=== PATIENT | female | born 1935 | race Two or more races ===

== ENCOUNTER 2019-01-11 17:52 | Inpatient (IN) | payer OTHER, MEDICAID ==
[~2019-01-11] VITALS: Ht 144.8 cm; Wt 56.3 kg
[2019-01-11 18:00] VITALS: BP 93/54
--- NOTE | 2019-01-11 18:00 | NUR ---
ED Nurse Note: PT FROM HOME BROUGHT IN BY AMBULANCE DUE TO GENERALIZED WEAKNESS X 2 WEEKS AND BLACK TARRY STOOLS X 5 DAYS. PER DAUGHTER, PT WAS ADMITTED AT [facility] WEEK OF December AND DC ON JANUARY 04. PT IS AWAKE BUT NON VERBAL, FOLLOWS COMMANDS WITH NO RESPIRATORY DISTRESS, NOTED A BIG BRUISE ON HER RIGHT FOREARM, PER DAUGHTER THE THE PT GOT IT FROM [facility] AT [facility]. VSS.
--- NOTE | 2019-01-11 18:30 | NUR ---
ED Nurse Note: RN UNABLE TO DRAW BLOOD FROM IV SITE. CALLED LAB FOR BLOOD DRAW.
--- NOTE | 2019-01-11 18:53 | NUR ---
ED Nurse Note: DAUGHTER MADE AWARE OF ADMISSION OR POSSIBLE TRANSFER.
--- NOTE | 2019-01-11 19:11 | Emergency Room Report ---
History of Present Illness General Chief Complaint: Gastrointestinal Bleed Source: Family Member Present Illness HPI 83-year-old female presents ED for evaluation. Brought in by EMS. Family at bedside states that patient has been feeling short of breath today. Also noted to be having blood in stool with diarrhea. States that patient was admitted last week to [facility] for the same problem and discharged. Was seen by PMD yesterday but family states full evaluation was not performed. Family states they're not sure of diagnosis on admission but states that they had to take fluid from patient's lung and they were putting her on antibiotics for an infection. Patient denies fevers or chills. Denies chest pain. Denies nausea or vomiting. No other aggravating relieving factors. Denies any other associated symptoms Allergies: Coded Allergies: No Known Allergies (Unverified , 01/11/19) Patient History Past Medical History: none, DM, HTN, CHF, other - throat cancer Past Surgical History: none Pertinent Family History: none Social History: Denies: smoking, alcohol use, drug use Last Menstrual Period: na Now: No Immunizations: UTD Reviewed Nursing Documentation: PMH: Agreed; PSxH: Agreed Nursing Documentation-PMH Hx Cardiac Problems: Yes - chf, anemia Hx Hypertension: Yes Hx Diabetes: Yes Hx Cancer: Yes - throat Hx Dialysis: No - renal failure Review of Systems All Other Systems: negative except mentioned in HPI Physical Exam Vital Signs Date Time Temp Pulse Resp B/P (MAP) Pulse Ox O2 Delivery O2 Flow Rate FiO2 01/11/19 17:45 97.5 64 18 104/52 (69) 100 Room Air Sp02 EP Interpretation: reviewed, normal General Appearance: no apparent distress, alert, GCS 15, non-toxic Head: normocephalic, atraumatic Eyes: bilateral eye normal inspection, bilateral eye PERRL ENT: hearing grossly normal, normal pharynx, no angioedema, normal voice Neck: full range of motion, supple/symm/no masses Respiratory: chest non-tender, lungs clear, crackles, speaking full sentences Cardiovascular #1: regular rate, rhythm, no edema Cardiovascular #2: 2+ carotid (R), 2+ carotid (L), 2+ radial (R), 2+ radial (L) , 2+ dorsalis pedis (R), 2+ dorsalis pedis (L) Gastrointestinal: normal bowel sounds, non tender, soft, non-distended, no guarding, no rebound Rectal: deferred Genitourinary: normal inspection, no CVA tenderness Musculoskeletal: back normal, gait/station normal, normal range of motion, non- tender Neurologic: alert, oriented x3, responsive, motor strength/tone normal, sensory intact, speech normal Psychiatric: judgement/insight normal, memory normal, mood/affect normal, no suicidal/homicidal ideation Reflexes: 3+ bicep (R), 3+ bicep (L), 3+ tricep (R), 3+ tricep (L), 3+ knee (R) , 3+ knee (L) Skin: normal color, no rash, warm/dry, well hydrated Lymphatic: no adenopathy Procedures Critical Care Time Critical Care Time i. I feel this is a highly complex case requiring extensive working including EKG/Rhythm strip, Xray/CT/US, Blood/urine lab work, repeat exams while in ED, and administration of strong opiates/narcotics for pain control, admission to hospital or close patient follow up. Total time: 50 min bedside evaluation and treatment excludes procedures (EKG). Reason for critical care: hypotension, CHF, sepsis, renal failure, severe anemia Possible complications: hypotension, hypertension, GA, shock, arrhythmias, metabolic acidosis, end organ damage, respiratory failure. Interventions: labs, IVFS, EKG, CXR. central line. blood transfusion. antibiotics Course: Patient brought in by EMS for weakness, blood in stool. Hypotensive. Recently discharged from [facility] last week. Chest x-ray shows CHF with effusion. Hemoglobin 3.9. Lactic elevated. BUN/creatinine elevated. BP improved with small IV fluid bolus. Right IJ central line placed with ultrasound. Chest x-ray confirms placement. Broad-spectrum antibiotics given. Blood transfusion started. Consultations: nursing staff, EMS, family Performed by: Dr Marcial Tolerated well condition = critical j. because of unstable vital signs this patient had a condition that could potentially threaten life or limb. I feel this is a critical patient who required my full attention while patient was considered critical. Total Critical Care Time excluding procedures was greater than 50 minutes Central Line Central Line : Consent: Written Central Line Lumen: triple Maximal Sterile Barrier Tech: yes cap, yes mask, yes sterile gown, yes sterile gloves, yes large sterile sheet, yes hand hygiene, yes chlorhexidine prep Central Line Postion: internal jugular (R) Anesthesia: Lidocaine Complications: none Central Line Post Position: sutured, good blood return, position confirmed w / CXR Attempts: One Patient Tolerated: Well Complications: None Medical Decision Making Diagnostic Impression: Primary Impression: LGI bleed Additional Impressions: Anemia Qualified Codes: D64.9 - Anemia, unspecified Sepsis Qualified Codes: A41.9 - Sepsis, unspecified organism CHF (congestive heart failure) Qualified Codes: I50.9 - Heart failure, unspecified Renal failure Qualified Codes: N19 - Unspecified kidney failure ER Course Hospital Course 83 yo F presents to ED with blood in stool, weakness. recent hospitalization Differential diagnoses include: Pneumonia, UTI, sepsis, dehydration, GA/ unstable angina Clinical course Patient placed on stretcher. 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 After initial history and physical, I ordered labs, IV fluids, EKG, chest x-ray, blood cultures, UA. Labs - BUN/Cr elevated, no leukocytosis, hb 3.9, BNP elevated, Lactic > 3 EKG - NSR, no acute ischemic changes interpreted by me CXR - cardiomegaly, L sided effusion Right IJ central line placed with ultrasound. Chest x-ray confirms placement. Also possible infiltrate on the right. BP improved with small fluid bolus. Broad-spectrum antibiotics given. 2 units of blood ordered. Because of profound CHF patient not given 30 mL per KG fluid bolus. Discussed case with family Case discussed with Dr Mixon and they agreed to admit patient to their service for further care and support I feel this is a highly complex case requiring extensive working including EKG/ Rhythm strip, Xray/CT/US, Blood/urine lab work, repeat exams while in ED, and administration of strong opiates/narcotics for pain control, admission to hospital or close patient follow up. Diagnosis - LGIB, anemia, sepsis, CHF, renal failure Patient admitted to SDU in critical condition Labs Test 01/11/19 18:55 01/11/19 20:40 White Blood Count 7.2 K/UL (4.8-10.8) Red Blood Count 1.47 M/UL (4.20-5.40) Hemoglobin 3.9 G/DL (12.0-16.0) Hematocrit 13.1 % (37.0-47.0) Mean Corpuscular Volume 89 FL (80-99) Mean Corpuscular Hemoglobin 26.1 PG (27.0-31.0) Mean Corpuscular Hemoglobin Concent 29.3 G/DL (32.0-36.0) Red Cell Distribution Width 17.4 % (11.6-14.8) Platelet Count 118 K/UL (150-450) Mean Platelet Volume 7.7 FL (6.5-10.1) Neutrophils (%) (Auto) % (45.0-75.0) Lymphocytes (%) (Auto) % (20.0-45.0) Monocytes (%) (Auto) % (1.0-10.0) Eosinophils (%) (Auto) % (0.0-3.0) Basophils (%) (Auto) % (0.0-2.0) Differential Total Cells Counted 100 Neutrophils % (Manual) 87 % (45-75) Lymphocytes % (Manual) 10 % (20-45) Monocytes % (Manual) 3 % (1-10) Eosinophils % (Manual) 0 % (0-3) Basophils % (Manual) 0 % (0-2) Band Neutrophils 0 % (0-8) Platelet Estimate Decreased Platelet Morphology Normal Hypochromasia 3+ Anisocytosis 1+ Prothrombin Time 12.7 SEC (9.30-11.50) Prothromb Time International Ratio 1.2 (0.9-1.1) Activated Partial Thromboplast Time 24 SEC (23-33) Sodium Level 144 MMOL/L (136-145) Potassium Level 5.0 MMOL/L (3.5-5.1) Chloride Level 114 MMOL/L (98-107) Carbon Dioxide Level 14 MMOL/L (21-32) Anion Gap 16 mmol/L (5-15) Blood Urea Nitrogen 166 mg/dL (7-18) Creatinine 4.5 MG/DL (0.55-1.30) Estimat Glomerular Filtration Rate mL/min (>60) Glucose Level 253 MG/DL (74-106) Lactic Acid Level 3.20 mmol/L (0.4-2.0) Calcium Level 7.5 MG/DL (8.5-10.1) Total Bilirubin 0.2 MG/DL (0.2-1.0) Aspartate Amino Transf (AST/SGOT) 16 U/L (15-37) Alanine Aminotransferase (ALT/SGPT) 22 U/L (12-78) Alkaline Phosphatase 31 U/L (46-116) Total Creatine Kinase 93 U/L (26-308) Creatine Kinase MB 6.4 NG/ML (0.0-3.6) Creatine Kinase MB Relative Index 6.8 Troponin I 0.020 ng/mL (0.000-0.056) Pro-B-Type Natriuretic Peptide 37769 pg/mL (0-125) Total Protein 4.1 G/DL (6.4-8.2) Albumin 1.7 G/DL (3.4-5.0) Globulin 2.4 g/dL Albumin/Globulin Ratio 0.7 (1.0-2.7) EKG Diagnostic Results Rate: normal Rhythm: NSR ST Segments: no acute changes ASA given to the pt in ED: No Rhythm Strip Diag. Results EP Interpretation: yes Rhythm: NSR, no PVC's, no ectopy Chest X-Ray Diagnostic Results Chest X-Ray Diagnostic Results : Chest X-Ray Ordered: Yes # of Views/Limited/Complete: 1 View Indication: Shortness of Breath EP Interpretation: Yes Interpretation: no pneumothorax, other - L sided effusion Impression: Other - effusion/CHF Electronically Signed by: Electronically signed by Robbin Marcial MD Last Vital Signs Date Time Temp Pulse Resp B/P (MAP) Pulse Ox O2 Delivery O2 Flow Rate FiO2 01/11/19 18:00 97.5 62 15 93/54 98 Room Air Status: improved Disposition: ADMITTED INPATIENT Condition: Critical Referrals: [facility] (PCP) Robbin Marcial MD January 11, 2019 19:11
--- NOTE | 2019-01-11 19:11 | NUR ---
HAND-OFF: Report given to HORACIO PRUITT.
[2019-01-11 19:32] LABS: HEMATOCRIT 13.1 % (37.0-47.0); MEAN CORPUSCULAR VOLUME 89 FL (80-99); PLATELET COUNT 118 K/UL (150-450); RED BLOOD COUNT 1.47 M/UL (4.20-5.40); RED CELL DISTRIBUTION WIDTH 17.4 % (11.6-14.8); WHITE BLOOD COUNT 7.2 K/UL (4.8-10.8)
[2019-01-11 19:41] LABS: HEMOGLOBIN 3.9 G/DL (12.0-16.0)
[2019-01-11 19:42] LABS: ANION GAP 16 mmol/L (5-15); BLOOD UREA NITROGEN 166 mg/dL (7-18); CALCIUM 7.5 MG/DL (8.5-10.1); CARBON DIOXIDE 14 MMOL/L (21-32); CHLORIDE 114 MMOL/L (98-107); CREATININE 4.5 MG/DL (0.55-1.30); SODIUM 144 MMOL/L (136-145)
[2019-01-11 19:43] LABS: INR 1.2 (0.9-1.1)
--- NOTE | 2019-01-11 19:45 | NUR ---
ED Nurse Note: IN and out cath done, pt tolerated well. urine sent to lab, daughter at bedside
[2019-01-11 19:52] LABS: ALANINE AMINOTRANSFERASE 22 U/L (12-78); ALBUMIN 1.7 G/DL (3.4-5.0); ALBUMIN/GLOBULIN RATIO 0.7 (1.0-2.7); ALKALINE PHOSPHATASE 31 U/L (46-116); ASPARTATE AMINO TRANSFERASE 16 U/L (15-37); BILIRUBIN,TOTAL 0.2 MG/DL (0.2-1.0); CKMB 6.4 NG/ML (0.0-3.6); CREATINE KINASE 93 U/L (26-308)
[2019-01-11 20:02] VITALS: BP 99/69
[2019-01-11] MEDS ORDERED: Piperacillin/Tazobactam 3.375 GM in NS 110 ML IVPB ONE (20:45)
--- NOTE | 2019-01-11 20:45 | NUR ---
ED Nurse Note: Assissted Dr Lo with inserting R IJ central line, pt tolerated well, placement confirmed with xray. confirmed. Line cleansed and dressed.
[2019-01-11] MEDS ORDERED: Azithromycin 500 MG in D5W 275 ML IVPB ONE (21:00)
--- NOTE | 2019-01-11 21:25 | NUR ---
ED Nurse Note: PRBC's started at 50ml/hr per protocol, VSS temp 97.0, Hr 72, BP 100/70. NO signs of distress.
--- NOTE | 2019-01-11 21:40 | NUR ---
ED Nurse Note: PRBC's running for 15 mins, no adverse reaction noted. Pt is calm and showing no signs of distress, VSS temp 96.6, HR 72, BP 91/38. Increased rate to 120mls/hr. Will continue to monitor.
[2019-01-11 22:00] VITALS: BP 92/43
[2019-01-11] MEDS ORDERED: Azithromycin 500mg Inj IV ONE (22:56)
[2019-01-12] VITALS: BP 92/52
--- NOTE | 2019-01-12 00:10 | NUR ---
TRANSFER TO FLOOR: Patient transferred to as ordered, per Dr Mixon. Report given to EDMOND Tapia .1st bag of PRBCs still infusing, pt tolerating well. VSS. Pt cleaned. Family and or S/O informed of transfer.
[2019-01-12] MEDS ORDERED: JANUMET XR 1001 EACH ORAL (01:21)
[2019-01-12] MEDS ORDERED: CARVEDILOL12.5 MG ORAL (01:28)
[2019-01-12] MEDS ORDERED: LIPITOR80 MG ORAL (01:28)
[2019-01-12] MEDS ORDERED: VITAMIN D250000 UNI1 ORAL (01:28)
[2019-01-12] MEDS ORDERED: ISOSORBIDE MONO60 M1 PO (01:59)
[2019-01-12] MEDS ORDERED: ZITHROMAX250 MG ORAL (01:59)
[2019-01-12] MEDS ORDERED: ASPIRIN81 MG ORAL (01:59)
[2019-01-12] MEDS ORDERED: NORVASC10 MG ORAL (01:59)
[2019-01-12] MEDS ORDERED: FUROSEMIDE40 MG ORAL (01:59)
[2019-01-12 04:00] VITALS: BP 121/53
--- NOTE | 2019-01-12 07:30 | NUR ---
HAND-OFF: Report given to Lulu PRUITT.
--- NOTE | 2019-01-12 07:30 | NUR ---
HAND-OFF: Report given to Candida. Addendum: 01/12/19 at 0746 by Willie Vick RN entered in error
--- NOTE | 2019-01-12 07:31 | NUR ---
NURSE NOTES: Received report from Willie Simmons RN. Observed patient in bed awake, alert, and able to make needs known. Patient on room air, no acute respiratory distress noted. Left hand IV 22g intact and patent. Right triple lumen IJ intact and patent, blood tranfusion ongoing. No c/o pain/discomfort at this time. Received orders from Dr Mixon, noted and carried out. Bed locked, alarmed, and in lowest position, side rails up x3, and call light left within reach. Will continue to monitor.
[2019-01-12] MEDS: NovoLOG Insulin Flexpen SUBQ SCH ×4 (07:57→21:04)
[2019-01-12 08:00] VITALS: BP 131/59
--- NOTE | 2019-01-12 10:24 | NUR ---
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 LOWER GI BLEED VS: BP 91/38, P 64, T 97.6, RR 26, SpO2 100 RBC 1.47, H&H 3.9/13.1, Plt. Count 118, BUN 166, CR 4.5 IS:NS x1L IV ZOSYN 110ml IVPB AZITHROMYCIN 500mg IV TRANSFUSED 1 UNIT OF PRBC ADMITTED TO SDU DCP: RETURN HOME
--- NOTE | 2019-01-12 10:36 | NUR ---
NURSE NOTES: Patient is positive for soleal vein thrombus on left leg shown on venous duplex. Dr Mixon notified, received order to d/c SCDs; noted and carried out.
--- NOTE | 2019-01-12 11:12 | Diagnostic Imaging Report ---
Indication: Chest pain Technique: One view of the chest Comparison: none Findings: Patient is rotated to the right. There is a moderate size left pleural effusion. The heart size is borderline enlarged. Lungs and right pleural space are clear. Impression: Left pleural effusion Borderline cardiomegaly
--- NOTE | 2019-01-12 11:17 | Diagnostic Imaging Report ---
Indication: Status post line placement Technique: One view of the chest Comparison: 2 hours earlier Findings: Interim placement a right jugular central venous catheter, tip of which projects at the level of the mid superior vena cava. There is increasing opacity of the right mid and lower lung. However, previously demonstrated left-sided pleural effusion is less evident on this exam, possibly reflecting differences in degree of rotation. There is no pneumothorax. The heart remains borderline enlarged. Impression: Satisfactory central line placement; no radiographic evident complication Questionable new or increased right lung parenchymal opacity. Persistent left pleural effusion or atelectasis This agrees with the preliminary interpretation provided overnight by [facility] teleradiology service.
[2019-01-12 12:00] VITALS: BP_SYST 100; BP_SYST 137; BP_DIAS 59; BP_DIAS 67
--- NOTE | 2019-01-12 12:11 | Cardiology Report ---
APPROVED REPORT EKG Measurement Heart [id number] Normal sinus rhythm Normal ECG
[2019-01-12] MEDS: cefTRIAXone 1 GM in D5W 55 ML IVPB SCH (14:00)
--- NOTE | 2019-01-12 15:17 | NUR ---
*-* INSURANCE *-* ALL CLINICALS AND REVIEW HAVE BEEN FAXED TO: [facility]. P: [phone] F: [phone] ( FAX CLINICALS)
[2019-01-12 16:00] VITALS: BP 136/69
[2019-01-12 16:12] LABS: HEMATOCRIT 30.8 % (37.0-47.0); HEMOGLOBIN 10.7 G/DL (12.0-16.0); MEAN CORPUSCULAR VOLUME 83 FL (80-99); PLATELET COUNT 94 K/UL (150-450); RED BLOOD COUNT 3.71 M/UL (4.20-5.40); RED CELL DISTRIBUTION WIDTH 15.4 % (11.6-14.8); WHITE BLOOD COUNT 15.7 K/UL (4.8-10.8)
[2019-01-12 16:14] LABS: EOSINOPHILS % (AUTO) 0.2 % (0.0-3.0); LYMPHOCYTES % (AUTO) 4.4 % (20.0-45.0); MONOCYTES % (AUTO) 5.8 % (1.0-10.0); NEUTROPHILS % (AUTO) 88.7 % (45.0-75.0)
[2019-01-12 16:25] LABS: INR 1.1 (0.9-1.1)
[2019-01-12 16:32] LABS: ALANINE AMINOTRANSFERASE 27 U/L (12-78); ALBUMIN 2.3 G/DL (3.4-5.0); ALBUMIN/GLOBULIN RATIO 0.8 (1.0-2.7); ALKALINE PHOSPHATASE 43 U/L (46-116); ANION GAP 17 mmol/L (5-15); ASPARTATE AMINO TRANSFERASE 23 U/L (15-37); BILIRUBIN,TOTAL 0.3 MG/DL (0.2-1.0); BLOOD UREA NITROGEN 146 mg/dL (7-18); CALCIUM 7.8 MG/DL (8.5-10.1); CARBON DIOXIDE 15 MMOL/L (21-32); CHLORIDE 112 MMOL/L (98-107); CREATININE 4.1 MG/DL (0.55-1.30); PHOSPHORUS 7.4 MG/DL (2.5-4.9); POTASSIUM 4.1 MMOL/L (3.5-5.1); SODIUM 144 MMOL/L (136-145)
[2019-01-12] MEDS ORDERED: ATORVASTATIN CA20 MG ORAL (17:52)
--- NOTE | 2019-01-12 19:25 | NUR ---
HAND-OFF: Report given to Edgar MELTON RN.
--- NOTE | 2019-01-12 19:30 | NUR ---
NURSE NOTES:received pt awake and alert, speaks Syrian most of the time, Family at bedside. NSR on the monitor, Bp stable, afebrile. RT IJ central line with drsg dry and intact. Pt with perianal moisture dermatitis covered with optifoam drsg dry and intact, RT FA skin tear, and bilateral redness. No active bleeding seen at this time.Will continue to monitor.
--- NOTE | 2019-01-12 19:40 | Diagnostic Imaging Report ---
APPROVED REPORT CPT Code: 14802 Present Symptoms Comments: Left leg pain RIGHT LEG: Venous imaging reveals a patent deep venous system. There is no evidence of thrombus within the femoral, popliteal or tibial segments. The greater saphenous vein is also within normal limits. Doppler indicates normal spontaneous flow within these segments. LEFT LEG: Venous imaging reveals acute thrombus in the isolated soleal vein. Remainder of the deep venous system within normal limits. No evidence of thrombus within the femoral, popliteal or tibial segments. Greater saphenous vein also within normal limits. Doppler indicates normal spontaneous flow within these segments. EDMOND Lawson was notified of abnormal results at 1030 hours.
[2019-01-12 20:00] VITALS: BP 138/54
--- NOTE | 2019-01-12 20:22 | General Progress Note ---
Assessment/Plan Assessment/Plan: GI CONSULT Dictated Assessment - Melena, UGIB - Anemia, s/p transfusion - Renal failure Recommendations - NPO - IVF - PPI - EGD in am Thank you Porsha Garcia MD Subjective Allergies: Coded Allergies: No Known Allergies (Unverified , 01/11/19) Objective Last 24 Hour Vital Signs Date Time Temp Pulse Resp B/P (MAP) Pulse Ox O2 Delivery O2 Flow Rate FiO2 01/12/19 16:00 97.5 77 20 136/69 (91) 96 01/12/19 16:00 Room Air 01/12/19 16:00 78 01/12/19 12:00 76 01/12/19 12:00 Room Air 01/12/19 12:00 97.6 79 20 137/67 (90) 96 01/12/19 08:00 97.8 77 23 131/59 (83) 96 01/12/19 08:00 Room Air 01/12/19 07:30 78 01/12/19 04:00 97.9 70 24 121/53 (75) 95 01/12/19 04:00 Room Air 01/12/19 04:00 75 01/12/19 00:30 Room Air 01/12/19 00:21 98.6 72 25 98/45 100 Room Air 01/12/19 00:14 72 01/12/19 00:00 98.8 78 18 92/52 98 Room Air 01/11/19 22:00 98.2 75 26 92/43 100 Room Air 01/11/19 21:40 96.6 72 24 01/11/19 21:25 97.0 72 20 Intake and Output 01/11/19 01/12/19 19:00 07:00 Intake Total 500 ml Output Total 250 ml Balance 250 ml Blood Product 500 ml Output Urine Total 250 ml # Bowel Movements 2 Laboratory Tests 01/11/19 20:40: Lactic Acid Level 3.20H 01/12/19 15:45: Lactic Acid Level 1.70, White Blood Count 15.7#H, Red Blood Count 3.71L, Hemoglobin 10.7#L, Hematocrit 30.8#L, Mean Corpuscular Volume 83, Mean Corpuscular Hemoglobin 28.7, Mean Corpuscular Hemoglobin Concent 34.6, Red Cell Distribution Width 15.4H, Platelet Count 94L, Mean Platelet Volume 7.8, Neutrophils (%) (Auto) 88.7H, Lymphocytes (%) (Auto) 4.4L, Monocytes (%) (Auto) 5.8, Eosinophils (%) (Auto) 0.2, Basophils (%) (Auto) 1.0, Prothrombin Time 11.4 , Prothromb Time International Ratio 1.1, Sodium Level 144, Potassium Level 4.1 , Chloride Level 112H, Carbon Dioxide Level 15L, Anion Gap 17H, Blood Urea Nitrogen 146H, Creatinine 4.1H, Estimat Glomerular Filtration Rate , Glucose Level 276H, Calcium Level 7.8L, Phosphorus Level 7.4H, Magnesium Level 2.7H, Total Bilirubin 0.3, Aspartate Amino Transf (AST/SGOT) 23, Alanine Aminotransferase (ALT/SGPT) 27, Alkaline Phosphatase 43L, Total Protein 5.1L, Albumin 2.3L, Globulin 2.8, Albumin/Globulin Ratio 0.8L Height (Feet): 4 Height (Inches): 9.00 Weight (Pounds): 130 Porsha Garcia MD January 12, 2019 20:22
--- NOTE | 2019-01-12 20:45 | NUR ---
NURSE NOTES:Dr Garcia called with order for endoscopy in am. Consent was signed by daughter( Nuha).
--- NOTE | 2019-01-12 21:00 | NUR ---
NURSE NOTES:Accucheck 183mg/dl covered with 3 u Nov, Flexpen. HS snack provided per pt request.
--- NOTE | 2019-01-12 21:01 | History and Physical Report ---
DATE OF ADMISSION: 01/11/2019 REASON FOR ADMISSION: GI bleed. HISTORY OF PRESENT ILLNESS: This is an 83-year-old female who was brought in due to significant shortness of breath. The patient is apparently having bloody stool and diarrhea. The patient was admitted to last week at [facility] with discharge unclear as to the findings. The patient apparently had a pleural effusion at that time, placed on antibiotics and was discharged to home. The patient noted to be significantly anemic and has been admitted to the [facility], ongoing transfusion at present time. PAST MEDICAL HISTORY: Diabetes, hypertension, CHF, throat cancer. MEDICATIONS: Reviewed. ALLERGIES: Reviewed. SOCIAL HISTORY: The patient lives with family. Nonsmoker and nondrinker. REVIEW OF SYSTEMS: Notable for the above. PHYSICAL EXAMINATION: GENERAL: A well-developed female appears to be overall comfortable. VITAL SIGNS: Blood pressure 121/53, pulse 75, respiratory rate 24, temperature 97.9, off oxygen at present. HEENT: Negative. NECK: Supple. LUNGS: Reduced breath sounds. CARDIAC: S1 and S2. Regular rate and rhythm. ABDOMEN: Soft, nontender, and nondistended. EXTREMITIES: No edema. LABORATORY DATA: Reviewed. Hemoglobin 8.9, platelets of 118. Chemistries noted, bicarbonate 14, BUN 166, creatinine 4.5. Lactic acid 2.2. BNP reviewed. Albumin is 1.7. IMPRESSION: 1. Severe protein-calorie malnutrition. 2. End-stage renal disease. 3. Anemia profound, possible gastrointestinal bleed. 4. acute on chronic encephalopathy 5. History of congestive heart failure. RECOMMENDATION: 1. Supportive care. 2. Renal evaluation. 3. GI evaluation. 4. Cardiology evaluation. 5. Transfuse and monitor hemoglobin and hematocrit. 6. No anticoagulation for now. 7. We will follow clinically. 8. The patient is guarded at present. 9. We will discuss with family. Joss Mixon M.D. DR: Bhanu JOB#: [id number] CC: AZEEM
--- NOTE | 2019-01-12 21:01 | Consultation ---
DATE OF CONSULTATION: 01/12/2019 INFECTIOUS DISEASE CONSULT This consult is for coverage of Dr. Gamble. CONSULTING PHYSICIAN: Sahil Flores M.D. PRIMARY ATTENDING PHYSICIAN: Joss Mixon M.D. REASON FOR CONSULTATION: Pneumonia. HISTORY OF PRESENT ILLNESS: This is an 83-year-old female admitted last night, complaining of shortness of breath. Also, had bloody diarrhea. The patient was found to have profound anemia with hemoglobin of 3,5, received 4 units of blood and also received antibiotic in the ER. PAST MEDICAL HISTORY: Significant for diabetes mellitus, hypertension, chronic kidney disease, diastolic CHF, neck cancer likely from origin, anemia. The patient has history of recent admission in December of 2018 at [facility]. She stayed there for two weeks. She was found to have pleural effusion and had thoracentesis. Echocardiogram showed normal ejection fraction. She has anemia there and received 1 unit of blood. ALLERGIES: No known drug allergies. MEDICATIONS: Getting insulin, Tylenol, Mylanta, get a dose of Zithromax and Zosyn. SOCIAL HISTORY: . Denies alcohol, drug abuse, or smoking. She has 8 children. REVIEW OF SYSTEMS: According to daughter, has decreased appetite recently and reflux. No difficulty of swallowing before, but does have some difficulty recently. She has bloody diarrhea. No pain. No significant coughing. PHYSICAL EXAMINATION: VITAL SIGNS: Temperature 97.6, pulse 79, blood pressure 137/67. HEAD AND NECK: Pale conjunctiva. No oral lesion. Uses dentures. Mucous membranes are moist. HEART: Normal rate. LUNGS: Clear. ABDOMEN: Soft and nontender. EXTREMITIES: Generalized edema. NEUROLOGIC: She is awake, responsive. LABORATORY AND DIAGNOSTIC DATA: WBC 7.0, hemoglobin 3.9, hematocrit 13.1, and platelets is 118,000. Sodium 144, potassium 5, chloride 114, carbon dioxide 14, BUN 166, creatinine 4.5, lactic acid 3.2, albumin is 1.7. Chest x-ray showed left pleural effusion, borderline cardiomegaly. The second chest x-ray was obtained after putting right jugular line, shows increased right lung parenchymal opacity. IMPRESSION: 1. Early pneumonia. 2. lower GI bleeding. 3. History of CHF. 4. Chronic kidney disease. 5. Severe anemia, status post blood transfusion. 6. History of throat cancer. According to family, the patient was supposed to have more evaluation. 7. Diabetes mellitus. 8. Hypertension. RECOMMENDATION: Start on ceftriaxone. We will follow up the cultures. We will follow up the GI evaluation. At the end of my exam, I thank Dr. Mixon for involving me in the care of this patient. Sahil Flores M.D. DR: JENELLE JOB#: [id number] CC: AZEEM
--- NOTE | 2019-01-12 22:22 | NUR ---
NURSE NOTES: Pt report received from Patricia PRUITT [facility]. Pt appears to be in stable condition as she is resting comfortably in bed. Pt is alert and oriented times 4, able to follow simple commands and pupiles are rounds and reactive to light bilaterally. Pt is saturating at 99% room are, no signs or symptoms of acute respiratory distress noted. Pt has a ekg monitor in place, active and displaying sinus rhythm, pt has no signs or symptoms of acute cardiac distress noted. Pt has a R IJ 3 lumen line and a R hand 22 G both able to flush with no abnormalities noted to site. all safety precautions are in place, bed is in lowest position, call light is within easy reach, bed rails are up times 3, bed alarm is active. will continue plan of care.
--- NOTE | 2019-01-12 22:30 | NUR ---
HAND-OFF:Full report given to Marin PRUITT.
[2019-01-13] VITALS (12 sets, daily range): BP systolic 140–155; BP diastolic 64–77
--- NOTE | 2019-01-13 02:49 | NUR ---
NURSE NOTES: Fran from [employer] called, pt is positive VRE REC.
--- NOTE | 2019-01-13 03:30 | Consultation ---
DATE OF CONSULTATION: 01/12/2019 GASTROENTEROLOGY CONSULTATION CONSULTING PHYSICIAN: Porsha Garcia M.D. CHIEF COMPLAINT: I was asked to see this patient by Dr. Joss Mixon for evaluation of gastrointestinal bleeding. HISTORY OF PRESENT ILLNESS: The patient is an 83-year-old woman who was recently admitted and discharged from the outside hospital. She came from home because of black bowel movements and also feeling short of breath. The patient was apparently in an outside hospital and had no bowel movement for the last 15 days. Apparently multiple laxatives were given to her and she started having bowel movement after discharge. However, subsequently, the patient noted that her stools were black and loose and yesterday she became short of breath. It was felt that she was apparently having gastrointestinal bleeding. She came to the emergency room where she was noted to be severely anemic. She received four blood transfusions in the night and she feels better now. She denies any nausea or vomiting and no abdominal pain. The patient had no history of peptic ulcer disease and no prior endoscopy or colonoscopy. She does take aspirin on a daily basis. PAST MEDICAL HISTORY: History of diabetes, hypertension, congestive heart failure, history of throat cancer. FAMILY HISTORY: Noncontributory. SOCIAL HISTORY: The patient is descent and lives in [place]. ALLERGIES: None. MEDICATIONS: See the chart list for details. REVIEW OF SYSTEMS: Otherwise negative. PHYSICAL EXAMINATION: GENERAL: Pleasant elderly woman, who is hard of hearing during interview, in no distress. HEENT: Normocephalic and atraumatic. Sclerae anicteric. Oropharynx clear. NECK: Supple. CHEST: Clear to auscultation. CARDIOVASCULAR: Revealed a regular rate. ABDOMEN: Soft. Good bowel sounds. There is no organomegaly or tenderness. EXTREMITIES: Revealed no edema. LABORATORY DATA: Noted. ASSESSMENT: This patient presents with gastrointestinal bleeding and black stools. This is likely upper GI bleeding, therefore the patient will need an endoscopy tomorrow to evaluate the upper GI tract. The indications, risks, alternatives, and possible complications were explained to the patient's family and informed consent was obtained. In the meantime, we will treat the patient with patient proton pump inhibitors and should be made NPO after midnight for endoscopy tomorrow. The patient also has a depressed labs should be watched with serum laboratory tests. RECOMMENDATIONS: Per above discussion and per orders written in the chart. Thank you for asking me to participate in the care of this patient. Porsha Garcia M.D. DR: HEBERT JOB#: [id number] CC: [email or web address]
[2019-01-13 05:49] LABS: HEMATOCRIT 32.3 % (37.0-47.0); HEMOGLOBIN 10.7 G/DL (12.0-16.0); MEAN CORPUSCULAR VOLUME 86 FL (80-99); PLATELET COUNT 99 K/UL (150-450); RED BLOOD COUNT 3.77 M/UL (4.20-5.40); RED CELL DISTRIBUTION WIDTH 16.2 % (11.6-14.8); WHITE BLOOD COUNT 13.9 K/UL (4.8-10.8)
[2019-01-13] MEDS: NovoLOG Insulin Flexpen SUBQ SCH ×4 (06:07→20:56)
[2019-01-13 06:20] LABS: ALANINE AMINOTRANSFERASE 29 U/L (12-78); ALBUMIN 2.3 G/DL (3.4-5.0); ALBUMIN/GLOBULIN RATIO 0.9 (1.0-2.7); ALKALINE PHOSPHATASE 43 U/L (46-116); ANION GAP 17 mmol/L (5-15); ASPARTATE AMINO TRANSFERASE 22 U/L (15-37); BILIRUBIN,TOTAL 0.3 MG/DL (0.2-1.0); BLOOD UREA NITROGEN 134 mg/dL (7-18); CALCIUM 7.8 MG/DL (8.5-10.1); CARBON DIOXIDE 16 MMOL/L (21-32); CHLORIDE 116 MMOL/L (98-107); CREATININE 3.9 MG/DL (0.55-1.30); POTASSIUM 3.7 MMOL/L (3.5-5.1); SODIUM 149 MMOL/L (136-145)
--- NOTE | 2019-01-13 06:43 | Anethesia Preoperative Eval ---
Anesthesia Pre-op PMH/ROS General Date of Evaluation: January 13, 2019 Time of Evaluation: 06:41 Anesthesiologist: dwayne ASA Score: ASA 4 Mallampati Score Class I : Soft palate, uvula, fauces, pillars visible Class II: Soft palate, uvula, fauces visible Class III: Soft palate, base of uvula visible Class IV: Only hard plate visible Mallampati Classification: Class II Surgeon: hima Diagnosis: gi bleed, anemia Surgical Procedure: egd w/ bx Anesthesia History: none Social History: smoking - nonsmoker Family History: no anesthesia problems Allergies: Coded Allergies: No Known Allergies (Unverified , 01/11/19) Medications: see eMAR Patient NPO?: Yes Past Medical History Cardiovascular: Reports: HTN, other - chf Gastrointestinal/Genitourinary: Reports: ESRD - on hd, other - gi bleed Endocrine: Reports: DM HEENT: Reports: other - throat cancer Hematology/Immune: Reports: anemia Anesthesia Pre-op Phys. Exam Physician Exam Last Vital Signs Date Time Temp Pulse Resp B/P (MAP) Pulse Ox O2 Delivery O2 Flow Rate FiO2 01/13/19 04:00 Room Air 01/13/19 04:00 74 01/13/19 04:00 98.1 20 144/64 (90) 99 Constitutional: NAD Neurologic: CN 2-12 intact Cardiovascular: RRR Respiratory: CTA Gastrointestinal: S/NT/ND Airway Exam Mallampati Score: Class II MO: limited Neck: short TMD: 2fb ROM: limited Teeth: missing Anesthesia Pre-op A/P Labs Hematology Test 01/12/19 15:45 01/13/19 04:05 White Blood Count 15.7 K/UL (4.8-10.8) #H 13.9 K/UL (4.8-10.8) H Red Blood Count 3.71 M/UL (4.20-5.40) L 3.77 M/UL (4.20-5.40) L Hemoglobin 10.7 G/DL (12.0-16.0) #L 10.7 G/DL (12.0-16.0) L Hematocrit 30.8 % (37.0-47.0) #L 32.3 % (37.0-47.0) L Mean Corpuscular Volume 83 FL (80-99) 86 FL (80-99) Mean Corpuscular Hemoglobin 28.7 PG (27.0-31.0) 28.4 PG (27.0-31.0) Mean Corpuscular Hemoglobin Concent 34.6 G/DL (32.0-36.0) 33.1 G/DL (32.0-36.0) Red Cell Distribution Width 15.4 % (11.6-14.8) H 16.2 % (11.6-14.8) H Platelet Count 94 K/UL (150-450) L 99 K/UL (150-450) L Mean Platelet Volume 7.8 FL (6.5-10.1) 8.0 FL (6.5-10.1) Neutrophils (%) (Auto) 88.7 % (45.0-75.0) H % (45.0-75.0) Lymphocytes (%) (Auto) 4.4 % (20.0-45.0) L % (20.0-45.0) Monocytes (%) (Auto) 5.8 % (1.0-10.0) % (1.0-10.0) Eosinophils (%) (Auto) 0.2 % (0.0-3.0) % (0.0-3.0) Basophils (%) (Auto) 1.0 % (0.0-2.0) % (0.0-2.0) Neutrophils % (Manual) Pending Lymphocytes % (Manual) Pending Platelet Estimate Pending Platelet Morphology Pending Coagulation Test 01/12/19 15:45 Prothrombin Time 11.4 SEC (9.30-11.50) Prothromb Time International Ratio 1.1 (0.9-1.1) Chemistry Test 01/12/19 15:45 01/13/19 04:05 Sodium Level 144 MMOL/L (136-145) 149 MMOL/L (136-145) H Potassium Level 4.1 MMOL/L (3.5-5.1) 3.7 MMOL/L (3.5-5.1) Chloride Level 112 MMOL/L (98-107) H 116 MMOL/L (98-107) H Carbon Dioxide Level 15 MMOL/L (21-32) L 16 MMOL/L (21-32) L Anion Gap 17 mmol/L (5-15) H 17 mmol/L (5-15) H Blood Urea Nitrogen 146 mg/dL (7-18) H 134 mg/dL (7-18) H Creatinine 4.1 MG/DL (0.55-1.30) H 3.9 MG/DL (0.55-1.30) H Estimat Glomerular Filtration Rate mL/min (>60) mL/min (>60) Glucose Level 276 MG/DL (74-106) H 161 MG/DL (74-106) #H Lactic Acid Level 1.70 mmol/L (0.4-2.0) Calcium Level 7.8 MG/DL (8.5-10.1) L 7.8 MG/DL (8.5-10.1) L Phosphorus Level 7.4 MG/DL (2.5-4.9) H Magnesium Level 2.7 MG/DL (1.8-2.4) H Total Bilirubin 0.3 MG/DL (0.2-1.0) 0.3 MG/DL (0.2-1.0) Aspartate Amino Transf (AST/SGOT) 23 U/L (15-37) 22 U/L (15-37) Alanine Aminotransferase (ALT/SGPT) 27 U/L (12-78) 29 U/L (12-78) Alkaline Phosphatase 43 U/L (46-116) L 43 U/L (46-116) L Total Protein 5.1 G/DL (6.4-8.2) L 4.9 G/DL (6.4-8.2) L Albumin 2.3 G/DL (3.4-5.0) L 2.3 G/DL (3.4-5.0) L Globulin 2.8 g/dL 2.6 g/dL Albumin/Globulin Ratio 0.8 (1.0-2.7) L 0.9 (1.0-2.7) L Risk Assessment & Plan Assessment: [email or web address] Plan: mac Status Change Before Surgery: No Pre-Antibiotics Drug: Andie Garcia MD January 13, 2019 06:43
[2019-01-13] MEDS ORDERED: Propofol 200mg/20ml IV ONE (07:00)
[2019-01-13] MEDS ORDERED: Lidocaine 1% MPF 10mg/ml 5ml ONE (07:00)
--- NOTE | 2019-01-13 07:14 | General Progress Note ---
Assessment/Plan Assessment/Plan: POST PROCEDURE ADDENDUM: EGD: SIX duodenal ulcers, one large (1.5 cm) and remaining five about 5 mm each , all white based No active bleeding, biopsied antrum for HP evaluation valecular ulceration seen, possibly related to given history of "throat cancer" Recommendations: Clear liquids, advance PPI Check path and Rx HP if (+) consider ENT eval for throat abnormalities Subjective Allergies: Coded Allergies: No Known Allergies (Unverified , 01/11/19) Objective Last 24 Hour Vital Signs Date Time Temp Pulse Resp B/P (MAP) Pulse Ox O2 Delivery O2 Flow Rate FiO2 01/13/19 04:00 Room Air 01/13/19 04:00 74 01/13/19 04:00 98.1 76 20 144/64 (90) 99 01/13/19 00:00 97.9 74 20 141/71 (94) 98 01/13/19 00:00 Room Air 01/12/19 22:37 20 01/12/19 20:00 78 01/12/19 20:00 97.7 77 20 138/54 (82) 97 01/12/19 20:00 Room Air 01/12/19 16:00 97.5 77 20 136/69 (91) 96 01/12/19 16:00 Room Air 01/12/19 16:00 78 01/12/19 12:00 76 01/12/19 12:00 Room Air 01/12/19 12:00 97.6 79 20 137/67 (90) 96 01/12/19 08:00 97.8 77 23 131/59 (83) 96 01/12/19 08:00 Room Air 01/12/19 07:30 78 Intake and Output 01/12/19 01/13/19 19:00 07:00 Intake Total 970 ml Output Total 50 ml Balance 970 ml -50 ml Intake Oral 360 ml IV Total 110 ml Blood Product 500 ml Output Urine Total 50 ml # Voids 3 1 Laboratory Tests 01/12/19 15:45: White Blood Count 15.7#H, Red Blood Count 3.71L, Hemoglobin 10.7#L, Hematocrit 30.8#L, Mean Corpuscular Volume 83, Mean Corpuscular Hemoglobin 28.7, Mean Corpuscular Hemoglobin Concent 34.6, Red Cell Distribution Width 15.4H, Platelet Count 94L, Mean Platelet Volume 7.8, Neutrophils (%) (Auto) 88.7H, Lymphocytes (%) (Auto) 4.4L, Monocytes (%) (Auto) 5.8, Eosinophils (%) (Auto) 0.2, Basophils (%) (Auto) 1.0, Prothrombin Time 11.4, Prothromb Time International Ratio 1.1, Sodium Level 144, Potassium Level 4.1, Chloride Level 112H, Carbon Dioxide Level 15L, Anion Gap 17H, Blood Urea Nitrogen 146H, Creatinine 4.1H, Estimat Glomerular Filtration Rate , Glucose Level 276H, Lactic Acid Level 1.70, Calcium Level 7.8L, Phosphorus Level 7.4H, Magnesium Level 2.7H, Total Bilirubin 0.3, Aspartate Amino Transf (AST/SGOT) 23, Alanine Aminotransferase (ALT/SGPT) 27, Alkaline Phosphatase 43L, Total Protein 5.1L, Albumin 2.3L, Globulin 2.8, Albumin/Globulin Ratio 0.8L 01/13/19 04:05: White Blood Count 13.9H, Red Blood Count 3.77L, Hemoglobin 10.7L, Hematocrit 32.3L, Mean Corpuscular Volume 86, Mean Corpuscular Hemoglobin 28.4, Mean Corpuscular Hemoglobin Concent 33.1, Red Cell Distribution Width 16.2H, Platelet Count 99L, Mean Platelet Volume 8.0, Neutrophils (%) (Auto) , Lymphocytes (%) (Auto) , Monocytes (%) (Auto) , Eosinophils (%) (Auto) , Basophils (%) (Auto) , Sodium Level 149H, Potassium Level 3.7, Chloride Level 116H, Carbon Dioxide Level 16L, Anion Gap 17H, Blood Urea Nitrogen 134H, Creatinine 3.9H, Estimat Glomerular Filtration Rate , Glucose Level 161#H, Calcium Level 7.8L, Total Bilirubin 0.3, Aspartate Amino Transf (AST/SGOT) 22, Alanine Aminotransferase (ALT/SGPT) 29, Alkaline Phosphatase 43L, Total Protein 4.9L, Albumin 2.3L, Globulin 2.6, Albumin/Globulin Ratio 0.9L, Neutrophils % ( Manual) [Pending], Lymphocytes % (Manual) [Pending], Platelet Estimate [Pending] , Platelet Morphology [Pending] Height (Feet): 4 Height (Inches): 9.00 Weight (Pounds): 134 Objective WDWN NCAT supple CTA RR abd soft ND NT no edema Porsha Garcia MD January 13, 2019 07:14
--- NOTE | 2019-01-13 07:14 | Pre-Procedure Note/Attestation ---
Pre-Procedure Note/Attestation Complete Prior to Procedure Planned Procedure: not applicable Procedure Narrative: egd Indications for Procedure Pre-Operative Diagnosis: gib Attestation I attest that I discussed the nature of the procedure; its benefits; risks and complications; and alternatives (and the risks and benefits of such alternatives ), prior to the procedure, with the patient (or the patient's legal door to door sales representative). I attest that, if there was a reasonable possibility of needing a blood transfusion, the patient (or the patient's legal door to door sales representative) was given the [facility] standardized written summary, pursuant to the Trey Ward Blood Safety Act ([place] Health and Safety Code # 1645, as amended). I attest that I re-evaluated the patient just prior to the surgery and that there has been no change in the patient's H&P, except as documented below: Porsha Garcia MD January 13, 2019 07:14
--- NOTE | 2019-01-13 07:24 | NUR ---
NURSE NOTES: Received report from EDMOND Funes. Patient is currently in GI lab.
--- NOTE | 2019-01-13 07:30 | NUR ---
HAND-OFF: Report given to Hattie PRUITT and Zayda PRUITT.
--- NOTE | 2019-01-13 08:00 | General Progress Note ---
Assessment/Plan Assessment/Plan: Assessment - Melena, UGIB - Anemia, s/p transfusion - Renal failure - h/o throat cancer - mild hypernatremia Recommendations - NPO - IVF - PPI - EGD today - Free water po after EGD POST PROCEDURE ADDENDUM: EGD: SIX duodenal ulcers, one large (1.5 cm) and remaining five about 5 mm each , all white based No active bleeding, biopsied antrum for HP evaluation valecular ulceration seen, possibly related to given history of "throat cancer" Recommendations: Clear liquids, advance PPI Check path and Rx HP if (+) consider ENT eval for throat abnormalities Subjective Allergies: Coded Allergies: No Known Allergies (Unverified , 01/11/19) Subjective No events overnight NPO for EGD H&H improved and stable Objective Last 24 Hour Vital Signs Date Time Temp Pulse Resp B/P (MAP) Pulse Ox O2 Delivery O2 Flow Rate FiO2 01/13/19 07:52 71 18 150/70 100 Nasal Cannula 2.0 01/13/19 07:47 70 17 152/70 99 Nasal Cannula 2.0 01/13/19 07:42 97.4 67 18 144/65 99 Nasal Cannula 2.0 01/13/19 04:00 Room Air 01/13/19 04:00 74 01/13/19 04:00 98.1 76 20 144/64 (90) 99 01/13/19 00:00 97.9 74 20 141/71 (94) 98 01/13/19 00:00 Room Air 01/12/19 22:37 20 01/12/19 20:00 78 01/12/19 20:00 97.7 77 20 138/54 (82) 97 01/12/19 20:00 Room Air 01/12/19 16:00 97.5 77 20 136/69 (91) 96 01/12/19 16:00 Room Air 01/12/19 16:00 78 01/12/19 12:00 76 01/12/19 12:00 Room Air 01/12/19 12:00 97.6 79 20 137/67 (90) 96 01/12/19 08:00 97.8 77 23 131/59 (83) 96 01/12/19 08:00 Room Air Intake and Output 01/12/19 01/13/19 19:00 07:00 Intake Total 970 ml Output Total 50 ml Balance 970 ml -50 ml Intake Oral 360 ml IV Total 110 ml Blood Product 500 ml Output Urine Total 50 ml # Voids 3 1 Laboratory Tests 01/12/19 15:45: White Blood Count 15.7#H, Red Blood Count 3.71L, Hemoglobin 10.7#L, Hematocrit 30.8#L, Mean Corpuscular Volume 83, Mean Corpuscular Hemoglobin 28.7, Mean Corpuscular Hemoglobin Concent 34.6, Red Cell Distribution Width 15.4H, Platelet Count 94L, Mean Platelet Volume 7.8, Neutrophils (%) (Auto) 88.7H, Lymphocytes (%) (Auto) 4.4L, Monocytes (%) (Auto) 5.8, Eosinophils (%) (Auto) 0.2, Basophils (%) (Auto) 1.0, Prothrombin Time 11.4, Prothromb Time International Ratio 1.1, Sodium Level 144, Potassium Level 4.1, Chloride Level 112H, Carbon Dioxide Level 15L, Anion Gap 17H, Blood Urea Nitrogen 146H, Creatinine 4.1H, Estimat Glomerular Filtration Rate , Glucose Level 276H, Lactic Acid Level 1.70, Calcium Level 7.8L, Phosphorus Level 7.4H, Magnesium Level 2.7H, Total Bilirubin 0.3, Aspartate Amino Transf (AST/SGOT) 23, Alanine Aminotransferase (ALT/SGPT) 27, Alkaline Phosphatase 43L, Total Protein 5.1L, Albumin 2.3L, Globulin 2.8, Albumin/Globulin Ratio 0.8L 01/13/19 04:05: White Blood Count 13.9H, Red Blood Count 3.77L, Hemoglobin 10.7L, Hematocrit 32.3L, Mean Corpuscular Volume 86, Mean Corpuscular Hemoglobin 28.4, Mean Corpuscular Hemoglobin Concent 33.1, Red Cell Distribution Width 16.2H, Platelet Count 99L, Mean Platelet Volume 8.0, Neutrophils (%) (Auto) , Lymphocytes (%) (Auto) , Monocytes (%) (Auto) , Eosinophils (%) (Auto) , Basophils (%) (Auto) , Sodium Level 149H, Potassium Level 3.7, Chloride Level 116H, Carbon Dioxide Level 16L, Anion Gap 17H, Blood Urea Nitrogen 134H, Creatinine 3.9H, Estimat Glomerular Filtration Rate , Glucose Level 161#H, Calcium Level 7.8L, Total Bilirubin 0.3, Aspartate Amino Transf (AST/SGOT) 22, Alanine Aminotransferase (ALT/SGPT) 29, Alkaline Phosphatase 43L, Total Protein 4.9L, Albumin 2.3L, Globulin 2.6, Albumin/Globulin Ratio 0.9L, Neutrophils % ( Manual) [Pending], Lymphocytes % (Manual) [Pending], Platelet Estimate [Pending] , Platelet Morphology [Pending] Height (Feet): 4 Height (Inches): 9.00 Weight (Pounds): 134 Objective WDWN NCAT supple CTA RR abd soft ND NT no edema Porsha Garcia MD January 13, 2019 08:00
--- NOTE | 2019-01-13 08:24 | Immediate Post-Op Evaluation ---
Immediate Post-Op Evalulation Immediate Post-Op Evalulation Procedure: egd w/bx Date of Evaluation: January 13, 2019 Time of Evaluation: 07:54 IV Fluids: 150ml 0.9ns Blood Products: none Estimated Blood Loss: negligible Blood Pressure Systolic: 144 Blood Pressure Diastolic: 65 Pulse Rate: 67 Respiratory Rate: 18 O2 Sat by Pulse Oximetry: 99 Temperature (Fahrenheit): 97.4 Pain Score (1-10): 0 Nausea: No Vomiting: No Complications none Patient Status: awake, reacts, patent Hydration Status: adequate Drug: Andie Garcia MD January 13, 2019 08:24
--- NOTE | 2019-01-13 08:35 | 48 Hour Post Anesthesia Eval ---
Post Anesthesia Evaluation Procedure: egd w/bx Date of Evaluation: January 13, 2019 Time of Evaluation: 07:56 Blood Pressure Systolic: 150 0: 70 Pulse Rate: 71 Respiratory Rate: 18 Temperature (Fahrenheit): 97.4 O2 Sat by Pulse Oximetry: 99 Airway: patent Nausea: No Vomiting: No Pain Intensity: 0 Hydration Status: adequate Cardiopulmonary Status: stable Mental Status/LOC: patient returned to baseline Post-Anesthesia Complications: none Follow-up care needed: N/A Andie Taylor MD January 13, 2019 08:35
--- NOTE | 2019-01-13 10:26 | NUR ---
*-* INSURANCE *-* UPDATED CLINICALS HAVE BEEN FAXED TO: [employer]. P: [phone] F: [phone] ( FAX CLINICALS)
--- NOTE | 2019-01-13 10:45 | NUR ---
NURSE NOTES: Patient was encouraged to void freely and placed on bedpan; unable to void. Bladder noted to be distended, bladder scan showed 911 mL. Bilateral upper extremities edematous; right arm with pitting edema +2. Dr Mixon notified and made aware; new orders noted and carried out.
--- NOTE | 2019-01-13 11:12 | Infectious Diseases Prog Note ---
Assessment/Plan Assessment/Plan antibiotics : ceftriaxone A 1. pneumonia 2. renal failure improving 3. severe anemia resolving 4. GI bleeding 5. throat cancer 6. diabetes mellitus 7. hypertension P 1. continue ceftriaxone 2. will follow up cultures Subjective Constitutional: Denies: fever, chills Respiratory: Denies: shortness of breath, dry cough Gastrointestinal/Abdominal: Denies: nausea, vomiting, diarrhea Musculoskeletal: Denies: pain Allergies: Coded Allergies: No Known Allergies (Unverified , 01/11/19) Objective Vital Signs Last 24 Hour Vital Signs Date Time Temp Pulse Resp B/P (MAP) Pulse Ox O2 Delivery O2 Flow Rate FiO2 01/13/19 08:35 71 18 99 01/13/19 08:34 67 18 99 01/13/19 08:32 72 01/13/19 08:29 96.6 72 20 140/77 (98) 96 01/13/19 08:20 97.4 71 18 144/72 100 Nasal Cannula 2.0 01/13/19 08:20 Room Air 01/13/19 08:12 72 18 150/71 100 Nasal Cannula 2.0 01/13/19 08:02 70 17 147/71 100 Nasal Cannula 2.0 01/13/19 07:52 71 18 150/70 100 Nasal Cannula 2.0 01/13/19 07:47 70 17 152/70 99 Nasal Cannula 2.0 01/13/19 07:42 97.4 67 18 144/65 99 Nasal Cannula 2.0 01/13/19 04:00 Room Air 01/13/19 04:00 74 01/13/19 04:00 98.1 76 20 144/64 (90) 99 01/13/19 00:00 97.9 74 20 141/71 (94) 98 01/13/19 00:00 Room Air 01/12/19 22:37 20 01/12/19 20:00 78 01/12/19 20:00 97.7 77 20 138/54 (82) 97 01/12/19 20:00 Room Air 01/12/19 16:00 97.5 77 20 136/69 (91) 96 01/12/19 16:00 Room Air 01/12/19 16:00 78 01/12/19 12:00 76 01/12/19 12:00 Room Air 01/12/19 12:00 97.6 79 20 137/67 (90) 96 Height (Feet): 4 Height (Inches): 9.00 Weight (Pounds): 134 Respiratory/Chest: lungs clear Cardiovascular: normal rate, regular rhythm, no gallop/murmur Abdomen: soft, non tender Extremities: other - + edema, right IJ catheter Microbiology Date/Time Source Procedure Growth Status 01/11/19 18:55 Blood Blood Culture - Preliminary NO GROWTH AFTER 24 HOURS Resulted 01/11/19 18:40 Blood Blood Culture - Preliminary NO GROWTH AFTER 24 HOURS Resulted 01/11/19 19:45 Rectum VRE Culture - Final Enterococcus Faecium - Vre Complete Laboratory Tests Test 01/12/19 15:45 01/13/19 04:05 White Blood Count 15.7 K/UL (4.8-10.8) #H 13.9 K/UL (4.8-10.8) H Red Blood Count 3.71 M/UL (4.20-5.40) L 3.77 M/UL (4.20-5.40) L Hemoglobin 10.7 G/DL (12.0-16.0) #L 10.7 G/DL (12.0-16.0) L Hematocrit 30.8 % (37.0-47.0) #L 32.3 % (37.0-47.0) L Mean Corpuscular Volume 83 FL (80-99) 86 FL (80-99) Mean Corpuscular Hemoglobin 28.7 PG (27.0-31.0) 28.4 PG (27.0-31.0) Mean Corpuscular Hemoglobin Concent 34.6 G/DL (32.0-36.0) 33.1 G/DL (32.0-36.0) Red Cell Distribution Width 15.4 % (11.6-14.8) H 16.2 % (11.6-14.8) H Platelet Count 94 K/UL (150-450) L 99 K/UL (150-450) L Mean Platelet Volume 7.8 FL (6.5-10.1) 8.0 FL (6.5-10.1) Neutrophils (%) (Auto) 88.7 % (45.0-75.0) H % (45.0-75.0) Lymphocytes (%) (Auto) 4.4 % (20.0-45.0) L % (20.0-45.0) Monocytes (%) (Auto) 5.8 % (1.0-10.0) % (1.0-10.0) Eosinophils (%) (Auto) 0.2 % (0.0-3.0) % (0.0-3.0) Basophils (%) (Auto) 1.0 % (0.0-2.0) % (0.0-2.0) Prothrombin Time 11.4 SEC (9.30-11.50) Prothromb Time International Ratio 1.1 (0.9-1.1) Sodium Level 144 MMOL/L (136-145) 149 MMOL/L (136-145) H Potassium Level 4.1 MMOL/L (3.5-5.1) 3.7 MMOL/L (3.5-5.1) Chloride Level 112 MMOL/L (98-107) H 116 MMOL/L (98-107) H Carbon Dioxide Level 15 MMOL/L (21-32) L 16 MMOL/L (21-32) L Anion Gap 17 mmol/L (5-15) H 17 mmol/L (5-15) H Blood Urea Nitrogen 146 mg/dL (7-18) H 134 mg/dL (7-18) H Creatinine 4.1 MG/DL (0.55-1.30) H 3.9 MG/DL (0.55-1.30) H Estimat Glomerular Filtration Rate mL/min (>60) mL/min (>60) Glucose Level 276 MG/DL (74-106) H 161 MG/DL (74-106) #H Lactic Acid Level 1.70 mmol/L (0.4-2.0) Calcium Level 7.8 MG/DL (8.5-10.1) L 7.8 MG/DL (8.5-10.1) L Phosphorus Level 7.4 MG/DL (2.5-4.9) H Magnesium Level 2.7 MG/DL (1.8-2.4) H Total Bilirubin 0.3 MG/DL (0.2-1.0) 0.3 MG/DL (0.2-1.0) Aspartate Amino Transf (AST/SGOT) 23 U/L (15-37) 22 U/L (15-37) Alanine Aminotransferase (ALT/SGPT) 27 U/L (12-78) 29 U/L (12-78) Alkaline Phosphatase 43 U/L (46-116) L 43 U/L (46-116) L Total Protein 5.1 G/DL (6.4-8.2) L 4.9 G/DL (6.4-8.2) L Albumin 2.3 G/DL (3.4-5.0) L 2.3 G/DL (3.4-5.0) L Globulin 2.8 g/dL 2.6 g/dL Albumin/Globulin Ratio 0.8 (1.0-2.7) L 0.9 (1.0-2.7) L Differential Total Cells Counted 100 Neutrophils % (Manual) 88 % (45-75) H Lymphocytes % (Manual) 8 % (20-45) L Monocytes % (Manual) 2 % (1-10) Eosinophils % (Manual) 2 % (0-3) Basophils % (Manual) 0 % (0-2) Band Neutrophils 0 % (0-8) Platelet Estimate Decreased L Platelet Morphology Normal Hypochromasia 1+ Anisocytosis 1+ Current Medications Medications (Trade) Dose Ordered Sig/Eleanor Route PRN Reason Start Time Stop Time Status Last Admin Dose Admin Acetaminophen (Tylenol) 650 mg Q4H PRN ORAL Mild Pain/Temp > 100.5 01/12/19 04:45 02/11/19 04:44 Al Hydroxide/Mg Hydroxide (Mylanta) 15 ml Q1H PRN ORAL gi upset 01/13/19 15:00 Al Hydroxide/Mg Hydroxide (Mylanta) 30 ml FOUR TIMES A DAY PRN ORAL heartburn 01/12/19 04:45 02/11/19 04:44 Atropine Sulfate (Atropine) 0.5 mg Q5M PRN IV bpm less than 45 01/13/19 15:00 Ceftriaxone Sodium 1 gm/ Dextrose 55 ml @ 110 mls/hr Q24H IVPB 01/12/19 14:00 01/19/19 13:59 01/12/19 14:00 Dextrose (Dextrose 50%) 25 ml Q30M PRN IV Hypoglycemia 01/12/19 05:00 02/11/19 04:59 Dextrose (Dextrose 50%) 50 ml Q30M PRN IV Hypoglycemia 01/12/19 05:00 02/11/19 04:59 Diphenhydramine HCl (Benadryl) 25 mg Q15M PRN IVP Itching 01/13/19 15:00 Fentanyl Citrate (Sublimaze 100 mcg/2 mL) 25 mcg Q10M PRN IV Moderate Pain (Pain Scale 4-6) 01/13/19 15:00 Hydralazine HCl (Apresoline) 5 mg Q30M PRN IV SBP>160 OR___/DBP>90 OR___ 01/13/19 15:00 Insulin Aspart (NovoLOG) BEFORE MEALS AND HS SUBQ 01/12/19 06:30 02/11/19 06:29 01/13/19 06:07 Midazolam HCl (Versed 2mg/2ml vial) 1 mg Q15M PRN IVP For Anxiety 01/13/19 15:00 Ondansetron HCl (Zofran) 4 mg Q1H PRN IVP Nausea & Vomiting 01/13/19 15:00 Pantoprazole (Protonix) 40 mg DAILY ORAL 01/12/19 09:00 02/11/19 08:59 01/13/19 08:59 Sodium Chloride 1,000 ml @ 10 mls/hr Q24H IVLG 01/13/19 15:00 01/13/19 15:01 Sabina Gamble MD January 13, 2019 11:11
--- NOTE | 2019-01-13 11:20 | NUR ---
NURSE NOTES: Carney catheter inserted using aseptic technique, as ordered. Noted 1000ml urine output, with clear appearance and straw color. Patient tolerated procedure well. Will continue to monitor.
--- NOTE | 2019-01-13 11:50 | NUR ---
[employer] SI:PNA . RENAL FAILURE . UGI BLEEDING VS: BP 150/71, P 67, T 97.4, RR 20, SpO2 100 WBC 13.9, RBC 3.77, H&H 10.7/32.3, Plt. Count 99 IS:NOVOLOG SUBQ PROTONIX 40mg CEFTRIAXONE 55ml IVPB S/P EGD w/BX SDU STATUS
[2019-01-13] MEDS: cefTRIAXone 1 GM in D5W 55 ML IVPB SCH (14:16)
[2019-01-13] MEDS ORDERED: Atropine Inj 1mg/10ml Syr IV PRN (15:00)
[2019-01-13] MEDS ORDERED: DiphenhydrAMINE 50mg/ml Inj IVP PRN (15:00)
[2019-01-13] MEDS ORDERED: fentaNYL 100 mcg/2 mL IV PRN (15:00)
[2019-01-13] MEDS ORDERED: Midazolam 2mg/2ml Inj IVP PRN (15:00)
--- NOTE | 2019-01-13 15:50 | NUR ---
NURSE NOTES: Patient c/o nausea and abdominal pain; no vomiting. Dr. Garcia notified, new orders noted and carried out.
--- NOTE | 2019-01-13 17:15 | Operative Note - Dictated ---
DATE OF OPERATION: 01/13/2019 GASTROENTEROLOGY PROCEDURE REPORT PROCEDURE: Upper gastrointestinal endoscopy with biopsy. SURGEON: Porsha Garcia M.D. ANESTHESIA: Please see the separate anesthesiologist notes for details. PRE-ENDOSCOPIC DIAGNOSIS: Upper gastrointestinal bleeding. POST-ENDOSCOPIC DIAGNOSES: 1. Six duodenal ulcers, the largest one measuring approximately 1.5 cm and the remaining five measuring approximately 5 mm. All ulcers were with white base and with no active bleeding. 2. 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 3. Status post random biopsy of the antrum for Helicobacter pylori. DESCRIPTION OF PROCEDURE: The procedure, its risks, indications, alternatives, and possible complications were explained and informed consent was obtained. The patient was then sedated. A diagnostic upper endoscope was introduced into the oropharynx and advanced to the duodenum. Findings are as described above. The patient was sent to Recovery in good condition. COMPLICATIONS: None. RECOMMENDATIONS: 1. Follow up biopsy results. 2. Check and treat Helicobacter pylori if positive. 3. Continue proton pump inhibitor therapy. 4. Follow CBC. 5. Ear, Nose and Throat services and/or oncology evaluation regarding throat findings. Porsha Garcia M.D. DR: BUD JOB#: [id number] CC:
--- NOTE | 2019-01-13 18:10 | NUR ---
NURSE NOTES: Patient no longer complains of nausea, but c/o severe, sharp abdominal pain. Mylanta PRN given, no relief. Dr. Garcia notified and made aware, ordered STAT CT scan of the abdomen pelvis with contrast and off tele order noted and carried out. Oral contrast taken by patient. Patient is scheduled to go for CT scan at 1930, today. Will continue to monitor. Addendum: 01/13/19 at 1824 by Zayda Man RN Dinner held at this time, until after CT scan. Patient and family verbalized understanding.
--- NOTE | 2019-01-13 19:05 | NUR ---
NURSE NOTES: Received report from Kirill Bills RN and Naty Carranza RN. Patient is awake in bed, A/O x4. Sinus rhythm on athletic monitor. No s/s of acute distress noted. Saturating well on room air. Carney catheter noted, intact and draining well to gravity. Right IJ-TLC noted, intact and patent, TKO. Bed locked in lowest position with side rails up x2. Call light left within reach, family remains at bedside. Will continue to monitor.
--- NOTE | 2019-01-13 19:07 | NUR ---
HAND-OFF: Report given to EDMOND Jason. Patient in stable condition.
--- NOTE | 2019-01-13 21:24 | Diagnostic Imaging Report ---
EXAM: CT Abdomen and Pelvis Without Intravenous Contrast CLINICAL HISTORY: ABD PAIN TECHNIQUE: Axial computed tomography images of the abdomen and pelvis without intravenous contrast. CTDI is 15.23 mGy and DLP is 720 mGy-cm. One or more of the following dose reduction techniques were used: automated exposure control, adjustment of the mA and/or kV according to patient size, use of iterative reconstruction technique. COMPARISON: No relevant prior studies available. FINDINGS: Lung bases: Few small nodules in the lung bases measuring approximately 3-5 mm. Pleural space: Moderate bilateral pleural effusions. Adjacent atelectasis/consolidation. Heart: Cardiomegaly. ABDOMEN: Liver: Peripheral calcified lesion in the dome of the liver measuring 2.6 cm. Too small to characterize low attenuation foci in the liver. Gallbladder and bile ducts: Gallbladder distention and cholelithiasis. Pancreas: Unremarkable. Spleen: Unremarkable. Adrenals: Unremarkable. Kidneys and ureters: Left renal cyst measuring 2.6 cm. Stomach and bowel: Thickening in the duodenum and associated stranding. Thickening in the rectum. Small bowel diverticulum. PELVIS: Appendix: Appendix not identified. Bladder: Carney catheter. Reproductive: Unremarkable. Subperitoneal space: Presacral edema. ABDOMEN and PELVIS: Intraperitoneal space: Unremarkable. Bones/joints: degenerative changes of the spine with spinal stenosis. Soft tissues: Anasarca. Vasculature: Unremarkable. No abdominal aortic aneurysm. Lymph nodes: Prominent retroperitoneal node IMPRESSION: 1. Gallbladder distention and cholelithiasis. 2. Thickening in the duodenum and associated stranding. Could be duodenitis or peptic ulcer disease. There is a broad differential. 3. Appendix not identified. 4. Thickening in the rectum.
--- NOTE | 2019-01-13 22:50 | NUR ---
NURSE NOTES: New orders received from Dr. Jose MD. Noted and carried out.
--- NOTE | 2019-01-13 23:00 | Progress Note ---
DATE: 01/13/2019 CARDIOLOGY PROGRESS NOTE SUBJECTIVE: The patient is status post endoscopy today. Results were notable for six duodenal ulcers and laryngeal ulcer. The patient has a prior history of throat cancer. No active bleeding was noted. OBJECTIVE: VITAL SIGNS: Blood pressure 145/72, pulse 77, respiratory rate 18, afebrile, room air oxygen saturations are 97%. LUNGS: Clear. CARDIAC: Regular. Normal S1 and S2 with a 1/6 systolic murmur at the base. ABDOMEN: Soft and nontender. EXTREMITIES: No edema. LABORATORY AND DIAGNOSTIC DATA: Venous duplex is notable for acute thrombus in the vein of the left leg. Abdominal CAT scan revealed gallbladder distention, cholelithiasis, and thickening of the duodenum and rectum. IMPRESSION: 1. Anemia status post transfusion. 2. GI bleeding likely from ulcers. 3. Acute on chronic diastolic congestive heart failure. 4. Acute on chronic renal failure. 5. Severe protein-calorie malnutrition. 6. Lactic acidosis, resolved. 7. Metabolic acidosis persisting. 8. Dehydration. 9. Hypernatremia. PLAN: 1. Hypotonic IV fluids. 2. Monitor hemoglobin. 3. Continue hydration. 4. Follow up x-rays regarding pleural effusion. 5. Renal ultrasound. 6. Serial venous duplex scan. 7. Cannot anticoagulate at this time. 8. May need to consider IVC filter. 9. Continue cardiac monitoring. Kevyn Aguilar M.D. DR: Chris JOB#: [id number] CC:
[2019-01-13] MEDS: Metoprolol Succinate XL 50mg tab ORAL SCH (23:12)
--- NOTE | 2019-01-13 23:15 | Consultation ---
DATE OF CONSULTATION: 01/11/2019 CARDIOLOGY CONSULTATION CONSULTING PHYSICIAN: Kevyn Aguilar M.D. REFERRING PHYSICIAN: Joss Mixon M.D. REASON FOR CONSULTATION: Myocardial ischemia in the setting of severe anemia. HISTORY OF PRESENT ILLNESS: This 83-year-old female presented to the emergency room with shortness of breath. She was noted to have bloody stools. She was hospitalized about a week ago at another hospital with similar presentation, but discharged. She apparently had a pleural effusion at that time and was treated with antimicrobials. She has not complained of chest pain, but has been increasingly short of breath. In the emergency room, she was noted to have a hemoglobin level that was severely decreased at 3.9 and a platelet count of 118,000. PAST MEDICAL HISTORY: 1. Hypertension. 2. History of congestive heart failure. 3. History of throat cancer. 4. Type 2 diabetes mellitus. SOCIAL HISTORY: Negative for smoking, alcohol, or substance abuse. ALLERGIES: None known. MEDICATIONS: Prior to admission, reviewed and reconciled and listed in medical record. REVIEW OF SYSTEMS: No history of asthma. No history of abnormal blood clotting. No history of seizure or stroke. No history of thyroid disorder. She does have type 2 diabetes mellitus. She is not on anti-lipid drugs. She denies any prior history of a heart attack. She does have hypertension. She has had "leg swelling and and fluid retention." There is no history of prior colonoscopy or endoscopy. She denies frequency or dysuria, or history of kidney disease. There is no known history of retinopathy. PHYSICAL EXAMINATION: VITAL SIGNS: Blood pressure 104/52, pulse 64, and respirations 18. Afebrile. HEENT: Normocephalic and atraumatic. Conjunctivae are pink. Sclerae are anicteric. Oropharynx clear. NECK: Supple. Jugular venous pressure normal. LUNGS: Clear. CARDIAC: Regular rhythm and rate. Normal S1, S2 with a fourth heart sound. There is a 1/6 systolic murmur at the base. ABDOMEN: Soft and nontender. EXTREMITIES: Good pulses. No edema. BACK: There is no CVA tenderness. NEUROLOGIC: Nonfocal. LABORATORY AND DIAGNOSTIC DATA: EKG, sinus rhythm with no acute abnormalities. Chest x-ray reveals left pleural effusion and cardiomegaly. Labs - white count 7.3, hemoglobin 3.9, and platelets 118,000. INR is 1.2. Lactic acid 3.2. Pro-natriuretic peptide 27,000. BUN 166, creatinine 4.5, bicarb 14, sodium 144, and potassium 5. Albumin 1.7. Troponin 0.02. IMPRESSION: 1. Severe anemia. 2. Acute myocardial ischemia. 3. Acute on chronic diastolic congestive heart failure. 4. Left pleural effusion. 5. Severe protein-calorie malnutrition. 6. Gastrointestinal bleeding. 7. Acute renal failure. 8. Lactic acidosis. 9. Condition critical. Prognosis is guarded. PLAN: 1. Volume support by IV fluids. 2. Packed red blood cell transfusion to hemoglobin above 8 g. 3. Nasal oxygen. 4. Hold beta-blockers in view of low baseline heart rate. 5. Echocardiogram. 6. Monitor volume status and cardiorenal function. 7. Renal ultrasound. 8. Cardiac monitoring. 9. Further recommendations to follow. Kevyn Aguilar M.D. DR: WINSTON JOB#: [id number] CC:
[2019-01-13] MEDS: Morphine Sulfate 2mg/ml Inj(IV/IM USE ONLY) IVP PRN (23:19)
--- NOTE | 2019-01-13 23:25 | Pulmonology Progress Note ---
Assessment/Plan Assessment/Plan Pulmonary Progress Note HISTORY OF PRESENT ILLNESS: This is an 83-year-old female who was brought in due to significant shortness of breath. The patient was having bloody stool and diarrhea. The patient recently admitted with pleural effusion, placed on antibiotics and was discharged to home. The patient received transfusion on [facility] admission, noted to have elevated Creatinine, Left Soleal DVT. PAST MEDICAL HISTORY: Diabetes, hypertension, CHF, throat cancer. MEDICATIONS: Reviewed. ALLERGIES: Reviewed. SOCIAL HISTORY: The patient lives with family. Nonsmoker and nondrinker. REVIEW OF SYSTEMS: Notable for the above. PHYSICAL EXAMINATION: GENERAL: A well-developed female appears to be overall comfortable. VITAL SIGNS NOTED: HEENT: Negative. NECK: Supple. LUNGS: Reduced breath sounds. CARDIAC: S1 and S2. Regular rate and rhythm. ABDOMEN: Soft, nontender, and nondistended. EXTREMITIES: No edema. LABORATORY DATA NOTED: Reviewed. Hemoglobin stable post TFN, platelets of 118. Chemistries noted, bicarbonate 14, BUN 166, creatinine 4.5. Lactic acid 2.2. Albumin is 1.7. IMPRESSION: 1. Severe protein-calorie malnutrition. 2. End-stage renal disease. 3. Anemia profound, possible gastrointestinal bleed. 4. Left Soleal DVT 5. History of congestive heart failure. 6. Left pleural effusion. RECOMMENDATION: 1. Supportive care. 2. Renal evaluation. 3. GI evaluation. 4. Cardiology evaluation. 5. Transfuse and monitor hemoglobin and hematocrit. 6. No anticoagulation for now given GI bleed. 7. We will follow clinically. 8. The patient is guarded at present. 9. Discuss with Cardiology Subjective ROS Limited/Unobtainable: No Allergies: Coded Allergies: No Known Allergies (Unverified , 01/11/19) Objective Last 24 Hour Vital Signs Date Time Temp Pulse Resp B/P (MAP) Pulse Ox O2 Delivery O2 Flow Rate FiO2 01/13/19 23:12 79 133/97 01/13/19 20:00 97.3 81 20 148/70 (96) 95 01/13/19 16:00 81 01/13/19 16:00 97.9 77 18 145/72 (96) 97 01/13/19 16:00 Room Air 01/13/19 12:00 96.6 78 20 155/73 (100) 97 01/13/19 12:00 Room Air 01/13/19 11:46 79 01/13/19 08:35 71 18 99 01/13/19 08:34 67 18 99 01/13/19 08:32 72 01/13/19 08:29 96.6 72 20 140/77 (98) 96 01/13/19 08:20 97.4 71 18 144/72 100 Nasal Cannula 2.0 01/13/19 08:20 Room Air 01/13/19 08:12 72 18 150/71 100 Nasal Cannula 2.0 01/13/19 08:02 70 17 147/71 100 Nasal Cannula 2.0 01/13/19 07:52 71 18 150/70 100 Nasal Cannula 2.0 01/13/19 07:47 70 17 152/70 99 Nasal Cannula 2.0 01/13/19 07:42 97.4 67 18 144/65 99 Nasal Cannula 2.0 01/13/19 04:00 Room Air 01/13/19 04:00 74 01/13/19 04:00 98.1 76 20 144/64 (90) 99 01/13/19 00:00 97.9 74 20 141/71 (94) 98 01/13/19 00:00 Room Air Intake and Output 01/12/19 01/13/19 19:00 07:00 Intake Total 970 ml Output Total 50 ml Balance 970 ml -50 ml Intake Oral 360 ml IV Total 110 ml Blood Product 500 ml Output Urine Total 50 ml # Voids 3 1 Microbiology Date/Time Source Procedure Growth Status 01/11/19 18:55 Blood Blood Culture - Preliminary NO GROWTH AFTER 24 HOURS Resulted 01/11/19 18:40 Blood Blood Culture - Preliminary NO GROWTH AFTER 24 HOURS Resulted 01/11/19 19:45 Rectum VRE Culture - Final Enterococcus Faecium - Vre Complete Laboratory Tests 01/13/19 04:05: White Blood Count 13.9H, Red Blood Count 3.77L, Hemoglobin 10.7L, Hematocrit 32.3L, Mean Corpuscular Volume 86, Mean Corpuscular Hemoglobin 28.4, Mean Corpuscular Hemoglobin Concent 33.1, Red Cell Distribution Width 16.2H, Platelet Count 99L, Mean Platelet Volume 8.0, Neutrophils (%) (Auto) , Lymphocytes (%) (Auto) , Monocytes (%) (Auto) , Eosinophils (%) (Auto) , Basophils (%) (Auto) , Differential Total Cells Counted 100, Neutrophils % ( Manual) 88H, Lymphocytes % (Manual) 8L, Monocytes % (Manual) 2, Eosinophils % ( Manual) 2, Basophils % (Manual) 0, Band Neutrophils 0, Platelet Estimate DecreasedL, Platelet Morphology Normal, Hypochromasia 1+, Anisocytosis 1+, Sodium Level 149H, Potassium Level 3.7, Chloride Level 116H, Carbon Dioxide Level 16L, Anion Gap 17H, Blood Urea Nitrogen 134H, Creatinine 3.9H, Estimat Glomerular Filtration Rate , Glucose Level 161#H, Calcium Level 7.8L, Total Bilirubin 0.3, Aspartate Amino Transf (AST/SGOT) 22, Alanine Aminotransferase ( ALT/SGPT) 29, Alkaline Phosphatase 43L, Total Protein 4.9L, Albumin 2.3L, Globulin 2.6, Albumin/Globulin Ratio 0.9L Current Medications Medications (Trade) Dose Ordered Sig/Eleanor Route PRN Reason Start Time Stop Time Status Last Admin Dose Admin Acetaminophen (Tylenol) 650 mg Q4H PRN ORAL Mild Pain/Temp > 100.5 01/12/19 04:45 02/11/19 04:44 Al Hydroxide/Mg Hydroxide (Mylanta) 30 ml FOUR TIMES A DAY PRN ORAL heartburn 01/12/19 04:45 02/11/19 04:44 01/13/19 17:06 Barium Sulfate (Readi-Cat 2) 450 ml NOW PRN ORAL Radiology Procedure 01/13/19 17:45 01/15/19 17:38 Ceftriaxone Sodium 1 gm/ Dextrose 55 ml @ 110 mls/hr Q24H IVPB 01/12/19 14:00 01/19/19 13:59 01/13/19 14:16 Dextrose 1,000 ml @ 75 mls/hr [id number] IV 01/13/19 22:30 02/12/19 22:29 01/13/19 23:13 Dextrose (Dextrose 50%) 25 ml Q30M PRN IV Hypoglycemia 01/12/19 05:00 02/11/19 04:59 Dextrose (Dextrose 50%) 50 ml Q30M PRN IV Hypoglycemia 01/12/19 05:00 02/11/19 04:59 Insulin Aspart (NovoLOG) BEFORE MEALS AND HS SUBQ 5/30/19 06:30 02/11/19 06:29 01/13/19 20:56 Metoprolol Succinate (Toprol XL) 25 mg DAILY ORAL 01/13/19 22:30 02/12/19 22:29 01/13/19 23:12 Morphine Sulfate (Morphine Sulfate) 2 mg Q4H PRN IVP For Pain 01/13/19 23:00 01/20/19 22:59 01/13/19 23:19 Ondansetron HCl (Zofran) 4 mg Q6H PRN IVP Nausea & Vomiting 01/13/19 15:45 02/12/19 15:44 01/13/19 15:50 Pantoprazole (Protonix) 40 mg BID ORAL 01/14/19 09:00 02/11/19 08:59 Pantoprazole (Protonix) 40 mg NOW ORAL 01/13/19 23:00 01/13/19 23:59 01/13/19 23:11 Kevyn Zamora MD January 13, 2019 23:25
[2019-01-14] VITALS: BP 140/62
--- NOTE | 2019-01-14 00:31 | Progress Note ---
DATE: 01/12/2019 CARDIOLOGY PROGRESS NOTE Late entry for 01/12/2019. SUBJECTIVE: The patient has no chest pain. She has less shortness of breath. She has been transfused with packed red blood cells. OBJECTIVE: VITAL SIGNS: Blood pressure 138/54, pulse 77, respiratory rate 20, afebrile, and oxygen saturation 97% on room air. LUNGS: Slightly diminished breath sounds. CARDIAC: Regular rhythm and rate. Normal S1 and S2 with a 1/6 systolic murmur at base. ABDOMEN: Soft. EXTREMITIES: No edema. LABORATORY DATA: Potassium 4.1, bicarbonate 16, BUN 146, and creatinine 4.1. Albumin 2.3. White count 15.7 and hemoglobin 10.7. Venous duplex negative for DVT. IMPRESSION: 1. Severe anemia. 2. Lactic acidosis. 3. Acute on chronic renal failure. 4. Acute on chronic diastolic congestive heart failure. 5. Hypertensive heart disease. 6. Type 2 diabetes mellitus. PLAN: 1. Diagnostic gastrointestinal workup. The patient is stable from cardiovascular standpoint to proceed at this time. 2. Continued maintenance hydration. 3. Monitor hemoglobin. 4. Monitor cardiorenal parameters. 5. Await echocardiogram and renal ultrasound. 6. No anti-platelet therapy at this time. Kevyn Aguilar M.D. DR: GELACIO JOB#: [id number] CC:
[2019-01-14] MEDS ORDERED: Dyna-Hex 2% Top Sol 2oz TOPIC SCH ×2 (01:00→20:00)
[2019-01-14] MEDS: Morphine Sulfate 2mg/ml Inj(IV/IM USE ONLY) IVP PRN ×2 (03:37→20:05)
[2019-01-14 04:00] VITALS: BP 146/67
[2019-01-14 05:42] LABS: HEMATOCRIT 32.5 % (37.0-47.0); HEMOGLOBIN 10.8 G/DL (12.0-16.0); MEAN CORPUSCULAR VOLUME 86 FL (80-99); PLATELET COUNT 86 K/UL (150-450); RED BLOOD COUNT 3.77 M/UL (4.20-5.40); RED CELL DISTRIBUTION WIDTH 16.5 % (11.6-14.8)
[2019-01-14 05:52] LABS: ANION GAP 14 mmol/L (5-15); BLOOD UREA NITROGEN 109 mg/dL (7-18); CALCIUM 7.9 MG/DL (8.5-10.1); CARBON DIOXIDE 18 MMOL/L (21-32); CHLORIDE 117 MMOL/L (98-107); CREATININE 3.6 MG/DL (0.55-1.30); POTASSIUM 3.3 MMOL/L (3.5-5.1); SODIUM 149 MMOL/L (136-145)
[2019-01-14] MEDS: NovoLOG Insulin Flexpen SUBQ SCH ×4 (06:26→20:05)
--- NOTE | 2019-01-14 07:02 | NUR ---
NURSE NOTES: New orders received from Dr. Oral MD. Noted and carried out.
--- NOTE | 2019-01-14 07:57 | General Progress Note ---
Assessment/Plan Problem List: (1) Anemia ICD Codes: D64.9 - Anemia, unspecified SNOMED: 245966616 Qualifiers: Qualified Codes: D64.9 - Anemia, unspecified (2) LGI bleed ICD Codes: K92.2 - Gastrointestinal hemorrhage, unspecified SNOMED: 21996040 Assessment/Plan: 1. Six duodenal ulcers, the largest one measuring approximately 1.5 cm and the remaining five measuring approximately 5 mm. All ulcers were with white base and with no active bleeding. 2. 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 3. Status post random biopsy of the antrum for Helicobacter pylori. RECOMMENDATIONS: 1. Follow up biopsy results. 2. Check and treat Helicobacter pylori if positive. 3. Continue proton pump inhibitor therapy. 4. Follow CBC. 5. Ear, Nose and Throat services and/or oncology evaluation regarding throat findings. Subjective ROS Limited/Unobtainable: No Allergies: Coded Allergies: No Known Allergies (Unverified , 01/11/19) Objective Last 24 Hour Vital Signs Date Time Temp Pulse Resp B/P (MAP) Pulse Ox O2 Delivery O2 Flow Rate FiO2 01/14/19 04:00 66 01/14/19 04:00 96.8 67 18 146/67 (93) 99 01/14/19 04:00 Nasal Cannula 2.0 01/14/19 00:00 Nasal Cannula 2.0 01/14/19 00:00 97.2 75 20 140/62 (88) 96 01/13/19 23:36 78 01/13/19 23:12 79 133/97 01/13/19 20:00 Room Air 01/13/19 20:00 97.3 81 20 148/70 (96) 95 01/13/19 19:57 82 01/13/19 16:00 81 01/13/19 16:00 97.9 77 18 145/72 (96) 97 01/13/19 16:00 Room Air 01/13/19 12:00 96.6 78 20 155/73 (100) 97 01/13/19 12:00 Room Air 01/13/19 11:46 79 01/13/19 08:35 71 18 99 01/13/19 08:34 67 18 99 01/13/19 08:32 72 01/13/19 08:29 96.6 72 20 140/77 (98) 96 01/13/19 08:20 97.4 71 18 144/72 100 Nasal Cannula 2.0 01/13/19 08:20 Room Air 01/13/19 08:12 72 18 150/71 100 Nasal Cannula 2.0 01/13/19 08:02 70 17 147/71 100 Nasal Cannula 2.0 Intake and Output 01/13/19 01/14/19 18:59 06:59 Intake Total 510 ml 608.75 ml Output Total 1600 ml 750 ml Balance -1090 ml -141.25 ml Intake Oral 400 ml 100 ml IV Total 110 ml 508.75 ml Output Urine Total 1600 ml 750 ml # Bowel Movements 2 4 Laboratory Tests 01/14/19 04:45: White Blood Count 14.0H, Red Blood Count 3.77L, Hemoglobin 10.8L, Hematocrit 32.5L, Mean Corpuscular Volume 86, Mean Corpuscular Hemoglobin 28.6, Mean Corpuscular Hemoglobin Concent 33.1, Red Cell Distribution Width 16.5H, Platelet Count 86L, Mean Platelet Volume 8.4, Neutrophils (%) (Auto) , Lymphocytes (%) (Auto) , Monocytes (%) (Auto) , Eosinophils (%) (Auto) , Basophils (%) (Auto) , Neutrophils % (Manual) [Pending], Lymphocytes % (Manual) [Pending], Platelet Estimate [Pending], Platelet Morphology [Pending], Sodium Level 149H, Potassium Level 3.3L, Chloride Level 117H, Carbon Dioxide Level 18L , Anion Gap 14, Blood Urea Nitrogen 109H, Creatinine 3.6H, Estimat Glomerular Filtration Rate , Glucose Level 182H, Calcium Level 7.9L, Pro-B-Type Natriuretic Peptide > 86947S Height (Feet): 4 Height (Inches): 9.00 Weight (Pounds): 134 General Appearance: no apparent distress EENT: normal ENT inspection Neck: supple Cardiovascular: normal rate Respiratory/Chest: decreased breath sounds Abdomen: normal bowel sounds, non tender, soft Extremities: non-tender Miguel Cat MD Jan 14, 2019 07:57
--- NOTE | 2019-01-14 07:59 | NUR ---
HAND-OFF: Report given to Aleksandr Medeiros RN.
[2019-01-14 08:00] VITALS: BP 137/62
--- NOTE | 2019-01-14 08:00 | NUR ---
NURSE NOTES: Report received from Celine Gaitan RN.Pt resting in bed asleep but awakens easily with verbal command,noted no resp distress,no signs of pain or discomfort,SR on the monitor,NPO at this time, denies any c/o abd pain ,Carney cath draining yellow urine,IV site to RIJ TLC intact,with IVF D5W at 75 ml/hr,skin warm and dry,SR up x2 ,HOB elevated,bed lock in lowest position,son at bedside will continue with plans of care.
[2019-01-14] MEDS: Metoprolol Succinate XL 50mg tab ORAL SCH (08:34)
--- NOTE | 2019-01-14 08:52 | Diagnostic Imaging Report ---
PORTABLE AP UPRIGHT views are: HISTORY: 83-year-old female with pleural effusion. COMPARISON: Abdomen and pelvis CT with oral contrast 01/13/2019; portable CXR 01/11/2019. FINDINGS: Image is limited by portable technique and patient body habitus, as before. Allowing for this, there is blunting of bilateral lateral costophrenic sulci, and ill-defined low-grade opacity in the lung bases bilaterally, with partial obscuration of hemidiaphragms, consistent with at least small bilateral pleural effusions and probable associated bibasilar atelectasis, as identified and better defined on the recent CT. No definite septal thickening to suggest acute edema. There appears to be mild cardiomegaly, likely accentuated by technique and mildly low lung volumes. No significant mediastinal widening. Right internal jugular central venous catheter terminates in the region of the mid SVC. No obvious pneumothorax. IMPRESSION: At least small bilateral pleural effusions and probable associated bibasilar lung atelectasis, as identified and better defined on the recent abdominal CT; no definite evidence of acute pulmonary edema.
--- NOTE | 2019-01-14 10:33 | General Progress Note ---
Assessment/Plan Assessment/Plan: IMPRESSION: 1. Severe protein-calorie malnutrition. 2. End-stage renal disease. 3. Anemia profound, 4. GIB with DU 5. History of congestive heart failure. 6. History of throat cancer 7. hyperglycemia 8. hypernatremia PLAN follow up biopsy results free water sliding scale outpatient ENT discussed monitor for change dc planning pending final results renal follow up impression, plan, and exam edited and reviewed in detail care discussed with RN Subjective Allergies: Coded Allergies: No Known Allergies (Unverified , 01/11/19) Subjective gi noted labs reviewed Objective Last 24 Hour Vital Signs Date Time Temp Pulse Resp B/P (MAP) Pulse Ox O2 Delivery O2 Flow Rate FiO2 01/14/19 08:34 65 137/62 01/14/19 08:00 67 01/14/19 08:00 Nasal Cannula 2.0 01/14/19 08:00 97.0 65 18 137/62 (87) 97 01/14/19 04:00 66 01/14/19 04:00 96.8 67 18 146/67 (93) 99 01/14/19 04:00 Nasal Cannula 2.0 01/14/19 00:00 Nasal Cannula 2.0 01/14/19 00:00 97.2 75 20 140/62 (88) 96 01/13/19 23:36 78 01/13/19 23:12 79 133/97 01/13/19 20:00 Room Air 01/13/19 20:00 97.3 81 20 148/70 (96) 95 01/13/19 19:57 82 01/13/19 16:00 81 01/13/19 16:00 97.9 77 18 145/72 (96) 97 01/13/19 16:00 Room Air 01/13/19 12:00 96.6 78 20 155/73 (100) 97 01/13/19 12:00 Room Air 01/13/19 11:46 79 Intake and Output 01/13/19 01/14/19 19:00 07:00 Intake Total 510 ml 608.75 ml Output Total 1600 ml 750 ml Balance -1090 ml -141.25 ml Intake Oral 400 ml 100 ml IV Total 110 ml 508.75 ml Output Urine Total 1600 ml 750 ml # Bowel Movements 2 4 Laboratory Tests 01/14/19 04:45: White Blood Count 14.0H, Red Blood Count 3.77L, Hemoglobin 10.8L, Hematocrit 32.5L, Mean Corpuscular Volume 86, Mean Corpuscular Hemoglobin 28.6, Mean Corpuscular Hemoglobin Concent 33.1, Red Cell Distribution Width 16.5H, Platelet Count 86L, Mean Platelet Volume 8.4, Neutrophils (%) (Auto) , Lymphocytes (%) (Auto) , Monocytes (%) (Auto) , Eosinophils (%) (Auto) , Basophils (%) (Auto) , Differential Total Cells Counted 100, Neutrophils % ( Manual) 86H, Lymphocytes % (Manual) 6L, Monocytes % (Manual) 6, Eosinophils % ( Manual) 2, Basophils % (Manual) 0, Band Neutrophils 0, Platelet Estimate DecreasedL, Platelet Morphology Normal, Polychromasia 1+, Anisocytosis 1+, Sodium Level 149H, Potassium Level 3.3L, Chloride Level 117H, Carbon Dioxide Level 18L, Anion Gap 14, Blood Urea Nitrogen 109H, Creatinine 3.6H, Estimat Glomerular Filtration Rate , Glucose Level 182H, Calcium Level 7.9L, Pro-B-Type Natriuretic Peptide > 22048S Height (Feet): 4 Height (Inches): 9.00 Weight (Pounds): 134 Objective WDWN NAD clear breath sounds bilaterally without rhonchi or wheeze [id number] without MRG NABS nontender no HSM no CCE nonfocal Joss Mixon MD Jan 14, 2019 10:33
--- NOTE | 2019-01-14 11:45 | NUR ---
NURSE NOTES: Seen by Dr Mixon,ordered to call Dr Ruffin re NPO or diet orders.
[2019-01-14 12:00] VITALS: BP 136/67
[2019-01-14] MEDS: cefTRIAXone 1 GM in D5W 55 ML IVPB SCH (13:57)
--- NOTE | 2019-01-14 14:00 | NUR ---
NURSE NOTES: clear liquid diet served.ate with good appetite,100%,pt feed by daughter.No aspiration presented,no c/o abd pain noted.
--- NOTE | 2019-01-14 14:30 | Consultation ---
DATE OF CONSULTATION: 01/14/2019 NEPHROLOGY CONSULTATION CONSULTING PHYSICIAN: Donis Escobar M.D. ATTENDING PHYSICIAN: Joss Mixon M.D. REASON FOR CONSULTATION: Elevated BUN and creatinine. HISTORY OF PRESENT ILLNESS: This is an 83-year-old female, who is well known from previous admissions to this hospital. The patient was brought in to the hospital due to GI bleed. The patient had similar episode at [facility]. I am asked to see the patient for elevation of BUN and creatinine. PAST MEDICAL HISTORY: 1. Type 2 diabetes mellitus. 2. Hypertensive cardiovascular disease. 3. CHF. 4. Throat cancer. MEDICATIONS: 1. IV ceftriaxone. 2. IV fluids normal saline. 3. Tylenol p.r.n. 4. Benadryl p.r.n. 5. Insulin sliding scale. 6. Toprol-XL. 7. Morphine p.r.n. 8. Mylanta p.r.n. 9. Zofran p.r.n. 10. Protonix. ALLERGIES: No known drug allergies. FAMILY HISTORY: Unremarkable. REVIEW OF SYSTEMS: HEENT: Hearing and eyesight are normal. ENDOCRINE: Significant for type 2 diabetes mellitus. RESPIRATORY: She denies shortness of breath, cough, or hemoptysis. CARDIOVASCULAR: She denies chest pain or palpitations. GASTROINTESTINAL: Significant for the recent GI bleed. GENITOURINARY: The patient admits to history of chronic kidney disease, which she acknowledge. NEUROLOGIC: No history of stroke, syncope, or Parkinson disease. PHYSICAL EXAMINATION: GENERAL: This is an elderly, obese female, who is in no acute distress. VITAL SIGNS: Blood pressure 137/62, pulse 65 and regular, respirations 18, and temperature is 97 axillary. HEENT: Head is normocephalic and atraumatic. Pupils are equal, round, and reactive to light and accommodation consensually. NECK: Supple. Trachea midline. There were no lymphadenopathy or thyromegaly. LUNGS: Clear to auscultation and percussion. HEART: Regular rate and rhythm without rubs, murmurs, or gallops. ABDOMEN: Soft and nontender. Bowel sounds were active. EXTREMITIES: No clubbing, cyanosis, or edema. NEUROLOGICAL: She is alert and oriented x4. Cranial nerves II through XII intact. LABORATORY AND ANCILLARY DATA: CBC shows white count 14,000, hematocrit initially pre-current transfusion was 13, after transfusion went up to 33. Serum chemistry, sodium 149, potassium 3.3, BUN 109, creatinine 3.6. CT scan of the abdomen and pelvis without contrast, a few lung nodules, gallbladder distention with cholelithiasis, and the kidneys left renal cyst measuring 2.6 cm. No mention of kidney size or parenchyma. ASSESSMENT: 1. Chronic kidney disease, unclear what stage. 2. Status post EGD demonstrating duodenal ulcer with GI bleed. Most likely, the patient's BUN is high due to recent GI bleed, BUN out of proportion elevation of the BUN. 3. Type 2 diabetes mellitus. 4. Hypertensive cardiovascular disease. 5. CHF. 6. Throat cancer PLAN: 1. Letting the BUN settle and remeasure the patient's creatinine clearance. 2. Avoid nephrotoxic medications. Thank you, Dr. Mixon, for letting me to participate in the care of this patient. Donis Escobar M.D. DR: CIRO JOB#: [id number] CC: AZEEM
[2019-01-14] MEDS ORDERED: Tubing IV Blood Pump IV ONE (14:57)
[2019-01-14] MEDS ORDERED: NS 275ml ONE (14:57)
[2019-01-14] MEDS ORDERED: Tubing IV Secondary IV ONE (14:57)
[2019-01-14 16:00] VITALS: BP 141/73
--- NOTE | 2019-01-14 16:29 | NUR ---
NURSE NOTES: Called Dr Ruffin,call returned and said he is not working today, to call Dr Dupont,called Dr Dupont and ordered to start on clear liquid diet,advance as tolerated.
--- NOTE | 2019-01-14 16:31 | NUR ---
CASE MANAGEMENT: REVIEW 01/14/2019 SI:SEPSIS. T 97.2 HR 75 RR 20 B/P 140/62 SATS 96% ON 2L/NC WBC 14 NA 149 K 3.3 CL 117 BUN 109 CR 3.6 GLU 182 IS: VENOFER IV QHS PROTONIX PO BID TOPROL PO QD INSULIN ASPART SUBQ AC/HS CEFTRIAXONE IV Q24H SDU
--- NOTE | 2019-01-14 17:00 | NUR ---
NURSE NOTES: Pt resting quietly in bed no resp distress presented,family members at bedside.
--- NOTE | 2019-01-14 19:00 | NUR ---
NURSE NOTES: Report received from Waldemar RN.Pt resting in bed asleep but awakens easily with verbal command,noted no resp distress,no signs of pain or discomfort,SR on the monitor,NPO at this time, denies any c/o abd pain ,Carney cath draining yellow urine,IV site to RIJ TLC intact,SL.,skin warm and dry,SR up x2 ,HOB elevated,bed lock in lowest position,son at bedside will continue with plans of care.
--- NOTE | 2019-01-14 19:35 | NUR ---
HAND-OFF: Report given to Mahesh Gonsalez RN.
[2019-01-14 20:00] VITALS: BP 140/62
--- NOTE | 2019-01-14 20:00 | NUR ---
NURSE NOTES: 24 hr urine clearance collection started. To be sent to lab 01/15 at 1999
[2019-01-14] MEDS ORDERED: Iron Sucrose 100 MG in NS 55 ML IV SCH (21:00)
--- NOTE | 2019-01-14 22:00 | NUR ---
NURSE NOTES: Patient repositioned, NAD at this time. Will continue to monitor. Patient able to drink water.
--- NOTE | 2019-01-14 22:30 | Progress Note ---
DATE: 01/14/2019 CARDIOLOGY PROGRESS NOTE SUBJECTIVE: The patient is status post packed red blood cell transfusions. Hemoglobin has remained stable. No chest pain. No shortness of breath. Monitored rhythm, sinus. OBJECTIVE: VITAL SIGNS: Blood pressure 137/62, pulse 65, and respiratory rate 18. LUNGS: Clear. CARDIAC: Regular. Normal S1 and S2 with a fourth heart sound. ABDOMEN: Soft. No focal tenderness, guarding, rebound, or CVA tenderness. EXTREMITIES: No edema. LABORATORY DATA: White count 14 and hemoglobin 10.8. Sodium 149, potassium 3.3, bicarbonate 18, BUN 109, and creatinine 3.6. Pro-natriuretic is over 35,000. IMPRESSION: 1. Acute on chronic renal failure. 2. Dehydration. 3. Hypernatremia. 4. Anemia, iron deficiency. 5. Hypertensive heart disease. PLAN: 1. Free water replacement. 2. Iron replacement. 3. Monitor hemoglobin. 4. No diuretics at this time. 5. Check echocardiogram. Kevyn Aguilar M.D. DR: DORIAN JOB#: [id number] CC:
[2019-01-15] VITALS (7 sets, daily range): BP systolic 118–154; BP diastolic 62–75
--- NOTE | 2019-01-15 | NUR ---
NURSE NOTES: Patient repositioned and given oral care. NAD at this time. Vitals remains stable.
[2019-01-15] MEDS ORDERED: Morphine Sulfate 2mg/ml Inj(IV/IM USE ONLY) IVP PRN (03:00)
[2019-01-15] MEDS: NovoLOG Insulin Flexpen SUBQ SCH ×4 (06:30→21:25)
--- NOTE | 2019-01-15 07:05 | General Progress Note ---
Assessment/Plan Problem List: (1) Anemia ICD Codes: D64.9 - Anemia, unspecified SNOMED: 582553507 Qualifiers: Qualified Codes: D64.9 - Anemia, unspecified (2) LGI bleed ICD Codes: K92.2 - Gastrointestinal hemorrhage, unspecified SNOMED: 61131681 Assessment/Plan: 1. Six duodenal ulcers, the largest one measuring approximately 1.5 cm and the remaining five measuring approximately 5 mm. All ulcers were with white base and with no active bleeding. 2. 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 3. Status post random biopsy of the antrum for Helicobacter pylori. RECOMMENDATIONS: 1. Follow up biopsy results. 2. Check and treat Helicobacter pylori if positive. 3. Continue proton pump inhibitor therapy. 4. Follow CBC. 5. Ear, Nose and Throat services and/or oncology evaluation regarding throat findings. Subjective ROS Limited/Unobtainable: Yes Allergies: Coded Allergies: No Known Allergies (Unverified , 01/11/19) Objective Last 24 Hour Vital Signs Date Time Temp Pulse Resp B/P (MAP) Pulse Ox O2 Delivery O2 Flow Rate FiO2 01/15/19 04:00 97.0 63 18 129/63 (85) 97 01/15/19 04:00 Nasal Cannula 2.0 01/15/19 02:00 97.0 63 20 129/62 (84) 97 01/15/19 00:00 98.4 63 20 135/72 (93) 100 01/15/19 00:00 Nasal Cannula 2.0 01/15/19 00:00 63 01/14/19 20:00 Nasal Cannula 2.0 01/14/19 20:00 67 01/14/19 20:00 97.0 66 20 140/62 (88) 100 01/14/19 16:00 64 01/14/19 16:00 Nasal Cannula 2.0 01/14/19 16:00 97.0 63 20 141/73 (95) 100 01/14/19 12:00 64 01/14/19 12:00 Nasal Cannula 2.0 01/14/19 12:00 98.1 116 18 136/67 (90) 99 01/14/19 08:34 65 137/62 01/14/19 08:00 67 01/14/19 08:00 Nasal Cannula 2.0 01/14/19 08:00 97.0 65 18 137/62 (87) 97 Intake and Output 01/14/19 01/15/19 18:59 06:59 Intake Total 655 ml 60 ml Output Total 1500 ml Balance -845 ml 60 ml Intake Oral 600 ml IV Total 55 ml 60 ml Output Urine Total 1500 ml # Bowel Movements 2 Height (Feet): 4 Height (Inches): 9.00 Weight (Pounds): 134 General Appearance: alert EENT: normal ENT inspection Neck: supple Cardiovascular: normal rate Respiratory/Chest: decreased breath sounds Abdomen: normal bowel sounds, non tender, soft Extremities: non-tender Miguel Cat MD Jan 15, 2019 07:05
--- NOTE | 2019-01-15 07:50 | NUR ---
HAND-OFF: Report given to EDMOND Garcia.
--- NOTE | 2019-01-15 08:28 | NUR ---
NURSE NOTES: Received report from EDMOND Berger. Patient in bed resting, no active s/s cardiac, respiratory distress noticed at this time. Patient on 2L oxygen via NC, AOx4, IV on right IJ triple lumen, 24h urine collection began 199901/14/19. Endorsed MD aware of BUN level, no order given at this time. Bed in lowest position, side rails upx3, call light within reach. Will continue to monitor.
--- NOTE | 2019-01-15 09:08 | Infectious Diseases Prog Note ---
Assessment/Plan Assessment/Plan A 1. pneumonia 2. renal failure improving 3. severe anemia resolving 4. GI bleeding 5. throat cancer 6. diabetes mellitus 7. 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 Multiple duodenal ulcers P 1. continue ceftriaxone 2. will follow up cultures Subjective ROS Limited/Unobtainable: Yes Respiratory: Reports: dry cough Musculoskeletal: Reports: no symptoms Allergies: Coded Allergies: No Known Allergies (Unverified , 01/11/19) Objective Vital Signs Last 24 Hour Vital Signs Date Time Temp Pulse Resp B/P (MAP) Pulse Ox O2 Delivery O2 Flow Rate FiO2 01/15/19 04:00 97.0 63 18 129/63 (85) 97 01/15/19 04:00 Nasal Cannula 2.0 01/15/19 03:56 62 01/15/19 02:00 97.0 63 20 129/62 (84) 97 01/15/19 00:00 98.4 63 20 135/72 (93) 100 01/15/19 00:00 Nasal Cannula 2.0 01/15/19 00:00 63 01/14/19 20:00 Nasal Cannula 2.0 01/14/19 20:00 67 01/14/19 20:00 97.0 66 20 140/62 (88) 100 01/14/19 16:00 64 01/14/19 16:00 Nasal Cannula 2.0 01/14/19 16:00 97.0 63 20 141/73 (95) 100 01/14/19 12:00 64 01/14/19 12:00 Nasal Cannula 2.0 01/14/19 12:00 98.1 116 18 136/67 (90) 99 Height (Feet): 4 Height (Inches): 9.00 Weight (Pounds): 134 General Appearance: no acute distress HEENT: mucous membranes moist, other - muffled voice Respiratory/Chest: lungs clear Cardiovascular: normal rate, other - RIJ central line Abdomen: soft, non tender Extremities: no edema Neurologic/Psychiatric: alert, oriented x 3, responsive Current Medications Medications (Trade) Dose Ordered Sig/Eleanor Route PRN Reason Start Time Stop Time Status Last Admin Dose Admin Acetaminophen (Tylenol) 650 mg Q4H PRN ORAL Mild Pain/Temp > 100.5 01/15/19 02:24 02/11/19 02:23 Al Hydroxide/Mg Hydroxide (Mylanta) 30 ml FOUR TIMES A DAY PRN ORAL heartburn 01/15/19 02:29 02/11/19 02:28 Barium Sulfate (Readi-Cat 2) 450 ml NEEDED PRN ORAL Radiology Procedure 01/15/19 02:15 01/15/19 17:38 Ceftriaxone Sodium 1 gm/ Dextrose 55 ml @ 110 mls/hr Q24H IVPB 01/15/19 14:00 01/19/19 13:59 Chlorhexidine Gluconate (Jessica-Hex 2%) 1 applic DAILY@2000 TOPIC 01/15/19 20:00 02/13/19 19:59 Dextrose (Dextrose 50%) 25 ml Q30M PRN IV Hypoglycemia 01/15/19 02:30 02/11/19 04:59 Dextrose (Dextrose 50%) 50 ml Q30M PRN IV Hypoglycemia 01/15/19 02:30 02/11/19 04:59 Insulin Aspart (NovoLOG) BEFORE MEALS AND HS SUBQ 01/15/19 06:30 02/11/19 06:29 Iron Sucrose 100 mg/Sodium Chloride 60 ml @ 240 mls/hr BEDTIME IV 01/15/19 21:00 01/18/19 21:14 Metoprolol Succinate (Toprol XL) 25 mg DAILY ORAL 01/15/19 09:00 02/12/19 22:29 Morphine Sulfate (Morphine Sulfate) 2 mg Q4H PRN IVP For Pain 01/15/19 03:00 01/20/19 22:59 Ondansetron HCl (Zofran) 4 mg Q6H PRN IVP Nausea & Vomiting 01/15/19 02:24 02/12/19 02:23 Pantoprazole (Protonix) 40 mg BID ORAL 01/15/19 09:00 02/11/19 08:59 Sahil Flores MD Jan 15, 2019 09:08
--- NOTE | 2019-01-15 09:09 | General Progress Note ---
Assessment/Plan Assessment/Plan: IMPRESSION: 1. Severe protein-calorie malnutrition. 2. End-stage renal disease. 3. Anemia profound, 4. GIB with DU 5. History of congestive heart failure. 6. History of throat cancer 7. hyperglycemia 8. hypernatremia PLAN follow up biopsy results free water sliding scale outpatient ENT discussed monitor for change dc planning pending final results renal follow up advance diet impression, plan, and exam edited and reviewed in detail care discussed with RN Subjective Allergies: Coded Allergies: No Known Allergies (Unverified , 01/11/19) Subjective gi noted labs reviewed started on clears Objective Last 24 Hour Vital Signs Date Time Temp Pulse Resp B/P (MAP) Pulse Ox O2 Delivery O2 Flow Rate FiO2 01/15/19 04:00 97.0 63 18 129/63 (85) 97 01/15/19 04:00 Nasal Cannula 2.0 01/15/19 03:56 62 01/15/19 02:00 97.0 63 20 129/62 (84) 97 01/15/19 00:00 98.4 63 20 135/72 (93) 100 01/15/19 00:00 Nasal Cannula 2.0 01/15/19 00:00 63 01/14/19 20:00 Nasal Cannula 2.0 01/14/19 20:00 67 01/14/19 20:00 97.0 66 20 140/62 (88) 100 01/14/19 16:00 64 01/14/19 16:00 Nasal Cannula 2.0 01/14/19 16:00 97.0 63 20 141/73 (95) 100 01/14/19 12:00 64 01/14/19 12:00 Nasal Cannula 2.0 01/14/19 12:00 98.1 116 18 136/67 (90) 99 Intake and Output 01/14/19 01/15/19 18:59 06:59 Intake Total 655 ml 60 ml Output Total 1500 ml 1000 ml Balance -845 ml -940 ml Intake Oral 600 ml IV Total 55 ml 60 ml Output Urine Total 1500 ml 1000 ml # Bowel Movements 2 Height (Feet): 4 Height (Inches): 9.00 Weight (Pounds): 134 Objective WDWN NAD clear breath sounds bilaterally without rhonchi or wheeze [id number] without MRG NABS nontender no HSM no CCE nonfocal Joss Mixon MD Jan 15, 2019 09:09
[2019-01-15] MEDS: Metoprolol Succinate XL 25mg tab ORAL SCH (09:10)
[2019-01-15 09:33] LABS: HEMATOCRIT 32.9 % (37.0-47.0); HEMOGLOBIN 10.8 G/DL (12.0-16.0); MEAN CORPUSCULAR VOLUME 86 FL (80-99); PLATELET COUNT 76 K/UL (150-450); RED BLOOD COUNT 3.81 M/UL (4.20-5.40); RED CELL DISTRIBUTION WIDTH 16.5 % (11.6-14.8)
[2019-01-15 09:43] LABS: ANION GAP 13 mmol/L (5-15); BLOOD UREA NITROGEN 99 mg/dL (7-18); CALCIUM 7.9 MG/DL (8.5-10.1); CARBON DIOXIDE 20 MMOL/L (21-32); CHLORIDE 118 MMOL/L (98-107); CREATININE 3.4 MG/DL (0.55-1.30); PHOSPHORUS 5.3 MG/DL (2.5-4.9); POTASSIUM 3.8 MMOL/L (3.5-5.1); SODIUM 151 MMOL/L (136-145)
[2019-01-15] MEDS ORDERED: NS 275ml ONE (10:02)
--- NOTE | 2019-01-15 10:59 | NUR ---
NURSE NOTES: Dr. Mixon made aware patient spit out scant amount of blood sputum. Per Dr. Mixon order chest x-ray, RN made Dr. Mixon aware chest x ray taken yesterday 01/14/19. Per Dr. Mixon, no need of repeat chest x-ray. Order noted, entered, carried out. Will continue to monitor.
--- NOTE | 2019-01-15 11:30 | NUR ---
NURSE NOTES: BS checked, BS 69, patient able to tolerated PO, one cup of apple juice given, will recheck BS in 30 minute.
--- NOTE | 2019-01-15 12:00 | NUR ---
NURSE NOTES: BS rechecked, BS 157. Will continue to monitor.
--- NOTE | 2019-01-15 12:47 | Cardiology Report ---
APPROVED REPORT EXAM: Two-dimensional and M-mode echocardiogram with Doppler and color Doppler. INDICATION Arrhythmia M-Mode DIMENSIONS IVSd1.1 (0.7-1.1cm)Left Atrium (MM)4.8 (1.6-4.0cm) LVDd5.6 (3.5-5.6cm)Aortic Root2.6 (2.0-3.7cm) PWd0.9 (0.7-1.1cm)Aortic Cusp Exc.1.6 (1.5-2.0cm) IVSs1.3 cm LVDs3.6 (2.5-4.0cm) PWs1.2 cm Normal left ventricular chamber size, systolic function and wall motion. Left ventricular ejection fraction estimated to be 55-60%. Mild left ventricular hypertrophy by 2-D. Trivial pericardial fat or effusion. Large pleural effusion present . Mild left atrial enlargement . Right cardiac chamber sizes are within normal limits. Aortic valve calcification with normal cusp excursion . Moderately thickened mitral valve leaflets with normal excursion. Mild mitral annulus and aortic root calcification. Pulmonic valve not well visualized. IVC at size 2.0 cm with physiologic collapse. A color flow and spectral Doppler study was performed and revealed: Trace aortic insufficiency . Mitral inflow velocities indicates possible pseudo normalization pattern implying moderately elevated left atrial pressure (Grade II ) Mild to moderate mitral regurgitation. Moderate tricuspid regurgitation. Tricuspid systolic velocities suggests peak right ventricular systolic pressure of 60mmHg,consistent with borderline severe pulmonary HTN . Pulmonic regurgitation present .
[2019-01-15] MEDS: cefTRIAXone 1 GM in D5W 55 ML IVPB SCH (13:11)
--- NOTE | 2019-01-15 13:42 | Nephrology Progress Note ---
Assessment/Plan Plan GIB - per GI CKD 5 - 24 h urine collection Subjective Subjective No new c/o Objective Objective Last 24 Hour Vital Signs Date Time Temp Pulse Resp B/P (MAP) Pulse Ox O2 Delivery O2 Flow Rate FiO2 01/15/19 12:00 Nasal Cannula 2.0 01/15/19 12:00 98.0 66 20 118/66 (83) 98 01/15/19 09:10 69 147/64 01/15/19 08:00 97.5 69 18 147/64 (91) 98 01/15/19 08:00 68 01/15/19 08:00 Nasal Cannula 2.0 01/15/19 04:00 97.0 63 18 129/63 (85) 97 01/15/19 04:00 Nasal Cannula 2.0 01/15/19 03:56 62 01/15/19 02:00 97.0 63 20 129/62 (84) 97 01/15/19 00:00 98.4 63 20 135/72 (93) 100 01/15/19 00:00 Nasal Cannula 2.0 01/15/19 00:00 63 01/14/19 20:00 Nasal Cannula 2.0 01/14/19 20:00 67 01/14/19 20:00 97.0 66 20 140/62 (88) 100 01/14/19 16:00 64 01/14/19 16:00 Nasal Cannula 2.0 01/14/19 16:00 97.0 63 20 141/73 (95) 100 Intake and Output 01/14/19 01/15/19 19:00 07:00 Intake Total 655 ml 60 ml Output Total 1500 ml 1000 ml Balance -845 ml -940 ml Intake Oral 600 ml IV Total 55 ml 60 ml Output Urine Total 1500 ml 1000 ml # Bowel Movements 2 Laboratory Tests 01/15/19 08:30: White Blood Count 13.0H, Red Blood Count 3.81L, Hemoglobin 10.8L, Hematocrit 32.9L, Mean Corpuscular Volume 86, Mean Corpuscular Hemoglobin 28.3, Mean Corpuscular Hemoglobin Concent 32.8, Red Cell Distribution Width 16.5H, Platelet Count 76L, Mean Platelet Volume 8.2, Neutrophils (%) (Auto) , Lymphocytes (%) (Auto) , Monocytes (%) (Auto) , Eosinophils (%) (Auto) , Basophils (%) (Auto) , Differential Total Cells Counted 100, Neutrophils % ( Manual) 81H, Lymphocytes % (Manual) 6L, Monocytes % (Manual) 9, Eosinophils % ( Manual) 4H, Basophils % (Manual) 0, Band Neutrophils 0, Platelet Estimate DecreasedL, Platelet Morphology Normal, Anisocytosis 1+, Sodium Level 151H, Potassium Level 3.8, Chloride Level 118H, Carbon Dioxide Level 20L, Anion Gap 13 , Blood Urea Nitrogen 99H, Creatinine 3.4H, Estimat Glomerular Filtration Rate , Glucose Level 68#L, Calcium Level 7.9L, Phosphorus Level 5.3H Height (Feet): 4 Height (Inches): 9.00 Weight (Pounds): 134 Objective CV RR Lungs CTA Abd SNT BS + E No CCE Donis Escobar MD Jan 15, 2019 13:42
--- NOTE | 2019-01-15 16:30 | Progress Note ---
DATE: 01/15/2019 CARDIOLOGY PROGRESS NOTE SUBJECTIVE: No cough or congestion. No shortness of breath. Monitored rhythm sinus. Status post EGD with multiple ulcers noted and biopsied. Outpatient ENT plan with regard to history of throat cancer. OBJECTIVE: VITAL SIGNS: Blood pressure 129/63, pulse 63, and respirations 18. LUNGS: With few rhonchi. CARDIAC: Regular rhythm and rate. Normal S1 and S2. ABDOMEN: Soft, slightly distended, and nontender. EXTREMITIES: No edema. LABORATORY AND DIAGNOSTIC DATA: Chest x-ray yesterday revealed resolving infiltrates and no signs of edema. Labs, sodium 151, potassium 3.8, chloride 118, bicarb 20, BUN 99, creatinine 3.4. White count 13 and hemoglobin 10.8. IMPRESSION: 1. Dehydration. 2. Hyponatremia. 3. Hyperchloremia. 4. Metabolic acidosis. 5. Acute on chronic renal failure, slightly improved. 6. Acute on chronic diastolic congestive heart failure. 7. Severe anemia due to gastrointestinal bleeding. 8. Multiple duodenal ulcers. 9. History of throat cancer. 10. Pneumonia due to aspiration recovered. PLAN: 1. Off antibiotics per Infectious Disease. 2. Hypotonic IV fluids added now. 3. No diuretics at this time. 4. Monitor hemoglobin. 5. Continue iron replacement. 6. Continue beta-farrukh, remains high risk. Kevyn Aguilar M.D. DR: Tu JOB#: [id number] CC:
--- NOTE | 2019-01-15 16:47 | NUR ---
FOREIGN LANGUAGE INTERPRETERMOBILE APPLICATION ARCHITECT SI:SEPSIS VS: BP 117/55, P 59, T 97.4, RR 62,SpO2 95 on 2.0L NC WBC 13.0, H&h 10.8/32.9, Plt COUNT 76, Na 151, BUN 99, CR 3.4 IS:D5W x1L IV ZYPREXA 2.5mg METOPROLOL 25mg CEFEPIME 55ml IVPB TELE STATUS
--- NOTE | 2019-01-15 19:38 | NUR ---
NURSE NOTES: RECEIVED PATIENT RESTING IN BED, NO COMPLAINTS OF PAIN AT THIS TIME. FALL PRECAUTIONS IN PLACE: CALL LIGHT AND BEDSIDE TABLE WITHIN REACH, BED IN LOW POSITION AND BED ALARM ON. PER OUTGOING RN 24 HR URINE COLLECTION TO BE COMPLETED TONIGHT AT 2000. FAMILY AT BEDSIDE. PLAN OF CARE REVIEWED.
--- NOTE | 2019-01-15 19:55 | NUR ---
HAND-OFF: Report given to EDMOND Worthy.
[2019-01-15 20:34] LABS: CREATININE 3.4 MG/DL (0.55-1.30)
[2019-01-15] MEDS: Dyna-Hex 2% Top Sol 2oz TOPIC SCH (21:23)
[2019-01-15] MEDS: Iron Sucrose 100 MG in NS 55 ML IV SCH (21:24)
[2019-01-16] VITALS: BP 163/71
[2019-01-16] MEDS: NovoLOG Insulin Flexpen SUBQ SCH ×4 (06:03→21:00)
[2019-01-16 06:12] LABS: HEMATOCRIT 30.3 % (37.0-47.0); MEAN CORPUSCULAR VOLUME 87 FL (80-99); PLATELET COUNT 79 K/UL (150-450); RED BLOOD COUNT 3.49 M/UL (4.20-5.40); RED CELL DISTRIBUTION WIDTH 16.3 % (11.6-14.8); WHITE BLOOD COUNT 12.3 K/UL (4.8-10.8)
[2019-01-16 06:21] LABS: ANION GAP 11 mmol/L (5-15); BLOOD UREA NITROGEN 80 mg/dL (7-18); CALCIUM 7.4 MG/DL (8.5-10.1); CARBON DIOXIDE 20 MMOL/L (21-32); CHLORIDE 113 MMOL/L (98-107); CREATININE 3.1 MG/DL (0.55-1.30); POTASSIUM 3.5 MMOL/L (3.5-5.1); SODIUM 144 MMOL/L (136-145)
--- NOTE | 2019-01-16 07:33 | NUR ---
NURSE NOTES: NOTED PATIENT CONFUSED AND AGITATED AT TIMES CALLED AND LEFT MESSAGE FOR DR. ROCA.
--- NOTE | 2019-01-16 07:34 | NUR ---
HAND-OFF: Report given to EDMOND MAGAÑA.PATIENT RESTING IN BED, NO SIGNS OF DISTRESS NOTED. ENDORSED TO FOLLOW UP WITH DR. ROCA ON PATINT'S CHANGE IN MENTAL STATUS.
--- NOTE | 2019-01-16 07:41 | NUR ---
NURSE NOTES: Received report from EDMOND Worthy. Patient in bed resting, no active s/s cardiac, respiratory distress noticed at this time. Patient confuse, endorsed MD made aware of confusion. Endorsed 24h urine collection done. Patient on 2L oxygen via NC. PICC line on right IJ, asymptomatic, patent, intact. Bed in lowest position, side rails upx2, call light within reach, bed alarm on. Will continue to monitor.
[2019-01-16 08:00] VITALS: BP 117/55
--- NOTE | 2019-01-16 08:02 | General Progress Note ---
Assessment/Plan Assessment/Plan: IMPRESSION: 1. Severe protein-calorie malnutrition. 2. End-stage renal disease. 3. Anemia profound, 4. GIB with DU 5. History of congestive heart failure. 6. History of throat cancer 7. hyperglycemia 8. hypernatremia PLAN follow up biopsy results free water head CT sliding scale outpatient ENT discussed monitor for change dc planning pending final results renal follow up and recs advance diet impression, plan, and exam edited and reviewed in detail care discussed with RN Subjective Allergies: Coded Allergies: No Known Allergies (Unverified , 01/11/19) Subjective gi noted labs reviewed diet tolerated some night time confusion Objective Last 24 Hour Vital Signs Date Time Temp Pulse Resp B/P (MAP) Pulse Ox O2 Delivery O2 Flow Rate FiO2 01/16/19 04:00 74 01/16/19 00:00 73 01/16/19 00:00 96.7 77 19 163/71 (101) 98 01/15/19 21:00 Nasal Cannula 2.0 01/15/19 20:00 67 01/15/19 20:00 98.7 67 18 154/69 (97) 97 01/15/19 16:00 98.1 69 18 154/75 (101) 97 01/15/19 16:00 68 01/15/19 16:00 Nasal Cannula 2.0 01/15/19 12:00 Nasal Cannula 2.0 01/15/19 12:00 71 01/15/19 12:00 98.0 66 20 118/66 (83) 98 01/15/19 09:10 69 147/64 Intake and Output 01/15/19 01/16/19 19:00 07:00 Intake Total 360 ml 1230 ml Output Total 400 ml 600 ml Balance -40 ml 630 ml Intake Oral 360 ml IV Total 1230 ml Output Urine Total 400 ml 600 ml Laboratory Tests 01/15/19 08:30: White Blood Count 13.0H, Red Blood Count 3.81L, Hemoglobin 10.8L, Hematocrit 32.9L, Mean Corpuscular Volume 86, Mean Corpuscular Hemoglobin 28.3, Mean Corpuscular Hemoglobin Concent 32.8, Red Cell Distribution Width 16.5H, Platelet Count 76L, Mean Platelet Volume 8.2, Neutrophils (%) (Auto) , Lymphocytes (%) (Auto) , Monocytes (%) (Auto) , Eosinophils (%) (Auto) , Basophils (%) (Auto) , Differential Total Cells Counted 100, Neutrophils % ( Manual) 81H, Lymphocytes % (Manual) 6L, Monocytes % (Manual) 9, Eosinophils % ( Manual) 4H, Basophils % (Manual) 0, Band Neutrophils 0, Platelet Estimate DecreasedL, Platelet Morphology Normal, Anisocytosis 1+, Sodium Level 151H, Potassium Level 3.8, Chloride Level 118H, Carbon Dioxide Level 20L, Anion Gap 13 , Blood Urea Nitrogen 99H, Creatinine 3.4H, Estimat Glomerular Filtration Rate , Glucose Level 68#L, Calcium Level 7.9L, Phosphorus Level 5.3H 01/16/19 05:00: White Blood Count 12.3H, Red Blood Count 3.49L, Hemoglobin 10.0L, Hematocrit 30.3L, Mean Corpuscular Volume 87, Mean Corpuscular Hemoglobin 28.7, Mean Corpuscular Hemoglobin Concent 33.0, Red Cell Distribution Width 16.3H, Platelet Count 79L, Mean Platelet Volume 7.8, Neutrophils (%) (Auto) , Lymphocytes (%) (Auto) , Monocytes (%) (Auto) , Eosinophils (%) (Auto) , Basophils (%) (Auto) , Differential Total Cells Counted 100, Neutrophils % ( Manual) 91H, Lymphocytes % (Manual) 3L, Monocytes % (Manual) 4, Eosinophils % ( Manual) 1, Basophils % (Manual) 1, Band Neutrophils 0, Platelet Estimate DecreasedL, Platelet Morphology Normal, Anisocytosis 1+, Sodium Level 144, Potassium Level 3.5, Chloride Level 113H, Carbon Dioxide Level 20L, Anion Gap 11 , Blood Urea Nitrogen 80H, Creatinine 3.1H, Estimat Glomerular Filtration Rate , Glucose Level 235#H, Calcium Level 7.4L, Hypochromasia 1+, Hepatitis A IgM Antibody [Pending], Hepatitis B Surface Antigen [Pending], Hepatitis B Core IgM Antibody [Pending], Hepatitis C Antibody [Pending] Height (Feet): 4 Height (Inches): 9.00 Weight (Pounds): 134 Objective WDWN NAD clear breath sounds bilaterally without rhonchi or wheeze [id number] without MRG NABS nontender no HSM no CCE nonfocal Joss Mixon MD Jan 16, 2019 08:02
--- NOTE | 2019-01-16 08:47 | General Progress Note ---
Assessment/Plan Assessment/Plan: Assessment - Melena, UGIB - multiple duodenal ulcers - Anemia, s/p transfusion - Renal failure - h/o throat cancer - mild hypernatremia Recommendations - po as tolerated - IVF - PPI - OOB - check path - Rx HP if (+) Subjective Allergies: Coded Allergies: No Known Allergies (Unverified , 01/11/19) Subjective Feels OK abd pain resolved tolerating PO Objective Last 24 Hour Vital Signs Date Time Temp Pulse Resp B/P (MAP) Pulse Ox O2 Delivery O2 Flow Rate FiO2 01/16/19 04:00 74 01/16/19 00:00 73 01/16/19 00:00 96.7 77 19 163/71 (101) 98 01/15/19 21:00 Nasal Cannula 2.0 01/15/19 20:00 67 01/15/19 20:00 98.7 67 18 154/69 (97) 97 01/15/19 16:00 98.1 69 18 154/75 (101) 97 01/15/19 16:00 68 01/15/19 16:00 Nasal Cannula 2.0 01/15/19 12:00 Nasal Cannula 2.0 01/15/19 12:00 71 01/15/19 12:00 98.0 66 20 118/66 (83) 98 01/15/19 09:10 69 147/64 Intake and Output 01/15/19 01/16/19 19:00 07:00 Intake Total 360 ml 1230 ml Output Total 400 ml 600 ml Balance -40 ml 630 ml Intake Oral 360 ml IV Total 1230 ml Output Urine Total 400 ml 600 ml Laboratory Tests 01/16/19 05:00: White Blood Count 12.3H, Red Blood Count 3.49L, Hemoglobin 10.0L, Hematocrit 30.3L, Mean Corpuscular Volume 87, Mean Corpuscular Hemoglobin 28.7, Mean Corpuscular Hemoglobin Concent 33.0, Red Cell Distribution Width 16.3H, Platelet Count 79L, Mean Platelet Volume 7.8, Neutrophils (%) (Auto) , Lymphocytes (%) (Auto) , Monocytes (%) (Auto) , Eosinophils (%) (Auto) , Basophils (%) (Auto) , Differential Total Cells Counted 100, Neutrophils % ( Manual) 91H, Lymphocytes % (Manual) 3L, Monocytes % (Manual) 4, Eosinophils % ( Manual) 1, Basophils % (Manual) 1, Band Neutrophils 0, Platelet Estimate DecreasedL, Platelet Morphology Normal, Hypochromasia 1+, Anisocytosis 1+, Sodium Level 144, Potassium Level 3.5, Chloride Level 113H, Carbon Dioxide Level 20L, Anion Gap 11, Blood Urea Nitrogen 80H, Creatinine 3.1H, Estimat Glomerular Filtration Rate , Glucose Level 235#H, Calcium Level 7.4L, Hepatitis A IgM Antibody [Pending], Hepatitis B Surface Antigen [Pending], Hepatitis B Core IgM Antibody [Pending], Hepatitis C Antibody [Pending] Height (Feet): 4 Height (Inches): 9.00 Weight (Pounds): 134 Objective WDWN NCAT supple CTA RR abd soft ND NT no edema Porsha Garcia MD Jan 16, 2019 08:47
[2019-01-16] MEDS ORDERED: OLANZapine 2.5mg tab ORAL SCH (09:00)
--- NOTE | 2019-01-16 09:00 | NUR ---
NURSE NOTES: Dr. Mixon made aware increase in confusion. Per Dr. Mixon, will order CT head and zyprexa 2.5mg PO once. Order noted, entered, carried out.
[2019-01-16] MEDS: Metoprolol Succinate XL 25mg tab ORAL SCH (09:02)
--- NOTE | 2019-01-16 10:31 | Nephrology Progress Note ---
Assessment/Plan Plan GIB - per GI ESRD. Ccr 11 GFR probably lower 9diabetic) GIB due to uremia.. Needs to start HD. Subjective Subjective No new c/o. Agitated. Objective Objective Last 24 Hour Vital Signs Date Time Temp Pulse Resp B/P (MAP) Pulse Ox O2 Delivery O2 Flow Rate FiO2 01/16/19 09:02 83 117/55 01/16/19 08:00 97.6 59 18 117/55 (75) 92 01/16/19 04:00 74 01/16/19 00:00 73 01/16/19 00:00 96.7 77 19 163/71 (101) 98 01/15/19 21:00 Nasal Cannula 2.0 01/15/19 20:00 67 01/15/19 20:00 98.7 67 18 154/69 (97) 97 01/15/19 16:00 98.1 69 18 154/75 (101) 97 01/15/19 16:00 68 01/15/19 16:00 Nasal Cannula 2.0 01/15/19 12:00 Nasal Cannula 2.0 01/15/19 12:00 71 01/15/19 12:00 98.0 66 20 118/66 (83) 98 Intake and Output 01/15/19 01/16/19 18:59 06:59 Intake Total 360 ml 1130 ml Output Total 400 ml 600 ml Balance -40 ml 530 ml Intake Oral 360 ml IV Total 1130 ml Output Urine Total 400 ml 600 ml Laboratory Tests 01/16/19 05:00: White Blood Count 12.3H, Red Blood Count 3.49L, Hemoglobin 10.0L, Hematocrit 30.3L, Mean Corpuscular Volume 87, Mean Corpuscular Hemoglobin 28.7, Mean Corpuscular Hemoglobin Concent 33.0, Red Cell Distribution Width 16.3H, Platelet Count 79L, Mean Platelet Volume 7.8, Neutrophils (%) (Auto) , Lymphocytes (%) (Auto) , Monocytes (%) (Auto) , Eosinophils (%) (Auto) , Basophils (%) (Auto) , Differential Total Cells Counted 100, Neutrophils % ( Manual) 91H, Lymphocytes % (Manual) 3L, Monocytes % (Manual) 4, Eosinophils % ( Manual) 1, Basophils % (Manual) 1, Band Neutrophils 0, Platelet Estimate DecreasedL, Platelet Morphology Normal, Hypochromasia 1+, Anisocytosis 1+, Sodium Level 144, Potassium Level 3.5, Chloride Level 113H, Carbon Dioxide Level 20L, Anion Gap 11, Blood Urea Nitrogen 80H, Creatinine 3.1H, Estimat Glomerular Filtration Rate , Glucose Level 235#H, Calcium Level 7.4L, Hepatitis A IgM Antibody [Pending], Hepatitis B Surface Antigen [Pending], Hepatitis B Core IgM Antibody [Pending], Hepatitis C Antibody [Pending] Height (Feet): 4 Height (Inches): 9.00 Weight (Pounds): 134 Objective CV RR Lungs CTA Abd SNT BS + E No CCE Donis Escobar MD Jan 16, 2019 10:31
--- NOTE | 2019-01-16 10:48 | NUR ---
NURSE NOTES: Dr. Rosenbaum made aware patient trying to pull out PICC line, per Dr. Rosenbaum okay to order bilateral soft wrist restraint. Order noted, entered, carried out.
[2019-01-16 12:00] VITALS: BP 113/64
--- NOTE | 2019-01-16 12:18 | Diagnostic Imaging Report ---
Indication: Altered level of consciousness Technique: Contiguous 5 mm thick transaxial imaging of the head obtained in a Siemens Sensation [address] scanner. Soft tissue and bone windows generated. Automatic Exposure Control was utilized. Total Dose length Product (DLP): 1390.[address] Dose Index Volume (CTDIvol): 70.38 mGy Comparison: none Findings: There is moderate prominence of the ventricles, basal cisterns, and cerebral sulci consistent with atrophy. Moderate, nonspecific, white matter hypoattenuation is noted throughout the brain consistent with chronic small vessel disease. There is no midline shift, edema, acute hemorrhage, mass effect, or abnormal extra-axial fluid collections. Bones are unremarkable. Impression: No acute intracranial bleed, mass effect or edema. Moderate atrophy of the brain. Evidence of chronic small vessel disease involving white matter tracts. The CT scanner at [facility] is accredited by the [employer] [place] [employer] and the scans are performed using dose optimization techniques as appropriate to a performed exam including Automatic Exposure control.
--- NOTE | 2019-01-16 12:40 | Infectious Diseases Prog Note ---
Assessment/Plan Assessment/Plan A 1. pneumonia 2. renal failure, ESRD 3. severe anemia resolving 4. GI bleeding 5. throat cancer 6. diabetes mellitus 7. 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 Multiple duodenal ulcers 10. AMS, Atrophy in CT scan of head P 1. continue ceftriaxone 2. will follow up cultures Subjective ROS Limited/Unobtainable: Yes Constitutional: Reports: anorexia Neurologic: Reports: confusion, other - on restraint Allergies: Coded Allergies: No Known Allergies (Unverified , 01/11/19) Objective Vital Signs Last 24 Hour Vital Signs Date Time Temp Pulse Resp B/P (MAP) Pulse Ox O2 Delivery O2 Flow Rate FiO2 01/16/19 09:02 83 117/55 01/16/19 08:00 97.6 59 18 117/55 (75) 92 01/16/19 04:00 74 01/16/19 00:00 73 01/16/19 00:00 96.7 77 19 163/71 (101) 98 01/15/19 21:00 Nasal Cannula 2.0 01/15/19 20:00 67 01/15/19 20:00 98.7 67 18 154/69 (97) 97 01/15/19 16:00 98.1 69 18 154/75 (101) 97 01/15/19 16:00 68 01/15/19 16:00 Nasal Cannula 2.0 Height (Feet): 4 Height (Inches): 9.00 Weight (Pounds): 134 General Appearance: no acute distress HEENT: mucous membranes moist Respiratory/Chest: lungs clear Cardiovascular: normal rate Abdomen: soft, non tender Extremities: no edema Neurologic/Psychiatric: disoriented Laboratory Tests Test 01/16/19 05:00 White Blood Count 12.3 K/UL (4.8-10.8) H Red Blood Count 3.49 M/UL (4.20-5.40) L Hemoglobin 10.0 G/DL (12.0-16.0) L Hematocrit 30.3 % (37.0-47.0) L Mean Corpuscular Volume 87 FL (80-99) Mean Corpuscular Hemoglobin 28.7 PG (27.0-31.0) Mean Corpuscular Hemoglobin Concent 33.0 G/DL (32.0-36.0) Red Cell Distribution Width 16.3 % (11.6-14.8) H Platelet Count 79 K/UL (150-450) L Mean Platelet Volume 7.8 FL (6.5-10.1) Neutrophils (%) (Auto) % (45.0-75.0) Lymphocytes (%) (Auto) % (20.0-45.0) Monocytes (%) (Auto) % (1.0-10.0) Eosinophils (%) (Auto) % (0.0-3.0) Basophils (%) (Auto) % (0.0-2.0) Differential Total Cells Counted 100 Neutrophils % (Manual) 91 % (45-75) H Lymphocytes % (Manual) 3 % (20-45) L Monocytes % (Manual) 4 % (1-10) Eosinophils % (Manual) 1 % (0-3) Basophils % (Manual) 1 % (0-2) Band Neutrophils 0 % (0-8) Platelet Estimate Decreased L Platelet Morphology Normal Hypochromasia 1+ Anisocytosis 1+ Sodium Level 144 MMOL/L (136-145) Potassium Level 3.5 MMOL/L (3.5-5.1) Chloride Level 113 MMOL/L (98-107) H Carbon Dioxide Level 20 MMOL/L (21-32) L Anion Gap 11 mmol/L (5-15) Blood Urea Nitrogen 80 mg/dL (7-18) H Creatinine 3.1 MG/DL (0.55-1.30) H Estimat Glomerular Filtration Rate mL/min (>60) Glucose Level 235 MG/DL (74-106) #H Calcium Level 7.4 MG/DL (8.5-10.1) L Hepatitis A IgM Antibody Pending Hepatitis B Surface Antigen Pending Hepatitis B Core IgM Antibody Pending Hepatitis C Antibody Pending Current Medications Medications (Trade) Dose Ordered Sig/Eleanor Route PRN Reason Start Time Stop Time Status Last Admin Dose Admin Acetaminophen (Tylenol) 650 mg Q4H PRN ORAL Mild Pain/Temp > 100.5 01/15/19 02:24 02/11/19 02:23 Al Hydroxide/Mg Hydroxide (Mylanta) 30 ml FOUR TIMES A DAY PRN ORAL heartburn 01/15/19 02:29 02/11/19 02:28 Ceftriaxone Sodium 1 gm/ Dextrose 55 ml @ 110 mls/hr Q24H IVPB 01/15/19 14:00 01/19/19 13:59 01/15/19 13:11 Chlorhexidine Gluconate (Jessica-Hex 2%) 1 applic DAILY@2000 TOPIC 01/15/19 20:00 02/13/19 19:59 01/15/19 21:23 Dextrose 1,000 ml @ 100 mls/hr Q10H IV 01/15/19 12:18 02/14/19 12:17 01/16/19 09:02 Dextrose (Dextrose 50%) 25 ml Q30M PRN IV Hypoglycemia 01/15/19 02:30 02/11/19 04:59 Dextrose (Dextrose 50%) 50 ml Q30M PRN IV Hypoglycemia 01/15/19 02:30 02/11/19 04:59 Insulin Aspart (NovoLOG) BEFORE MEALS AND HS SUBQ 01/15/19 06:30 02/11/19 06:29 01/16/19 06:03 Iron Sucrose 100 mg/Sodium Chloride 60 ml @ 240 mls/hr BEDTIME IV 01/15/19 21:00 01/18/19 21:14 01/15/19 21:24 Metoprolol Succinate (Toprol XL) 25 mg DAILY ORAL 01/15/19 09:00 02/12/19 22:29 01/16/19 09:02 Morphine Sulfate (Morphine Sulfate) 2 mg Q4H PRN IVP For Pain 01/15/19 03:00 01/20/19 22:59 Ondansetron HCl (Zofran) 4 mg Q6H PRN IVP Nausea & Vomiting 01/15/19 02:24 02/12/19 02:23 Pantoprazole (Protonix) 40 mg BID ORAL 01/15/19 09:00 02/11/19 08:59 01/16/19 09:02 Sahil Flores MD Jan 16, 2019 12:40
--- NOTE | 2019-01-16 13:36 | NUR ---
*-* INSURANCE *-* UPDATED CLINICALS HAVE BEEN FAXED TO: [employer]. P: [phone] F: [phone] ( FAX CLINICALS)
[2019-01-16] MEDS: cefTRIAXone 1 GM in D5W 55 ML IVPB SCH (14:10)
--- NOTE | 2019-01-16 14:25 | NUR ---
RD ASSESSMENT & RECOMMENDATIONS SEE CARE ACTIVITY FOR COMPLETE ASSESSMENT DAILY ESTIMATED NEEDS: Needs based on DM, CKD 5 47kg adj 25-35 kcals/kg 4938-2347 total kcals .6-.8 g protein/kg 28-38 g total protein 25-30 mL/kg 4968-2482 total fluid mLs NUTRITION DIAGNOSIS: Decreased sodium and pro needs r/t renal dysfunction, CKD 5 per MD as evidenced by elev BUN (80), elev Creat (3.1), low creat cl and low 24 hr Ucreat, elev Phos (5.3). (CURRENT DIET: CLD) PO DIET RECOMMENDATIONS-->> As able-> SOFT/ CCHO LOW/ LOW NA w/ Protein restriction (40g pro) ADDITIONAL RECOMMENDATIONS: 1) Monitor ability to advance diet, diet tolerance 2) A1C for eval 3) Long acting insulin for improved BG 4) Monitor for HD initiation 5) Obtain a standing weight OR calibrated bed scale 6) F/up w/ WC eval
[2019-01-16 16:00] VITALS: BP 140/80
--- NOTE | 2019-01-16 16:59 | NUR ---
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 IS: ZYPREXA 2.5mg IRON SUCROSE 60ml IV D5W x1L IV METOPROLOL 25mg CEFTRIAXONE 55ml IVPB TELE STATUS
--- NOTE | 2019-01-16 19:01 | NUR ---
NURSE NOTES: Dr. Mixon made aware patient on 2L oxygen via NC, O2 sat 97%, RR 28, labored breathing, and on IV fluid at 100ml/h. No order given at this time. Will continue to monitor.
--- NOTE | 2019-01-16 19:50 | NUR ---
NURSE NOTES: Received pt. and report from EDMOND Garcia. Observe pt resting in bed with both eyes closed and family members at bedside. 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 Bed is in the lowest position and locked. Call light within reach. No signs and symptoms of acute distress noted at this time. Will continue plan of care.
--- NOTE | 2019-01-16 19:53 | NUR ---
NURSE NOTES: Per Dr. Mixon, LETTY IV fluid, order ABG, lasix 40mg IVP x1, Order noted, entered, carried out. Will continue to monitor.
[2019-01-16 20:00] VITALS: BP 172/92
--- NOTE | 2019-01-16 20:10 | NUR ---
HAND-OFF: Report given to EDMOND Bedolla.
[2019-01-16] MEDS: Dyna-Hex 2% Top Sol 2oz TOPIC SCH (20:57)
[2019-01-16] MEDS: Iron Sucrose 100 MG in NS 55 ML IV SCH (20:58)
--- NOTE | 2019-01-16 21:30 | NUR ---
NURSE NOTES: Contacted Dr. Mixon regarding pt's ABG results. Received orders from Dr. Mixon. Will note and carry out.
[2019-01-16] MEDS ORDERED: Sodium Bicarbonate 50ml Carp IV ONE (23:00)
[2019-01-16] MEDS ORDERED: Sodium Bicarbonate 50ml Carp IV SCH (23:00)
[2019-01-17] VITALS: BP 104/67
[2019-01-17 04:00] VITALS: BP 131/69
[2019-01-17] MEDS: NovoLOG Insulin Flexpen SUBQ SCH ×4 (06:30→20:50)
[2019-01-17 07:06] LABS: ANION GAP 12 mmol/L (5-15); BLOOD UREA NITROGEN 69 mg/dL (7-18); CALCIUM 7.7 MG/DL (8.5-10.1); CARBON DIOXIDE 22 MMOL/L (21-32); CHLORIDE 113 MMOL/L (98-107); POTASSIUM 3.1 MMOL/L (3.5-5.1); SODIUM 147 MMOL/L (136-145)
--- NOTE | 2019-01-17 07:40 | NUR ---
NURSE NOTES: Patient is awake and alert. No s/s of distress. Patient is on 2liters oxygen via nasal cannula. Family is at bedside. Side rails are upx2, bed is locked, and in lowest position. Will continue to monitor.
[2019-01-17 08:00] VITALS: BP 143/95
--- NOTE | 2019-01-17 08:06 | NUR ---
HAND-OFF: Report given to EDMOND Mitchell.
--- NOTE | 2019-01-17 08:28 | NUR ---
NURSE NOTES: Dr. Garcia rounded on patient. New diet order received.
[2019-01-17] MEDS: Metoprolol Succinate XL 25mg tab ORAL SCH (08:37)
--- NOTE | 2019-01-17 09:25 | Nephrology Progress Note ---
Assessment/Plan Plan GIB - per GI ESRD. Ccr 11 GFR probably lower 9diabetic) GIB due to uremia.. Needs to start HD. Subjective Subjective No new c/o. Agitated. Objective Objective Last 24 Hour Vital Signs Date Time Temp Pulse Resp B/P (MAP) Pulse Ox O2 Delivery O2 Flow Rate FiO2 01/17/19 08:37 89 143/95 01/17/19 08:00 99.2 89 23 143/95 (111) 99 01/17/19 07:00 98 Nasal Cannula 3.0 32 01/17/19 04:00 97.0 73 20 131/69 (89) 97 01/17/19 04:00 63 01/17/19 00:00 97.6 85 20 104/67 (79) 95 01/17/19 00:00 83 01/16/19 21:00 Nasal Cannula 2.0 01/16/19 20:15 99 Nasal Cannula 3.0 32 01/16/19 20:00 98.4 78 20 172/92 (118) 97 01/16/19 20:00 76 01/16/19 16:00 97.8 75 16 140/80 (100) 95 01/16/19 16:00 82 01/16/19 12:00 97.4 62 18 113/64 (80) 97 01/16/19 12:00 74 Intake and Output 01/16/19 01/17/19 19:00 07:00 Intake Total 120 ml Output Total 600 ml 550 ml Balance -480 ml -550 ml Intake Oral 120 ml Output Urine Total 600 ml 550 ml Laboratory Tests 01/16/19 20:17: Arterial Blood pH 7.399, Arterial Blood Partial Pressure CO2 26.4L, Arterial Blood Partial Pressure O2 82.8, Arterial Blood HCO3 15.9*L, Arterial Blood Oxygen Saturation 95.9, Arterial Blood Base Excess -7.5L, Sonny Test Positive 01/17/19 05:30: Sodium Level 147H, Potassium Level 3.1L, Chloride Level 113H, Carbon Dioxide Level 22, Anion Gap 12, Blood Urea Nitrogen 69H, Creatinine 3.0H, Estimat Glomerular Filtration Rate , Glucose Level 152H, Calcium Level 7.7L Height (Feet): 4 Height (Inches): 9.00 Weight (Pounds): 134 Objective CV RR Lungs CTA Abd SNT BS + E No CCE Donis Escobar MD Jan 17, 2019 09:25
--- NOTE | 2019-01-17 11:26 | NUR ---
*-* INSURANCE *-* UPDATED CLINICALS HAVE BEEN FAXED TO: [facility] P: [phone] F: [phone] ( FAX CLINICALS)
[2019-01-17 12:00] VITALS: BP 154/77
--- NOTE | 2019-01-17 12:52 | Infectious Diseases Prog Note ---
Assessment/Plan Assessment/Plan A 1. pneumonia 2. renal failure, ESRD 3. severe anemia resolving 4. GI bleeding 5. throat cancer 6. diabetes mellitus 7. 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 Multiple duodenal ulcers 10. AMS, Atrophy in CT scan of head P 1. continue ceftriaxone X 1 day 2. will follow up cultures Subjective ROS Limited/Unobtainable: Yes Constitutional: Reports: no symptoms Neurologic: Reports: confusion, other - on restraient Allergies: Coded Allergies: No Known Allergies (Unverified , 01/11/19) Objective Vital Signs Last 24 Hour Vital Signs Date Time Temp Pulse Resp B/P (MAP) Pulse Ox O2 Delivery O2 Flow Rate FiO2 01/17/19 08:37 89 143/95 01/17/19 08:15 Nasal Cannula 2.0 01/17/19 08:00 99.2 89 23 143/95 (111) 99 01/17/19 08:00 85 01/17/19 07:00 98 Nasal Cannula 3.0 32 01/17/19 04:00 97.0 73 20 131/69 (89) 97 01/17/19 04:00 63 01/17/19 00:00 97.6 85 20 104/67 (79) 95 01/17/19 00:00 83 01/16/19 21:00 Nasal Cannula 2.0 01/16/19 20:15 99 Nasal Cannula 3.0 32 01/16/19 20:00 98.4 78 20 172/92 (118) 97 01/16/19 20:00 76 01/16/19 16:00 97.8 75 16 140/80 (100) 95 01/16/19 16:00 82 Height (Feet): 4 Height (Inches): 9.00 Weight (Pounds): 134 General Appearance: no acute distress HEENT: mucous membranes moist Respiratory/Chest: normal breath sounds Cardiovascular: normal rate, other - RIj line Abdomen: soft, non tender Extremities: no edema Neurologic/Psychiatric: disoriented Laboratory Tests Test 01/16/19 20:17 01/17/19 05:30 Arterial Blood pH 7.399 (7.350-7.450) Arterial Blood Partial Pressure CO2 26.4 mmHg (35.0-45.0) L Arterial Blood Partial Pressure O2 82.8 mmHg (75.0-100.0) Arterial Blood HCO3 15.9 mmol/L (22.0-26.0) *L Arterial Blood Oxygen Saturation 95.9 % (95-100) Arterial Blood Base Excess -7.5 (-2-2) L Sonny Test Positive Sodium Level 147 MMOL/L (136-145) H Potassium Level 3.1 MMOL/L (3.5-5.1) L Chloride Level 113 MMOL/L (98-107) H Carbon Dioxide Level 22 MMOL/L (21-32) Anion Gap 12 mmol/L (5-15) Blood Urea Nitrogen 69 mg/dL (7-18) H Creatinine 3.0 MG/DL (0.55-1.30) H Estimat Glomerular Filtration Rate mL/min (>60) Glucose Level 152 MG/DL (74-106) H Calcium Level 7.7 MG/DL (8.5-10.1) L Current Medications Medications (Trade) Dose Ordered Sig/Eleanor Route PRN Reason Start Time Stop Time Status Last Admin Dose Admin Acetaminophen (Tylenol) 650 mg Q4H PRN ORAL Mild Pain/Temp > 100.5 01/15/19 02:24 02/11/19 02:23 Al Hydroxide/Mg Hydroxide (Mylanta) 30 ml FOUR TIMES A DAY PRN ORAL heartburn 01/15/19 02:29 02/11/19 02:28 Ceftriaxone Sodium 1 gm/ Dextrose 55 ml @ 110 mls/hr Q24H IVPB 01/15/19 14:00 01/19/19 13:59 01/16/19 14:10 Chlorhexidine Gluconate (Jessica-Hex 2%) 1 applic DAILY@2000 TOPIC 01/15/19 20:00 02/13/19 19:59 01/16/19 20:57 Dextrose (Dextrose 50%) 25 ml Q30M PRN IV Hypoglycemia 01/15/19 02:30 02/11/19 04:59 Dextrose (Dextrose 50%) 50 ml Q30M PRN IV Hypoglycemia 01/15/19 02:30 02/11/19 04:59 Insulin Aspart (NovoLOG) BEFORE MEALS AND HS SUBQ 01/15/19 06:30 02/11/19 06:29 01/17/19 12:48 Iron Sucrose 100 mg/Sodium Chloride 60 ml @ 240 mls/hr BEDTIME IV 01/15/19 21:00 01/18/19 21:14 01/16/19 20:58 Metoprolol Succinate (Toprol XL) 25 mg DAILY ORAL 01/15/19 09:00 02/12/19 22:29 01/17/19 08:37 Morphine Sulfate (Morphine Sulfate) 2 mg Q4H PRN IVP For Pain 01/15/19 03:00 01/20/19 22:59 Ondansetron HCl (Zofran) 4 mg Q6H PRN IVP Nausea & Vomiting 01/15/19 02:24 02/12/19 02:23 Pantoprazole (Protonix) 40 mg BID ORAL 01/15/19 09:00 02/11/19 08:59 01/17/19 08:37 Sahil Flores MD Jan 17, 2019 12:52
--- NOTE | 2019-01-17 12:59 | General Progress Note ---
Assessment/Plan Assessment/Plan: IMPRESSION: 1. Severe protein-calorie malnutrition. 2. End-stage renal disease. 3. Anemia profound, 4. GIB with DU 5. History of congestive heart failure. 6. History of throat cancer 7. hyperglycemia 8. hypernatremia PLAN follow up biopsy results noted free water head CT reviewed sliding scale outpatient ENT discussed monitor for change dc planning to home if able renal follow up and recs advance diet impression, plan, and exam edited and reviewed in detail care discussed with RN Subjective Allergies: Coded Allergies: No Known Allergies (Unverified , 01/11/19) Subjective gi noted work up negative Objective Last 24 Hour Vital Signs Date Time Temp Pulse Resp B/P (MAP) Pulse Ox O2 Delivery O2 Flow Rate FiO2 01/17/19 12:00 98.1 81 21 154/77 (102) 97 01/17/19 08:37 89 143/95 01/17/19 08:15 Nasal Cannula 2.0 01/17/19 08:00 99.2 89 23 143/95 (111) 99 01/17/19 08:00 85 01/17/19 07:00 98 Nasal Cannula 3.0 32 01/17/19 04:00 97.0 73 20 131/69 (89) 97 01/17/19 04:00 63 01/17/19 00:00 97.6 85 20 104/67 (79) 95 01/17/19 00:00 83 01/16/19 21:00 Nasal Cannula 2.0 01/16/19 20:15 99 Nasal Cannula 3.0 32 01/16/19 20:00 98.4 78 20 172/92 (118) 97 01/16/19 20:00 76 01/16/19 16:00 97.8 75 16 140/80 (100) 95 01/16/19 16:00 82 Intake and Output 01/16/19 01/17/19 18:59 06:59 Intake Total 220 ml Output Total 600 ml 550 ml Balance -380 ml -550 ml Intake Oral 120 ml IV Total 100 ml Output Urine Total 600 ml 550 ml Laboratory Tests 01/16/19 20:17: Arterial Blood pH 7.399, Arterial Blood Partial Pressure CO2 26.4L, Arterial Blood Partial Pressure O2 82.8, Arterial Blood HCO3 15.9*L, Arterial Blood Oxygen Saturation 95.9, Arterial Blood Base Excess -7.5L, Sonny Test Positive 6/4/19 05:30: Sodium Level 147H, Potassium Level 3.1L, Chloride Level 113H, Carbon Dioxide Level 22, Anion Gap 12, Blood Urea Nitrogen 69H, Creatinine 3.0H, Estimat Glomerular Filtration Rate , Glucose Level 152H, Calcium Level 7.7L Height (Feet): 4 Height (Inches): 9.00 Weight (Pounds): 134 Objective WDWN NAD clear breath sounds bilaterally without rhonchi or wheeze [id number] without MRG NABS nontender no HSM no CCE nonfocal Joss Mixon MD Jan 17, 2019 12:59
[2019-01-17] MEDS: cefTRIAXone 1 GM in D5W 55 ML IVPB SCH (14:16)
--- NOTE | 2019-01-17 15:43 | NUR ---
NURSE NOTES:WOUND CARE NOTES:Pt presented on admission with non-blanchable erythema with two partial thickness wounds and additional shearing sacrum,R and L buttocks. Base of sacral wound moist -viable. Edges flat and adherent to base of wound with surrounding non-blanchable erythema with shearing periwound(L)3cm x (W)4cm. Partial thickness wound L buttocks (L)5cm x (W)2cm .Base of wound moist-viable.Edges flat and adherent to base of wound .Additional shearing with non-blanchable erythema periwound. R and L heels are soft but blanchable. Recommendations: Apply Moisture Barrier paste to Sacrum, R and L Buttocks with each perineal care. Cover sacral area with Optifoam drsg. Change every 3 days and prn. Apply Cavilon Skin Barrier to both heels. Cover each heel with Optifoam drsg. Change every 7 days and prn. Reposition at least every 2hours or as tolerated. Off-load heels with pillow.
[2019-01-17 16:00] VITALS: BP 158/76
--- NOTE | 2019-01-17 19:11 | NUR ---
CASE MANAGEMENT: REVIEW 01/17/2019 SI: Severe protein-calorie malnutrition. ASPIRATION PNA. T 99.5 HR 90 RR 23 B/P 158/76 SATS 95% ON RA NA 147 K 3.1 CL 113 BUN 69 CR 3 GLU 152 CA 7.7 IS: VENOFER IV QHS TOPROL PO QD NOVOLOG SUB AC/HS CEFTRIAXONE IV Q24H TELE STATUS
--- NOTE | 2019-01-17 19:30 | NUR ---
NURSE NOTES: Received pt. and report from EDMOND Mitchell. Observe pt resting in bed with both eyes closed and family members at bedside. quality assurance monitor body is in placed, IV site intact, asymptomatic and patent. Bed is in the lowest position and locked. Call light within reach. No signs and symptoms of acute distress noted at this time. Will continue plan of care.
--- NOTE | 2019-01-17 19:38 | NUR ---
HAND-OFF: Report given to EDMOND Bedolla.
[2019-01-17 20:00] VITALS: BP 157/80
[2019-01-17] MEDS: Iron Sucrose 100 MG in NS 55 ML IV SCH (20:48)
[2019-01-17] MEDS: Dyna-Hex 2% Top Sol 2oz TOPIC SCH (20:48)
--- NOTE | 2019-01-17 22:09 | General Progress Note ---
Assessment/Plan Assessment/Plan: Assessment - Melena, UGIB - multiple duodenal ulcers (H pylori negative per path) - Anemia, s/p transfusion - Renal failure - h/o throat cancer - mild hypernatremia Recommendations - po as tolerated - IVF - PPI x 8 weeks - OOB - d/c planning per PMD Subjective Allergies: Coded Allergies: No Known Allergies (Unverified , 01/11/19) Subjective Feels OK abd pain resolved tolerating PO advanced to solids today Objective Last 24 Hour Vital Signs Date Time Temp Pulse Resp B/P (MAP) Pulse Ox O2 Delivery O2 Flow Rate FiO2 01/17/19 16:00 90 01/17/19 16:00 99.5 90 23 158/76 (103) 95 01/17/19 12:00 98.1 81 21 154/77 (102) 97 01/17/19 12:00 81 01/17/19 08:37 89 143/95 01/17/19 08:15 Nasal Cannula 2.0 01/17/19 08:00 99.2 89 23 143/95 (111) 99 01/17/19 08:00 85 01/17/19 07:00 98 Nasal Cannula 3.0 32 01/17/19 04:00 97.0 73 20 131/69 (89) 97 01/17/19 04:00 63 01/17/19 00:00 97.6 85 20 104/67 (79) 95 01/17/19 00:00 83 Intake and Output 01/16/19 01/17/19 19:00 07:00 Intake Total 120 ml Output Total 600 ml 550 ml Balance -480 ml -550 ml Intake Oral 120 ml Output Urine Total 600 ml 550 ml Laboratory Tests 01/17/19 05:30: Sodium Level 147H, Potassium Level 3.1L, Chloride Level 113H, Carbon Dioxide Level 22, Anion Gap 12, Blood Urea Nitrogen 69H, Creatinine 3.0H, Estimat Glomerular Filtration Rate , Glucose Level 152H, Calcium Level 7.7L Height (Feet): 4 Height (Inches): 9.00 Weight (Pounds): 134 Objective WDWN NCAT supple CTA RR abd soft ND NT no edema Porsha Garcia MD Jan 17, 2019 22:09
--- NOTE | 2019-01-17 22:58 | NUR ---
NURSE NOTES: Pt had a fever of 101.2 F. Cooling measures and Tylenol 650mg PO was given. Pt's temp decreased to 99.4F. Will continue to monitor pt.
--- NOTE | 2019-01-17 23:15 | NUR ---
NURSE NOTES: Pt has a history of CHF. Confirmed with Dr. Aguilar that it is okay to administer 1/2 NS w/KCL 20 mEq @ 100cc/hr.
--- NOTE | 2019-01-17 23:30 | Progress Note ---
DATE: 01/16/2019 CARDIOLOGY PROGRESS NOTE SUBJECTIVE: The patient was seen and evaluated and case discussed with Dr. Santos and Dr. Escobar. The patient had some confusion at night. OBJECTIVE: VITAL SIGNS: Blood pressure 163/71, pulse 77, respiratory rate 19. LUNGS: Clear. CARDIAC: Regular. Normal S1, S2 with a fourth heart sound. ABDOMEN: Soft. No focal tenderness. No guarding or rebound. EXTREMITIES: No edema. LABORATORY DATA: White count 12 and hemoglobin 10. Potassium 3.1, sodium 147, bicarbonate 22, BUN 69, creatinine 3. IMPRESSION: 1. Dehydration. 2. Hypernatremia. 3. Hypokalemia. 4. Acute on chronic renal failure. 5. Hypertensive heart disease with labile blood pressure. 6. Metabolic acidosis. 7. Acute on chronic diastolic congestive heart failure. 8. Multiple duodenal ulcers and GI bleeding. 9. History of throat cancer. PLAN: 1. Free water replacement. 2. Potassium replacement. 3. Titration of antihypertensives and anti-failure drugs. 4. Respiratory hygiene. 5. A 24-hour urine for creatinine clearance. June Brown JOB#: [id number] CC:
[2019-01-18] VITALS: BP 130/56
--- NOTE | 2019-01-18 00:01 | Progress Note ---
DATE: 01/17/2019 CARDIOLOGY PROGRESS NOTE: SUBJECTIVE: Diet is being tolerated with solids now. No nausea or vomiting. OBJECTIVE: VITAL SIGNS: Blood pressure 143/95, pulse 89, respirations 18. LUNGS: Clear. CARDIAC: Regular. Normal S1, S2 with a fourth heart sound. ABDOMEN: Slightly distended, but soft. EXTREMITIES: Trace edema. LABORATORY DATA: Reviewed. IMPRESSION: 1. Anemia. 2. Hypertensive heart disease. 3. Dehydration. 4. Hypernatremia. 5. Hypokalemia. 6. Iron deficiency anemia. 7. Multiple duodenal ulcers, status post GI bleed. 8. Acute on chronic diastolic congestive heart failure. PLAN: 1. Free water replacement. 2. Iron replacement. 3. Monitor renal function and cardiovascular parameters. 4. Titrate antihypertensives. 5. Reassess for diuresis. Kevyn Aguilar M.D. DR: ANA JOB#: [id number] CC:
[2019-01-18] MEDS: 1/2NS w/KCl 20mEq 1000ml 1,000 ML IV SCH ×3 (00:24→20:49)
[2019-01-18 04:00] VITALS: BP 148/65
[2019-01-18] MEDS: NovoLOG Insulin Flexpen SUBQ SCH ×4 (06:30→20:52)
[2019-01-18 07:27] LABS: HEMATOCRIT 29.5 % (37.0-47.0); HEMOGLOBIN 9.6 G/DL (12.0-16.0); MEAN CORPUSCULAR VOLUME 87 FL (80-99); PLATELET COUNT 65 K/UL (150-450); RED BLOOD COUNT 3.41 M/UL (4.20-5.40); RED CELL DISTRIBUTION WIDTH 16.9 % (11.6-14.8); WHITE BLOOD COUNT 9.6 K/UL (4.8-10.8)
[2019-01-18 07:48] LABS: ANION GAP 10 mmol/L (5-15); BLOOD UREA NITROGEN 64 mg/dL (7-18); CALCIUM 7.4 MG/DL (8.5-10.1); CARBON DIOXIDE 24 MMOL/L (21-32); CHLORIDE 114 MMOL/L (98-107); POTASSIUM 3.2 MMOL/L (3.5-5.1); SODIUM 148 MMOL/L (136-145)
[2019-01-18 08:00] VITALS: BP 128/63
--- NOTE | 2019-01-18 08:25 | NUR ---
HAND-OFF: Report given to EDMOND Nunez.
--- NOTE | 2019-01-18 08:25 | NUR ---
NURSE NOTES: Received patient from Chioma RN in bed resting, denies any pain. IV is intact. Patient is agiitated, confused, pulling eguipments, patient is on bilateral soft restraint. Bed is in lowest position. brakes engaged for safety. Call light is within easy reach. Will continue with the plan of care.
[2019-01-18] MEDS: Metoprolol Succinate XL 25mg tab ORAL SCH (08:37)
--- NOTE | 2019-01-18 09:21 | NUR ---
RADIOLOGY DEPT., CHEST X-RAY DONE.-P.DYE
--- NOTE | 2019-01-18 09:24 | NUR ---
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 COUNT 65, Na 148, K 3.2, BUN 64, CR 3.0 IS:SODIUM x1L IV METOPROLOL 25mg IRON SUCROSE 60ml IV TELE STATUS
--- NOTE | 2019-01-18 10:33 | NUR ---
*-* INSURANCE *-* UPDATED CLINICALS HAVE BEEN FAXED TO: [facility]. P: [phone] F: [phone] ( FAX CLINICALS)
--- NOTE | 2019-01-18 10:38 | Nephrology Progress Note ---
Assessment/Plan Plan ESRD. Ccr 11 GFR probably lower 9diabetic) GIB due to uremia.. Needs to start HD. Creatinine down to 3 and stable GFR not significantly improved. Urine output 1 L/d. pt's insurance Scan. Pt's daughter to change to traditional Medicare now! Needs PermCath YELENA. Subjective Subjective No new c/o. Agitated. Objective Objective Last 24 Hour Vital Signs Date Time Temp Pulse Resp B/P (MAP) Pulse Ox O2 Delivery O2 Flow Rate FiO2 01/18/19 08:37 75 128/63 01/18/19 08:00 82 01/18/19 08:00 97.2 82 20 128/63 (84) 96 01/18/19 04:00 68 01/18/19 04:00 97.7 68 20 148/65 (92) 97 01/18/19 00:00 69 01/18/19 00:00 98.4 73 20 130/56 (80) 100 01/17/19 23:21 97 Nasal Cannula 3.0 32 01/17/19 22:19 99.4 01/17/19 21:00 Nasal Cannula 2.0 01/17/19 20:00 100.6 87 20 157/80 (105) 96 01/17/19 20:00 87 01/17/19 16:00 90 01/17/19 16:00 99.5 90 23 158/76 (103) 95 01/17/19 12:00 98.1 81 21 154/77 (102) 97 01/17/19 12:00 81 Intake and Output 01/17/19 01/18/19 19:00 07:00 Output Total 600 ml 400 ml Balance -600 ml -400 ml Output Urine Total 600 ml 400 ml Laboratory Tests 01/18/19 06:40: White Blood Count 9.6, Red Blood Count 3.41L, Hemoglobin 9.6L, Hematocrit 29.5L , Mean Corpuscular Volume 87, Mean Corpuscular Hemoglobin 28.2, Mean Corpuscular Hemoglobin Concent 32.6, Red Cell Distribution Width 16.9H, Platelet Count 65L, Mean Platelet Volume 9.6, Neutrophils (%) (Auto) , Lymphocytes (%) (Auto) , Monocytes (%) (Auto) , Eosinophils (%) (Auto) , Basophils (%) (Auto) , Differential Total Cells Counted 100, Neutrophils % ( Manual) 81H, Lymphocytes % (Manual) 9L, Monocytes % (Manual) 5, Eosinophils % ( Manual) 4H, Basophils % (Manual) 1, Band Neutrophils 0, Platelet Estimate DecreasedL, Platelet Morphology Normal, Anisocytosis 1+, Sodium Level 148H, Potassium Level 3.2L, Chloride Level 114H, Carbon Dioxide Level 24, Anion Gap 10 , Blood Urea Nitrogen 64H, Creatinine 3.0H, Estimat Glomerular Filtration Rate , Glucose Level 92, Calcium Level 7.4L, Magnesium Level 1.8, Pro-B-Type Natriuretic Peptide > 30639K Height (Feet): 4 Height (Inches): 9.00 Weight (Pounds): 135 Objective CV RR Lungs CTA Abd SNT BS + E No CCE Donis Escobar MD Jan 18, 2019 10:38
--- NOTE | 2019-01-18 11:53 | Infectious Diseases Prog Note ---
Assessment/Plan Assessment/Plan A 1. pneumonia 2. renal failure, ESRD 3. severe anemia resolving 4. GI bleeding 5. throat cancer 6. diabetes mellitus 7. 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 Multiple duodenal ulcers 10. AMS, Atrophy in CT scan of head P 1. Discontinue ceftriaxone 2. Observe off of antibiotic Subjective ROS Limited/Unobtainable: Yes Constitutional: Reports: anorexia Neurologic: Reports: confusion, other - on restraint Allergies: Coded Allergies: No Known Allergies (Unverified , 01/11/19) Objective Vital Signs Last 24 Hour Vital Signs Date Time Temp Pulse Resp B/P (MAP) Pulse Ox O2 Delivery O2 Flow Rate FiO2 01/18/19 09:00 Nasal Cannula 2.0 01/18/19 08:37 75 128/63 01/18/19 08:00 82 01/18/19 08:00 97.2 82 20 128/63 (84) 96 01/18/19 04:00 68 01/18/19 04:00 97.7 68 20 148/65 (92) 97 01/18/19 00:00 69 01/18/19 00:00 98.4 73 20 130/56 (80) 100 01/17/19 23:21 97 Nasal Cannula 3.0 32 01/17/19 22:19 99.4 01/17/19 21:00 Nasal Cannula 2.0 01/17/19 20:00 100.6 87 20 157/80 (105) 96 01/17/19 20:00 87 01/17/19 16:00 90 01/17/19 16:00 99.5 90 23 158/76 (103) 95 01/17/19 12:00 98.1 81 21 154/77 (102) 97 01/17/19 12:00 81 Height (Feet): 4 Height (Inches): 9.00 Weight (Pounds): 135 General Appearance: no acute distress HEENT: mucous membranes moist Respiratory/Chest: lungs clear Cardiovascular: normal rate Abdomen: soft, non tender Extremities: other - nonpitting edema of arms Neurologic/Psychiatric: alert, disoriented Laboratory Tests Test 01/18/19 06:40 White Blood Count 9.6 K/UL (4.8-10.8) Red Blood Count 3.41 M/UL (4.20-5.40) L Hemoglobin 9.6 G/DL (12.0-16.0) L Hematocrit 29.5 % (37.0-47.0) L Mean Corpuscular Volume 87 FL (80-99) Mean Corpuscular Hemoglobin 28.2 PG (27.0-31.0) Mean Corpuscular Hemoglobin Concent 32.6 G/DL (32.0-36.0) Red Cell Distribution Width 16.9 % (11.6-14.8) H Platelet Count 65 K/UL (150-450) L Mean Platelet Volume 9.6 FL (6.5-10.1) Neutrophils (%) (Auto) % (45.0-75.0) Lymphocytes (%) (Auto) % (20.0-45.0) Monocytes (%) (Auto) % (1.0-10.0) Eosinophils (%) (Auto) % (0.0-3.0) Basophils (%) (Auto) % (0.0-2.0) Differential Total Cells Counted 100 Neutrophils % (Manual) 81 % (45-75) H Lymphocytes % (Manual) 9 % (20-45) L Monocytes % (Manual) 5 % (1-10) Eosinophils % (Manual) 4 % (0-3) H Basophils % (Manual) 1 % (0-2) Band Neutrophils 0 % (0-8) Platelet Estimate Decreased L Platelet Morphology Normal Anisocytosis 1+ Sodium Level 148 MMOL/L (136-145) H Potassium Level 3.2 MMOL/L (3.5-5.1) L Chloride Level 114 MMOL/L (98-107) H Carbon Dioxide Level 24 MMOL/L (21-32) Anion Gap 10 mmol/L (5-15) Blood Urea Nitrogen 64 mg/dL (7-18) H Creatinine 3.0 MG/DL (0.55-1.30) H Estimat Glomerular Filtration Rate mL/min (>60) Glucose Level 92 MG/DL (74-106) Calcium Level 7.4 MG/DL (8.5-10.1) L Magnesium Level 1.8 MG/DL (1.8-2.4) Pro-B-Type Natriuretic Peptide > 39828 pg/mL (0-125) H Current Medications Medications (Trade) Dose Ordered Sig/Eleanor Route PRN Reason Start Time Stop Time Status Last Admin Dose Admin Acetaminophen (Tylenol) 650 mg Q4H PRN ORAL Mild Pain/Temp > 100.5 01/15/19 02:24 02/11/19 02:23 01/17/19 21:49 Al Hydroxide/Mg Hydroxide (Mylanta) 30 ml FOUR TIMES A DAY PRN ORAL heartburn 01/15/19 02:29 02/11/19 02:28 Ceftriaxone Sodium 1 gm/ Dextrose 55 ml @ 110 mls/hr Q24H IVPB 01/15/19 14:00 01/19/19 13:59 01/17/19 14:16 Chlorhexidine Gluconate (Jessica-Hex 2%) 1 applic DAILY@2000 TOPIC 01/15/19 20:00 02/13/19 19:59 01/17/19 20:48 Dextrose (Dextrose 50%) 25 ml Q30M PRN IV Hypoglycemia 01/15/19 02:30 02/11/19 04:59 Dextrose (Dextrose 50%) 50 ml Q30M PRN IV Hypoglycemia 01/15/19 02:30 02/11/19 04:59 Insulin Aspart (NovoLOG) BEFORE MEALS AND HS SUBQ 01/15/19 06:30 02/11/19 06:29 01/17/19 20:50 Iron Sucrose 100 mg/Sodium Chloride 60 ml @ 240 mls/hr BEDTIME IV 01/15/19 21:00 01/18/19 21:14 01/17/19 20:48 Metoprolol Succinate (Toprol XL) 25 mg DAILY ORAL 01/15/19 09:00 02/12/19 22:29 01/18/19 08:37 Morphine Sulfate (Morphine Sulfate) 2 mg Q4H PRN IVP For Pain 01/15/19 03:00 01/20/19 22:59 Ondansetron HCl (Zofran) 4 mg Q6H PRN IVP Nausea & Vomiting 01/15/19 02:24 02/12/19 02:23 Pantoprazole (Protonix) 40 mg BID ORAL 01/15/19 09:00 02/11/19 08:59 01/18/19 08:37 Sodium 1,000 ml @ 100 mls/hr Q10H IV 01/17/19 23:00 02/16/19 22:59 01/18/19 09:19 Sahil Flores MD Jan 18, 2019 11:53
[2019-01-18 12:00] VITALS: BP 139/66
--- NOTE | 2019-01-18 12:09 | NUR ---
RD ASSESSMENT & RECOMMENDATIONS SEE CARE ACTIVITY FOR COMPLETE ASSESSMENT DAILY ESTIMATED NEEDS: Needs based on DM, CKD 5 47kg adj 25-35 kcals/kg 1622-3642 total kcals .6-.8 (WITH HD increase to 1.2-1.8) g protein/kg 28-38 (WITH HD 56-85) g total protein Fluid per MD mL/kg 0829-2678 total fluid mLs NUTRITION DIAGNOSIS: Decreased sodium and pro needs r/t renal dysfunction, CKD 5 per MD as evidenced by elev BUN (80-> 64), ekev Creat (3.0), low creat cl and low 24 hr Ucreat, elev Phos (5.3),per MD requires HD. PO DIET RECOMMENDATIONS: RENAL DIET (texture as tolerated) w/ Protein restriction (40g pro) without HD --- ADDITIONAL RECOMMENDATIONS: 1) Monitor ability to advance diet, diet tolerance 2) Add NEPRO x1 daily w/ current variable po intake 3) Long acting insulin for improved BG 4) Monitor for HD initiation 5) Obtain a standing weight OR calibrated bed scale 6) F/up w/ WC eval
--- NOTE | 2019-01-18 12:42 | Diagnostic Imaging Report ---
Indication: Dyspnea Comparison: 01/14/2019 A single view chest radiograph was obtained. Findings: There is interval worsening pulmonary vascular congestion and interstitial edema. Bilateral pleural effusions are also noted. Cardiomegaly is present. Right jugular line is unchanged. IMPRESSION: Moderate CHF
--- NOTE | 2019-01-18 14:53 | Pulmonology Progress Note ---
Assessment/Plan Assessment/Plan Pulmonary Progress Note HISTORY OF PRESENT ILLNESS: This is an 83-year-old female who was brought in due to significant shortness of breath. The patient was having bloody stool and diarrhea. The patient recently admitted with pleural effusion, placed on antibiotics and was discharged to home. The patient received transfusion on this admission, noted to have elevated Creatinine, Left Soleal DVT. No new complaints PAST MEDICAL HISTORY: Diabetes, hypertension, CHF, throat cancer. MEDICATIONS: Reviewed. ALLERGIES: Reviewed. SOCIAL HISTORY: The patient lives with family. Nonsmoker and nondrinker. REVIEW OF SYSTEMS: Notable for the above. PHYSICAL EXAMINATION: GENERAL: A well-developed female appears to be overall comfortable. VITAL SIGNS NOTED: HEENT: Negative. NECK: Supple. LUNGS: Reduced breath sounds. CARDIAC: S1 and S2. Regular rate and rhythm. ABDOMEN: Soft, nontender, and nondistended. EXTREMITIES: No edema. LABORATORY DATA NOTED: Reviewed. Hemoglobin stable post TFN, platelets of 118. Chemistries noted, bicarbonate 14, BUN 166, creatinine 4.5. Lactic acid 2.2. Albumin is 1.7. IMPRESSION: 1. Severe protein-calorie malnutrition. 2. End-stage renal disease. 3. Anemia profound, possible gastrointestinal bleed. 4. Left Soleal DVT 5. History of congestive heart failure. 6. Left pleural effusion. RECOMMENDATION: 1. Supportive care. 2. Renal evaluation. 3. GI evaluation. 4. Cardiology evaluation. 5. Transfuse and monitor hemoglobin and hematocrit. 6. No anticoagulation for now given GI bleed. 7. We will follow clinically. Subjective ROS Limited/Unobtainable: No Allergies: Coded Allergies: No Known Allergies (Unverified , 01/11/19) Objective Last 24 Hour Vital Signs Date Time Temp Pulse Resp B/P (MAP) Pulse Ox O2 Delivery O2 Flow Rate FiO2 01/18/19 12:00 80 01/18/19 12:00 97.3 80 20 139/66 (90) 98 01/18/19 09:00 Nasal Cannula 2.0 01/18/19 08:37 75 128/63 01/18/19 08:00 82 01/18/19 08:00 97.2 82 20 128/63 (84) 96 01/18/19 04:00 68 01/18/19 04:00 97.7 68 20 148/65 (92) 97 01/18/19 00:00 69 01/18/19 00:00 98.4 73 20 130/56 (80) 100 01/17/19 23:21 97 Nasal Cannula 3.0 32 01/17/19 22:19 99.4 01/17/19 21:00 Nasal Cannula 2.0 01/17/19 20:00 100.6 87 20 157/80 (105) 96 01/17/19 20:00 87 01/17/19 16:00 90 01/17/19 16:00 99.5 90 23 158/76 (103) 95 Intake and Output 01/17/19 01/18/19 19:00 07:00 Output Total 600 ml 400 ml Balance -600 ml -400 ml Output Urine Total 600 ml 400 ml Laboratory Tests 01/18/19 06:40: White Blood Count 9.6, Red Blood Count 3.41L, Hemoglobin 9.6L, Hematocrit 29.5L , Mean Corpuscular Volume 87, Mean Corpuscular Hemoglobin 28.2, Mean Corpuscular Hemoglobin Concent 32.6, Red Cell Distribution Width 16.9H, Platelet Count 65L, Mean Platelet Volume 9.6, Neutrophils (%) (Auto) , Lymphocytes (%) (Auto) , Monocytes (%) (Auto) , Eosinophils (%) (Auto) , Basophils (%) (Auto) , Differential Total Cells Counted 100, Neutrophils % ( Manual) 81H, Lymphocytes % (Manual) 9L, Monocytes % (Manual) 5, Eosinophils % ( Manual) 4H, Basophils % (Manual) 1, Band Neutrophils 0, Platelet Estimate DecreasedL, Platelet Morphology Normal, Anisocytosis 1+, Sodium Level 148H, Potassium Level 3.2L, Chloride Level 114H, Carbon Dioxide Level 24, Anion Gap 10 , Blood Urea Nitrogen 64H, Creatinine 3.0H, Estimat Glomerular Filtration Rate , Glucose Level 92, Calcium Level 7.4L, Magnesium Level 1.8, Pro-B-Type Natriuretic Peptide > [id number] Current Medications Medications (Trade) Dose Ordered Sig/Eleanor Route PRN Reason Start Time Stop Time Status Last Admin Dose Admin Acetaminophen (Tylenol) 650 mg Q4H PRN ORAL Mild Pain/Temp > 100.5 01/15/19 02:24 02/11/19 02:23 01/17/19 21:49 Al Hydroxide/Mg Hydroxide (Mylanta) 30 ml FOUR TIMES A DAY PRN ORAL heartburn 01/15/19 02:29 02/11/19 02:28 Chlorhexidine Gluconate (Jessica-Hex 2%) 1 applic DAILY@2000 TOPIC 01/15/19 20:00 02/13/19 19:59 01/17/19 20:48 Dextrose (Dextrose 50%) 25 ml Q30M PRN IV Hypoglycemia 01/15/19 02:30 02/11/19 04:59 Dextrose (Dextrose 50%) 50 ml Q30M PRN IV Hypoglycemia 01/15/19 02:30 02/11/19 04:59 Insulin Aspart (NovoLOG) BEFORE MEALS AND HS SUBQ 01/15/19 06:30 02/11/19 06:29 01/17/19 20:50 Iron Sucrose 100 mg/Sodium Chloride 60 ml @ 240 mls/hr BEDTIME IV 01/15/19 21:00 01/18/19 21:14 01/17/19 20:48 Metoprolol Succinate (Toprol XL) 25 mg DAILY ORAL 01/15/19 09:00 02/12/19 22:29 01/18/19 08:37 Morphine Sulfate (Morphine Sulfate) 2 mg Q4H PRN IVP For Pain 01/15/19 03:00 01/20/19 22:59 Ondansetron HCl (Zofran) 4 mg Q6H PRN IVP Nausea & Vomiting 01/15/19 02:24 02/12/19 02:23 Pantoprazole (Protonix) 40 mg BID ORAL 01/15/19 09:00 02/11/19 08:59 01/18/19 08:37 Sodium 1,000 ml @ 100 mls/hr Q10H IV 01/17/19 23:00 02/16/19 22:59 01/18/19 09:19 Kevyn Zamora MD Jan 18, 2019 14:53
[2019-01-18] MEDS ORDERED: Tubing IV Secondary IV ONE (15:18)
[2019-01-18 16:00] VITALS: BP 145/64
--- NOTE | 2019-01-18 19:50 | NUR ---
HAND-OFF: Report given to Kisha PRUITT.Endorsed plan of care.
[2019-01-18 20:00] VITALS: BP 151/80
--- NOTE | 2019-01-18 20:02 | NUR ---
NURSE NOTES: Received report from EDMOND Nunez. Patient is asleep lying semi-lopez's; resting comfortably. Arousable to shaking. No signs of acute distress or pain noted at this time. Family members at bedside. On 2L nasal cannula. AOx1; unable to make needs known. Checked right IJ triple lumen catheter, lines, and IV rate; patent and running. No erythema, bleeding, or infiltration noted. Carney catheter draining well to gravity. Bed at lowest position, brakes on, siderails up x3. Call light within reach. Will continue to monitor.
[2019-01-18] MEDS: Iron Sucrose 100 MG in NS 55 ML IV SCH (20:49)
[2019-01-18] MEDS: Dyna-Hex 2% Top Sol 2oz TOPIC SCH (20:49)
--- NOTE | 2019-01-18 21:40 | General Progress Note ---
Assessment/Plan Assessment/Plan: Assessment - Melena, UGIB - multiple duodenal ulcers (H pylori negative per path) - Anemia, s/p transfusion - Renal failure - h/o throat cancer - mild hypernatremia Recommendations - po as tolerated - IVF - PPI x 8 weeks - OOB - d/c planning per PMD Subjective Allergies: Coded Allergies: No Known Allergies (Unverified , 01/11/19) Subjective Feels OK abd pain resolved poor appetite Objective Last 24 Hour Vital Signs Date Time Temp Pulse Resp B/P (MAP) Pulse Ox O2 Delivery O2 Flow Rate FiO2 01/18/19 16:00 97.3 86 20 145/64 (91) 98 01/18/19 16:00 86 01/18/19 12:00 80 01/18/19 12:00 97.3 80 20 139/66 (90) 98 01/18/19 09:00 Nasal Cannula 2.0 01/18/19 08:37 75 128/63 01/18/19 08:00 82 01/18/19 08:00 97.2 82 20 128/63 (84) 96 01/18/19 04:00 68 01/18/19 04:00 97.7 68 20 148/65 (92) 97 01/18/19 00:00 69 01/18/19 00:00 98.4 73 20 130/56 (80) 100 01/17/19 23:21 97 Nasal Cannula 3.0 32 01/17/19 22:19 99.4 Intake and Output 01/17/19 01/18/19 18:59 06:59 Output Total 600 ml 400 ml Balance -600 ml -400 ml Output Urine Total 600 ml 400 ml Laboratory Tests 01/18/19 06:40: White Blood Count 9.6, Red Blood Count 3.41L, Hemoglobin 9.6L, Hematocrit 29.5L , Mean Corpuscular Volume 87, Mean Corpuscular Hemoglobin 28.2, Mean Corpuscular Hemoglobin Concent 32.6, Red Cell Distribution Width 16.9H, Platelet Count 65L, Mean Platelet Volume 9.6, Neutrophils (%) (Auto) , Lymphocytes (%) (Auto) , Monocytes (%) (Auto) , Eosinophils (%) (Auto) , Basophils (%) (Auto) , Differential Total Cells Counted 100, Neutrophils % ( Manual) 81H, Lymphocytes % (Manual) 9L, Monocytes % (Manual) 5, Eosinophils % ( Manual) 4H, Basophils % (Manual) 1, Band Neutrophils 0, Platelet Estimate DecreasedL, Platelet Morphology Normal, Anisocytosis 1+, Sodium Level 148H, Potassium Level 3.2L, Chloride Level 114H, Carbon Dioxide Level 24, Anion Gap 10 , Blood Urea Nitrogen 64H, Creatinine 3.0H, Estimat Glomerular Filtration Rate , Glucose Level 92, Calcium Level 7.4L, Magnesium Level 1.8, Pro-B-Type Natriuretic Peptide > 51132S Height (Feet): 4 Height (Inches): 9.00 Weight (Pounds): 135 Objective WDWN NCAT supple CTA RR abd soft ND NT no edema Porsha Garcia MD Jan 18, 2019 21:40
[2019-01-19] VITALS: BP 161/77
[2019-01-19 04:00] VITALS: BP 147/74
[2019-01-19] MEDS: 1/2NS w/KCl 20mEq 1000ml 1,000 ML IV SCH ×2 (05:40→18:01)
[2019-01-19] MEDS: NovoLOG Insulin Flexpen SUBQ SCH ×4 (05:40→21:00)
--- NOTE | 2019-01-19 06:03 | NUR ---
NURSE NOTES: Right IJ triple lumen catheter dressing changed. Patient tolerated well.
--- NOTE | 2019-01-19 07:08 | NUR ---
HAND-OFF: Report given to EDMOND Nunez. Patient is awake lying semi-lopez's; resting comfortably. Family member at bedside. Carney catheter draining to gravity. In stable condition.
--- NOTE | 2019-01-19 07:10 | NUR ---
NURSE NOTES: Received patient from Kisha PRUITT in bed resting, denies any pain. IV is intact. Patient is agitated, and confused. Patient is on bilateral soft restraint. Family at bedside. Bed is in lowest position. brakes engaged for safety. Call light is within easy reach. Will continue with the plan of care.
[2019-01-19 08:00] VITALS: BP 134/86
[2019-01-19] MEDS: Metoprolol Succinate XL 25mg tab ORAL SCH (09:52)
--- NOTE | 2019-01-19 11:37 | NUR ---
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 97.3 HR 73 RR 20 B/P 161/77 3L NC O2 SAT @ 98% IS: IVF NS @ 100ML/HR METOPROLOL PO PROTONIX PO BEKAH CATH TELE STATUS
--- NOTE | 2019-01-19 11:47 | General Progress Note ---
Assessment/Plan Assessment/Plan: Assessment - Melena, UGIB - multiple duodenal ulcers (H pylori negative per path) - Anemia, s/p transfusion - Renal failure - h/o throat cancer - mild hypernatremia Recommendations - po as tolerated - IVF - PPI x 8 weeks - OOB - d/c planning per PMD Subjective Allergies: Coded Allergies: No Known Allergies (Unverified , 01/11/19) Subjective Feels OK abd pain resolved poor appetite d/w family at bedside Objective Last 24 Hour Vital Signs Date Time Temp Pulse Resp B/P (MAP) Pulse Ox O2 Delivery O2 Flow Rate FiO2 01/19/19 09:52 89 134/86 01/19/19 09:00 Nasal Cannula 2.0 01/19/19 08:00 98.2 67 20 134/86 (102) 96 01/19/19 08:00 67 01/19/19 04:00 76 01/19/19 04:00 97.8 76 20 147/74 (98) 99 01/19/19 00:00 97.3 73 20 161/77 (105) 98 01/19/19 00:00 70 01/18/19 23:36 98 Nasal Cannula 3.0 32 01/18/19 21:00 Nasal Cannula 2.0 01/18/19 20:00 98.5 80 20 151/80 (103) 01/18/19 20:00 74 01/18/19 16:00 97.3 86 20 145/64 (91) 98 01/18/19 16:00 86 01/18/19 12:00 80 01/18/19 12:00 97.3 80 20 139/66 (90) 98 Intake and Output 01/18/19 01/19/19 19:00 07:00 Intake Total 100 ml 1111 ml Output Total 200 ml 150 ml Balance -100 ml 961 ml IV Total 100 ml 1111 ml Output Urine Total 200 ml 150 ml Height (Feet): 4 Height (Inches): 9.00 Weight (Pounds): 135 Objective WDWN NCAT supple CTA RR abd soft ND NT no edema Porsha Garcia MD Jan 19, 2019 11:47
[2019-01-19 12:00] VITALS: BP 146/76
--- NOTE | 2019-01-19 12:07 | Nephrology Progress Note ---
Assessment/Plan Plan ESRD. Ccr 11 GFR probably lower (diabetic) Needs to start HD. Creatinine down to 3 and stable GFR not significantly improved. Urine output 1 L/d. pt's insurance Scan. Pt's daughter to change to traditional Medicare now! Needs PermCath YELENA. referred to [facility] [phone] Subjective Subjective No new c/o. NPO. Objective Objective Last 24 Hour Vital Signs Date Time Temp Pulse Resp B/P (MAP) Pulse Ox O2 Delivery O2 Flow Rate FiO2 01/19/19 09:52 89 134/86 01/19/19 09:00 Nasal Cannula 2.0 01/19/19 08:00 98.2 67 20 134/86 (102) 96 01/19/19 08:00 67 01/19/19 04:00 76 01/19/19 04:00 97.8 76 20 147/74 (98) 99 01/19/19 00:00 97.3 73 20 161/77 (105) 98 01/19/19 00:00 70 01/18/19 23:36 98 Nasal Cannula 3.0 32 01/18/19 21:00 Nasal Cannula 2.0 01/18/19 20:00 98.5 80 20 151/80 (103) 01/18/19 20:00 74 01/18/19 16:00 97.3 86 20 145/64 (91) 98 01/18/19 16:00 86 Intake and Output 01/18/19 01/19/19 19:00 07:00 Intake Total 100 ml 1111 ml Output Total 200 ml 150 ml Balance -100 ml 961 ml IV Total 100 ml 1111 ml Output Urine Total 200 ml 150 ml Height (Feet): 4 Height (Inches): 9.00 Weight (Pounds): 135 Objective CV RR Lungs CTA Abd SNT BS + E No CCE Donis Escobar MD Jan 19, 2019 12:07
[2019-01-19 14:43] LABS: INR 1.1 (0.9-1.1)
--- NOTE | 2019-01-19 15:06 | Infectious Diseases Prog Note ---
Assessment/Plan Assessment/Plan A 1. pneumonia 2. renal failure, ESRD 3. severe anemia resolving 4. GI bleeding 5. throat cancer 6. diabetes mellitus 7. 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 Multiple duodenal ulcers 10. AMS, Atrophy in CT scan of head 11.Thrombocytopenia & anemia P 1. Observe off of antibiotic Subjective ROS Limited/Unobtainable: Yes Neurologic: Reports: confusion, other - on restraint Allergies: Coded Allergies: No Known Allergies (Unverified , 01/11/19) Objective Vital Signs Last 24 Hour Vital Signs Date Time Temp Pulse Resp B/P (MAP) Pulse Ox O2 Delivery O2 Flow Rate FiO2 01/19/19 12:00 86 01/19/19 09:52 89 134/86 01/19/19 09:00 Nasal Cannula 2.0 01/19/19 08:00 98.2 67 20 134/86 (102) 96 01/19/19 08:00 67 01/19/19 04:00 76 01/19/19 04:00 97.8 76 20 147/74 (98) 99 01/19/19 00:00 97.3 73 20 161/77 (105) 98 01/19/19 00:00 70 01/18/19 23:36 98 Nasal Cannula 3.0 32 01/18/19 21:00 Nasal Cannula 2.0 01/18/19 20:00 98.5 80 20 151/80 (103) 01/18/19 20:00 74 01/18/19 16:00 97.3 86 20 145/64 (91) 98 01/18/19 16:00 86 Height (Feet): 4 Height (Inches): 9.00 Weight (Pounds): 135 General Appearance: no acute distress HEENT: mucous membranes moist Respiratory/Chest: lungs clear Cardiovascular: normal rate, other - RIJ central line Abdomen: soft, non tender Extremities: other - edema of arms Neurologic/Psychiatric: alert, responsive, disoriented Laboratory Tests Test 01/19/19 14:30 Prothrombin Time 11.6 SEC (9.30-11.50) H Prothromb Time International Ratio 1.1 (0.9-1.1) Activated Partial Thromboplast Time 34 SEC (23-33) H Current Medications Medications (Trade) Dose Ordered Sig/Eleanor Route PRN Reason Start Time Stop Time Status Last Admin Dose Admin Acetaminophen (Tylenol) 650 mg Q4H PRN ORAL Mild Pain/Temp > 100.5 01/15/19 02:24 02/11/19 02:23 01/17/19 21:49 Al Hydroxide/Mg Hydroxide (Mylanta) 30 ml FOUR TIMES A DAY PRN ORAL heartburn 01/15/19 02:29 02/11/19 02:28 Chlorhexidine Gluconate (Jessica-Hex 2%) 1 applic DAILY@2000 TOPIC 01/15/19 20:00 02/13/19 19:59 01/18/19 20:49 Dextrose (Dextrose 50%) 25 ml Q30M PRN IV Hypoglycemia 01/15/19 02:30 02/11/19 04:59 Dextrose (Dextrose 50%) 50 ml Q30M PRN IV Hypoglycemia 01/15/19 02:30 02/11/19 04:59 Insulin Aspart (NovoLOG) BEFORE MEALS AND HS SUBQ 01/15/19 06:30 02/11/19 06:29 01/17/19 20:50 Metoprolol Succinate (Toprol XL) 25 mg DAILY ORAL 01/15/19 09:00 02/12/19 22:29 01/19/19 09:52 Morphine Sulfate (Morphine Sulfate) 2 mg Q4H PRN IVP For Pain 01/15/19 03:00 01/20/19 22:59 Ondansetron HCl (Zofran) 4 mg Q6H PRN IVP Nausea & Vomiting 01/15/19 02:24 02/12/19 02:23 Pantoprazole (Protonix) 40 mg BID ORAL 01/15/19 09:00 02/11/19 08:59 01/19/19 09:51 Sodium 1,000 ml @ 100 mls/hr Q10H IV 01/17/19 23:00 02/16/19 22:59 01/19/19 05:40 Sahil Flores MD Jan 19, 2019 15:06
[2019-01-19 16:00] VITALS: BP 140/96
--- NOTE | 2019-01-19 19:35 | NUR ---
HAND-OFF: Report given to EDMOND Kingston.Endorsed plan of care.
--- NOTE | 2019-01-19 19:40 | NUR ---
NURSE NOTES: Received report from Jordan Bautista Patient in bed AAO X2-3 Urdu speaking with no complaints of acute pain or distress noted at this time, family at bedside. Kept clean, dry, and comfortable in bed at all times. Right IJ noted, intact and patent with prescribed fluids running as ordered. Placed on continuous cardiac monitoring per protocol. Safety precaution in place; siderails X3 up, call light within reach, bed in lowest position, brakes and alarm on at all times. Needs and wants anticipated and attended, will continue plan of care and monitor for any changes noted. Scheduled Tunnel catheter placement for tomorrow 01/20/19. Will continue to monitor
[2019-01-19 20:00] VITALS: BP 156/95
[2019-01-19] MEDS: Dyna-Hex 2% Top Sol 2oz TOPIC SCH (22:00)
--- NOTE | 2019-01-19 22:00 | NUR ---
NURSE NOTES: Spoke with Maria Elena from Lab regarding Plateletpheresis order to be given STAT per radiology before Tunnel cath insertion tomorrow, needs to confirm this order with Pathology MD. Per Sumanth. (Radilology) wasnt comfortable doing procedure with current plt lvl, and ordered current Plt transfusion to be done prior to procedure. However, according to Too Trujillo MD (Pathology) and Too Vidal MD (Vasc SX), Platelet transfusion is not necessary for plt lvl at 65. Will confirm tomorrow 01/20/19 regarding status of scheduled procedure with Radiology dept and Young. Will continue to monitor Will hold Plasmapharesis order for now. aware
[2019-01-20] VITALS (12 sets, daily range): BP systolic 150–182; BP diastolic 52–101
[2019-01-20] MEDS: 1/2NS w/KCl 20mEq 1000ml 1,000 ML IV SCH (01:12)
--- NOTE | 2019-01-20 01:45 | Progress Note ---
DATE: 01/18/2019 CARDIOLOGY PROGRESS NOTE Late entry for 01/18/2019. SUBJECTIVE: The patient is being considered for hemodialysis and ultrafiltration. OBJECTIVE: VITAL SIGNS: Blood pressure 134/86, pulse 67, and respirations 20. LUNGS: Clear. CARDIAC: Regular. Normal S1, S2 with a fourth heart sound. ABDOMEN: Soft. EXTREMITIES: No edema. LABORATORY DATA: White count 9.6 and hemoglobin also 9.6. Sodium 148, potassium 3.2, chloride 114, bicarb 24, BUN 64, creatinine 3, magnesium 1.8, and pro-natriuretic peptide is 35,000. IMPRESSION: 1. CKD 5. 2. Anemia. 3. Gastrointestinal bleeding. 4. Acute myocardial ischemia. 5. Acute on chronic diastolic congestive heart failure. 6. Pleural effusion. PLAN: 1. Monitor blood counts and transfuse if further drop in hemoglobin. 2. Hemodialysis with ultrafiltration being considered. 3. Titrate antihypertensive regimen. 4. We will follow. Kevyn Aguliar M.D. DR: MERLIN JOB#: [id number] CC:
--- NOTE | 2019-01-20 01:45 | Progress Note ---
DATE: 01/19/2019 CARDIOLOGY PROGRESS NOTE SUBJECTIVE: The patient has not had any further drop in hemoglobin levels. She denies shortness of breath. There is no chest pain. The blood pressure is somewhat labile. OBJECTIVE: VITAL SIGNS: Blood pressure 134/86 to 161/77, heart rate 67 to 76, respiratory rate 20, and afebrile. LUNGS: Diminished breath sounds. No wheezing or rales. HEART: Regular rhythm and rate. Normal S1, S2. ABDOMEN: Soft. EXTREMITIES: No edema. LABORATORY DATA: INR is 1.1. IMPRESSION: 1. PermCath placement. 2. Titrate antihypertensives, dosing for blood pressure spikes. 3. Monitor hemoglobin. 4. Continue proton pump inhibitor. 5. Avoid anti-platelet and anticoagulant at this time. Kevyn Aguilar M.D. DR: MERLIN JOB#: [id number] CC:
--- NOTE | 2019-01-20 04:35 | NUR ---
NURSE NOTES: Patient in bed asleep with no S/S of acute pain or distress noted at this time. Will continue to monitor.
[2019-01-20] MEDS: NovoLOG Insulin Flexpen SUBQ SCH ×4 (06:30→21:15)
[2019-01-20 06:44] LABS: HEMATOCRIT 30.2 % (37.0-47.0); HEMOGLOBIN 9.7 G/DL (12.0-16.0); MEAN CORPUSCULAR VOLUME 89 FL (80-99); PLATELET COUNT 79 K/UL (150-450); RED CELL DISTRIBUTION WIDTH 17.3 % (11.6-14.8); WHITE BLOOD COUNT 7.6 K/UL (4.8-10.8)
[2019-01-20 06:59] LABS: INR 1.1 (0.9-1.1)
[2019-01-20 07:03] LABS: ANION GAP 11 mmol/L (5-15); BLOOD UREA NITROGEN 55 mg/dL (7-18); CALCIUM 7.5 MG/DL (8.5-10.1); CARBON DIOXIDE 19 MMOL/L (21-32); CHLORIDE 111 MMOL/L (98-107); CREATININE 2.6 MG/DL (0.55-1.30); POTASSIUM 4.5 MMOL/L (3.5-5.1); SODIUM 141 MMOL/L (136-145)
[2019-01-20] MEDS ORDERED: Heparin1,000 units/500ml Premix(Conc:2 units/ml) INJ SCH (07:36)
[2019-01-20] MEDS ORDERED: Heparin Sod 1000 units/ml 10ml INJ SCH (07:45)
[2019-01-20] MEDS ORDERED: Lidocaine 2% 20mg/ml/Epi 0.005mg/ml 20ml vial INJ PRN (07:45)
[2019-01-20] MEDS ORDERED: Heparin1,000 units/500ml Premix(Conc:2 units/ml) INJ PRN (07:45)
[2019-01-20] MEDS ORDERED: Lidocaine 2% 20mg/ml/Epi 0.005mg/ml 20ml vial INJ SCH (07:45)
[2019-01-20] MEDS ORDERED: Heparin Sod 1000 units/ml 10ml INJ PRN (07:45)
--- NOTE | 2019-01-20 07:55 | NUR ---
HAND-OFF: Report given to Naty Del Castillo RN. patient in bed with no S/S of distress noted at this time. Endorsed plan of care.
--- NOTE | 2019-01-20 08:26 | Pre-Procedure Note/Attestation ---
Pre-Procedure Note/Attestation Complete Prior to Procedure Planned Procedure: not applicable Procedure Narrative: Permacath Indications for Procedure Pre-Operative Diagnosis: renal failure Attestation I attest that I discussed the nature of the procedure; its benefits; risks and complications; and alternatives (and the risks and benefits of such alternatives ), prior to the procedure, with the patient (or the patient's legal door to door sales representative). I attest that, if there was a reasonable possibility of needing a blood transfusion, the patient (or the patient's legal door to door sales representative) was given the [facility] standardized written summary, pursuant to the Trey Ward Blood Safety Act ([place] Health and Safety Code # 1645, as amended). I attest that I re-evaluated the patient just prior to the surgery and that there has been no change in the patient's H&P, except as documented below: Discussed by phone with pt's. daughter Nuha at 0820 on 01/20/2019 Guevara Ardon MD Jan 20, 2019 08:26
--- NOTE | 2019-01-20 08:29 | NUR ---
NURSE NOTES: Pt in bed in low position, bed alarm on, HOB in fowlers position, restraints on soft bilateral wrist, pt slight light confusion, arms bilateral edema +4 pitting, IJ IV intact and running fluids, labs WNL, Ox2 welsh speaker, at 0800 pt went down for permacath placement and consent signed, daughter at bedside, denies pain, pt NPO from midnight, no meds given at this time. no s/s of distress or sob noted. NC 2L on unit and during transfer, ED nurse will be with patient in OR
--- NOTE | 2019-01-20 09:22 | Brief Operative Note ---
Immediate Post Operative Note Operative Note Pre-op Diagnosis: renal failure Procedure: R IJV permacath Post-op Diagnosis: same as pre-op Findings: consistent w/pre-op dx studies Surgeon: Shahnaz ARDON Anesthesia: local Specimen: none Complications: none Condition: stable Fluids: none Implant(s) used?: Yes - 13.5 F BioFlo dialysis catheter Guevara Ardon MD Jan 20, 2019 09:22
--- NOTE | 2019-01-20 09:40 | NUR ---
Nurse Notes: Dr. Guevara Hatfield performed Tunneled Dialysis Catheter Placement to the right chest (time 2692-0169). Patient tolerated the procedure with minimal discomfort. Patient remained awake during the procedure. Regular, unlabored breathing noted. Patient remained on oxygen 2L via N/C and maintaining pulse oximetry reading > 94% throughout the procedure. Patient transferred to telemetry unit accompanied by [facility] and EDMOND Nicholas @ [phone]. Report given to EDMOND Lopez.
[2019-01-20] MEDS: Metoprolol Succinate XL 25mg tab ORAL SCH (09:48)
--- NOTE | 2019-01-20 10:43 | Infectious Diseases Prog Note ---
Assessment/Plan Assessment/Plan antibiotics : none A 1. pneumonia s/p rx 2. renal failure 3. severe anemia resolving 4. GI bleeding 5. throat cancer 6. diabetes mellitus 7. hypertension P 1. continue off antibiotics Subjective ROS Limited/Unobtainable: Yes Allergies: Coded Allergies: No Known Allergies (Unverified , 01/11/19) Objective Vital Signs Last 24 Hour Vital Signs Date Time Temp Pulse Resp B/P (MAP) Pulse Ox O2 Delivery O2 Flow Rate FiO2 01/20/19 09:48 90 174/72 01/20/19 09:29 89 20 165/63 (97) 98 01/20/19 09:16 83 22 2.0 01/20/19 09:14 97.5 91 20 161/52 (88) 99 01/20/19 09:09 97.3 89 20 169/58 (95) 97 01/20/19 09:04 97.2 86 20 181/63 (102) 97 01/20/19 08:58 87 01/20/19 08:45 Nasal Cannula 2.0 01/20/19 08:00 97.3 90 20 179/101 (127) 96 01/20/19 06:35 95 Nasal Cannula 2.0 28 01/20/19 04:05 86 01/20/19 04:00 86 01/20/19 04:00 98.4 92 20 150/73 (98) 96 01/20/19 00:00 97.9 96 20 182/95 (124) 97 01/20/19 00:00 96 01/19/19 21:00 Nasal Cannula 2.0 01/19/19 20:00 98.3 104 20 156/95 (115) 95 01/19/19 20:00 91 01/19/19 16:00 97.6 76 20 140/96 (111) 97 01/19/19 16:00 76 01/19/19 12:00 98.1 86 20 146/76 (99) 98 01/19/19 12:00 86 Height (Feet): 4 Height (Inches): 9.00 Weight (Pounds): 135 Respiratory/Chest: lungs clear Cardiovascular: normal rate, regular rhythm, no gallop/murmur Abdomen: soft, non tender Extremities: no edema Laboratory Tests Test 01/19/19 14:30 01/20/19 06:30 Prothrombin Time 11.6 SEC (9.30-11.50) H 11.4 SEC (9.30-11.50) Prothromb Time International Ratio 1.1 (0.9-1.1) 1.1 (0.9-1.1) Activated Partial Thromboplast Time 34 SEC (23-33) H 32 SEC (23-33) White Blood Count 7.6 K/UL (4.8-10.8) Red Blood Count 3.40 M/UL (4.20-5.40) L Hemoglobin 9.7 G/DL (12.0-16.0) L Hematocrit 30.2 % (37.0-47.0) L Mean Corpuscular Volume 89 FL (80-99) Mean Corpuscular Hemoglobin 28.5 PG (27.0-31.0) Mean Corpuscular Hemoglobin Concent 32.1 G/DL (32.0-36.0) Red Cell Distribution Width 17.3 % (11.6-14.8) H Platelet Count 79 K/UL (150-450) L Mean Platelet Volume 8.1 FL (6.5-10.1) Neutrophils (%) (Auto) % (45.0-75.0) Lymphocytes (%) (Auto) % (20.0-45.0) Monocytes (%) (Auto) % (1.0-10.0) Eosinophils (%) (Auto) % (0.0-3.0) Basophils (%) (Auto) % (0.0-2.0) Differential Total Cells Counted 100 Neutrophils % (Manual) 88 % (45-75) H Lymphocytes % (Manual) 5 % (20-45) L Monocytes % (Manual) 3 % (1-10) Eosinophils % (Manual) 0 % (0-3) Basophils % (Manual) 0 % (0-2) Band Neutrophils 4 % (0-8) Platelet Estimate Decreased L Platelet Morphology Normal Hypochromasia 2+ Anisocytosis 1+ Sodium Level 141 MMOL/L (136-145) Potassium Level 4.5 MMOL/L (3.5-5.1) Chloride Level 111 MMOL/L (98-107) H Carbon Dioxide Level 19 MMOL/L (21-32) L Anion Gap 11 mmol/L (5-15) Blood Urea Nitrogen 55 mg/dL (7-18) H Creatinine 2.6 MG/DL (0.55-1.30) H Estimat Glomerular Filtration Rate mL/min (>60) Glucose Level 218 MG/DL (74-106) H Calcium Level 7.5 MG/DL (8.5-10.1) L Current Medications Medications (Trade) Dose Ordered Sig/Eleanor Route PRN Reason Start Time Stop Time Status Last Admin Dose Admin Acetaminophen (Tylenol) 650 mg Q4H PRN ORAL Mild Pain/Temp > 100.5 01/15/19 02:24 02/11/19 02:23 01/17/19 21:49 Al Hydroxide/Mg Hydroxide (Mylanta) 30 ml FOUR TIMES A DAY PRN ORAL heartburn 01/15/19 02:29 02/11/19 02:28 Chlorhexidine Gluconate (Jessica-Hex 2%) 1 applic DAILY@1999 TOPIC 01/15/19 20:00 02/13/19 19:59 01/19/19 22:00 Dextrose (Dextrose 50%) 25 ml Q30M PRN IV Hypoglycemia 01/15/19 02:30 02/11/19 04:59 Dextrose (Dextrose 50%) 50 ml Q30M PRN IV Hypoglycemia 01/15/19 02:30 02/11/19 04:59 Heparin Sodium (Porcine) (Heparin Sod 1000 units/ml 10ml) 2,000 unit ONCE PRN INJ SURGERY 01/20/19 07:45 01/20/19 18:00 Heparin Sodium/ Sodium Chloride (Heparin 1000 units/500ml Premix) 1,000 unit ONCE PRN INJ SURGERY 01/20/19 07:45 01/20/19 18:00 Insulin Aspart (NovoLOG) BEFORE MEALS AND HS SUBQ 01/15/19 06:30 02/11/19 06:29 01/17/19 20:50 Lidocaine/ Epinephrine (Xylocaine 2% 20mg/ml/Epi 0.005mg/ml 20ml vial) 40 ml ONCE PRN INJ SURGERY 01/20/19 07:45 01/20/19 18:00 Metoprolol Succinate (Toprol XL) 25 mg DAILY ORAL 01/15/19 09:00 02/12/19 22:29 01/20/19 09:48 Morphine Sulfate (Morphine Sulfate) 2 mg Q4H PRN IVP For Pain 01/15/19 03:00 01/20/19 22:59 Ondansetron HCl (Zofran) 4 mg Q6H PRN IVP Nausea & Vomiting 01/15/19 02:24 02/12/19 02:23 Pantoprazole (Protonix) 40 mg BID ORAL 01/15/19 09:00 02/11/19 08:59 01/20/19 09:48 Sodium 1,000 ml @ 100 mls/hr Q10H IV 01/17/19 23:00 02/16/19 22:59 01/20/19 01:12 Sabina Gamble MD Jan 20, 2019 10:43
[2019-01-20] MEDS ORDERED: ceFAZolin sod 1 GM in D5W 55 ML IVPB ONE (13:45)
--- NOTE | 2019-01-20 14:15 | Nephrology Progress Note ---
Assessment/Plan Plan ESRD. pt's insurance Scan. Pt's daughter to change to traditional Medicare now! HD today pending. Subjective Subjective Note # 2 Very SOB! Objective Objective Last 24 Hour Vital Signs Date Time Temp Pulse Resp B/P (MAP) Pulse Ox O2 Delivery O2 Flow Rate FiO2 01/20/19 12:00 97.5 71 20 155/94 (114) 97 01/20/19 09:48 90 174/72 01/20/19 09:29 89 20 165/63 (97) 98 01/20/19 09:16 83 22 2.0 01/20/19 09:14 97.5 91 20 161/52 (88) 99 01/20/19 09:09 97.3 89 20 169/58 (95) 97 01/20/19 09:04 97.2 86 20 181/63 (102) 97 01/20/19 08:58 87 01/20/19 08:45 Nasal Cannula 2.0 01/20/19 08:00 97.3 90 20 179/101 (127) 96 01/20/19 06:35 95 Nasal Cannula 2.0 28 01/20/19 04:05 86 01/20/19 04:00 86 01/20/19 04:00 98.4 92 20 150/73 (98) 96 01/20/19 00:00 97.9 96 20 182/95 (124) 97 01/20/19 00:00 96 01/19/19 21:00 Nasal Cannula 2.0 01/19/19 20:00 98.3 104 20 156/95 (115) 95 01/19/19 20:00 91 01/19/19 16:00 97.6 76 20 140/96 (111) 97 01/19/19 16:00 76 Intake and Output 01/19/19 01/20/19 19:00 07:00 Intake Total 250 ml Output Total 302 ml Balance -52 ml Intake Oral 250 ml Output Urine Total 300 ml Stool Total 2 ml # Voids 2 Laboratory Tests 01/19/19 14:30: Prothrombin Time 11.6H, Prothromb Time International Ratio 1.1, Activated Partial Thromboplast Time 34H 01/20/19 06:30: Prothrombin Time 11.4, Prothromb Time International Ratio 1.1, Activated Partial Thromboplast Time 32, White Blood Count 7.6, Red Blood Count 3.40L, Hemoglobin 9.7L, Hematocrit 30.2L, Mean Corpuscular Volume 89, Mean Corpuscular Hemoglobin 28.5, Mean Corpuscular Hemoglobin Concent 32.1, Red Cell Distribution Width 17.3H, Platelet Count 79L, Mean Platelet Volume 8.1, Neutrophils (%) (Auto) , Lymphocytes (%) (Auto) , Monocytes (%) (Auto) , Eosinophils (%) (Auto) , Basophils (%) (Auto) , Differential Total Cells Counted 100, Neutrophils % (Manual) 88H, Lymphocytes % (Manual) 5L, Monocytes % (Manual) 3, Eosinophils % (Manual) 0, Basophils % (Manual) 0, Band Neutrophils 4 , Platelet Estimate DecreasedL, Platelet Morphology Normal, Hypochromasia 2+, Anisocytosis 1+, Sodium Level 141, Potassium Level 4.5, Chloride Level 111H, Carbon Dioxide Level 19L, Anion Gap 11, Blood Urea Nitrogen 55H, Creatinine 2.6H , Estimat Glomerular Filtration Rate , Glucose Level 218H, Calcium Level 7.5L Height (Feet): 4 Height (Inches): 9.00 Weight (Pounds): 135 Objective CV RR Has a new PermCath Lungs CTA Abd SNT BS + E No CCE Donis Escobar MD Jan 20, 2019 14:15
--- NOTE | 2019-01-20 14:27 | NUR ---
Social Work Chart reviewed; this Sw spoke with daughter, Nuha ([phone]), using staff (EDMOND Mitchell) [place] interpretation who explains she has changed her insurance from Scan to [employer]. Patient will be receiving dialysis (new onset). Daughter explains she plans to take patient and will provide 24 hour care. Daughter is requesting a wheelchair for discharge, along with ambulance to transport to home. Home Care to follow, as needed (patient is bedbound overall). Nuha is staying with patient at bedside (at all times here) to assist as well.
--- NOTE | 2019-01-20 14:34 | NUR ---
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 SOB VS: BP 169/58, P 91, T 97.3, RR 22, SpO2 97 RBC 3.40, H&H 9.7/30.2, Plt.COUNT 79, BUN 55, CR 2.6, Ca 7.5 IS:NS x1L IV NOVOLOG SUBQ METOPROLOL 25mg SODIUM x1L IV TELE STATUS
--- NOTE | 2019-01-20 15:58 | NUR ---
*-* INSURANCE *-* UPDATED CLINICALS HAVE BEEN FAXED TO: [employer]. P: [phone] F: [phone] ( FAX CLINICALS)
--- NOTE | 2019-01-20 17:47 | Diagnostic Imaging Report ---
Indications: Needs long-term dialysis access Technique: Total sterile technique, including sterile probe cover and sterile gel, sterile gloves, hand hygiene, hat, mask,, sterile gown, large sterile drape, and preparation with 2% chlorhexidine utilized. Local anesthesia with 1% lidocaine. Under real-time ultrasound guidance, puncture right internal jugular vein using 21-gauge micropuncture needle, passage 0.018 guidewire, exchange for 4 Portuguese micropuncture introducer. The guidewire was used to measure the appropriate catheter length, and was removed. The sheath was left in place. The subcutaneous tract was then anesthetized with 1% lidocaine. A chest dermatotomy was made . The tunneling device was used to pull a 14.5 Portuguese 23 cm BioFlo catheter through the subcutaneous tunnel to the neck dermatotomy. A guidewire was passed through the neck introducer into the inferior vena cava, and serial dilators were passed over it, followed by the introduction of a 14.5 Portuguese AirGuard peel-away sheath. The catheter was then introduced into the sheath, the peel-away sheath was removed. Digital radiograph documents satisfactory catheter tip position in the high right atrium, no kinking at the insertion site. Both catheter ports aspirated and flushed. Catheter was fixed to the skin. Patient tolerated procedure well without immediate complication. Total fluoroscopy time 51.4 seconds. Total dose area product [id number] [id number] Total number of images-one COMPARISON: . FINDINGS: Completion radiograph documents satisfactory position and course of the catheter, catheter tip at the cavoatrial junction. IMPRESSION: Successful placement of right transjugular tunneled dialysis catheter, as described above
--- NOTE | 2019-01-20 19:18 | Pulmonology Progress Note ---
Assessment/Plan Assessment/Plan Pulmonary Progress Note HISTORY OF PRESENT ILLNESS: This is an 83-year-old female who was brought in due to significant shortness of breath. The patient was having bloody stool and diarrhea. The patient recently admitted with pleural effusion, placed on antibiotics and was discharged to home. The patient received transfusion on this admission, noted to have elevated Creatinine, Left Soleal DVT On HD. No new complaints PAST MEDICAL HISTORY: Diabetes, hypertension, CHF, throat cancer. MEDICATIONS: Reviewed. ALLERGIES: Reviewed. SOCIAL HISTORY: The patient lives with family. Nonsmoker and nondrinker. REVIEW OF SYSTEMS: Notable for the above. PHYSICAL EXAMINATION: GENERAL: A well-developed female appears to be overall comfortable. VITAL SIGNS NOTED: HEENT: Negative. NECK: Supple. LUNGS: Reduced breath sounds. CARDIAC: S1 and S2. Regular rate and rhythm. ABDOMEN: Soft, nontender, and nondistended. EXTREMITIES: No edema. LABORATORY DATA NOTED: Reviewed. Hemoglobin stable post TFN, platelets of 118. Chemistries noted, bicarbonate 14, BUN 166, creatinine 4.5. Lactic acid 2.2. Albumin is 1.7. IMPRESSION: 1. Severe protein-calorie malnutrition. 2. End-stage renal disease. 3. Anemia profound, possible gastrointestinal bleed. 4. Left Soleal DVT 5. History of congestive heart failure. 6. Left pleural effusion. RECOMMENDATION: 1. Supportive care. 2. Renal evaluation. 3. GI evaluation. 4. Cardiology evaluation. 5. Transfuse and monitor hemoglobin and hematocrit. 6. No anticoagulation for now given GI bleed. 7. We will follow clinically. Seen on 01/19/2019 Subjective ROS Limited/Unobtainable: No Allergies: Coded Allergies: No Known Allergies (Unverified , 01/11/19) Objective Last 24 Hour Vital Signs Date Time Temp Pulse Resp B/P (MAP) Pulse Ox O2 Delivery O2 Flow Rate FiO2 01/20/19 16:00 97.2 70 18 164/86 (112) 99 70 01/20/19 15:10 72 01/20/19 12:00 97.5 71 20 155/94 (114) 97 01/20/19 09:48 90 174/72 01/20/19 09:29 89 20 165/63 (97) 98 01/20/19 09:16 83 22 2.0 01/20/19 09:14 97.5 91 20 161/52 (88) 99 01/20/19 09:09 97.3 89 20 169/58 (95) 97 01/20/19 09:04 97.2 86 20 181/63 (102) 97 01/20/19 08:58 87 01/20/19 08:45 Nasal Cannula 2.0 01/20/19 08:00 97.3 90 20 179/101 (127) 96 01/20/19 07:28 84 01/20/19 06:35 95 Nasal Cannula 2.0 28 01/20/19 04:00 86 01/20/19 04:00 98.4 92 20 150/73 (98) 96 01/20/19 00:00 97.9 96 20 182/95 (124) 97 01/20/19 00:00 96 01/19/19 21:00 Nasal Cannula 2.0 01/19/19 20:00 98.3 104 20 156/95 (115) 95 01/19/19 20:00 91 Intake and Output 01/19/19 01/20/19 19:00 07:00 Intake Total 250 ml Output Total 302 ml Balance -52 ml Intake Oral 250 ml Output Urine Total 300 ml Stool Total 2 ml # Voids 2 Laboratory Tests 01/20/19 06:30: White Blood Count 7.6, Red Blood Count 3.40L, Hemoglobin 9.7L, Hematocrit 30.2L , Mean Corpuscular Volume 89, Mean Corpuscular Hemoglobin 28.5, Mean Corpuscular Hemoglobin Concent 32.1, Red Cell Distribution Width 17.3H, Platelet Count 79L, Mean Platelet Volume 8.1, Neutrophils (%) (Auto) , Lymphocytes (%) (Auto) , Monocytes (%) (Auto) , Eosinophils (%) (Auto) , Basophils (%) (Auto) , Differential Total Cells Counted 100, Neutrophils % ( Manual) 88H, Lymphocytes % (Manual) 5L, Monocytes % (Manual) 3, Eosinophils % ( Manual) 0, Basophils % (Manual) 0, Band Neutrophils 4, Platelet Estimate DecreasedL, Platelet Morphology Normal, Hypochromasia 2+, Anisocytosis 1+, Prothrombin Time 11.4, Prothromb Time International Ratio 1.1, Activated Partial Thromboplast Time 32, Sodium Level 141, Potassium Level 4.5, Chloride Level 111H, Carbon Dioxide Level 19L, Anion Gap 11, Blood Urea Nitrogen 55H, Creatinine 2.6H, Estimat Glomerular Filtration Rate , Glucose Level 218H, Calcium Level 7.5L Current Medications Medications (Trade) Dose Ordered Sig/Eleanor Route PRN Reason Start Time Stop Time Status Last Admin Dose Admin Acetaminophen (Tylenol) 650 mg Q4H PRN ORAL Mild Pain/Temp > 100.5 01/15/19 02:24 02/11/19 02:23 01/17/19 21:49 Al Hydroxide/Mg Hydroxide (Mylanta) 30 ml FOUR TIMES A DAY PRN ORAL heartburn 01/15/19 02:29 02/11/19 02:28 Chlorhexidine Gluconate (Jessica-Hex 2%) 1 applic DAILY@2000 TOPIC 01/15/19 20:00 02/13/19 19:59 01/19/19 22:00 Dextrose (Dextrose 50%) 25 ml Q30M PRN IV Hypoglycemia 01/15/19 02:30 02/11/19 04:59 Dextrose (Dextrose 50%) 50 ml Q30M PRN IV Hypoglycemia 01/15/19 02:30 02/11/19 04:59 Insulin Aspart (NovoLOG) BEFORE MEALS AND HS SUBQ 01/15/19 06:30 02/11/19 06:29 01/20/19 12:28 Metoprolol Succinate (Toprol XL) 25 mg DAILY ORAL 01/15/19 09:00 02/12/19 22:29 01/20/19 09:48 Morphine Sulfate (Morphine Sulfate) 2 mg Q4H PRN IVP For Pain 01/15/19 03:00 01/20/19 22:59 Ondansetron HCl (Zofran) 4 mg Q6H PRN IVP Nausea & Vomiting 01/15/19 02:24 02/12/19 02:23 Pantoprazole (Protonix) 40 mg BID ORAL 01/15/19 09:00 02/11/19 08:59 01/20/19 17:33 Sodium Chloride 1,000 ml @ 100 mls/hr Q10H IV 01/20/19 11:44 02/19/19 11:43 01/20/19 12:30 Kevyn Zamora MD Jan 20, 2019 19:18
--- NOTE | 2019-01-20 19:20 | NUR ---
NURSE NOTES: Received patient from Oren PRUITT. Patient is awake and oriented x2, family is at bedside. Receiving oxygen via nasal cannula at 2L/min tolerating well. Patient has a dumont catheter that is leaking that will be changed during shift. Patient has a right side permacath, IV site is right upper arm 20g running 1/2NS @100cc/hr. Bed is locked, placed in lowest position, side rails up x2, call light within reach, bed alarm on. Will continue to monitor.
--- NOTE | 2019-01-20 19:20 | General Progress Note ---
Assessment/Plan Assessment/Plan: Assessment - Melena, UGIB - multiple duodenal ulcers (H pylori negative per path) - Anemia, s/p transfusion - Renal failure - h/o throat cancer - mild hypernatremia Recommendations - po as tolerated - IVF - PPI x 8 weeks - OOB - d/c planning per PMD Subjective Allergies: Coded Allergies: No Known Allergies (Unverified , 01/11/19) Subjective Feels OK poor appetite d/w family at bedside Objective Last 24 Hour Vital Signs Date Time Temp Pulse Resp B/P (MAP) Pulse Ox O2 Delivery O2 Flow Rate FiO2 01/20/19 16:00 97.2 70 18 164/86 (112) 99 70 01/20/19 15:10 72 01/20/19 12:00 97.5 71 20 155/94 (114) 97 01/20/19 09:48 90 174/72 01/20/19 09:29 89 20 165/63 (97) 98 01/20/19 09:16 83 22 2.0 01/20/19 09:14 97.5 91 20 161/52 (88) 99 01/20/19 09:09 97.3 89 20 169/58 (95) 97 01/20/19 09:04 97.2 86 20 181/63 (102) 97 01/20/19 08:58 87 01/20/19 08:45 Nasal Cannula 2.0 01/20/19 08:00 97.3 90 20 179/101 (127) 96 01/20/19 07:28 84 01/20/19 06:35 95 Nasal Cannula 2.0 28 01/20/19 04:00 86 01/20/19 04:00 98.4 92 20 150/73 (98) 96 01/20/19 00:00 97.9 96 20 182/95 (124) 97 01/20/19 00:00 96 01/19/19 21:00 Nasal Cannula 2.0 01/19/19 20:00 98.3 104 20 156/95 (115) 95 01/19/19 20:00 91 Intake and Output 01/19/19 01/20/19 19:00 07:00 Intake Total 250 ml Output Total 302 ml Balance -52 ml Intake Oral 250 ml Output Urine Total 300 ml Stool Total 2 ml # Voids 2 Laboratory Tests 6/7/19 06:30: White Blood Count 7.6, Red Blood Count 3.40L, Hemoglobin 9.7L, Hematocrit 30.2L , Mean Corpuscular Volume 89, Mean Corpuscular Hemoglobin 28.5, Mean Corpuscular Hemoglobin Concent 32.1, Red Cell Distribution Width 17.3H, Platelet Count 79L, Mean Platelet Volume 8.1, Neutrophils (%) (Auto) , Lymphocytes (%) (Auto) , Monocytes (%) (Auto) , Eosinophils (%) (Auto) , Basophils (%) (Auto) , Differential Total Cells Counted 100, Neutrophils % ( Manual) 88H, Lymphocytes % (Manual) 5L, Monocytes % (Manual) 3, Eosinophils % ( Manual) 0, Basophils % (Manual) 0, Band Neutrophils 4, Platelet Estimate DecreasedL, Platelet Morphology Normal, Hypochromasia 2+, Anisocytosis 1+, Prothrombin Time 11.4, Prothromb Time International Ratio 1.1, Activated Partial Thromboplast Time 32, Sodium Level 141, Potassium Level 4.5, Chloride Level 111H, Carbon Dioxide Level 19L, Anion Gap 11, Blood Urea Nitrogen 55H, Creatinine 2.6H, Estimat Glomerular Filtration Rate , Glucose Level 218H, Calcium Level 7.5L Height (Feet): 4 Height (Inches): 9.00 Weight (Pounds): 135 Objective WDWN NCAT supple CTA RR abd soft ND NT no edema Porsha Garcia MD Jan 20, 2019 19:20
[2019-01-20] MEDS: Dyna-Hex 2% Top Sol 2oz TOPIC SCH (20:00)
[2019-01-21] VITALS: BP 166/76
[2019-01-21 04:00] VITALS: BP 149/87
--- NOTE | 2019-01-21 04:30 | Progress Note ---
DATE: 01/20/2019 CARDIOLOGY PROGRESS NOTE SUBJECTIVE: The patient remains short of breath. PermCath was placed. Hemodialysis with ultrafiltration planned. OBJECTIVE: VITAL SIGNS: Blood pressure 165/63, pulse 89, and respirations 20. NECK: Jugular venous pressure elevated. LUNGS: Few rales. CARDIAC: Regular rhythm rate. Normal S1, S2 with a fourth heart sound and a 1/6 systolic apical murmur. EXTREMITIES: Trace edema. PermCath site clean and dry. IMPRESSION: 1. End-stage renal disease. 2. Acute on chronic diastolic congestive heart failure. 3. Hypertensive heart disease. 4. Status post upper gastrointestinal bleed with anemia. 5. Status post transfusions. 6. Dehydration and hypernatremia, resolved. PLAN: 1. Discontinue intravenous fluids. 2. Advance antihypertensives. 3. Hemodialysis with ultrafiltration. Kevyn Aguilar M.D. DR: MERLIN JOB#: [id number] CC:
[2019-01-21] MEDS: NovoLOG Insulin Flexpen SUBQ SCH ×4 (06:30→21:44)
--- NOTE | 2019-01-21 07:05 | NUR ---
HAND-OFF: Report given to Oren PRUITT. Patient in stable condition.
--- NOTE | 2019-01-21 08:00 | NUR ---
NURSE NOTES: Patient was awake when I came in. Patient's daughter sleeping next to her on the other bed. HOB was at 30 degree, low to the ground. Carney catheter is draining well, with some cloudy sediments in it. IV site is patent, no redness, no tenderness. Patient is comfortable. AOx3. Denies pain, no s/s of SOB or distress, bed alarm is on.
[2019-01-21 08:36] VITALS: BP 167/81
[2019-01-21] MEDS: Metoprolol Succinate XL 25mg tab ORAL SCH (09:22)
--- NOTE | 2019-01-21 09:57 | Nephrology Progress Note ---
Assessment/Plan Plan ESRD. HD MWF Subjective Subjective Less SOB. Had 1st HD yesterday Objective Objective Last 24 Hour Vital Signs Date Time Temp Pulse Resp B/P (MAP) Pulse Ox O2 Delivery O2 Flow Rate FiO2 01/21/19 09:22 85 167/81 01/21/19 09:22 85 167/81 01/21/19 08:41 Nasal Cannula 2.0 01/21/19 08:36 97.8 85 20 167/81 (109) 98 01/21/19 04:00 98.4 76 16 149/87 (107) 97 01/21/19 03:55 73 01/21/19 00:00 98.1 72 20 166/76 (106) 100 01/20/19 23:52 69 01/20/19 21:00 Nasal Cannula 2.0 01/20/19 20:18 99 Nasal Cannula 2.0 28 01/20/19 20:00 97.9 79 18 167/84 (111) 97 01/20/19 19:37 77 01/20/19 16:00 97.2 70 18 164/86 (112) 99 70 01/20/19 15:10 72 01/20/19 12:00 97.5 71 20 155/94 (114) 97 Intake and Output 01/20/19 01/21/19 19:00 07:00 Intake Total 240 ml 240 ml Balance 240 ml 240 ml Intake Oral 240 ml 240 ml # Voids 2 1 # Bowel Movements 1 Height (Feet): 4 Height (Inches): 9.00 Weight (Pounds): 135 Objective CV RR Has a new PermCath Lungs CTA Abd SNT BS + E No CCE Donis Escobar MD Jan 21, 2019 09:57
[2019-01-21] MEDS: Tetrahydrozoline 0.05% Opth 15ml BOTH EYES PRN ×2 (10:19→17:22)
--- NOTE | 2019-01-21 11:24 | NUR ---
[employer] OFFICERSY[employer]S ANALYST SI:PNA . RENAL FAILURE VS: BP 153/68, P 80, T 98.2, RR 22, SpO2 100 NO LABS TODAY IS:NOVOLOG SUBQ PROTONIX 40mg CIPROFLOXACIN 1 DROP LEFT EYE HD STARTED 01/20 TELE STATUS
--- NOTE | 2019-01-21 11:36 | Pulmonology Progress Note ---
Assessment/Plan Assessment/Plan Pulmonary Progress Note HISTORY OF PRESENT ILLNESS: This is an 83-year-old female who was brought in due to significant shortness of breath. The patient was having bloody stool and diarrhea. The patient recently admitted with pleural effusion, placed on antibiotics and was discharged to home. The patient received transfusion on this admission, noted to have elevated Creatinine, Left Soleal DVT On HD. c/o left eye redness - no tenderness, no visual change PAST MEDICAL HISTORY: Diabetes, hypertension, CHF, throat cancer. MEDICATIONS: Reviewed. ALLERGIES: Reviewed. SOCIAL HISTORY: The patient lives with family. Nonsmoker and nondrinker. REVIEW OF SYSTEMS: Notable for the above. PHYSICAL EXAMINATION: GENERAL: A well-developed female appears to be overall comfortable. VITAL SIGNS NOTED: HEENT: Negative. NECK: Supple. LUNGS: Reduced breath sounds. CARDIAC: S1 and S2. Regular rate and rhythm. ABDOMEN: Soft, nontender, and nondistended. EXTREMITIES: No edema. LABORATORY DATA NOTED: Reviewed. Hemoglobin stable post TFN, platelets of 118. Chemistries noted, bicarbonate 14, BUN 166, creatinine 4.5. Lactic acid 2.2. Albumin is 1.7. IMPRESSION: 1. Severe protein-calorie malnutrition. 2. End-stage renal disease. 3. Anemia profound, possible gastrointestinal bleed. 4. Left Soleal DVT 5. History of congestive heart failure. 6. Left pleural effusion. RECOMMENDATION: 1. Supportive care. 2. Renal evaluation. 3. GI evaluation. 4. Cardiology evaluation. 5. Transfuse and monitor hemoglobin and hematocrit. 6. No anticoagulation for now given GI bleed. 7. We will follow clinically. 8. Visine/Floxacin eye drops Seen on 01/20/2019 Subjective ROS Limited/Unobtainable: No Allergies: Coded Allergies: No Known Allergies (Unverified , 01/11/19) Objective Last 24 Hour Vital Signs Date Time Temp Pulse Resp B/P (MAP) Pulse Ox O2 Delivery O2 Flow Rate FiO2 01/21/19 09:22 85 167/81 01/21/19 09:22 85 167/81 01/21/19 08:41 Nasal Cannula 2.0 01/21/19 08:36 97.8 85 20 167/81 (109) 98 01/21/19 07:50 76 01/21/19 04:00 98.4 76 16 149/87 (107) 97 01/21/19 03:55 73 01/21/19 00:00 98.1 72 20 166/76 (106) 100 01/20/19 23:52 69 01/20/19 21:00 Nasal Cannula 2.0 01/20/19 20:18 99 Nasal Cannula 2.0 28 01/20/19 20:00 97.9 79 18 167/84 (111) 97 01/20/19 19:37 77 01/20/19 16:00 97.2 70 18 164/86 (112) 99 70 01/20/19 15:10 72 01/20/19 12:00 97.5 71 20 155/94 (114) 97 Intake and Output 01/20/19 01/21/19 19:00 07:00 Intake Total 240 ml 240 ml Balance 240 ml 240 ml Intake Oral 240 ml 240 ml # Voids 2 1 # Bowel Movements 1 Current Medications Medications (Trade) Dose Ordered Sig/Eleanor Route PRN Reason Start Time Stop Time Status Last Admin Dose Admin Acetaminophen (Tylenol) 650 mg Q4H PRN ORAL Mild Pain/Temp > 100.5 01/15/19 02:24 02/11/19 02:23 01/17/19 21:49 Al Hydroxide/Mg Hydroxide (Mylanta) 30 ml FOUR TIMES A DAY PRN ORAL heartburn 01/15/19 02:29 02/11/19 02:28 Amlodipine Besylate (Norvasc) 5 mg DAILY ORAL 01/21/19 09:00 02/20/19 08:59 01/21/19 09:22 Chlorhexidine Gluconate (Jessica-Hex 2%) 1 applic DAILY@1999 TOPIC 01/15/19 20:00 02/13/19 19:59 01/19/19 22:00 Dextrose (Dextrose 50%) 25 ml Q30M PRN IV Hypoglycemia 01/15/19 02:30 02/11/19 04:59 Dextrose (Dextrose 50%) 50 ml Q30M PRN IV Hypoglycemia 01/15/19 02:30 02/11/19 04:59 Insulin Aspart (NovoLOG) BEFORE MEALS AND HS SUBQ 01/15/19 06:30 02/11/19 06:29 01/20/19 21:15 Metoprolol Succinate (Toprol XL) 25 mg DAILY ORAL 01/21/19 09:00 02/20/19 08:59 01/21/19 09:22 Ondansetron HCl (Zofran) 4 mg Q6H PRN IVP Nausea & Vomiting 01/15/19 02:24 02/12/19 02:23 Pantoprazole (Protonix) 40 mg BID ORAL 01/15/19 09:00 02/11/19 08:59 01/21/19 09:21 Tetrahydrozoline HCl (Visine With Dropper) 2 drop Q6H PRN BOTH EYES Itchiness or Irritation 01/20/19 21:00 02/19/19 20:59 01/21/19 10:19 Kevyn Zamora MD Jan 21, 2019 11:36
[2019-01-21 12:00] VITALS: BP 156/66
[2019-01-21 15:57] VITALS: BP 153/68
--- NOTE | 2019-01-21 16:17 | General Progress Note ---
Assessment/Plan Assessment/Plan: Assessment - Melena, UGIB - multiple duodenal ulcers (H pylori negative per path) - Anemia, s/p transfusion - Renal failure - h/o throat cancer - mild hypernatremia Recommendations - po as tolerated - IVF - PPI x 8 weeks - OOB - d/c planning Subjective Allergies: Coded Allergies: No Known Allergies (Unverified , 01/11/19) Subjective Feels OK Better appetite d/w family at bedside Objective Last 24 Hour Vital Signs Date Time Temp Pulse Resp B/P (MAP) Pulse Ox O2 Delivery O2 Flow Rate FiO2 01/21/19 15:57 98.1 80 18 153/68 (96) 99 01/21/19 13:36 Nasal Cannula 2.0 01/21/19 12:41 84 01/21/19 12:00 98.0 80 20 156/66 (96) 99 01/21/19 09:22 85 167/81 01/21/19 09:22 85 167/81 01/21/19 08:41 Nasal Cannula 2.0 01/21/19 08:36 97.8 85 20 167/81 (109) 98 01/21/19 07:50 76 01/21/19 04:00 98.4 76 16 149/87 (107) 97 01/21/19 03:55 73 01/21/19 00:00 98.1 72 20 166/76 (106) 100 01/20/19 23:52 69 01/20/19 21:00 Nasal Cannula 2.0 01/20/19 20:18 99 Nasal Cannula 2.0 28 01/20/19 20:00 97.9 79 18 167/84 (111) 97 01/20/19 19:37 77 Intake and Output 01/20/19 01/21/19 19:00 07:00 Intake Total 240 ml 240 ml Balance 240 ml 240 ml Intake Oral 240 ml 240 ml # Voids 2 1 # Bowel Movements 1 Height (Feet): 4 Height (Inches): 9.00 Weight (Pounds): 135 Objective WDWN NCAT supple CTA RR abd soft ND NT no edema Porsha Garcia MD Jan 21, 2019 16:17
[2019-01-21] MEDS ORDERED: 1/2 NS 1000ml IV ONE (17:47)
--- NOTE | 2019-01-21 18:36 | Pulmonology Progress Note ---
Assessment/Plan Assessment/Plan Pulmonary Progress Note HISTORY OF PRESENT ILLNESS: This is an 83-year-old female who was brought in due to significant shortness of breath. The patient was having bloody stool and diarrhea. The patient recently admitted with pleural effusion, placed on antibiotics and was discharged to home. The patient received transfusion on this admission, noted to have elevated Creatinine, Left Soleal DVT On HD. PAST MEDICAL HISTORY: Diabetes, hypertension, CHF, throat cancer. MEDICATIONS: Reviewed. ALLERGIES: Reviewed. SOCIAL HISTORY: The patient lives with family. Nonsmoker and nondrinker. REVIEW OF SYSTEMS: Notable for the above. PHYSICAL EXAMINATION: GENERAL: A well-developed female appears to be overall comfortable. VITAL SIGNS NOTED: HEENT: Negative. NECK: Supple. LUNGS: Reduced breath sounds. CARDIAC: S1 and S2. Regular rate and rhythm. ABDOMEN: Soft, nontender, and nondistended. EXTREMITIES: No edema. LABORATORY DATA NOTED: Reviewed. Hemoglobin stable post TFN, platelets of 118. Chemistries noted, bicarbonate 14, BUN 166, creatinine 4.5. Lactic acid 2.2. Albumin is 1.7. IMPRESSION: 1. Severe protein-calorie malnutrition. 2. End-stage renal disease. 3. Anemia profound, possible gastrointestinal bleed. 4. Left Soleal DVT 5. History of congestive heart failure. 6. Left pleural effusion. RECOMMENDATION: 1. Supportive care. 2. Renal evaluation. 3. GI evaluation. 4. Cardiology evaluation. 5. Transfuse and monitor hemoglobin and hematocrit. 6. No anticoagulation for now given GI bleed. 7. We will follow clinically. 8. Visine/Floxacin eye drops Subjective ROS Limited/Unobtainable: No Allergies: Coded Allergies: No Known Allergies (Unverified , 01/11/19) Objective Last 24 Hour Vital Signs Date Time Temp Pulse Resp B/P (MAP) Pulse Ox O2 Delivery O2 Flow Rate FiO2 01/21/19 16:00 83 01/21/19 15:57 98.1 80 18 153/68 (96) 99 01/21/19 13:36 Nasal Cannula 2.0 01/21/19 12:41 84 01/21/19 12:00 98.0 80 20 156/66 (96) 99 01/21/19 09:22 85 167/81 01/21/19 09:22 85 167/81 01/21/19 08:41 Nasal Cannula 2.0 01/21/19 08:36 97.8 85 20 167/81 (109) 98 01/21/19 07:50 76 01/21/19 04:00 98.4 76 16 149/87 (107) 97 01/21/19 03:55 73 01/21/19 00:00 98.1 72 20 166/76 (106) 100 01/20/19 23:52 69 01/20/19 21:00 Nasal Cannula 2.0 01/20/19 20:18 99 Nasal Cannula 2.0 28 01/20/19 20:00 97.9 79 18 167/84 (111) 97 01/20/19 19:37 77 Intake and Output 01/20/19 01/21/19 19:00 07:00 Intake Total 240 ml 240 ml Balance 240 ml 240 ml Intake Oral 240 ml 240 ml # Voids 2 1 # Bowel Movements 1 Current Medications Medications (Trade) Dose Ordered Sig/Eleanor Route PRN Reason Start Time Stop Time Status Last Admin Dose Admin Acetaminophen (Tylenol) 650 mg Q4H PRN ORAL Mild Pain/Temp > 100.5 01/15/19 02:24 02/11/19 02:23 01/17/19 21:49 Al Hydroxide/Mg Hydroxide (Mylanta) 30 ml FOUR TIMES A DAY PRN ORAL heartburn 01/15/19 02:29 02/11/19 02:28 Amlodipine Besylate (Norvasc) 5 mg DAILY ORAL 01/21/19 09:00 02/20/19 08:59 01/21/19 09:22 Chlorhexidine Gluconate (Jessica-Hex 2%) 1 applic DAILY@1999 TOPIC 01/15/19 20:00 02/13/19 19:59 01/19/19 22:00 Dextrose (Dextrose 50%) 25 ml Q30M PRN IV Hypoglycemia 01/21/19 17:15 02/20/19 17:14 Dextrose (Dextrose 50%) 50 ml Q30M PRN IV Hypoglycemia 01/21/19 17:15 02/20/19 17:14 Insulin Aspart (NovoLOG) BEFORE MEALS AND HS SUBQ 01/21/19 16:30 02/20/19 16:29 01/21/19 17:24 Metoprolol Succinate (Toprol XL) 25 mg DAILY ORAL 01/21/19 09:00 02/20/19 08:59 01/21/19 09:22 Ondansetron HCl (Zofran) 4 mg Q6H PRN IVP Nausea & Vomiting 01/15/19 02:24 02/12/19 02:23 Pantoprazole (Protonix) 40 mg BID ORAL 01/15/19 09:00 02/11/19 08:59 01/21/19 17:31 Tetrahydrozoline HCl (Visine With Dropper) 2 drop Q6H PRN BOTH EYES Itchiness or Irritation 01/20/19 21:00 02/19/19 20:59 01/21/19 17:22 Kevyn Zamora MD Jan 21, 2019 18:36
--- NOTE | 2019-01-21 18:47 | NUR ---
NURSE NOTES: through out the day, pt urine has been milky in color, contacted Md Jacobs left [facility] – [place]. After draining dumont bag, urine closer to cloudy yellow color.
--- NOTE | 2019-01-21 19:30 | NUR ---
NURSE NOTES: Received pt and report from EDMOND Summers. Observe pt resting in bed with both eyes open and family members at bedside. telemetry monitor is in placed, IV site intact, asymptomatic and patent. Bed in the lowest position and locked. Call light within reach. No signs/symptoms of acute distress noted at this time. Will continue plan of care.
--- NOTE | 2019-01-21 19:37 | NUR ---
HAND-OFF: Report given to Esperanza Valentine RN.
[2019-01-21 20:00] VITALS: BP 164/74
[2019-01-21] MEDS ORDERED: NovoLOG Insulin Flexpen SUBQ SCH (21:00)
[2019-01-22] VITALS: BP 159/78
--- NOTE | 2019-01-22 00:30 | Progress Note ---
DATE: 01/21/2019 CARDIOLOGY PROGRESS NOTE SUBJECTIVE: The patient is on hemodialysis. No new bleeding noted. Appetite is fair. No chest pain. No shortness of breath. OBJECTIVE: NECK: Supple. LUNGS: With diminished breath sounds. CARDIAC: Regular. ABDOMEN: Soft. EXTREMITIES: Trace edema. IMPRESSION: 1. Anemia, status post GI bleed. 2. DVT. 3. Acute on chronic diastolic congestive heart failure. 4. End-stage renal disease. 5. Severe protein-calorie malnutrition. PLAN: 1. Repeat venous duplex scan to assess for progression of DVT. 2. Hemodialysis with ultrafiltration for volume management. 3. Titrate antihypertensive regimen for optimal blood pressure control. 4. Monitor hemoglobin. Kevyn Aguilar M.D. DR: JOSÉ JOB#: [id number] CC:
[2019-01-22 04:00] VITALS: BP 106/71
[2019-01-22] MEDS: NovoLOG Insulin Flexpen SUBQ SCH ×4 (06:17→21:16)
--- NOTE | 2019-01-22 07:39 | NUR ---
HAND-OFF: Report given to EDMOND Garcia.
--- NOTE | 2019-01-22 07:49 | NUR ---
NURSE NOTES: Received report from EDMOND Bedolla. Patient in bed resting, no active s/s cardiac, respiratory distress noticed at this time, denies pain at this time. Patient AOx3, SR with HR 84, on 2L via NC. Carney Catheter draining well to gravity. IV on left hand 22G, asymptomatic, patent, intact. Endorsed HD done on 01/20/19. Family member at the bedside. Bed in lowest position, side rails upx3, call light within reach. Will continue to monitor.
[2019-01-22 08:00] VITALS: BP 162/115
[2019-01-22] MEDS: Metoprolol Succinate XL 25mg tab ORAL SCH (08:42)
--- NOTE | 2019-01-22 09:34 | Nephrology Progress Note ---
Assessment/Plan Plan ESRD. HD MWF Subjective Subjective Less SOB. Objective Objective Last 24 Hour Vital Signs Date Time Temp Pulse Resp B/P (MAP) Pulse Ox O2 Delivery O2 Flow Rate FiO2 01/22/19 09:00 Nasal Cannula 2.0 01/22/19 08:42 75 162/115 01/22/19 08:41 75 162/115 01/22/19 08:00 98.4 75 20 162/115 (131) 99 01/22/19 04:00 84 01/22/19 04:00 98.0 82 22 106/71 (83) 99 01/22/19 00:00 98.9 77 20 159/78 (105) 97 01/22/19 00:00 77 01/21/19 21:00 Nasal Cannula 2.0 01/21/19 20:00 98.2 83 22 164/74 (104) 100 01/21/19 20:00 83 01/21/19 16:00 83 01/21/19 15:57 98.1 80 18 153/68 (96) 99 01/21/19 13:36 Nasal Cannula 2.0 01/21/19 12:41 84 01/21/19 12:00 98.0 80 20 156/66 (96) 99 Intake and Output 01/21/19 01/22/19 18:59 06:59 Intake Total 600 ml Output Total 250 ml 350 ml Balance 350 ml -350 ml Intake Oral 600 ml Output Urine Total 250 ml 350 ml # Voids 100 # Bowel Movements 2 1 Height (Feet): 4 Height (Inches): 9.00 Weight (Pounds): 135 Objective CV RR Has a new PermCath Lungs CTA Abd SNT BS + E No CCE Donis Escobar MD Jan 22, 2019 09:34
--- NOTE | 2019-01-22 09:43 | NUR ---
NURSE NOTES: Called [facility] nephrology tele [phone] spoke with Nelli and informed patient schedule for 01/23/[address] Escobar. Will continue to monitor.
--- NOTE | 2019-01-22 09:52 | Infectious Diseases Prog Note ---
Assessment/Plan Assessment/Plan A 1. pneumonia 2. renal failure, ESRD 3. severe anemia resolving 4. GI bleeding 5. throat cancer 6. diabetes mellitus 7. 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 Multiple duodenal ulcers 10. AMS, Atrophy in CT scan of head 11.Thrombocytopenia & anemia P 1. Observe off of antibiotic Subjective ROS Limited/Unobtainable: Yes Genitourinary: Reports: other - started on HD Neurologic: Reports: other - more alert off restraint Allergies: Coded Allergies: No Known Allergies (Unverified , 01/11/19) Objective Vital Signs Last 24 Hour Vital Signs Date Time Temp Pulse Resp B/P (MAP) Pulse Ox O2 Delivery O2 Flow Rate FiO2 01/22/19 09:00 Nasal Cannula 2.0 01/22/19 08:42 75 162/115 01/22/19 08:41 75 162/115 01/22/19 08:00 98.4 75 20 162/115 (131) 99 01/22/19 04:00 84 01/22/19 04:00 98.0 82 22 106/71 (83) 99 01/22/19 00:00 98.9 77 20 159/78 (105) 97 01/22/19 00:00 77 01/21/19 21:00 Nasal Cannula 2.0 01/21/19 20:00 98.2 83 22 164/74 (104) 100 01/21/19 20:00 83 01/21/19 16:00 83 01/21/19 15:57 98.1 80 18 153/68 (96) 99 01/21/19 13:36 Nasal Cannula 2.0 01/21/19 12:41 84 01/21/19 12:00 98.0 80 20 156/66 (96) 99 Height (Feet): 4 Height (Inches): 9.00 Weight (Pounds): 135 General Appearance: no acute distress HEENT: mucous membranes moist, other - left subconjunctival hemorrhage Respiratory/Chest: lungs clear Cardiovascular: normal rate, other - R permacath Abdomen: soft, non tender Extremities: no edema Skin: other - bruises near Permacath Neurologic/Psychiatric: alert, responsive Current Medications Medications (Trade) Dose Ordered Sig/Eleanor Route PRN Reason Start Time Stop Time Status Last Admin Dose Admin Acetaminophen (Tylenol) 650 mg Q4H PRN ORAL Mild Pain/Temp > 100.5 01/15/19 02:24 02/11/19 02:23 01/17/19 21:49 Al Hydroxide/Mg Hydroxide (Mylanta) 30 ml FOUR TIMES A DAY PRN ORAL heartburn 01/15/19 02:29 02/11/19 02:28 Amlodipine Besylate (Norvasc) 10 mg DAILY ORAL 01/22/19 09:00 02/21/19 08:59 01/22/19 08:41 Dextrose (Dextrose 50%) 25 ml Q30M PRN IV Hypoglycemia 01/21/19 17:15 02/20/19 17:14 Dextrose (Dextrose 50%) 50 ml Q30M PRN IV Hypoglycemia 01/21/19 17:15 02/20/19 17:14 Heparin Sodium (Porcine) (Heparin Sod 1000 units/ml 10ml) 2,000 unit ONCE PRN IV dialysis 01/23/19 09:45 01/23/19 23:59 Heparin Sodium (Porcine) (Heparin) 1,000 unit POSTHD INJ 01/23/19 09:45 01/23/19 23:59 Insulin Aspart (NovoLOG) BEFORE MEALS AND HS SUBQ 01/21/19 16:30 02/20/19 16:29 01/22/19 06:17 Metoprolol Succinate (Toprol XL) 25 mg DAILY ORAL 01/21/19 09:00 02/20/19 08:59 01/22/19 08:42 Ondansetron HCl (Zofran) 4 mg Q6H PRN IVP Nausea & Vomiting 01/15/19 02:24 02/12/19 02:23 Pantoprazole (Protonix) 40 mg BID ORAL 01/15/19 09:00 02/11/19 08:59 01/22/19 08:41 Sodium Chloride 1,000 ml @ 500 mls/hr Q2H PRN IVLG sbp<90 during hd 01/23/19 09:34 01/23/19 23:59 Tetrahydrozoline HCl (Visine With Dropper) 2 drop Q6H PRN BOTH EYES Itchiness or Irritation 01/20/19 21:00 02/19/19 20:59 01/21/19 17:22 Sahil Flores MD Jan 22, 2019 09:52
--- NOTE | 2019-01-22 10:39 | General Progress Note ---
Assessment/Plan Assessment/Plan: Assessment - Melena, UGIB - multiple duodenal ulcers (H pylori negative per path) - Anemia, s/p transfusion - Renal failure - h/o throat cancer - mild hypernatremia Recommendations - po as tolerated - IVF - PPI x 8 weeks - OOB - d/c planning Subjective Allergies: Coded Allergies: No Known Allergies (Unverified , 01/11/19) Subjective Feels OK Better appetite d/w family at bedside Objective Last 24 Hour Vital Signs Date Time Temp Pulse Resp B/P (MAP) Pulse Ox O2 Delivery O2 Flow Rate FiO2 01/22/19 09:00 Nasal Cannula 2.0 01/22/19 08:42 75 162/115 01/22/19 08:41 75 162/115 01/22/19 08:00 75 01/22/19 08:00 98.4 75 20 162/115 (131) 99 01/22/19 04:00 84 01/22/19 04:00 98.0 82 22 106/71 (83) 99 01/22/19 00:00 98.9 77 20 159/78 (105) 97 01/22/19 00:00 77 01/21/19 21:00 Nasal Cannula 2.0 01/21/19 20:00 98.2 83 22 164/74 (104) 100 01/21/19 20:00 83 01/21/19 16:00 83 01/21/19 15:57 98.1 80 18 153/68 (96) 99 01/21/19 13:36 Nasal Cannula 2.0 01/21/19 12:41 84 01/21/19 12:00 98.0 80 20 156/66 (96) 99 Intake and Output 01/21/19 01/22/19 19:00 07:00 Intake Total 600 ml Output Total 250 ml 350 ml Balance 350 ml -350 ml Intake Oral 600 ml Output Urine Total 250 ml 350 ml # Voids 100 # Bowel Movements 2 1 Height (Feet): 4 Height (Inches): 9.00 Weight (Pounds): 135 Objective WDWN NCAT supple CTA RR abd soft ND NT no edema Porsha Garcia MD Jan 22, 2019 10:39
--- NOTE | 2019-01-22 11:04 | NUR ---
RD ASSESSMENT & RECOMMENDATIONS SEE CARE ACTIVITY FOR COMPLETE ASSESSMENT DAILY ESTIMATED NEEDS: Needs based on DM, CKD 5 47kg adj 25-35 kcals/kg 6746-1376 total kcals 1.2-1.8 g protein/kg 28-38 (WITH HD 56-85) g total protein Fluid per MD mL/kg 0829-5455 total fluid mLs NUTRITION DIAGNOSIS: * Decreased sodium and pro needs r/t renal dysfunction, CKD 5 per MD as evidenced by elev BUN (80-> 55), elev Creat (2.6), low creat cl and low 24 hr Ucreat, elev Phos (5.3), pt now on HD * Increased kcal/prot intake needs R/T renal dysfunction and wound healing as evidenced by pt now on HD, pt w/ non-blanchable erythema with two partial thickness wounds and additional shearing to sacrum, R and L buttocks. CURRENT DIET:Renal finely chopped PO DIET RECOMMENDATIONS: RENAL DIET (texture as tolerated) ADDITIONAL RECOMMENDATIONS: 1) Monitor ability to advance diet, diet tolerance 2) Nepro BID w/ continued variable PO intake 3) Long acting insulin for improved BG 4) Monitor for continuity of HD -> Diet ed on renal diet and increased protein needs for HD provided 5) Wound healing: Add Nephrovite x 1 Addendum: 01/22/19 at [address] 6) Calibrated bedscale wt, daily wts per policy -> on HD
[2019-01-22] MEDS: Tetrahydrozoline 0.05% Opth 15ml BOTH EYES PRN (11:35)
--- NOTE | 2019-01-22 11:45 | NUR ---
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 RENAL FAILURE VS: BP 162/115, P 82, T 98.0, RR 22, SpO2 97 on 2.0L NC NO LABS TODAY IS:NOVOLOG SUBQ PROTONIX 40mg CIPROFLOXACIN 1 DROP LEFT EYE VISINE 2 DROPS TELE STATUS
[2019-01-22 12:00] VITALS: BP 157/74
[2019-01-22 16:00] VITALS: BP 126/66
--- NOTE | 2019-01-22 18:50 | Pulmonology Progress Note ---
Assessment/Plan Assessment/Plan Pulmonary Progress Note HISTORY OF PRESENT ILLNESS: This is an 83-year-old female who was brought in due to significant shortness of breath. The patient was having bloody stool and diarrhea. The patient recently admitted with pleural effusion, placed on antibiotics and was discharged to home. The patient received transfusion on this admission, noted to have elevated Creatinine, Left Soleal DVT On HD. PAST MEDICAL HISTORY: Diabetes, hypertension, CHF, throat cancer. MEDICATIONS: Reviewed. ALLERGIES: Reviewed. SOCIAL HISTORY: The patient lives with family. Nonsmoker and nondrinker. REVIEW OF SYSTEMS: Notable for the above. PHYSICAL EXAMINATION: GENERAL: A well-developed female appears to be overall comfortable. VITAL SIGNS NOTED: HEENT: Negative. NECK: Supple. LUNGS: Reduced breath sounds. CARDIAC: S1 and S2. Regular rate and rhythm. ABDOMEN: Soft, nontender, and nondistended. EXTREMITIES: No edema. LABORATORY DATA NOTED: Reviewed. Hemoglobin stable post TFN, platelets of 118. Chemistries noted, bicarbonate 14, BUN 166, creatinine 4.5. Lactic acid 2.2. Albumin is 1.7. IMPRESSION: 1. Severe protein-calorie malnutrition. 2. End-stage renal disease. 3. Anemia profound, possible gastrointestinal bleed. 4. Left Soleal DVT 5. History of congestive heart failure. 6. Left pleural effusion. RECOMMENDATION: 1. Supportive care. 2. Renal evaluation. 3. GI evaluation. 4. Cardiology evaluation. 5. Transfuse and monitor hemoglobin and hematocrit. 6. No anticoagulation for now given GI bleed. 7. We will follow clinically. 8. Visine/Floxacin eye drops Subjective ROS Limited/Unobtainable: No Allergies: Coded Allergies: No Known Allergies (Unverified , 01/11/19) Objective Last 24 Hour Vital Signs Date Time Temp Pulse Resp B/P (MAP) Pulse Ox O2 Delivery O2 Flow Rate FiO2 01/22/19 16:00 98.5 75 20 126/66 (86) 96 01/22/19 16:00 74 01/22/19 12:00 81 01/22/19 12:00 98.7 79 20 157/74 (101) 100 01/22/19 09:00 Nasal Cannula 2.0 01/22/19 08:57 97 Nasal Cannula 2.0 28 01/22/19 08:42 75 162/115 01/22/19 08:41 75 162/115 01/22/19 08:00 75 01/22/19 08:00 98.4 75 20 162/115 (131) 99 01/22/19 04:00 84 01/22/19 04:00 98.0 82 22 106/71 (83) 99 01/22/19 00:00 98.9 77 20 159/78 (105) 97 01/22/19 00:00 77 01/21/19 21:00 Nasal Cannula 2.0 01/21/19 20:00 98.2 83 22 164/74 (104) 100 01/21/19 20:00 83 Intake and Output 01/21/19 01/22/19 19:00 07:00 Intake Total 600 ml Output Total 250 ml 350 ml Balance 350 ml -350 ml Intake Oral 600 ml Output Urine Total 250 ml 350 ml # Voids 100 # Bowel Movements 2 1 Current Medications Medications (Trade) Dose Ordered Sig/Eleanor Route PRN Reason Start Time Stop Time Status Last Admin Dose Admin Acetaminophen (Tylenol) 650 mg Q4H PRN ORAL Mild Pain/Temp > 100.5 01/15/19 02:24 02/11/19 02:23 01/17/19 21:49 Al Hydroxide/Mg Hydroxide (Mylanta) 30 ml FOUR TIMES A DAY PRN ORAL heartburn 01/15/19 02:29 02/11/19 02:28 Amlodipine Besylate (Norvasc) 10 mg DAILY ORAL 01/22/19 09:00 02/21/19 08:59 01/22/19 08:41 Dextrose (Dextrose 50%) 25 ml Q30M PRN IV Hypoglycemia 01/21/19 17:15 02/20/19 17:14 Dextrose (Dextrose 50%) 50 ml Q30M PRN IV Hypoglycemia 01/21/19 17:15 02/20/19 17:14 Heparin Sodium (Porcine) (Heparin Sod 1000 units/ml 10ml) 2,000 unit ONCE PRN IV dialysis 01/23/19 09:45 01/23/19 23:59 Heparin Sodium (Porcine) (Heparin) 1,000 unit POSTHD INJ 01/23/19 09:45 01/23/19 23:59 Insulin Aspart (NovoLOG) BEFORE MEALS AND HS SUBQ 01/21/19 16:30 02/20/19 16:29 01/22/19 11:39 Metoprolol Succinate (Toprol XL) 25 mg DAILY ORAL 01/21/19 09:00 02/20/19 08:59 01/22/19 08:42 Ondansetron HCl (Zofran) 4 mg Q6H PRN IVP Nausea & Vomiting 01/15/19 02:24 02/12/19 02:23 Pantoprazole (Protonix) 40 mg BID ORAL 01/15/19 09:00 02/11/19 08:59 01/22/19 17:16 Sodium Chloride 1,000 ml @ 500 mls/hr Q2H PRN IVLG sbp<90 during hd 01/23/19 09:34 01/23/19 23:59 Tetrahydrozoline HCl (Visine With Dropper) 2 drop Q6H PRN BOTH EYES Itchiness or Irritation 01/20/19 21:00 02/19/19 20:59 01/22/19 11:35 Kevyn Zamora MD Jan 22, 2019 18:50
--- NOTE | 2019-01-22 19:15 | NUR ---
NURSE NOTES: Received pt and report from EDMOND Garcia. Observe pt resting in bed and watching television with family members at bedside. cafeteria monitor is in placed, IV site intact, asymptomatic and patent. Bed in the lowest position and locked. Call light within reach. No signs/symptoms of acute distress noted at this time. Will continue plan of care.
--- NOTE | 2019-01-22 19:26 | NUR ---
HAND-OFF: Report given to EDMOND Bedolla.
[2019-01-22 20:00] VITALS: BP 146/82
--- NOTE | 2019-01-22 23:00 | Progress Note ---
CARDIOLOGY PROGRESS NOTE DATE: 01/22/2019 SUBJECTIVE: The patient's blood pressure parameters are still labile. OBJECTIVE: VITAL SIGNS: Earlier this morning, blood pressure 162/115 now 126/66, heart rate 74, respiratory rate 20, and afebrile. Monitored rhythm, sinus with rare ectopics. Oxygen saturation on 2 L nasal cannula is 96%. LUNGS: Bilateral breath sounds. No wheezes or rales. HEART: Regular rhythm and rate. Normal S1, S2. ABDOMEN: Soft. EXTREMITIES: No edema. LABORATORY DATA: No new lab studies. IMPRESSION: 1. End-stage renal disease, now on hemodialysis. 2. Acute gastrointestinal bleeding due to duodenal ulcers, now with no signs of recurring bleeding. 3. Anemia stable following transfusion. 4. Hypertensive heart disease, still with labile blood pressure readings. 5. Acute on chronic diastolic congestive heart failure, improving with ultrafiltration. PLAN: 1. Titrating antihypertensives, p.r.n. antihypertensives for blood pressure spikes. 2. Expect to adjust therapy further as hemodialysis and ultrafiltration ensues with changes in hemodynamics and volume status. Kevyn Aguilar M.D. DR: WINSTON JOB#: [id number] CC:
[2019-01-23] VITALS: BP 142/73
[2019-01-23 04:00] VITALS: BP 152/72
[2019-01-23] MEDS: NovoLOG Insulin Flexpen SUBQ SCH ×4 (05:50→20:35)
--- NOTE | 2019-01-23 06:15 | NUR ---
NURSE NOTES: Pt is confused and agitated. Observed pt attempting to pull out Carney and IV. Attempted to orient pt back to reality, but pt continues to ramble random sentences. Family member is at bedside and says her verbal response does not make any sense and that she is confused.
--- NOTE | 2019-01-23 06:20 | NUR ---
NURSE NOTES: Contacted Dr. Mixon regarding pt's condition. Received orders for bilateral soft wrist restraints. Will note and carry out.
--- NOTE | 2019-01-23 07:32 | NUR ---
NURSE NOTES: Received report from EDMOND Bedolla. Patient in bed resting, no active s/s cardiac, respiratory distress noticed at this time. Patient on 2L oxygen via NC. Carney catheter draining well to gravity. IV on left hand 22G, asymptomatic, patent, intact. Endorsed patient schedule for HD today 01/23/19, Dr. Mixon made aware patient confuse, trying to pull out IV and Carney cath out, Dr. Zamora made aware sweating on bilateral upper extremities. Patient on soft wrist restraints, cap refill <3 sec, able to move, family member at the bedside. Bed in lowest position, side rails upx3, call light within reach. Will continue to monitor.
--- NOTE | 2019-01-23 07:39 | NUR ---
HAND-OFF: Report given to EDMOND Garcia.
[2019-01-23 08:00] VITALS: BP 133/64
[2019-01-23] MEDS: Metoprolol Succinate XL 25mg tab ORAL SCH ×2 (08:46→08:52)
[2019-01-23] MEDS: Ciprofloxacin Opth Soln 2.5ml LEFT EYE SCH (08:46)
[2019-01-23] MEDS ORDERED: Heparin Sod 1000 units/ml 10ml IV PRN (09:45)
[2019-01-23] MEDS ORDERED: Heparin 1000 units/ml 1ml Vial INJ SCH (09:45)
[2019-01-23 10:03] LABS: HEMATOCRIT 30.6 % (37.0-47.0); HEMOGLOBIN 9.8 G/DL (12.0-16.0); MEAN CORPUSCULAR VOLUME 88 FL (80-99); PLATELET COUNT 82 K/UL (150-450); RED BLOOD COUNT 3.46 M/UL (4.20-5.40); RED CELL DISTRIBUTION WIDTH 17.4 % (11.6-14.8); WHITE BLOOD COUNT 6.7 K/UL (4.8-10.8)
[2019-01-23 10:18] LABS: ANION GAP 10 mmol/L (5-15); BLOOD UREA NITROGEN 52 mg/dL (7-18); CALCIUM 7.8 MG/DL (8.5-10.1); CARBON DIOXIDE 22 MMOL/L (21-32); CHLORIDE 109 MMOL/L (98-107); CREATININE 2.3 MG/DL (0.55-1.30); POTASSIUM 3.8 MMOL/L (3.5-5.1); SODIUM 141 MMOL/L (136-145)
--- NOTE | 2019-01-23 10:18 | Nephrology Progress Note ---
Assessment/Plan Plan ESRD. HD MWF Subjective Subjective Less SOB. Objective Objective Last 24 Hour Vital Signs Date Time Temp Pulse Resp B/P (MAP) Pulse Ox O2 Delivery O2 Flow Rate FiO2 01/23/19 09:00 Nasal Cannula 2.0 01/23/19 08:52 85 133/64 01/23/19 08:51 85 133/64 01/23/19 08:00 98.9 85 20 133/64 (87) 98 01/23/19 04:00 82 01/23/19 04:00 98.1 86 18 152/72 (98) 97 01/23/19 00:00 97.7 71 16 142/73 (96) 97 01/23/19 00:00 87 01/22/19 21:00 Nasal Cannula 2.0 01/22/19 20:32 96 Nasal Cannula 2.0 28 01/22/19 20:00 98.1 74 18 146/82 (103) 100 01/22/19 20:00 79 01/22/19 16:00 98.5 75 20 126/66 (86) 96 01/22/19 16:00 74 01/22/19 12:00 81 01/22/19 12:00 98.7 79 20 157/74 (101) 100 Intake and Output 01/22/19 01/23/19 18:59 06:59 Intake Total 480 ml 320 ml Output Total 350 ml 400 ml Balance 130 ml -80 ml Intake Oral 480 ml 320 ml Output Urine Total 350 ml 400 ml # Bowel Movements 2 Laboratory Tests 01/23/19 09:54: White Blood Count 6.7, Red Blood Count 3.46L, Hemoglobin 9.8L, Hematocrit 30.6L , Mean Corpuscular Volume 88, Mean Corpuscular Hemoglobin 28.3, Mean Corpuscular Hemoglobin Concent 32.0, Red Cell Distribution Width 17.4H, Platelet Count 82L, Mean Platelet Volume 9.7, Neutrophils (%) (Auto) , Lymphocytes (%) (Auto) , Monocytes (%) (Auto) , Eosinophils (%) (Auto) , Basophils (%) (Auto) , Neutrophils % (Manual) [Pending], Lymphocytes % (Manual) [Pending], Platelet Estimate [Pending], Platelet Morphology [Pending], Sodium Level [Pending], Potassium Level [Pending], Chloride Level [Pending], Carbon Dioxide Level [Pending], Blood Urea Nitrogen [Pending], Creatinine [Pending], Estimat Glomerular Filtration Rate [Pending], Glucose Level [Pending], Calcium Level [Pending] Height (Feet): 4 Height (Inches): 9.00 Weight (Pounds): 135 Objective CV RR Has a new PermCath Lungs CTA Abd SNT BS + E No CCE Donis Escobar MD Jan 23, 2019 10:18
--- NOTE | 2019-01-23 10:28 | NUR ---
NURSE NOTES: Dr. Escobar at the bedside, made aware patient small amount of water comes out of both upper extremities. No order given at this time. Will continue to monitor.
--- NOTE | 2019-01-23 10:48 | Infectious Diseases Prog Note ---
Assessment/Plan Assessment/Plan antibiotics : none A 1. pneumonia s/p rx 2. renal failure 3. severe anemia resolving 4. GI bleeding 5. throat cancer 6. diabetes mellitus 7. hypertension 8. CHF P 1. continue off antibiotics Subjective ROS Limited/Unobtainable: Yes Allergies: Coded Allergies: No Known Allergies (Unverified , 01/11/19) Objective Vital Signs Last 24 Hour Vital Signs Date Time Temp Pulse Resp B/P (MAP) Pulse Ox O2 Delivery O2 Flow Rate FiO2 01/23/19 09:00 Nasal Cannula 2.0 01/23/19 08:52 85 133/64 01/23/19 08:51 85 133/64 01/23/19 08:00 98.9 85 20 133/64 (87) 98 01/23/19 08:00 83 01/23/19 04:00 82 01/23/19 04:00 98.1 86 18 152/72 (98) 97 01/23/19 00:00 97.7 71 16 142/73 (96) 97 01/23/19 00:00 87 01/22/19 21:00 Nasal Cannula 2.0 01/22/19 20:32 96 Nasal Cannula 2.0 28 01/22/19 20:00 98.1 74 18 146/82 (103) 100 01/22/19 20:00 79 01/22/19 16:00 98.5 75 20 126/66 (86) 96 01/22/19 16:00 74 01/22/19 12:00 81 01/22/19 12:00 98.7 79 20 157/74 (101) 100 Height (Feet): 4 Height (Inches): 9.00 Weight (Pounds): 135 Respiratory/Chest: lungs clear Cardiovascular: normal rate, regular rhythm, no gallop/murmur Abdomen: soft, non tender Extremities: no edema Laboratory Tests Test 01/23/19 09:54 White Blood Count 6.7 K/UL (4.8-10.8) Red Blood Count 3.46 M/UL (4.20-5.40) L Hemoglobin 9.8 G/DL (12.0-16.0) L Hematocrit 30.6 % (37.0-47.0) L Mean Corpuscular Volume 88 FL (80-99) Mean Corpuscular Hemoglobin 28.3 PG (27.0-31.0) Mean Corpuscular Hemoglobin Concent 32.0 G/DL (32.0-36.0) Red Cell Distribution Width 17.4 % (11.6-14.8) H Platelet Count 82 K/UL (150-450) L Mean Platelet Volume 9.7 FL (6.5-10.1) Neutrophils (%) (Auto) % (45.0-75.0) Lymphocytes (%) (Auto) % (20.0-45.0) Monocytes (%) (Auto) % (1.0-10.0) Eosinophils (%) (Auto) % (0.0-3.0) Basophils (%) (Auto) % (0.0-2.0) Differential Total Cells Counted 100 Neutrophils % (Manual) 82 % (45-75) H Lymphocytes % (Manual) 15 % (20-45) L Monocytes % (Manual) 3 % (1-10) Eosinophils % (Manual) 0 % (0-3) Basophils % (Manual) 0 % (0-2) Band Neutrophils 0 % (0-8) Platelet Estimate Decreased L Platelet Morphology Normal Anisocytosis 1+ Sodium Level 141 MMOL/L (136-145) Potassium Level 3.8 MMOL/L (3.5-5.1) Chloride Level 109 MMOL/L (98-107) H Carbon Dioxide Level 22 MMOL/L (21-32) Anion Gap 10 mmol/L (5-15) Blood Urea Nitrogen 52 mg/dL (7-18) H Creatinine 2.3 MG/DL (0.55-1.30) H Estimat Glomerular Filtration Rate mL/min (>60) Glucose Level 116 MG/DL (74-106) H Calcium Level 7.8 MG/DL (8.5-10.1) L Current Medications Medications (Trade) Dose Ordered Sig/Eleanor Route PRN Reason Start Time Stop Time Status Last Admin Dose Admin Acetaminophen (Tylenol) 650 mg Q4H PRN ORAL Mild Pain/Temp > 100.5 01/15/19 02:24 02/11/19 02:23 01/17/19 21:49 Al Hydroxide/Mg Hydroxide (Mylanta) 30 ml FOUR TIMES A DAY PRN ORAL heartburn 01/15/19 02:29 02/11/19 02:28 Amlodipine Besylate (Norvasc) 10 mg DAILY ORAL 01/22/19 09:00 02/21/19 08:59 01/22/19 08:41 Ciprofloxacin (Ciloxan Opth Soln) 1 drop DAILY LEFT EYE 01/23/19 09:00 02/22/19 08:59 01/23/19 08:46 Dextrose (Dextrose 50%) 25 ml Q30M PRN IV Hypoglycemia 01/21/19 17:15 02/20/19 17:14 Dextrose (Dextrose 50%) 50 ml Q30M PRN IV Hypoglycemia 01/21/19 17:15 02/20/19 17:14 Heparin Sodium (Porcine) (Heparin Sod 1000 units/ml 10ml) 2,000 unit ONCE PRN IV dialysis 01/23/19 09:45 01/23/19 23:59 Heparin Sodium (Porcine) (Heparin) 1,000 unit POSTHD INJ 01/23/19 09:45 01/23/19 23:59 Insulin Aspart (NovoLOG) BEFORE MEALS AND HS SUBQ 01/21/19 16:30 02/20/19 16:29 01/23/19 05:50 Metoprolol Succinate (Toprol XL) 25 mg DAILY ORAL 01/21/19 09:00 02/20/19 08:59 01/22/19 08:42 Ondansetron HCl (Zofran) 4 mg Q6H PRN IVP Nausea & Vomiting 01/15/19 02:24 02/12/19 02:23 Pantoprazole (Protonix) 40 mg BID ORAL 01/15/19 09:00 02/11/19 08:59 01/23/19 08:46 Sodium Chloride 1,000 ml @ 500 mls/hr Q2H PRN IVLG sbp<90 during hd 01/23/19 09:34 01/23/19 23:59 Tetrahydrozoline HCl (Visine With Dropper) 2 drop Q6H PRN BOTH EYES Itchiness or Irritation 01/20/19 21:00 02/19/19 20:59 01/22/19 11:35 Sabina Gamble MD Jan 23, 2019 10:48
--- NOTE | 2019-01-23 11:27 | NUR ---
*-* INSURANCE *-* UPDATED CLINICALS HAVE BEEN FAXED TO: [employer]. P: [phone] F: [phone] ( FAX CLINICALS)
--- NOTE | 2019-01-23 11:47 | NUR ---
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 RENAL FAILURE VS: BP 162/115, P 82, T 98.0, RR 22, SpO2 97 on 2.0L NC RBC 3.46, H&H 9.8/30.6, Plt. Count 82, BUN 52, Cr 2.3 IS:NOVOLOG SUBQ PROTONIX 40mg CIPROFLOXACIN 1 DROP LEFT EYE VISINE 2 DROPS TELE STATUS
[2019-01-23 12:00] VITALS: BP 140/83
--- NOTE | 2019-01-23 14:56 | NUR ---
VP COMMUNICATIONS NOTES PATIENT ACCEPTED BY [facility]
--- NOTE | 2019-01-23 15:15 | NUR ---
NURSE NOTES: Patient tolerated HD, 2L out, last BP 144/80, HR 88. Will continue to monitor.
[2019-01-23 16:00] VITALS: BP 144/80
--- NOTE | 2019-01-23 16:22 | NUR ---
NURSE NOTES: Per Dr. Zamora, Dr. Shaw as pre billing clinician, order noted, entered, carried out. Will continue to monitor.
--- NOTE | 2019-01-23 19:06 | NUR ---
NURSE NOTES: Report received from EDMOND Garcia. Pt is in stable condition. Bed in the lowest position, bed brakes engaged, side rails upx3 with call light within reach.
--- NOTE | 2019-01-23 19:33 | NUR ---
HAND-OFF: Report given to EDMOND Lyn.
[2019-01-23 20:00] VITALS: BP 119/64
--- NOTE | 2019-01-23 22:05 | General Progress Note ---
Assessment/Plan Assessment/Plan: Assessment - Melena, UGIB - multiple duodenal ulcers (H pylori negative per path) - Anemia, s/p transfusion - Renal failure - h/o throat cancer - mild hypernatremia - delirium Recommendations - po as tolerated - IVF - PPI x 8 weeks - OOB Subjective Allergies: Coded Allergies: No Known Allergies (Unverified , 01/11/19) Subjective Feels OK more confused today d/w family at bedside Objective Last 24 Hour Vital Signs Date Time Temp Pulse Resp B/P (MAP) Pulse Ox O2 Delivery O2 Flow Rate FiO2 01/23/19 21:00 Nasal Cannula 2.0 01/23/19 20:00 98.0 90 20 119/64 (82) 96 01/23/19 16:00 97.5 83 20 144/80 (101) 94 01/23/19 16:00 86 01/23/19 12:00 97.9 82 20 140/83 (102) 100 01/23/19 12:00 81 01/23/19 10:03 97 Nasal Cannula 2.0 28 01/23/19 09:00 Nasal Cannula 2.0 01/23/19 08:52 85 133/64 01/23/19 08:51 85 133/64 01/23/19 08:00 98.9 85 20 133/64 (87) 98 01/23/19 08:00 83 01/23/19 04:00 82 01/23/19 04:00 98.1 86 18 152/72 (98) 97 01/23/19 00:00 97.7 71 16 142/73 (96) 97 01/23/19 00:00 87 Intake and Output 01/22/19 01/23/19 19:00 07:00 Intake Total 480 ml 440 ml Output Total 350 ml 400 ml Balance 130 ml 40 ml Intake Oral 480 ml 440 ml Output Urine Total 350 ml 400 ml # Bowel Movements 2 Laboratory Tests 01/23/19 09:54: White Blood Count 6.7, Red Blood Count 3.46L, Hemoglobin 9.8L, Hematocrit 30.6L , Mean Corpuscular Volume 88, Mean Corpuscular Hemoglobin 28.3, Mean Corpuscular Hemoglobin Concent 32.0, Red Cell Distribution Width 17.4H, Platelet Count 82L, Mean Platelet Volume 9.7, Neutrophils (%) (Auto) , Lymphocytes (%) (Auto) , Monocytes (%) (Auto) , Eosinophils (%) (Auto) , Basophils (%) (Auto) , Differential Total Cells Counted 100, Neutrophils % ( Manual) 82H, Lymphocytes % (Manual) 15L, Monocytes % (Manual) 3, Eosinophils % ( Manual) 0, Basophils % (Manual) 0, Band Neutrophils 0, Platelet Estimate DecreasedL, Platelet Morphology Normal, Anisocytosis 1+, Sodium Level 141, Potassium Level 3.8, Chloride Level 109H, Carbon Dioxide Level 22, Anion Gap 10 , Blood Urea Nitrogen 52H, Creatinine 2.3H, Estimat Glomerular Filtration Rate , Glucose Level 116H, Calcium Level 7.8L Height (Feet): 4 Height (Inches): 9.00 Weight (Pounds): 135 Objective WDWN NCAT supple CTA RR abd soft ND NT no edema Porsha Garcia MD Jan 23, 2019 22:05
--- NOTE | 2019-01-23 22:31 | Pulmonology Progress Note ---
Assessment/Plan Assessment/Plan Pulmonary Progress Note HISTORY OF PRESENT ILLNESS: This is an 83-year-old female who was brought in due to significant shortness of breath. The patient was having bloody stool and diarrhea. The patient recently admitted with pleural effusion, placed on antibiotics and was discharged to home. The patient received transfusion on this admission, noted to have elevated Creatinine, Left Soleal DVT On HD. Stillhas left eye redness PAST MEDICAL HISTORY: Diabetes, hypertension, CHF, throat cancer. MEDICATIONS: Reviewed. ALLERGIES: Reviewed. SOCIAL HISTORY: The patient lives with family. Nonsmoker and nondrinker. REVIEW OF SYSTEMS: Notable for the above. PHYSICAL EXAMINATION: GENERAL: A well-developed female appears to be overall comfortable. VITAL SIGNS NOTED: HEENT: Negative. NECK: Supple. LUNGS: Reduced breath sounds. CARDIAC: S1 and S2. Regular rate and rhythm. ABDOMEN: Soft, nontender, and nondistended. EXTREMITIES: No edema. LABORATORY DATA NOTED: Reviewed. Hemoglobin stable post TFN, platelets of 118. Chemistries noted, bicarbonate 14, BUN 166, creatinine 4.5. Lactic acid 2.2. Albumin is 1.7. IMPRESSION: 1. Severe protein-calorie malnutrition. 2. End-stage renal disease. 3. Anemia profound, possible gastrointestinal bleed. 4. Left Soleal DVT 5. History of congestive heart failure. 6. Left pleural effusion. RECOMMENDATION: 1. Supportive care. 2. Renal following - now on HD 3. GI evaluation. 4. Cardiology evaluation. 5. Transfuse and monitor hemoglobin and hematocrit. 6. No anticoagulation for now given GI bleed. 7. We will follow clinically. 8. Visine/Floxacin eye drops, Referred to Dr Shaw Opthalmologist Subjective ROS Limited/Unobtainable: No Allergies: Coded Allergies: No Known Allergies (Unverified , 01/11/19) Objective Last 24 Hour Vital Signs Date Time Temp Pulse Resp B/P (MAP) Pulse Ox O2 Delivery O2 Flow Rate FiO2 01/23/19 21:00 Nasal Cannula 2.0 01/23/19 20:00 98.0 90 20 119/64 (82) 96 01/23/19 16:00 97.5 83 20 144/80 (101) 94 01/23/19 16:00 86 01/23/19 12:00 97.9 82 20 140/83 (102) 100 01/23/19 12:00 81 01/23/19 10:03 97 Nasal Cannula 2.0 28 01/23/19 09:00 Nasal Cannula 2.0 01/23/19 08:52 85 133/64 01/23/19 08:51 85 133/64 01/23/19 08:00 98.9 85 20 133/64 (87) 98 01/23/19 08:00 83 01/23/19 04:00 82 01/23/19 04:00 98.1 86 18 152/72 (98) 97 01/23/19 00:00 97.7 71 16 142/73 (96) 97 01/23/19 00:00 87 Intake and Output 01/22/19 01/23/19 19:00 07:00 Intake Total 480 ml 440 ml Output Total 350 ml 400 ml Balance 130 ml 40 ml Intake Oral 480 ml 440 ml Output Urine Total 350 ml 400 ml # Bowel Movements 2 Laboratory Tests 01/23/19 09:54: White Blood Count 6.7, Red Blood Count 3.46L, Hemoglobin 9.8L, Hematocrit 30.6L , Mean Corpuscular Volume 88, Mean Corpuscular Hemoglobin 28.3, Mean Corpuscular Hemoglobin Concent 32.0, Red Cell Distribution Width 17.4H, Platelet Count 82L, Mean Platelet Volume 9.7, Neutrophils (%) (Auto) , Lymphocytes (%) (Auto) , Monocytes (%) (Auto) , Eosinophils (%) (Auto) , Basophils (%) (Auto) , Differential Total Cells Counted 100, Neutrophils % ( Manual) 82H, Lymphocytes % (Manual) 15L, Monocytes % (Manual) 3, Eosinophils % ( Manual) 0, Basophils % (Manual) 0, Band Neutrophils 0, Platelet Estimate DecreasedL, Platelet Morphology Normal, Anisocytosis 1+, Sodium Level 141, Potassium Level 3.8, Chloride Level 109H, Carbon Dioxide Level 22, Anion Gap 10 , Blood Urea Nitrogen 52H, Creatinine 2.3H, Estimat Glomerular Filtration Rate , Glucose Level 116H, Calcium Level 7.8L Current Medications Medications (Trade) Dose Ordered Sig/Eleanor Route PRN Reason Start Time Stop Time Status Last Admin Dose Admin Acetaminophen (Tylenol) 650 mg Q4H PRN ORAL Mild Pain/Temp > 100.5 01/15/19 02:24 02/11/19 02:23 01/17/19 21:49 Al Hydroxide/Mg Hydroxide (Mylanta) 30 ml FOUR TIMES A DAY PRN ORAL heartburn 01/15/19 02:29 02/11/19 02:28 Amlodipine Besylate (Norvasc) 10 mg DAILY ORAL 01/22/19 09:00 02/21/19 08:59 01/22/19 08:41 Ciprofloxacin (Ciloxan Opth Soln) 1 drop DAILY LEFT EYE 01/23/19 09:00 02/22/19 08:59 01/23/19 08:46 Dextrose (Dextrose 50%) 25 ml Q30M PRN IV Hypoglycemia 01/21/19 17:15 02/20/19 17:14 Dextrose (Dextrose 50%) 50 ml Q30M PRN IV Hypoglycemia 01/21/19 17:15 02/20/19 17:14 Heparin Sodium (Porcine) (Heparin Sod 1000 units/ml 10ml) 2,000 unit ONCE PRN IV dialysis 01/23/19 09:45 01/23/19 23:59 Heparin Sodium (Porcine) (Heparin) 1,000 unit POSTHD INJ 01/23/19 09:45 01/23/19 23:59 Insulin Aspart (NovoLOG) BEFORE MEALS AND HS SUBQ 01/21/19 16:30 02/20/19 16:29 01/23/19 20:35 Metoprolol Succinate (Toprol XL) 25 mg DAILY ORAL 01/21/19 09:00 02/20/19 08:59 01/22/19 08:42 Ondansetron HCl (Zofran) 4 mg Q6H PRN IVP Nausea & Vomiting 01/15/19 02:24 02/12/19 02:23 Pantoprazole (Protonix) 40 mg BID ORAL 01/15/19 09:00 02/11/19 08:59 01/23/19 17:11 Sodium Chloride 1,000 ml @ 500 mls/hr Q2H PRN IVLG sbp<90 during hd 01/23/19 09:34 01/23/19 23:59 Tetrahydrozoline HCl (Visine With Dropper) 2 drop Q6H PRN BOTH EYES Itchiness or Irritation 01/20/19 21:00 02/19/19 20:59 01/22/19 11:35 Kevyn Zamora MD Jan 23, 2019 22:31
[2019-01-24] VITALS: BP 109/66
--- NOTE | 2019-01-24 02:30 | Progress Note ---
DATE: 01/23/2019 CARDIOLOGY PROGRESS NOTE SUBJECTIVE: The patient's condition remains unchanged. She is on hemodialysis with ultrafiltration via PermCath. She is a little confused at times. She is tolerating a diet. Hemoglobin levels have remained stable. OBJECTIVE: VITAL SIGNS: Blood pressure 144/80, pulse 83, and respirations 20. LUNGS: Clear. CARDIAC: Regular. ABDOMEN: Soft. EXTREMITIES: Trace edema. LABORATORY DATA: White count 6.7 and hemoglobin 9.8. Sodium 141, potassium 3.8, bicarbonate 22, BUN 52, and creatinine 2.3. IMPRESSION: 1. End-stage renal disease. 2. Duodenal ulcers with GI bleeding. 3. Hypertensive heart disease. 4. Rehydrated. 5. Stabilized blood pressure parameters. 6. Acute on chronic diastolic congestive heart failure, improved with ultrafiltration. PLAN: 1. Continue current cardiovascular regimen. 2. Hold parameters for low range blood pressure. 3. Hemodialysis with ultrafiltration. 4. Skin care. Kevyn Aguilar M.D. DR: MERLIN JOB#: [id number] CC:
[2019-01-24 04:00] VITALS: BP 134/57
[2019-01-24] MEDS: NovoLOG Insulin Flexpen SUBQ SCH ×4 (05:45→20:45)
--- NOTE | 2019-01-24 07:13 | NUR ---
HAND-OFF: Report given to EDMOND Perry.
--- NOTE | 2019-01-24 07:15 | NUR ---
NURSE NOTES: Pt received from EDMOND Hernandez alert and oriented x2, with no acute s/s of distress noted. On 2L NC, no s/s of SOB noted. IV site asymptomatic and patent L hand 22g, saline lock. R upper chest permacath, dressing dry and intact. On soft bilateral wrist restraints, radial pulses equal bilaterally, warm to touch. Bed in lowest position, bed alarm on. Call light and belongings within reach. Daughter at bedside.
[2019-01-24 08:00] VITALS: BP 152/66
--- NOTE | 2019-01-24 08:02 | General Progress Note ---
Assessment/Plan Assessment/Plan: IMPRESSION: 1. Severe protein-calorie malnutrition. 2. End-stage renal disease. 3. Anemia profound, 4. GIB with DU 5. Congestive heart failure. 6. History of throat cancer 7. hyperglycemia 8. hypernatremia PLAN sliding scale outpatient ENT discussed monitor for change dc planning ? snf renal follow up and recs monitor diet impression, plan, and exam edited and reviewed in detail care discussed with RN Subjective ROS Limited/Unobtainable: Yes Allergies: Coded Allergies: No Known Allergies (Unverified , 01/11/19) Subjective care noted and reviewed work up negative Objective Last 24 Hour Vital Signs Date Time Temp Pulse Resp B/P (MAP) Pulse Ox O2 Delivery O2 Flow Rate FiO2 01/24/19 07:55 98 Nasal Cannula 2.0 28 01/24/19 04:00 97.3 72 20 134/57 (82) 95 01/24/19 04:00 65 01/24/19 00:00 97.7 77 20 109/66 (80) 97 01/24/19 00:00 69 01/23/19 23:33 96 Nasal Cannula 2.0 28 01/23/19 21:00 Nasal Cannula 2.0 01/23/19 20:00 89 01/23/19 20:00 98.0 90 20 119/64 (82) 96 01/23/19 16:00 97.5 83 20 144/80 (101) 94 01/23/19 16:00 86 01/23/19 12:00 97.9 82 20 140/83 (102) 100 01/23/19 12:00 81 01/23/19 10:03 97 Nasal Cannula 2.0 28 01/23/19 09:00 Nasal Cannula 2.0 01/23/19 08:52 85 133/64 01/23/19 08:51 85 133/64 Intake and Output 01/23/19 01/24/19 19:00 07:00 Intake Total 240 ml Output Total 300 ml 350 ml Balance -60 ml -350 ml Intake Oral 240 ml Output Urine Total 300 ml 350 ml # Bowel Movements 1 Laboratory Tests 01/23/19 09:54: White Blood Count 6.7, Red Blood Count 3.46L, Hemoglobin 9.8L, Hematocrit 30.6L , Mean Corpuscular Volume 88, Mean Corpuscular Hemoglobin 28.3, Mean Corpuscular Hemoglobin Concent 32.0, Red Cell Distribution Width 17.4H, Platelet Count 82L, Mean Platelet Volume 9.7, Neutrophils (%) (Auto) , Lymphocytes (%) (Auto) , Monocytes (%) (Auto) , Eosinophils (%) (Auto) , Basophils (%) (Auto) , Differential Total Cells Counted 100, Neutrophils % ( Manual) 82H, Lymphocytes % (Manual) 15L, Monocytes % (Manual) 3, Eosinophils % ( Manual) 0, Basophils % (Manual) 0, Band Neutrophils 0, Platelet Estimate DecreasedL, Platelet Morphology Normal, Anisocytosis 1+, Sodium Level 141, Potassium Level 3.8, Chloride Level 109H, Carbon Dioxide Level 22, Anion Gap 10 , Blood Urea Nitrogen 52H, Creatinine 2.3H, Estimat Glomerular Filtration Rate , Glucose Level 116H, Calcium Level 7.8L Height (Feet): 4 Height (Inches): 9.00 Weight (Pounds): 135 Objective WDWN NAD clear breath sounds bilaterally without rhonchi or wheeze [id number] without MRG NABS nontender no HSM no CCE nonfocal Joss Mixon MD Jan 24, 2019 08:02
--- NOTE | 2019-01-24 09:37 | Nephrology Progress Note ---
Assessment/Plan Plan ESRD. HD MWF Subjective Subjective Less SOB. Objective Objective Last 24 Hour Vital Signs Date Time Temp Pulse Resp B/P (MAP) Pulse Ox O2 Delivery O2 Flow Rate FiO2 01/24/19 07:55 98 Nasal Cannula 2.0 28 01/24/19 04:00 97.3 72 20 134/57 (82) 95 01/24/19 04:00 65 01/24/19 00:00 97.7 77 20 109/66 (80) 97 01/24/19 00:00 69 01/23/19 23:33 96 Nasal Cannula 2.0 28 01/23/19 21:00 Nasal Cannula 2.0 01/23/19 20:00 89 01/23/19 20:00 98.0 90 20 119/64 (82) 96 01/23/19 16:00 97.5 83 20 144/80 (101) 94 01/23/19 16:00 86 01/23/19 12:00 97.9 82 20 140/83 (102) 100 01/23/19 12:00 81 01/23/19 10:03 97 Nasal Cannula 2.0 28 Intake and Output 01/23/19 01/24/19 18:59 06:59 Intake Total 360 ml Output Total 300 ml 350 ml Balance 60 ml -350 ml Intake Oral 360 ml Output Urine Total 300 ml 350 ml # Bowel Movements 1 Laboratory Tests 01/23/19 09:54: White Blood Count 6.7, Red Blood Count 3.46L, Hemoglobin 9.8L, Hematocrit 30.6L , Mean Corpuscular Volume 88, Mean Corpuscular Hemoglobin 28.3, Mean Corpuscular Hemoglobin Concent 32.0, Red Cell Distribution Width 17.4H, Platelet Count 82L, Mean Platelet Volume 9.7, Neutrophils (%) (Auto) , Lymphocytes (%) (Auto) , Monocytes (%) (Auto) , Eosinophils (%) (Auto) , Basophils (%) (Auto) , Differential Total Cells Counted 100, Neutrophils % ( Manual) 82H, Lymphocytes % (Manual) 15L, Monocytes % (Manual) 3, Eosinophils % ( Manual) 0, Basophils % (Manual) 0, Band Neutrophils 0, Platelet Estimate DecreasedL, Platelet Morphology Normal, Anisocytosis 1+, Sodium Level 141, Potassium Level 3.8, Chloride Level 109H, Carbon Dioxide Level 22, Anion Gap 10 , Blood Urea Nitrogen 52H, Creatinine 2.3H, Estimat Glomerular Filtration Rate , Glucose Level 116H, Calcium Level 7.8L Height (Feet): 4 Height (Inches): 9.00 Weight (Pounds): 135 Objective CV RR Has a new PermCath Lungs CTA Abd SNT BS + E No CCE Donis Escobar MD Jan 24, 2019 09:37
[2019-01-24] MEDS ORDERED: Heparin 1000 units/ml 1ml Vial INJ PRN (10:00)
[2019-01-24] MEDS ORDERED: Heparin Sod 1000 units/ml 10ml IV PRN (10:00)
[2019-01-24] MEDS: Ciprofloxacin Opth Soln 2.5ml LEFT EYE SCH (10:33)
[2019-01-24] MEDS: Metoprolol Succinate XL 25mg tab ORAL SCH (10:34)
--- NOTE | 2019-01-24 10:49 | NUR ---
DRUM SPRAYER NOTES SPOKE WITH TRINIDAD AT [facility] HE STATED INTAKE IS STILL WORKING ON GETTING PATIENT CHAIR TIME.
--- NOTE | 2019-01-24 10:51 | NUR ---
STONEMASONHEEL VARNISHER SI:RENAL FAILURE VS: BP 152/66, P 71, T 97.3, RR 20, SpO2 95 on 2.0L NC NO LABS TODAY IS:METOPROLOL 25mg NORVASC 10mg PROTONIX 40mg CIPROFLOXACIN 1drop TELE STATUS
--- NOTE | 2019-01-24 10:58 | Diagnostic Imaging Report ---
APPROVED REPORT CPT Code: 73924 Present Symptoms Comments: Hx of left leg soleal vein thrombosis LEFT LEG: SOLEAL VEIN: Venous imaging reveals acute thrombus in the isolated soleal vein. Remainder of the deep venous system within normal limits. No evidence of thrombus within the femoral, popliteal or tibial segments. Greater saphenous vein also within normal limits. Doppler indicates normal spontaneous flow within these segments. EDMOND Garcia was notified of abnormal results at 1000 hours.
--- NOTE | 2019-01-24 11:09 | Diagnostic Imaging Report ---
APPROVED REPORT CPT Code: 78962 Vascular Symptoms Comments: Pre-op Doppler Spectral Velocity Analysis RightLeft RIGHT SIDE: The extracranial carotid arteries not visualized, due to the right internal jugular vein indwelling catheter. artery. The Doppler spectral flow analysis indicates the degree of stenosis is minimal (30%) in the common carotid artery, moderate (60-70%) in the internal carotid artery, and moderate (50% - 60%) in the external carotid artery. VERTEBRAL/SUBCLAVIAN- The vertebral artery and subclavian artery are patent, without evidence of stenosis or steal.
--- NOTE | 2019-01-24 11:09 | Diagnostic Imaging Report ---
APPROVED REPORT CPT Code: G0365 Present Symptoms Comments: Pre-Op for AVF Comments The right internal jugular vein was not imaged due to an indwelling catheter. Vein Measurements(cm) Cephalic Basilic Right LeftRight Left Upper Arm0.420.46Mid Upper Arm0.32 Mid Upper Arm0.320.43Antecubital Fossa0.36 Upper Forearm0.20 Antecubital Fossa0.27Wrist Wrist0.25 VEIN MAPPING: The right and left basilic and left cephalic veins were imaged and measured to evaluate as a potential graft for dialysis access. RIGHT UPPER EXTREMITY: Venous imaging reveals patency of the subclavian, axillary and brachial veins. The basilic vein is also patent. Doppler indicates normal spontaneous flow within these venous segments. The cephalic vein was occluded at fossa level. LEFT UPPER EXTREMITY: Venous imaging reveals acute thrombus in the internal jugular vein. The remaining segments are within normal limits. There is no evidence of thrombus within the subclavian, axillary and brachial veins. The right cephalic vein was occluded. EDMOND Mitchell notified of abnormal results at 1500 hours.
--- NOTE | 2019-01-24 11:09 | Diagnostic Imaging Report ---
APPROVED REPORT CPT Code: 14313 Symptoms Other : Pre-Op BILATERAL UPPER EXTREMITY: Imaging of the subclavian, axillary, brachial, radial and ulnar arteries is within normal limits. There is no evidence of stenosis or occlusions within these segments. The Doppler waveforms of both upper extremities are multiphasic, consistent with normal inflow to both upper extremities.
[2019-01-24 12:00] VITALS: BP 140/74
--- NOTE | 2019-01-24 13:08 | Infectious Diseases Prog Note ---
Assessment/Plan Assessment/Plan A 1. pneumonia 2. renal failure, ESRD 3. severe anemia resolving 4. GI bleeding 5. throat cancer 6. diabetes mellitus 7. 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 Multiple duodenal ulcers 10. AMS, Atrophy in CT scan of head 11.Thrombocytopenia & anemia 12. Subconjunctival hemorrhage P 1. Observe off of antibiotic Subjective ROS Limited/Unobtainable: Yes Constitutional: Reports: anorexia Neurologic: Reports: confusion, other - on restraint, mostly sleeping Allergies: Coded Allergies: No Known Allergies (Unverified , 01/11/19) Objective Vital Signs Last 24 Hour Vital Signs Date Time Temp Pulse Resp B/P (MAP) Pulse Ox O2 Delivery O2 Flow Rate FiO2 01/24/19 10:34 71 152/66 01/24/19 10:34 71 152/66 01/24/19 09:00 Nasal Cannula 2.0 01/24/19 08:00 68 01/24/19 08:00 97.9 71 20 152/66 (94) 100 01/24/19 07:55 98 Nasal Cannula 2.0 28 01/24/19 04:00 97.3 72 20 134/57 (82) 95 01/24/19 04:00 65 01/24/19 00:00 97.7 77 20 109/66 (80) 97 01/24/19 00:00 69 01/23/19 23:33 96 Nasal Cannula 2.0 28 01/23/19 21:00 Nasal Cannula 2.0 01/23/19 20:00 89 01/23/19 20:00 98.0 90 20 119/64 (82) 96 01/23/19 16:00 97.5 83 20 144/80 (101) 94 01/23/19 16:00 86 Height (Feet): 4 Height (Inches): 9.00 Weight (Pounds): 135 General Appearance: no acute distress HEENT: other - lrft subconjunctival hemorrhage Cardiovascular: normal rate Abdomen: soft, non tender Extremities: other - edema of arms Neurologic/Psychiatric: other - sleeping Current Medications Medications (Trade) Dose Ordered Sig/Eleanor Route PRN Reason Start Time Stop Time Status Last Admin Dose Admin Acetaminophen (Tylenol) 650 mg Q4H PRN ORAL Mild Pain/Temp > 100.5 01/15/19 02:24 02/11/19 02:23 01/17/19 21:49 Al Hydroxide/Mg Hydroxide (Mylanta) 30 ml FOUR TIMES A DAY PRN ORAL heartburn 01/15/19 02:29 02/11/19 02:28 Amlodipine Besylate (Norvasc) 10 mg DAILY ORAL 01/22/19 09:00 02/21/19 08:59 01/24/19 10:34 Ciprofloxacin (Ciloxan Opth Soln) 1 drop DAILY LEFT EYE 01/23/19 09:00 02/22/19 08:59 01/24/19 10:33 Dextrose (Dextrose 50%) 25 ml Q30M PRN IV Hypoglycemia 01/21/19 17:15 02/20/19 17:14 Dextrose (Dextrose 50%) 50 ml Q30M PRN IV Hypoglycemia 01/21/19 17:15 02/20/19 17:14 Heparin Sodium (Porcine) (Heparin Sod 1000 units/ml 10ml) 2,000 unit ONCE PRN IV FOR HD USE ONLY 01/24/19 10:00 01/25/19 23:59 Heparin Sodium (Porcine) (Heparin) 1,000 unit POSTHD PRN INJ FOR HD USE ONLY 01/24/19 10:00 01/25/19 23:59 Insulin Aspart (NovoLOG) BEFORE MEALS AND HS SUBQ 01/21/19 16:30 02/20/19 16:29 01/23/19 20:35 Metoprolol Succinate (Toprol XL) 25 mg DAILY ORAL 01/21/19 09:00 02/20/19 08:59 01/24/19 10:34 Ondansetron HCl (Zofran) 4 mg Q6H PRN IVP Nausea & Vomiting 01/15/19 02:24 02/12/19 02:23 Pantoprazole (Protonix) 40 mg BID ORAL 01/15/19 09:00 02/11/19 08:59 01/24/19 10:33 Sodium Chloride 1,000 ml @ 500 mls/hr Q2H PRN IVLG sbp<90 during hd 01/24/19 10:00 01/25/19 23:59 Tetrahydrozoline HCl (Visine With Dropper) 2 drop Q6H PRN BOTH EYES Itchiness or Irritation 01/20/19 21:00 02/19/19 20:59 01/22/19 11:35 Sahil Flores MD 11, 2019 13:08
--- NOTE | 2019-01-24 13:47 | NUR ---
NURSE NOTES: RN called [facility] to confirm HD for tomorrow. Per Sherlyn, she will let HD nurse know and call back to confirm.
--- NOTE | 2019-01-24 13:51 | NUR ---
*-* INSURANCE *-* UPDATED CLINICALS AND REVIEWS HAVE BEEN FAXED TO: [employer]. P: [phone] F: [phone] ( FAX CLINICALS)
--- NOTE | 2019-01-24 14:28 | NUR ---
POLICE LIAISON OFFICER NOTES FOLLOWED UP WITH TRINIDAD FROM [facility] T# [phone]. PER TRINIDAD PATIENT IS ACCEPTED CHAIR TIME IS TTS AT 1:30 pm
--- NOTE | 2019-01-24 15:06 | NUR ---
NURSE NOTES:WOUND CARE FOLLOW-UP NOTES:Pt's L upper ext edematous and weeping serous exudate. Sacral area is dry with peeling skin noted. No erythema noted. Perianal and vaginal labia red and excoriated. R and L heels soft but blanchable. .No new skin concerns noted. Tx.Plan: Apply Triad Paste to perineal and perianal areas with each incontinence care. Cover sacrum with Optifoam drsg.Change every 3 days and prn. Apply Cavilon Skin Barrier to both heels. Cover each heel with Optifoam drsg. Change every 7 days and prn. Reposition at least every 2hours or as tolerated. Off-load heels with pillow.
[2019-01-24 16:00] VITALS: BP 127/62
--- NOTE | 2019-01-24 16:50 | NUR ---
POT ROOM TAPPER NOTES SPOKE WITH PATIENT GRANDDAUGHTER AND DAUGHTER MADE THE DECISION TO TAKE PT. HOME AND NOT A SNF.
--- NOTE | 2019-01-24 17:11 | General Progress Note ---
Assessment/Plan Assessment/Plan: Assessment - Melena, UGIB - multiple duodenal ulcers (H pylori negative per path) - Anemia, s/p transfusion - Renal failure - h/o throat cancer - mild hypernatremia - delirium Recommendations - po as tolerated - IVF - PPI x 8 weeks - OOB Subjective Allergies: Coded Allergies: No Known Allergies (Unverified , 01/11/19) Subjective Feels OK resting comfortably Objective Last 24 Hour Vital Signs Date Time Temp Pulse Resp B/P (MAP) Pulse Ox O2 Delivery O2 Flow Rate FiO2 01/24/19 12:00 71 01/24/19 12:00 97.6 71 18 140/74 (96) 99 01/24/19 10:34 71 152/66 01/24/19 10:34 71 152/66 01/24/19 09:00 Nasal Cannula 2.0 01/24/19 08:00 68 01/24/19 08:00 97.9 71 20 152/66 (94) 100 01/24/19 07:55 98 Nasal Cannula 2.0 28 01/24/19 04:00 97.3 72 20 134/57 (82) 95 01/24/19 04:00 65 01/24/19 00:00 97.7 77 20 109/66 (80) 97 01/24/19 00:00 69 01/23/19 23:33 96 Nasal Cannula 2.0 28 01/23/19 21:00 Nasal Cannula 2.0 01/23/19 20:00 89 01/23/19 20:00 98.0 90 20 119/64 (82) 96 Intake and Output 01/23/19 01/24/19 18:59 06:59 Intake Total 360 ml Output Total 300 ml 350 ml Balance 60 ml -350 ml Intake Oral 360 ml Output Urine Total 300 ml 350 ml # Bowel Movements 1 Height (Feet): 4 Height (Inches): 9.00 Weight (Pounds): 135 Objective WDWN NCAT supple CTA RR abd soft ND NT no edema Porsha Garcia MD Jan 24, 2019 17:11
--- NOTE | 2019-01-24 19:50 | NUR ---
HAND-OFF: Report given to EDMOND Hernandez.
--- NOTE | 2019-01-24 19:53 | NUR ---
NURSE NOTES: Report received from EDMOND Perry. Pt is in stable condition. Bed in the lowest position, bed brakes engaged, side rails upx3 with call light within reach. Will continue to monitor.
[2019-01-24 20:00] VITALS: BP 128/56
[2019-01-25] VITALS: BP 155/65
--- NOTE | 2019-01-25 03:45 | Progress Note ---
DATE: 01/24/2019 CARDIOLOGY PROGRESS NOTE SUBJECTIVE: The patient is on dialysis now. No shortness of breath or chest pain. OBJECTIVE: VITAL SIGNS: Blood pressure 134/57, pulse 72, and respirations 20. LUNGS: Clear. CARDIAC: Regular rhythm and rate. Normal S1, S2 with a fourth heart sound. ABDOMEN: Soft and nontender. EXTREMITIES: Trace dependent edema. LABORATORY DATA: No new laboratory studies. IMPRESSION: 1. Acute on chronic diastolic congestive heart failure, improving with ultrafiltration. 2. Hypertensive heart disease with controlled blood pressure. 3. Status post gastrointestinal bleed with anemia requiring transfusions. 4. Stable for outpatient followup. PLAN: 1. Stable for outpatient followup with hemodialysis and ultrafiltration 3 times a week. 2. Continue current cardiovascular regimen otherwise without change. 3. May need some fine tuning in titration as ongoing dialysis result in improved hemodynamics. Kevyn Aguilar M.D. DR: MERLIN JOB#: [id number] CC:
[2019-01-25 04:00] VITALS: BP 154/66
--- NOTE | 2019-01-25 04:45 | Consultation ---
DATE OF CONSULTATION: 01/24/2019 CONSULTING PHYSICIAN: David Shaw M.D. REFERRING PHYSICIAN: Porsha Garcia M.D. REASON FOR CONSULTATION: This consultation is at the request of Dr. Porsha Garcia for evaluation of conjunctivitis. HISTORY OF PRESENT ILLNESS: The patient is a very pleasant 83-year-old female who is admitted for feeling short of breath as well as constipation. It was noted that her left eye was very red and both eyes were associated with discharge. There is no history of pain or photophobia. History is obtained through the family who is present as well as an scanner operator. PAST OCULAR HISTORY: Status post cataract extraction with posterior chamber intraocular lens, bilateral. PAST MEDICAL HISTORY: History of diabetes, hypertension, congestive heart failure, and throat cancer. ALLERGIES: None. SOCIAL HISTORY: The patient is of descent and lives in [place] with her family. MEDICATIONS: Please see the MAR for the current list. PHYSICAL EXAMINATION: Upon exam, the vision was not able to be assessed. As per the family, the patient does not read and does not understand letters or numbers. I tried showing pictures of the letter E in different positions as well as X's and O's, and the patient was not able to understand. Pupils were 3 to 2 bilaterally without a fair pupillary defect. The extraocular motility was intact bilaterally. Adalid-Pen tonometry at 1845 hours was right eye 20 and left eye 18. The extraocular motility was intact without pain or diplopia. Upon bedside exam, the lids were within normal limits bilaterally. Conjunctiva and sclera in the right eye were within normal limits. The left eye was with diffuse conjunctival hemorrhage. The cornea was clear bilaterally and the anterior chamber deep and quiet bilaterally. A well-centered PCIOL was present in both eyes. A slight discharge was also present in the nasal canthus bilaterally. ASSESSMENT/PLAN: 1. Conjunctival hemorrhage, left eye. I discussed this with the family through an scanner operator and reassured them that this will resolve over the next several weeks without any sequela. 2. Mild conjunctivitis, both eyes. The patient was started on ciprofloxacin eyedrops and should continue this q.i.d. for the next 5 days. Thank you very much for allowing me to participate in this very nice patient's care. If you have any questions, please do not hesitate to contact me. David June Shaw DR: PARVEEN JOB#: [id number] CC:
[2019-01-25] MEDS: NovoLOG Insulin Flexpen SUBQ SCH ×4 (05:57→21:00)
--- NOTE | 2019-01-25 07:07 | NUR ---
HAND-OFF: Report given to EDMOND Perry.
--- NOTE | 2019-01-25 07:15 | NUR ---
NURSE NOTES: Pt received from EDMOND Hernandez currently resting in bed with no acute s/s of distress noted. Family sleeping at bedside. IV asymptomatic and patent L hand 22g saline lock. R upper chest permacath, dressing dry and intact. Pt on soft bilateral restraints for impulsive behavior, reaching up to pull permacath. Radial pulses equal bilaterally, no s/s of edema on bilateral hands but had trace edema on bilateral upper arms with weeping, skin intact, cap refill less than 3 seconds. Bed in lowest position, call light and belongings within reach.
[2019-01-25 08:00] VITALS: BP 130/56
[2019-01-25 08:35] LABS: HEMATOCRIT 29.3 % (37.0-47.0); HEMOGLOBIN 9.3 G/DL (12.0-16.0); MEAN CORPUSCULAR VOLUME 88 FL (80-99); PLATELET COUNT 61 K/UL (150-450); RED BLOOD COUNT 3.32 M/UL (4.20-5.40); RED CELL DISTRIBUTION WIDTH 17.1 % (11.6-14.8); WHITE BLOOD COUNT 5.3 K/UL (4.8-10.8)
--- NOTE | 2019-01-25 08:46 | Nephrology Progress Note ---
Assessment/Plan Plan ESRD. HD MWF Subjective Subjective Less SOB. Objective Objective Last 24 Hour Vital Signs Date Time Temp Pulse Resp B/P (MAP) Pulse Ox O2 Delivery O2 Flow Rate FiO2 01/25/19 04:00 98.7 68 18 154/66 (95) 100 01/25/19 04:00 66 01/25/19 00:00 98.2 68 16 155/65 (95) 100 01/25/19 00:00 60 01/24/19 21:00 Nasal Cannula 2.0 01/24/19 20:04 99 Nasal Cannula 2.0 28 01/24/19 20:00 78 01/24/19 20:00 98.0 73 16 128/56 (80) 99 01/24/19 16:00 67 01/24/19 16:00 97.5 66 20 127/62 (83) 99 01/24/19 12:00 71 01/24/19 12:00 97.6 71 18 140/74 (96) 99 01/24/19 10:34 71 152/66 01/24/19 10:34 71 152/66 01/24/19 09:00 Nasal Cannula 2.0 Intake and Output 01/24/19 01/25/19 19:00 07:00 Intake Total 120 ml Output Total 400 ml 250 ml Balance -280 ml -250 ml Intake Oral 120 ml Output Urine Total 400 ml 250 ml # Bowel Movements 1 Laboratory Tests 01/25/19 07:30: White Blood Count 5.3, Red Blood Count 3.32L, Hemoglobin 9.3L, Hematocrit 29.3L , Mean Corpuscular Volume 88, Mean Corpuscular Hemoglobin 28.2, Mean Corpuscular Hemoglobin Concent 31.9L, Red Cell Distribution Width 17.1H, Platelet Count 61L, Mean Platelet Volume 9.6, Neutrophils (%) (Auto) , Lymphocytes (%) (Auto) , Monocytes (%) (Auto) , Eosinophils (%) (Auto) , Basophils (%) (Auto) , Neutrophils % (Manual) [Pending], Lymphocytes % (Manual) [Pending], Platelet Estimate [Pending], Platelet Morphology [Pending], Sodium Level [Pending], Potassium Level [Pending], Chloride Level [Pending], Carbon Dioxide Level [Pending], Blood Urea Nitrogen [Pending], Creatinine [Pending], Estimat Glomerular Filtration Rate [Pending], Glucose Level [Pending], Calcium Level [Pending] Height (Feet): 4 Height (Inches): 9.00 Weight (Pounds): 124 Objective CV RR Has a new PermCath Lungs CTA Abd SNT BS + E No CCE Donis Escobar MD Jan 25, 2019 08:46
[2019-01-25 08:48] LABS: ANION GAP 7 mmol/L (5-15); BLOOD UREA NITROGEN 48 mg/dL (7-18); CALCIUM 7.6 MG/DL (8.5-10.1); CARBON DIOXIDE 28 MMOL/L (21-32); CHLORIDE 108 MMOL/L (98-107); CREATININE 2.4 MG/DL (0.55-1.30); POTASSIUM 3.5 MMOL/L (3.5-5.1); SODIUM 143 MMOL/L (136-145)
[2019-01-25] MEDS: Metoprolol Succinate XL 25mg tab ORAL SCH (09:19)
[2019-01-25] MEDS: Ciprofloxacin Opth Soln 2.5ml LEFT EYE SCH (09:21)
--- NOTE | 2019-01-25 10:51 | Infectious Diseases Prog Note ---
Assessment/Plan Assessment/Plan A 1. pneumonia treated 2. renal failure, ESRD 3. severe anemia resolving 4. GI bleeding 5. throat cancer 6. diabetes mellitus 7. 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 Multiple duodenal ulcers 10. AMS, Atrophy in CT scan of head 11.Thrombocytopenia & anemia 12. Subconjunctival hemorrhage P 1. Observe off of antibiotic Subjective ROS Limited/Unobtainable: Yes Constitutional: Reports: no symptoms Neurologic: Reports: other - more laert Skin: Reports: other - itching Allergies: Coded Allergies: No Known Allergies (Unverified , 01/11/19) Objective Vital Signs Last 24 Hour Vital Signs Date Time Temp Pulse Resp B/P (MAP) Pulse Ox O2 Delivery O2 Flow Rate FiO2 01/25/19 09:19 72 130/56 01/25/19 09:19 72 130/56 01/25/19 08:00 70 01/25/19 08:00 97.9 72 20 130/56 (80) 99 01/25/19 04:00 98.7 68 18 154/66 (95) 100 01/25/19 04:00 66 01/25/19 00:00 98.2 68 16 155/65 (95) 100 01/25/19 00:00 60 01/24/19 21:00 Nasal Cannula 2.0 01/24/19 20:04 99 Nasal Cannula 2.0 28 01/24/19 20:00 78 01/24/19 20:00 98.0 73 16 128/56 (80) 99 01/24/19 16:00 67 01/24/19 16:00 97.5 66 20 127/62 (83) 99 01/24/19 12:00 71 01/24/19 12:00 97.6 71 18 140/74 (96) 99 Height (Feet): 4 Height (Inches): 9.00 Weight (Pounds): 124 General Appearance: no acute distress HEENT: mucous membranes moist Respiratory/Chest: lungs clear Cardiovascular: normal rate, other - Permacath Abdomen: soft, non tender Extremities: other - edema of arms Skin: other - blister in arms Neurologic/Psychiatric: alert, responsive Laboratory Tests Test 01/25/19 07:30 White Blood Count 5.3 K/UL (4.8-10.8) Red Blood Count 3.32 M/UL (4.20-5.40) L Hemoglobin 9.3 G/DL (12.0-16.0) L Hematocrit 29.3 % (37.0-47.0) L Mean Corpuscular Volume 88 FL (80-99) Mean Corpuscular Hemoglobin 28.2 PG (27.0-31.0) Mean Corpuscular Hemoglobin Concent 31.9 G/DL (32.0-36.0) L Red Cell Distribution Width 17.1 % (11.6-14.8) H Platelet Count 61 K/UL (150-450) L Mean Platelet Volume 9.6 FL (6.5-10.1) Neutrophils (%) (Auto) % (45.0-75.0) Lymphocytes (%) (Auto) % (20.0-45.0) Monocytes (%) (Auto) % (1.0-10.0) Eosinophils (%) (Auto) % (0.0-3.0) Basophils (%) (Auto) % (0.0-2.0) Differential Total Cells Counted 100 Neutrophils % (Manual) 73 % (45-75) Lymphocytes % (Manual) 13 % (20-45) L Monocytes % (Manual) 9 % (1-10) Eosinophils % (Manual) 4 % (0-3) H Basophils % (Manual) 1 % (0-2) Band Neutrophils 0 % (0-8) Platelet Estimate Decreased L Platelet Morphology Normal Hypochromasia 2+ Anisocytosis 1+ Sodium Level 143 MMOL/L (136-145) Potassium Level 3.5 MMOL/L (3.5-5.1) Chloride Level 108 MMOL/L (98-107) H Carbon Dioxide Level 28 MMOL/L (21-32) Anion Gap 7 mmol/L (5-15) Blood Urea Nitrogen 48 mg/dL (7-18) H Creatinine 2.4 MG/DL (0.55-1.30) H Estimat Glomerular Filtration Rate mL/min (>60) Glucose Level 129 MG/DL (74-106) H Calcium Level 7.6 MG/DL (8.5-10.1) L Current Medications Medications (Trade) Dose Ordered Sig/Eleanor Route PRN Reason Start Time Stop Time Status Last Admin Dose Admin Acetaminophen (Tylenol) 650 mg Q4H PRN ORAL Mild Pain/Temp > 100.5 01/15/19 02:24 02/11/19 02:23 01/17/19 21:49 Al Hydroxide/Mg Hydroxide (Mylanta) 30 ml FOUR TIMES A DAY PRN ORAL heartburn 01/15/19 02:29 02/11/19 02:28 Amlodipine Besylate (Norvasc) 10 mg DAILY ORAL 01/22/19 09:00 02/21/19 08:59 01/25/19 09:19 Ciprofloxacin (Ciloxan Opth Soln) 1 drop DAILY LEFT EYE 01/23/19 09:00 02/22/19 08:59 01/25/19 09:21 Dextrose (Dextrose 50%) 25 ml Q30M PRN IV Hypoglycemia 01/21/19 17:15 02/20/19 17:14 Dextrose (Dextrose 50%) 50 ml Q30M PRN IV Hypoglycemia 01/21/19 17:15 02/20/19 17:14 Heparin Sodium (Porcine) (Heparin Sod 1000 units/ml 10ml) 2,000 unit ONCE PRN IV FOR HD USE ONLY 01/24/19 10:00 01/25/19 23:59 Heparin Sodium (Porcine) (Heparin) 1,000 unit POSTHD PRN INJ FOR HD USE ONLY 01/24/19 10:00 01/25/19 23:59 Insulin Aspart (NovoLOG) BEFORE MEALS AND HS SUBQ 01/21/19 16:30 02/20/19 16:29 01/25/19 05:57 Metoprolol Succinate (Toprol XL) 25 mg DAILY ORAL 01/21/19 09:00 02/20/19 08:59 01/25/19 09:19 Ondansetron HCl (Zofran) 4 mg Q6H PRN IVP Nausea & Vomiting 01/15/19 02:24 02/12/19 02:23 Pantoprazole (Protonix) 40 mg BID ORAL 01/15/19 09:00 02/11/19 08:59 01/25/19 09:19 Sodium Chloride 1,000 ml @ 500 mls/hr Q2H PRN IVLG sbp<90 during hd 01/24/19 10:00 01/25/19 23:59 Tetrahydrozoline HCl (Visine With Dropper) 2 drop Q6H PRN BOTH EYES Itchiness or Irritation 01/20/19 21:00 02/19/19 20:59 01/22/19 11:35 Sahil Flores MD Jan 25, 2019 10:50
--- NOTE | 2019-01-25 11:13 | NUR ---
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 COUNT 61, BUN 48, CR 2.4, CA 7.6 IS:CIPROFLOXACIN 1drop PROTONIX 40mg METOPROLOL 25mg NORVASC 10mg NOVOLOG SUBQ TELE STATUS
--- NOTE | 2019-01-25 11:39 | General Progress Note ---
Assessment/Plan Assessment/Plan: IMPRESSION: 1. Severe protein-calorie malnutrition. 2. End-stage renal disease. 3. Anemia profound, 4. GIB with DU 5. Congestive heart failure. 6. History of throat cancer 7. hyperglycemia 8. hypernatremia PLAN sliding scale outpatient ENT discussed CM to assist with dc family unsure if they can manage at home impression, plan, and exam edited and reviewed in detail care discussed with RN Subjective Allergies: Coded Allergies: No Known Allergies (Unverified , 01/11/19) Subjective care noted and reviewed work up negative Objective Last 24 Hour Vital Signs Date Time Temp Pulse Resp B/P (MAP) Pulse Ox O2 Delivery O2 Flow Rate FiO2 01/25/19 09:19 72 130/56 01/25/19 09:19 72 130/56 01/25/19 09:00 Nasal Cannula 2.0 01/25/19 08:00 70 01/25/19 08:00 97.9 72 20 130/56 (80) 99 01/25/19 07:00 100 Nasal Cannula 2.0 28 01/25/19 04:00 98.7 68 18 154/66 (95) 100 01/25/19 04:00 66 01/25/19 00:00 98.2 68 16 155/65 (95) 100 01/25/19 00:00 60 01/24/19 21:00 Nasal Cannula 2.0 01/24/19 20:04 99 Nasal Cannula 2.0 28 01/24/19 20:00 78 01/24/19 20:00 98.0 73 16 128/56 (80) 99 01/24/19 16:00 67 01/24/19 16:00 97.5 66 20 127/62 (83) 99 01/24/19 12:00 71 01/24/19 12:00 97.6 71 18 140/74 (96) 99 Intake and Output 01/24/19 01/25/19 18:59 06:59 Intake Total 120 ml Output Total 400 ml 250 ml Balance -280 ml -250 ml Intake Oral 120 ml Output Urine Total 400 ml 250 ml # Bowel Movements 1 Laboratory Tests 01/25/19 07:30: White Blood Count 5.3, Red Blood Count 3.32L, Hemoglobin 9.3L, Hematocrit 29.3L , Mean Corpuscular Volume 88, Mean Corpuscular Hemoglobin 28.2, Mean Corpuscular Hemoglobin Concent 31.9L, Red Cell Distribution Width 17.1H, Platelet Count 61L, Mean Platelet Volume 9.6, Neutrophils (%) (Auto) , Lymphocytes (%) (Auto) , Monocytes (%) (Auto) , Eosinophils (%) (Auto) , Basophils (%) (Auto) , Differential Total Cells Counted 100, Neutrophils % ( Manual) 73, Lymphocytes % (Manual) 13L, Monocytes % (Manual) 9, Eosinophils % ( Manual) 4H, Basophils % (Manual) 1, Band Neutrophils 0, Platelet Estimate DecreasedL, Platelet Morphology Normal, Hypochromasia 2+, Anisocytosis 1+, Sodium Level 143, Potassium Level 3.5, Chloride Level 108H, Carbon Dioxide Level 28, Anion Gap 7, Blood Urea Nitrogen 48H, Creatinine 2.4H, Estimat Glomerular Filtration Rate , Glucose Level 129H, Calcium Level 7.6L Height (Feet): 4 Height (Inches): 9.00 Weight (Pounds): 124 Objective WDWN NAD clear breath sounds bilaterally without rhonchi or wheeze [id number] without MRG NABS nontender no HSM no CCE nonfocal Joss Mixon MD Jan 25, 2019 11:39
[2019-01-25 12:00] VITALS: BP 108/64
--- NOTE | 2019-01-25 12:11 | NUR ---
NURSE NOTES: Pt's granddaughter and daughter at bedside indicated that they wanted to know options for patient's home health and if they could have DME supplies (wheelchair and BSC) upon discharge. RN left message with Dr. Mixon to confirm, currently awaiting call back. RN endorsed to Bee from regarding home health. Per Bee, she "will call granddaughter to discuss options."
--- NOTE | 2019-01-25 13:27 | NUR ---
*-* INSURANCE *-* UPDATED CLINICALS AND REVIEWS HAVE BEEN FAXED TO: [employer]. P: [phone] F: [phone] ( FAX CLINICALS)
--- NOTE | 2019-01-25 15:00 | NUR ---
NURSE NOTES: Reoriented patient to room, situation, and place and educated to not attempt to remove permacath d/t complications and its necessity for HD, pt nodded head and verbalized understanding. Removed restraints atRemoved and discontinued restraints
--- NOTE | 2019-01-25 15:15 | NUR ---
NURSE NOTES: Pt's dumont removed as per order, will continue to monitor pt for adequate output post removal.
[2019-01-25 16:00] VITALS: BP 158/63
[2019-01-25 20:00] VITALS: BP 149/66
--- NOTE | 2019-01-25 21:06 | General Progress Note ---
Assessment/Plan Assessment/Plan: Assessment - Melena, UGIB - multiple duodenal ulcers (H pylori negative per path) - Anemia, s/p transfusion - Renal failure - h/o throat cancer - delirium - resolved Recommendations - po as tolerated - IVF - PPI x 8 weeks - OOB Subjective Allergies: Coded Allergies: No Known Allergies (Unverified , 01/11/19) Subjective Feels OK resting comfortably Objective Last 24 Hour Vital Signs Date Time Temp Pulse Resp B/P (MAP) Pulse Ox O2 Delivery O2 Flow Rate FiO2 01/25/19 16:00 98.8 73 20 158/63 (94) 98 01/25/19 16:00 71 01/25/19 12:00 70 01/25/19 12:00 97.7 78 20 108/64 (79) 95 01/25/19 09:19 72 130/56 01/25/19 09:19 72 130/56 01/25/19 09:00 Nasal Cannula 2.0 01/25/19 08:00 70 01/25/19 08:00 97.9 72 20 130/56 (80) 99 01/25/19 07:00 100 Nasal Cannula 2.0 28 01/25/19 04:00 98.7 68 18 154/66 (95) 100 01/25/19 04:00 66 01/25/19 00:00 98.2 68 16 155/65 (95) 100 01/25/19 00:00 60 Intake and Output 01/24/19 01/25/19 19:00 07:00 Intake Total 120 ml Output Total 400 ml 250 ml Balance -280 ml -250 ml Intake Oral 120 ml Output Urine Total 400 ml 250 ml # Bowel Movements 1 Laboratory Tests 01/25/19 07:30: White Blood Count 5.3, Red Blood Count 3.32L, Hemoglobin 9.3L, Hematocrit 29.3L , Mean Corpuscular Volume 88, Mean Corpuscular Hemoglobin 28.2, Mean Corpuscular Hemoglobin Concent 31.9L, Red Cell Distribution Width 17.1H, Platelet Count 61L, Mean Platelet Volume 9.6, Neutrophils (%) (Auto) , Lymphocytes (%) (Auto) , Monocytes (%) (Auto) , Eosinophils (%) (Auto) , Basophils (%) (Auto) , Differential Total Cells Counted 100, Neutrophils % ( Manual) 73, Lymphocytes % (Manual) 13L, Monocytes % (Manual) 9, Eosinophils % ( Manual) 4H, Basophils % (Manual) 1, Band Neutrophils 0, Platelet Estimate DecreasedL, Platelet Morphology Normal, Hypochromasia 2+, Anisocytosis 1+, Sodium Level 143, Potassium Level 3.5, Chloride Level 108H, Carbon Dioxide Level 28, Anion Gap 7, Blood Urea Nitrogen 48H, Creatinine 2.4H, Estimat Glomerular Filtration Rate , Glucose Level 129H, Calcium Level 7.6L Height (Feet): 4 Height (Inches): 9.00 Weight (Pounds): 124 Objective WDWN NCAT supple CTA RR abd soft ND NT no edema Porsha Garcia MD Jan 25, 2019 21:06
--- NOTE | 2019-01-25 22:44 | NUR ---
NURSE NOTES: Pt discharged in safe disposition with family in private vehicle, brought to car with wheelchair. Discharge and medication education provided to family, who verbalized understanding. Phone number to [facility] ([phone]) and Home Health provided. On room air, saturating at 98% with no s/s of acute resp distress. IV site d/isaac and patient wristband removed as per protocol. WCP taken and Wound care provided (pt had weeping blister on R hand - "per granddaughter Nissa - she got it in previous hospital stay in another facility, excoriation on sacrum and intact redness on heels. Belongings with patient upon discharge - signed by granddaughter. Pt voided 150 ml after dumont removal, pt reports no s/s of lower abdominal pressure or pain. R upper chest permacath dressing dry and intact.
[2019-01-26] MEDS ORDERED: Ciprofloxacin Opth Soln 2.5ml LEFT EYE SCH (09:00)
--- NOTE | 2019-01-26 13:27 | Discharge Summary ---
Discharge Summary Discharge Summary _ DATE OF ADMISSION: 01/11/2019 DATE OF DISCHARGE: 01/25/2019 DISCHARGED BY: Dr. Lauren Mixon CONSULTANTS: Dr. Porsha Shaw [facility] H[facility]PITAL COURSE: Patient is an 83-year-old female, who was brought by EMS due to significant shortness of breath. Patient was apparently with bloody stools and diarrhea. She was admitted to [facility] the week prior, with discharge unclear as to the findings. The patient apparently had a pleural effusion at that time , she was placed on antibiotics and was discharged home. She denied fever or chills. Denied chest pain. She has medical history significant for diabetes mellitus, hypertension, CHF and throat CA. On evaluation at the ED, patient was hypotensive. A central line was inserted to the right IJ. Blood work showed severe anemia with hemoglobin of 3.9 and hematocrit 13. There was no leukocytosis. Electrolytes were normal. Lactic acid was elevated to 3.2. BUN 166, creatinine 4.5 troponin negative. ProBNP was 27,960. Chest x-ray showed left pleural effusion and possible infiltrate on the right. BP improved post fluid bolus. She was started on broad-spectrum antibiotics. She was then admitted in critical condition to SDU for evaluation of GI bleed, anemia, sepsis, CHF and renal failure. She was placed on n.p.o. She was given proton pump inhibitors. She was given IV ceftriaxone. She received 4 units packed RBC blood transfusion. She underwent upper GI endoscopy. Findings showed 6 duodenal ulcers, largest 1 measuring approximately 1.5 cm and the remaining 5 approximately 5 mm. All ulcers were with white base and no active bleeding. There was vallecular ulceration seen, possibly related to given history of throat CA. She was eventually started on clear liquids. Hemoglobin levels improved post transfusion. Diet was advanced as tolerated. H. pylori was negative. Venous duplex revealed an acute thrombosis in the left soleal vein. Echocardiogram showed EF 55 to 60% and systolic pressure of 60 mmHg consistent with severe pulmonary hypertension. Kidney function was monitored. Patient had elevated BUN possibly due to recent GI bleed. 24-hour urine collection creatinine clearance of 11. Patient has CKD stage V. Vascular surgeon was consulted. Vein mapping was done. Test showed acute thrombosis in the left internal jugular vein. She had episodes of confusion. She was placed on soft wrist restraints for safety. Head CT did not show any acute intracranial bleed, mass-effect or edema. There was mild atrophy of the brain and ends of chronic small vessel disease. Patient would need to be started on hemodialysis. Patient was short of breath. A permacath was inserted through the right IJ. She was given inpatient hemodialysis. She was tolerating procedure well. Blood culture did not isolate any growth. She was observed off antibiotics. She was noted to have redness on both eyes. Marketing Developer was consulted. Patient was diagnosed to have conjunctival hemorrhage on the left eye and mild conjunctivitis on both eyes. She was started on ciprofloxacin eyedrops. She was reassured conjunctival hemorrhage would resolve over the next several weeks without any sequelae. She was eventually discharged home with home health. To continue outpatient hemodialysis with [facility]. FINAL DIAGNOSES: Upper GI bleed due to multiple duodenal ulcers status post endoscopy Profound anemia status post blood transfusion End-stage renal disease with initiation of hemodialysis Acute on chronic diastolic congestive heart failure Hypertensive heart disease Pneumonia Delirium resolved History of throat CA Protein calorie malnutrition Azotemia Hypernatremia Subconjunctival hemorrhage DISPOSITION: Patient was discharged home. DISCHARGE MEDICATIONS: Refer to Discharge Medication List. DISCHARGE INSTRUCTIONS: Follow-up in a week. I have been assigned to complete a discharge summary on this account, I was not involved with the patient's management. Una Rothman NP Jan 26, 2019 13:26
--- NOTE | 2019-01-28 00:45 | Progress Note ---
DATE: 01/25/2019 CARDIOLOGY PROGRESS NOTE This is a late entry for January 25, 2019. SUBJECTIVE: The patient has not had any new bleeding. Hemoglobin has remained stable. Blood pressure parameters have been controlled, although labile at times. OBJECTIVE: VITAL SIGNS: Blood pressure 108/64 to 158/63, heart rate 70, and respiratory rate 20. LUNGS: Bilateral breath sounds. CARDIAC: Regular rhythm and rate. Normal S1 and S2. ABDOMEN: Soft. EXTREMITIES: No edema. IMPRESSION: 1. Acute on chronic diastolic congestive heart failure, now clinically compensated with ultrafiltration on a regular basis. 2. End-stage renal disease. 3. Hypertensive heart disease with improved blood pressure range control. 4. Status post GI bleed with anemia, requiring transfusions. PLAN: 1. Discharge plan noted. 2. Medication regimen reviewed. 3. Hemodialysis with ultrafiltration three times a week. 4. Titration of antihypertensives will need to be ongoing hemodynamics continued to improve with ultrafiltration. Kevyn Aguilar M.D. DR: JOSE MANUEL JOB#: [id number] CC:
== END 2019-01-25 22:44 | disposition home health service (06) | DRG 377 ==
LOC: EDBD 17:52 → EMR 18:06 → 2W 18:55 → EDBEDREQSVC 19:43 → EDBEDREQ 20:17 → 2E 01-15 02:08
PROC: 05HM33Z Insertion of Infusion Device into Right Internal Jugular Vein, Percutaneous Approach (ICD-10-PCS; principal; 2019-01-11)
PROC: 0DB78ZX Excision of Stomach, Pylorus, Via Natural or Artificial Opening Endoscopic, Diagnostic (ICD-10-PCS; 2019-01-13)
PROC: 5A1D70Z Performance of Urinary Filtration, Intermittent, Less than 6 Hours Per Day (ICD-10-PCS; 2019-01-19)
PROC: 05HM33Z Insertion of Infusion Device into Right Internal Jugular Vein, Percutaneous Approach (ICD-10-PCS; 2019-01-20)
PROC: 0JH63XZ Insertion of Tunneled Vascular Access Device into Chest Subcutaneous Tissue and Fascia, Percutaneous Approach (ICD-10-PCS; 2019-01-20)
DX: K26.0 Acute duodenal ulcer with hemorrhage (principal); E43 Unspecified severe protein-calorie malnutrition; I50.33 Acute on chronic diastolic (congestive) heart failure; N18.6 End stage renal disease; E87.0 Hyperosmolality and hypernatremia; N17.9 Acute kidney failure, unspecified; I13.2 Hypertensive heart and chronic kidney disease with heart failure and with stage 5 chronic kidney disease, or end stage renal disease; G93.40 Encephalopathy, unspecified; E87.2 Acidosis; J90 Pleural effusion, not elsewhere classified; I82.492 Acute embolism and thrombosis of other specified deep vein of left lower extremity; Z68.26 Body mass index [BMI] 26.0-26.9, adult; H11.32 Conjunctival hemorrhage, left eye; H10.9 Unspecified conjunctivitis; D69.6 Thrombocytopenia, unspecified; I27.20 Pulmonary hypertension, unspecified; E11.22 Type 2 diabetes mellitus with diabetic chronic kidney disease; E11.65 Type 2 diabetes mellitus with hyperglycemia; Z99.2 Dependence on renal dialysis
CPT/HCPCS: 36415; 36600; 70450; 71045; 74176; 76000; 80048; 80053; 81050; 82550; 82553; 82575; 82803; 82962; 83605; 83735; 83880; 84100; 84156; 84484; 85007; 85025; 85610; 85730; 86705; 86709; 86803; 86850; 86900; 86901; 86920; 87040; 87081; 87340; 93005; 93306; 93880; 93922; 93930; 93970; 93971; 94003; 94150; 96361; 96365; 96368; 99291; J1815; J2405; J8499

== ENCOUNTER 2019-02-08 11:43 | Inpatient (IN) | payer OTHER, MEDICAID ==
[~2019-02-08] VITALS: Ht 157.5 cm; Wt 54.9 kg
[~2019-02-08 11:43] MED LIST: ASPIRIN81 MG ORAL; ATORVASTATIN CA20 MG ORAL; CARVEDILOL12.5 MG ORAL; FUROSEMIDE40 MG ORAL; ISOSORBIDE MONO60 M1 PO; JANUMET XR 1001 EACH ORAL; LIPITOR80 MG ORAL; NORVASC10 MG ORAL; VITAMIN D250000 UNI1 ORAL; ZITHROMAX250 MG ORAL
[2019-02-08 11:59] VITALS: BP 117/47
--- NOTE | 2019-02-08 12:00 | NUR ---
ED Nurse Note: Pt present at ER with granddaughter due to AMS and missing dialysis on Wednesday. Last dialysis was last Wednesday. pt aao x1 and uncooperative. pt can pivot weight upon transfer. skin clean and intact. BLE pitting edema +2 noted. Dialysis catheter present at Rt upper chest. pt is in gown and on fitness instructor.
[2019-02-08] MEDS ORDERED: UNOBMED (12:28)
[2019-02-08 12:42] LABS: BASOPHILS % (AUTO) 0.7 % (0.0-2.0); EOSINOPHILS % (AUTO) 0.8 % (0.0-3.0); HEMATOCRIT 25.6 % (37.0-47.0); HEMOGLOBIN 8.3 G/DL (12.0-16.0); LYMPHOCYTES % (AUTO) 15.2 % (20.0-45.0); MEAN CORPUSCULAR VOLUME 87 FL (80-99); MONOCYTES % (AUTO) 4.2 % (1.0-10.0); NEUTROPHILS % (AUTO) 79.1 % (45.0-75.0); PLATELET COUNT 178 K/UL (150-450); RED BLOOD COUNT 2.93 M/UL (4.20-5.40); RED CELL DISTRIBUTION WIDTH 16.4 % (11.6-14.8); WHITE BLOOD COUNT 12.1 K/UL (4.8-10.8)
--- NOTE | 2019-02-08 12:57 | Emergency Room Report ---
History of Present Illness General Chief Complaint: Altered Mental Status Source: Medical Record Present Illness HPI Patient presents with complaints of confusion Granddaughter states that the patient has not been able to get dialyzed with her last 2 attempts patient appears confused agitated There was also concern of bladder infection with discomfort with urination patient herself denies any headache denies any chest pain She does not appear to be A reliable historian however does appear mildly confused there was no reports of vomiting or diarrhea Allergies: Coded Allergies: No Known Allergies (Unverified , 01/11/19) Patient History Limited by: medical condition Past Medical History: see triage record Pertinent Family History: unable to obtain Reviewed Nursing Documentation: PMH: Agreed; PSxH: Agreed Nursing Documentation-PMH Past Medical History: No History, Except For Hx Cardiac Problems: Yes Hx Hypertension: Yes Hx Diabetes: Yes Hx Cancer: Yes Hx Dialysis: Yes - T, TH, Sat Hx Neurological Problems: No Hx Weakness: Yes Review of Systems All Other Systems: limited - Patient is provided with the discharge instructions notified to follow up with primary doctor in the next 2-3 days otherwise return to the er with any worsening symptoms.Please note that this report is being documented using [employer] technology. This can lead to erroneous entry secondary to incorrect interpretation by the dictating instrument. Physical Exam Vital Signs Date Time Temp Pulse Resp B/P (MAP) Pulse Ox O2 Delivery O2 Flow Rate FiO2 02/08/19 11:53 97.5 65 18 117/47 (70) 96 Room Air Sp02 EP Interpretation: reviewed, normal General Appearance: no apparent distress Head: normocephalic, atraumatic Eyes: bilateral eye PERRL, bilateral eye EOMI ENT: hearing grossly normal, normal pharynx Neck: supple Respiratory: lungs clear, no retraction, no accessory muscle use Cardiovascular #1: regular rate, rhythm Gastrointestinal: non tender, soft Musculoskeletal: normal inspection Neurologic: alert, responsive - However mildly confused Skin: normal color, no rash Lymphatic: no adenopathy Medical Decision Making Diagnostic Impression: Primary Impression: Altered mental status Additional Impressions: UTI (urinary tract infection) Renal failure ER Course Patient is a fairly complex patient with multiple differential to consideration including but not limited to cardiac cardiopulmonary and vascular emergencies Other process such as infectious pathology also entertained Patient's urine shows significant infectious pathology Patient also appears to be mildly more anemic than previous IV antibiotics are initiated and patient requires further inpatient care Labs Test 02/08/19 12:20 02/08/19 13:10 White Blood Count 12.1 K/UL (4.8-10.8) Red Blood Count 2.93 M/UL (4.20-5.40) Hemoglobin 8.3 G/DL (12.0-16.0) Hematocrit 25.6 % (37.0-47.0) Mean Corpuscular Volume 87 FL (80-99) Mean Corpuscular Hemoglobin 28.5 PG (27.0-31.0) Mean Corpuscular Hemoglobin Concent 32.5 G/DL (32.0-36.0) Red Cell Distribution Width 16.4 % (11.6-14.8) Platelet Count 178 K/UL (150-450) Mean Platelet Volume 7.8 FL (6.5-10.1) Neutrophils (%) (Auto) 79.1 % (45.0-75.0) Lymphocytes (%) (Auto) 15.2 % (20.0-45.0) Monocytes (%) (Auto) 4.2 % (1.0-10.0) Eosinophils (%) (Auto) 0.8 % (0.0-3.0) Basophils (%) (Auto) 0.7 % (0.0-2.0) Sodium Level 121 MMOL/L (136-145) Potassium Level 4.7 MMOL/L (3.5-5.1) Chloride Level 99 MMOL/L (98-107) Carbon Dioxide Level 22 MMOL/L (21-32) Anion Gap -16 mmol/L (5-15) Blood Urea Nitrogen 100 mg/dL (7-18) Creatinine 3.6 MG/DL (0.55-1.30) Estimat Glomerular Filtration Rate mL/min (>60) Glucose Level 282 MG/DL (74-106) Lactic Acid Level 1.00 mmol/L (0.4-2.0) Calcium Level 8.2 MG/DL (8.5-10.1) Total Bilirubin 0.3 MG/DL (0.2-1.0) Aspartate Amino Transf (AST/SGOT) 15 U/L (15-37) Alanine Aminotransferase (ALT/SGPT) 32 U/L (12-78) Alkaline Phosphatase 90 U/L (46-116) Total Creatine Kinase 30 U/L (26-308) Creatine Kinase MB 2.1 NG/ML (0.0-3.6) Creatine Kinase MB Relative Index 7.0 Troponin I 0.017 ng/mL (0.000-0.056) Pro-B-Type Natriuretic Peptide > 63258 pg/mL (0-125) Total Protein 6.2 G/DL (6.4-8.2) Albumin 2.3 G/DL (3.4-5.0) Globulin 3.9 g/dL Albumin/Globulin Ratio 0.6 (1.0-2.7) Lipase 372 U/L (73-393) Urine Color Pale yellow Urine Appearance Cloudy Urine pH 5 (4.5-8.0) Urine Specific [place] 1.015 (1.005-1.035) Urine Protein 3+ (NEGATIVE) Urine Glucose (UA) 1+ (NEGATIVE) Urine Ketones Negative (NEGATIVE) Urine Blood 2+ (NEGATIVE) Urine Nitrite Negative (NEGATIVE) Urine Bilirubin Negative (NEGATIVE) Urine Urobilinogen Normal MG/DL (0.0-1.0) Urine Leukocyte Esterase 3+ (NEGATIVE) Urine RBC 5-10 /HPF (0 - 2) Urine WBC Tntc /HPF (0 - 2) Urine Squamous Epithelial Cells Few /LPF (NONE/OCC) Urine Bacteria Moderate /HPF (NONE) Urine Yeast Many /HPF (NONE) Rhythm Strip Diag. Results EP Interpretation: yes Rate: 76 Rhythm: NSR, no PVC's, no ectopy Chest X-Ray Diagnostic Results Chest X-Ray Diagnostic Results : Chest X-Ray Ordered: Yes # of Views/Limited/Complete: 1 View Indication: Chest Pain EP Interpretation: Yes Interpretation: no consolidation, no effusion, no pneumothorax, other - Some increased congestion on the right side Impression: Other - Increased pulmonary congestion right side Electronically Signed by: Rosemary Harrison DO Last Vital Signs Date Time Temp Pulse Resp B/P (MAP) Pulse Ox O2 Delivery O2 Flow Rate FiO2 02/08/19 11:59 97.5 65 18 117/47 96 Room Air Status: improved Disposition: ADMITTED INPATIENT Condition: Serious Rosemary Harrison DO Feb 08, 2019 12:57
[2019-02-08 13:04] LABS: ALANINE AMINOTRANSFERASE 32 U/L (12-78); ALBUMIN 2.3 G/DL (3.4-5.0); ALBUMIN/GLOBULIN RATIO 0.6 (1.0-2.7); ALKALINE PHOSPHATASE 90 U/L (46-116); ANION GAP -16 mmol/L (5-15); ASPARTATE AMINO TRANSFERASE 15 U/L (15-37); BILIRUBIN,TOTAL 0.3 MG/DL (0.2-1.0); BLOOD UREA NITROGEN 100 mg/dL (7-18); CALCIUM 8.2 MG/DL (8.5-10.1); CARBON DIOXIDE 22 MMOL/L (21-32); CHLORIDE 99 MMOL/L (98-107); CKMB 2.1 NG/ML (0.0-3.6); CREATINE KINASE 30 U/L (26-308); CREATININE 3.6 MG/DL (0.55-1.30); POTASSIUM 4.7 MMOL/L (3.5-5.1); SODIUM 121 MMOL/L (136-145)
[2019-02-08 13:38] LABS: APPEARANCE,URINE CLOUDY; BILIRUBIN, URINE NEGATIVE (NEGATIVE); COLOR,URINE PALE YELLOW; GLUCOSE, URINE (UA) 1+ (NEGATIVE); KETONES,URINE NEGATIVE (NEGATIVE); LEUKOCYTE ESTERASE ,URINE 3+ (NEGATIVE); NITRITE,URINE NEGATIVE (NEGATIVE); PH,URINE 5 (4.5-8.0); PROTEIN,URINE 3+ (NEGATIVE); UROBILINOGEN,URINE NORMAL MG/DL (0.0-1.0)
[2019-02-08] MEDS ORDERED: cefTRIAXone 1 GM in NS 55 ML IVPB ONE (13:45)
[2019-02-08 13:57] VITALS: BP 122/48
--- NOTE | 2019-02-08 14:19 | Diagnostic Imaging Report ---
Indication: Chest pain Comparison: 01/18/2019 A single view chest radiograph was obtained. Findings: There is a right permacath present which is in good position. There is evidence of pulmonary edema with the cephalized prominent pulmonary vessels, interstitial opacities. The heart is enlarged. There is suggestion of bilateral pleural effusions. IMPRESSION: Pulmonary edema. Permacath in good position
--- NOTE | 2019-02-08 14:46 | NUR ---
ED Nurse Note: report given to EDMOND Cardozo.
--- NOTE | 2019-02-08 14:49 | NUR ---
ED Nurse Note: left unit with 1 service technician and 1 RN in stable condition.
--- NOTE | 2019-02-08 15:05 | NUR ---
NURSE NOTES: Report received from KADY Cardozo. Pt. AOx2. nurse monitoring applied. Denies any pain or SOB. IV patent. Family at bedside. Per family Pt. has been in this hospital 2 weeks a go. R chest PermCath dressing intact. VS stable. Skin dry and intact except for old healing wound on R upper arm. White board updated, Pt oriented to room and hospital policies. Per CN, Pt came in without any belongings to the floor. Bed on lowest position, side rails upx2, brake engaged, alarm on. Call light within easy reach.
[2019-02-08 16:00] VITALS: BP 133/70
[2019-02-08] MEDS ORDERED: Heparin 1000 units/ml 1ml Vial INJ PRN (16:00)
[2019-02-08] MEDS ORDERED: Heparin Sod 1000 units/ml 10ml IV PRN (16:00)
[2019-02-08] MEDS ORDERED: LORazepam Inj 2mg/ml 1ml IV PRN (16:00)
--- NOTE | 2019-02-08 19:11 | NUR ---
CASE MANAGEMENT: REVIEW 83Y/F PRESENTED TO ED FROM HOME CC: AMS . PAINFUL URINATION . MISSING DIALYSIS SI: ENCEPHALOPATHY . UTI T 97.5 HR 65 RR 18 BP 117/47 SAT 96% ROOM AIR WBC 12.1 H/H 8.3/25.6 NA 121 A-GAP -16 BUN 100 CR 3.6 GLUCOSE 282 BNP >66210 UA: PROTEIN 3+ LEUKOCYTE 3+ BACTERIA MOD H IS: NA IVF BOLUS X1 CEFTRIAXONE IV X1 PATIENT ADMITTED TO TELEMETRY UNIT 02/08/2019 DCP: PATIENT IS FROM HOME
--- NOTE | 2019-02-08 19:50 | NUR ---
HAND-OFF: Report given to EDMOND Smith. Patient having dialysis. Family at bedside.
--- NOTE | 2019-02-08 19:51 | NUR ---
NURSE NOTES: Received pt from EDMOND Lema. Pt is awake and resting in bed. Family at bedside. Pt receiving dialysis. IV site intact. Pt tolerating room, in no acute distress. Bed locked in lowest position, call light within reach. Will continue with plan of care.
[2019-02-08 20:00] VITALS: BP 144/57
--- NOTE | 2019-02-08 20:40 | NUR ---
NURSE NOTES: Pt family notified me that the patient takes aspirin 81 mg daily and lasix 40mg daily. Notified Dr. Mixon. Ordered to continue aspirin and hold the lasix. Addendum: 02/09/19 at 0209 by KACI FERNANDEZ RN NURSE NOTES: Dr. Mixon aware of the pt's low sodium level. CBC and bmp labs in am ordered.
[2019-02-08] MEDS: Epoetin Alfa-EPBX(ESRD on dialysis)4000 units/ml vial SUBQ SCH (23:04)
[2019-02-08] MEDS: Carvedilol 12.5mg tab ORAL SCH (23:04)
[2019-02-08] MEDS: Atorvastatin 20mg tab ORAL SCH (23:04)
[2019-02-08] MEDS: Docusate 100mg cap ORAL SCH (23:04)
[2019-02-08] MEDS: Heparin 5000 units/ml inj SUBQ SCH (23:05)
--- NOTE | 2019-02-08 23:45 | Consultation ---
DATE OF CONSULTATION: 02/08/2019 NEPHROLOGY CONSULTATION CONSULTING PHYSICIAN: Donis Escobar M.D. ATTENDING PHYSICIAN: Joss Mixon M.D. REASON FOR CONSULTATION: This is a dialysis patient. HISTORY OF PRESENT ILLNESS: This is an 83-year-old female, who started dialysis about 3 weeks ago in this hospital. The patient has been very agitated and combative coming to outpatient dialysis. She missed about 3 dialysis sessions due to altered level of consciousness and being combative. Today, she was sent to the ED for admission due to becoming edematous and altered. The patient currently, as stated, is very confused. PAST MEDICAL HISTORY: 1. 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 2. Anemia of chronic kidney disease. HOME MEDICATIONS: Amlodipine, atorvastatin, Zithromax, Coreg, vitamin D2, isosorbide, and Janumet, which was supposed to be discontinued. ALLERGIES: No known drug allergies. FAMILY HISTORY: Unable to obtain due to mental status. SOCIAL HISTORY: Unable to obtain due to mental status. REVIEW OF SYSTEMS: Unable to obtain due to mental status. PHYSICAL EXAMINATION: GENERAL: This is an elderly female, who is agitated. VITAL SIGNS: Blood pressure 118/75, pulse 77 and regular, respirations 18, and temperature 97.8. HEENT: The head is normocephalic and atraumatic. Pupils are equal, round, and reactive to light and accommodation consensually. NECK: Supple. Trachea midline. She has right-sided internal jugular PermCath. LUNGS: Clear to auscultation and percussion. HEART: Regular rate and rhythm without rubs, murmurs, or gallops. ABDOMEN: Soft and nontender. Bowel sounds were active. EXTREMITIES: No clubbing or cyanosis. She has 3+ ankle edema. NEUROLOGIC: She is confused. There were no focal findings. LABORATORY AND ANCILLARY DATA: Hematocrit 25.6 and white count 12,100. Chemistry, sodium 121, potassium 4.7, BUN 100, and creatinine 3.6. Lactic acid 1. Urinalysis, pgb-[id number]-[id number]-count white blood cells, many yeasts, and moderate amount of bacteria. Chest x-ray, pulmonary edema. PermCath in good position. ASSESSMENT: 1. Altered level of consciousness due to uremia. 2. Pulmonary edema. 3. 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 4. Anemia of chronic kidney disease. PLAN: 1. Hemodialysis to be provided now. manager oracle available at the bedside. 2. Continue home medications. 3. Discontinue metformin. 4. Intravenous antibiotics, Rocephin. Thank you, Dr. Mixon, for letting me to participate in the care of this patient. Donis Escobar M.D. DR: IMAN JOB#: [id number] CC:
[2019-02-09] VITALS: BP 141/62
--- NOTE | 2019-02-09 03:15 | History and Physical Report ---
DATE OF ADMISSION: 02/08/2019 HISTORY: This is an 83-year-old female who presents with worsening confusion. The patient is currently unable to be dialyzed due to worsening agitation. The patient is also admitted with concern for possible urinary tract infection. The patient is not a reliable historian. The patient is seen and evaluated with normal vital signs in the emergency room. Laboratory data reveals slightly elevated white cell count and noted anemia. The patient is now admitted for further care and management. PAST MEDICAL HISTORY: Notable for prior history of GI bleed, renal failure, chronic encephalopathy, urinary tract infection, vitamin D deficiency, and hypertension. MEDICATIONS: Reviewed. ALLERGIES: Reviewed. SOCIAL HISTORY: The patient is disabled and lives with her family. PHYSICAL EXAMINATION: GENERAL: Chronic ill-appearing female, in no significant distress. VITAL SIGNS: Reviewed. Blood pressure 133/71, heart rate 72, respirations 18, and sat of 97% HEENT: Negative. NECK: Supple. LUNGS: Fairly clear and symmetric. CARDIAC: S1, S2. Regular rate and rhythm. ABDOMEN: Soft and nontender. EXTREMITIES: Trace edema. NEUROLOGICAL: Confused. LABORATORY DATA: Reviewed. White count 12 and hemoglobin 8.3. BUN 100 and creatinine 3.6. Albumin 2.3. IMPRESSION: 1. Chronic renal failure. 2. Toxic metabolic encephalopathy. 3. History of hypertension. 4. History of vitamin D deficiency. 5. Hypercholesterolemia. 6. Possible urinary tract infection. 7. Moderate protein-calorie malnutrition. RECOMMENDATIONS: 1. Hemodialysis. 2. Monitor labs. 3. Monitor renal function. 4. Monitor electrolytes. 5. IV antibiotics empirically. 6. Continue care. 7. Follow up clinically and recommend. 8. Monitor for further changes and intervene pending re-evaluation recommendations. Joss Mixon M.D. DR: AMARILIS JOB#: [id number] CC: AZEEM
[2019-02-09 04:00] VITALS: BP 134/62
[2019-02-09] MEDS ORDERED: Heparin Sod 1000 units/ml 10ml IV PRN (06:00)
[2019-02-09] MEDS ORDERED: Heparin 1000 units/ml 1ml Vial INJ PRN (06:00)
[2019-02-09 07:10] LABS: HEMATOCRIT 23.3 % (37.0-47.0); HEMOGLOBIN 7.6 G/DL (12.0-16.0); MEAN CORPUSCULAR VOLUME 87 FL (80-99); PLATELET COUNT 183 K/UL (150-450); RED BLOOD COUNT 2.66 M/UL (4.20-5.40); RED CELL DISTRIBUTION WIDTH 16.7 % (11.6-14.8); WHITE BLOOD COUNT 14.7 K/UL (4.8-10.8)
--- NOTE | 2019-02-09 07:21 | NUR ---
NURSE NOTES: Report received from EDMOND Smith. Patient awake, lying comfortably in bed. In 2L NC. Denies any SOB. Family spent night with Pt. AOx2 at this time. Bed on lowest position, side rails upx2, brakes engaged, alarm on. Call light within easy reach.
--- NOTE | 2019-02-09 07:27 | NUR ---
HAND-OFF: Report given to EDMOND Lema. Endorsed plan of care.
[2019-02-09 07:39] LABS: ANION GAP 9 mmol/L (5-15); BLOOD UREA NITROGEN 59 mg/dL (7-18); CALCIUM 8.2 MG/DL (8.5-10.1); CARBON DIOXIDE 27 MMOL/L (21-32); CHLORIDE 104 MMOL/L (98-107); CREATININE 2.3 MG/DL (0.55-1.30); POTASSIUM 4.3 MMOL/L (3.5-5.1); SODIUM 140 MMOL/L (136-145)
--- NOTE | 2019-02-09 07:56 | General Progress Note ---
Assessment/Plan Assessment/Plan: IMPRESSION: 1. Chronic renal failure. 2. Toxic metabolic encephalopathy. 3. History of hypertension. 4. History of vitamin D deficiency. 5. Hypercholesterolemia. 6. Possible urinary tract infection. 7. Moderate protein-calorie malnutrition. PLAN HD antibiotics ID eval CXR supportive care impression, plan, and exam edited and reviewed in detail care discussed with RN Subjective ROS Limited/Unobtainable: Yes Allergies: Coded Allergies: No Known Allergies (Unverified , 01/11/19) Subjective some congestion noted Objective Last 24 Hour Vital Signs Date Time Temp Pulse Resp B/P (MAP) Pulse Ox O2 Delivery O2 Flow Rate FiO2 02/09/19 04:00 98.2 85 24 134/62 (86) 92 02/09/19 04:00 85 02/09/19 00:00 82 02/09/19 00:00 98.0 82 19 141/62 (88) 98 02/08/19 23:04 82 141/61 02/08/19 21:00 Room Air 02/08/19 20:00 64 02/08/19 20:00 98.2 64 18 144/57 (86) 99 02/08/19 16:00 72 02/08/19 16:00 97.7 75 18 133/70 (91) 02/08/19 15:38 Room Air 02/08/19 14:49 97.8 77 18 118/75 94 Room Air 02/08/19 13:57 97.7 72 18 122/48 93 Room Air 02/08/19 11:59 97.5 65 18 117/47 96 Room Air 02/08/19 11:59 65 18 Room Air 02/08/19 11:53 97.5 65 18 117/47 (70) 96 Room Air Intake and Output 02/08/19 02/09/19 18:59 06:59 Intake Total 915 ml 240 ml Balance 915 ml 240 ml Intake Oral 360 ml 240 ml IV Total 555 ml # Voids 3 # Bowel Movements 1 5 Laboratory Tests 02/08/19 12:20: White Blood Count 12.1H, Red Blood Count 2.93L, Hemoglobin 8.3L, Hematocrit 25.6L, Mean Corpuscular Volume 87, Mean Corpuscular Hemoglobin 28.5, Mean Corpuscular Hemoglobin Concent 32.5, Red Cell Distribution Width 16.4H, Platelet Count 178, Mean Platelet Volume 7.8, Neutrophils (%) (Auto) 79.1H, Lymphocytes (%) (Auto) 15.2L, Monocytes (%) (Auto) 4.2, Eosinophils (%) (Auto) 0.8, Basophils (%) (Auto) 0.7, Sodium Level 121L, Potassium Level 4.7, Chloride Level 99, Carbon Dioxide Level 22, Anion Gap -16L, Blood Urea Nitrogen 100H, Creatinine 3.6H, Estimat Glomerular Filtration Rate , Glucose Level 282H, Lactic Acid Level 1.00, Calcium Level 8.2L, Total Bilirubin 0.3, Aspartate Amino Transf (AST/SGOT) 15, Alanine Aminotransferase (ALT/SGPT) 32, Alkaline Phosphatase 90, Total Creatine Kinase 30, Creatine Kinase MB 2.1, Creatine Kinase MB Relative Index 7.0, Troponin I 0.017, Pro-B-Type Natriuretic Peptide > 25504R, Total Protein 6.2L, Albumin 2.3L, Globulin 3.9, Albumin/Globulin Ratio 0.6L, Lipase 372 02/08/19 13:10: Urine Color Pale yellow, Urine Appearance Cloudy, Urine pH 5, Urine Specific [place] 1.015, Urine Protein 3+H, Urine Glucose (UA) 1+H, Urine Ketones Negative , Urine Blood 2+H, Urine Nitrite Negative, Urine Bilirubin Negative, Urine Urobilinogen Normal, Urine Leukocyte Esterase 3+H, Urine RBC 5-10H, Urine WBC TntcH, Urine Squamous Epithelial Cells Few, Urine Bacteria ModerateH, Urine Yeast ManyH 02/09/19 06:10: White Blood Count 14.7H, Red Blood Count 2.66L, Hemoglobin 7.6L, Hematocrit 23.3L, Mean Corpuscular Volume 87, Mean Corpuscular Hemoglobin 28.7, Mean Corpuscular Hemoglobin Concent 32.8, Red Cell Distribution Width 16.7H, Platelet Count 183, Mean Platelet Volume 8.2, Neutrophils (%) (Auto) , Lymphocytes (%) (Auto) , Monocytes (%) (Auto) , Eosinophils (%) (Auto) , Basophils (%) (Auto) , Sodium Level 140#, Potassium Level 4.3, Chloride Level 104, Carbon Dioxide Level 27, Anion Gap 9, Blood Urea Nitrogen 59H, Creatinine 2.3H, Estimat Glomerular Filtration Rate , Glucose Level 205H, Calcium Level 8.2L, Neutrophils % (Manual) [Pending], Lymphocytes % (Manual) [Pending], Platelet Estimate [Pending], Platelet Morphology [Pending] Height (Feet): 5 Height (Inches): 2.00 Weight (Pounds): 140 Objective GENERAL: Chronic ill-appearing female, in no significant distress. HEENT: Negative. NECK: Supple. LUNGS: some rhonchi CARDIAC: S1, S2. Regular rate and rhythm. ABDOMEN: Soft and nontender. EXTREMITIES: Trace edema. NEUROLOGICAL: Confused. Joss Mixon MD Feb 09, 2019 07:56
[2019-02-09 08:00] VITALS: BP 141/69
--- NOTE | 2019-02-09 08:31 | NUR ---
RADIOLOGY DEPT., CHEST X-RAY DONE.-P.DYE
[2019-02-09] MEDS: Aspirin Baby 81mg ORAL SCH (08:50)
[2019-02-09] MEDS: Docusate 100mg cap ORAL SCH ×3 (08:50→21:00)
[2019-02-09] MEDS: Carvedilol 12.5mg tab ORAL SCH ×2 (08:51→21:00)
[2019-02-09] MEDS: Vitamin D 400 INTLU TAB ORAL SCH (08:51)
[2019-02-09] MEDS: cefTRIAXone 1gm/D5W 55ml IVPB SCH ×2 (08:54)
[2019-02-09] MEDS: Heparin 5000 units/ml inj SUBQ SCH ×2 (09:00→21:00)
--- NOTE | 2019-02-09 09:50 | Diagnostic Imaging Report ---
Indication: Dyspnea Comparison: 02/08/2019 A single view chest radiograph was obtained. Findings: Vascular interstitial prominence demonstrated especially centrally. The heart is enlarged. There is suggestion of small bilateral pleural effusions given hazy basilar opacities. Right jugular permacath noted in good position unchanged. IMPRESSION: CHF/pulmonary edema slightly worse compared to the prior day
--- NOTE | 2019-02-09 10:10 | NUR ---
NURSE NOTES: Teaching done regarding blood transfusion, consent signed by patient's daughter. Transfusion order printed and filed with consent. Awaiting for HD to transfuse blood as ordered.
--- NOTE | 2019-02-09 11:07 | NUR ---
CASE MANAGEMENT: REVIEW 02/09/2019 SI:ENCEPHALOPATHY. UTI. T 98.2 HR 84 RR 21 B/P 141/69 SATS 92% ON RA WBC 14.7 HGB 7.6 HCT 23.3 BUN 59 CR 2.3 GLU 205 CA 8.2 IS:COREG PO Q12H LIPITOR PO QHS NORVASC PO QD ASA PO QD CEFTRIAXONE IV Q24H TELE STATUS DCP: PATIENT TO BE DISCHARGED TO HOME ONCE MEDICALLY CLEARED. PLAN OF CARE: O2 THERAPY IV ANTIBX Addendum: 02/09/19 at 1116 by Lissette Jalloh CM INTERQUAL MET
--- NOTE | 2019-02-09 11:25 | NUR ---
NURSE NOTES: Second call made to dialysis center for a reminder. Talked to Sujey.
[2019-02-09 12:00] VITALS: BP 128/61
--- NOTE | 2019-02-09 14:30 | NUR ---
*-* INSURANCE *-* ALL CLINICALS AND REVIEWS HAVE BEEN FAXED TO: [employer] OSWALD# [id number] NCM: BASSAM P- [phone] X Alisa F- [phone]....REVIEW/CLINICAL
[2019-02-09 16:00] VITALS: BP 129/61
--- NOTE | 2019-02-09 17:03 | Nephrology Progress Note ---
Assessment/Plan Plan CHF -improved with sequential HD. Needs anxiolitics pre HD. UTI - Rx. Subjective Subjective No new c/o Objective Objective Last 24 Hour Vital Signs Date Time Temp Pulse Resp B/P (MAP) Pulse Ox O2 Delivery O2 Flow Rate FiO2 02/09/19 12:00 98.0 77 21 128/61 (83) 93 02/09/19 12:00 73 02/09/19 09:00 Room Air 02/09/19 08:51 84 141/69 02/09/19 08:50 84 141/69 02/09/19 08:00 81 02/09/19 08:00 98.2 84 21 141/69 (93) 92 02/09/19 04:00 98.2 85 24 134/62 (86) 92 02/09/19 04:00 85 02/09/19 00:00 82 02/09/19 00:00 98.0 82 19 141/62 (88) 98 02/08/19 23:04 82 141/61 02/08/19 21:00 Room Air 02/08/19 20:00 64 02/08/19 20:00 98.2 64 18 144/57 (86) 99 Intake and Output 02/08/19 02/09/19 19:00 07:00 Intake Total 915 ml 240 ml Balance 915 ml 240 ml Intake Oral 360 ml 240 ml IV Total 555 ml # Voids 3 # Bowel Movements 1 5 Laboratory Tests 02/09/19 06:10: White Blood Count 14.7H, Red Blood Count 2.66L, Hemoglobin 7.6L, Hematocrit 23.3L, Mean Corpuscular Volume 87, Mean Corpuscular Hemoglobin 28.7, Mean Corpuscular Hemoglobin Concent 32.8, Red Cell Distribution Width 16.7H, Platelet Count 183, Mean Platelet Volume 8.2, Neutrophils (%) (Auto) , Lymphocytes (%) (Auto) , Monocytes (%) (Auto) , Eosinophils (%) (Auto) , Basophils (%) (Auto) , Differential Total Cells Counted 100, Neutrophils % ( Manual) 85H, Lymphocytes % (Manual) 12L, Monocytes % (Manual) 2, Eosinophils % ( Manual) 1, Basophils % (Manual) 0, Band Neutrophils 0, Platelet Estimate Adequate, Platelet Morphology Normal, Anisocytosis 1+, Sodium Level 140#, Potassium Level 4.3, Chloride Level 104, Carbon Dioxide Level 27, Anion Gap 9, Blood Urea Nitrogen 59H, Creatinine 2.3H, Estimat Glomerular Filtration Rate , Glucose Level 205H, Calcium Level 8.2L Height (Feet): 5 Height (Inches): 2.00 Weight (Pounds): 140 Objective More alert. CV RR Lungs B crackles Abd SNT. BS + E No CCE Donis Escobar MD Feb 09, 2019 17:03
--- NOTE | 2019-02-09 18:00 | Consultation ---
DATE OF CONSULTATION: 02/09/2019 INFECTIOUS DISEASE CONSULTATION This consult is for coverage of Dr. Gamble. CONSULTING PHYSICIAN: Sahil Flores M.D. PRIMARY ATTENDING PHYSICIAN: Dr. Owens REASON FOR CONSULT: UTI. HISTORY OF PRESENT ILLNESS: This 83-year-old female admitted yesterday because of confusion, combativeness and agitation. The patient has leukocytosis of 12.1, that is increased today to 14.7. The patient was recently discharged from [facility] on 01/27/2019. During that admission, the patient was found to have end-stage renal disease and started on hemodialysis. The patient missed couple of dialysis in the past couple of days because of confusion and agitation, and was sent from the dialysis center to the hospital for further evaluation. PAST MEDICAL HISTORY: End-stage renal disease, on hemodialysis; diabetes mellitus; hypertension; and anemia. 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 She has anemia, received blood transfusion in the previous admission, has dementia and vitamin D deficiency. ALLERGIES: No known drug allergies. MEDICATIONS: Getting amlodipine, vitamin D, ceftriaxone, aspirin, heparin, atorvastatin, carvedilol, Flonase, Epogen, Tylenol, Zofran, sodium chloride, and heparin. SOCIAL HISTORY: , lives at home. No history of alcohol, drug abuse, or smoking. She has 8 children. REVIEW OF SYSTEMS: The patient does not have nausea, vomiting, or diarrhea. No coughing. Makes normal amount of urine and no dysuria. PHYSICAL EXAMINATION: VITAL SIGNS: Temperature 98.2, pulse 84, and blood pressure 141/69. GENERAL APPEARANCE: No acute distress. HEAD AND NECK: Getting oxygen by nasal cannula. Subconjunctival hemorrhage that was present in the previous admission has resolved. [place] conjunctivae. HEART: Normal rate. LUNGS: Clear. ABDOMEN: Soft and nontender. EXTREMITIES: No edema. SKIN: Multiple bruises LABORATORY AND DIAGNOSTIC DATA: WBC today is 14.7, hemoglobin 7.6, hematocrit 23.3, and platelets 183. Sodium 140, potassium 4.3, chloride 104, bicarb 27, BUN 59, and creatinine 2.3. Glucose 205. BNP was highly elevated more than 35,000. Albumin is 2.3. Urine culture growing gram-negative rods. Chest x-ray showed pulmonary edema. IMPRESSION: 1. Gram-negative urinary tract infection. 2. Altered mental status. 3. Pulmonary edema secondary to volume overload. 4. End-stage renal disease. 5. Diabetes mellitus. 6. Anemia. 7. History of throat cancer. 8. 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 RECOMMENDATION: Continue Rocephin. We will follow up the cultures. At the end of my exam, I thank Dr. Escobar, for involving me in the care of this patient. Sahil Flores M.D. DR: MARIO JOB#: [id number] CC: AZEEM
--- NOTE | 2019-02-09 19:15 | NUR ---
HAND-OFF: Report given to EDMOND Garcia. Pt. in stable condition. Reminder given to follow up on Dialysis appointment.
--- NOTE | 2019-02-09 19:16 | NUR ---
NURSE NOTES: Received pt from EDMOND eLma. Pt is awake and resting in bed with family at bedside. Iv site intact. Bed locked in lowest position, call light within reach. Will continue with of plan of care.
[2019-02-09 20:00] VITALS: BP 134/56
--- NOTE | 2019-02-09 20:16 | NUR ---
NURSE NOTES: Contacted Lupis from [facility] for a dialysis nurse to come in. Told that a dialysis nurse will be arriving.
[2019-02-09 20:46] LABS: HEMATOCRIT 20.9 % (37.0-47.0); MEAN CORPUSCULAR VOLUME 90 FL (80-99); PLATELET COUNT 178 K/UL (150-450); RED BLOOD COUNT 2.33 M/UL (4.20-5.40); WHITE BLOOD COUNT 13.5 K/UL (4.8-10.8)
[2019-02-09 20:53] LABS: ANION GAP 10 mmol/L (5-15); BLOOD UREA NITROGEN 71 mg/dL (7-18); CALCIUM 8.1 MG/DL (8.5-10.1); CARBON DIOXIDE 26 MMOL/L (21-32); CHLORIDE 103 MMOL/L (98-107); CREATININE 2.6 MG/DL (0.55-1.30); POTASSIUM 4.3 MMOL/L (3.5-5.1); SODIUM 139 MMOL/L (136-145)
[2019-02-09 20:54] LABS: HEMOGLOBIN 6.7 G/DL (12.0-16.0)
[2019-02-09] MEDS: Atorvastatin 20mg tab ORAL SCH (21:00)
--- NOTE | 2019-02-09 21:10 | NUR ---
NURSE NOTES: Notified by lab pt hgb is 6.7, hct 20.9. Pt will be receiving 2 units of pRBCs via dialysis.
--- NOTE | 2019-02-09 22:45 | NUR ---
NURSE NOTES: Dialysis nurse Aily stated arrival is in 20 minutes.
[2019-02-10] VITALS (8 sets, daily range): BP systolic 101–162; BP diastolic 55–70
--- NOTE | 2019-02-10 00:35 | NUR ---
NURSE NOTES: Verified consent and PRBC bag with Ivett PRUITT. Pt to receive blood transfusion via dialysis machine. Pre-transfusion vitals 98.2F, 71 bpm, 131/60. 15 minutes after 98.0F, 70bpm, 106/44. Pt asymptomatic for adverse reaction. Post transfusion vitals 98.1F, 70 bpm, 130/52.
--- NOTE | 2019-02-10 01:30 | NUR ---
NURSE NOTES: Verified consent and PRBC bag with Elidia PRUITT. Pt to receive 2nd PRBC blood transfusion via dialysis machine. Pre-transfusion vitals 98.1F, 72 bpm, 130/52. 15 minutes into transfusion 98.1F, 75bpm, 123/54. Pt asymptomatic for adverse reaction. Post transfusion vitals 97.9F, 76 bpm, 134/61.
--- NOTE | 2019-02-10 02:59 | NUR ---
NURSE NOTES: Pt output post dialysis 2L.
--- NOTE | 2019-02-10 07:20 | NUR ---
HAND-OFF: Report given to EDMOND Julio. Endorsed plan of care.
--- NOTE | 2019-02-10 07:21 | NUR ---
NURSE NOTES: Received report from EDMOND Smith. Patient is resting in bed in stable condition. Alert and Orientedx2, Yoruba speaking. Breathing unlabored in 2 liter Nasal Cannula. Patient's daughter at bed side.IV intact and patent. Bed in lowest position with two side rails up, brakes on, call light within reach. Bed alarm on. Will continue plan of care.
[2019-02-10] MEDS: Aspirin Baby 81mg ORAL SCH (08:25)
[2019-02-10] MEDS: cefTRIAXone 1gm/D5W 55ml IVPB SCH ×2 (08:25)
[2019-02-10] MEDS: Vitamin D 400 INTLU TAB ORAL SCH (08:25)
[2019-02-10] MEDS: Carvedilol 12.5mg tab ORAL SCH ×2 (08:25→20:32)
[2019-02-10] MEDS: Docusate 100mg cap ORAL SCH ×2 (08:25→21:00)
[2019-02-10] MEDS: Heparin 5000 units/ml inj SUBQ SCH ×2 (08:27→20:37)
--- NOTE | 2019-02-10 09:40 | NUR ---
*-* INSURANCE *-* ALL CLINICALS AND REVIEWS HAVE BEEN FAXED TO BOTH INS CO: [facility] [employer] NCM:BASSAM F:[phone] & [facility] NCM: NEEL RODRIGUEZ F:[phone]
--- NOTE | 2019-02-10 10:23 | NUR ---
NURSE NOTES: Per Dr. Mixon's order patient will start Heparin drip at 07:00 PM. RN spoke with pharmacy. RN will double check the rate with doctor before start the heparin Drip. Addendum: 02/10/19 at 1033 by DLOORES PAIZ RN RN charting in wrong patient.
--- NOTE | 2019-02-10 10:51 | Infectious Diseases Prog Note ---
Assessment/Plan Assessment/Plan antibiotics : ceftriaxone A 1. hafnia UTI 2. leucocytosis improving 3. left arm cellulitis 4. renal failure on dialysis 5. diabetes mellitus 6. hypertension 7. rectal VRE colonization P 1. continue ceftriaxone 4 more days 2. 1 dose iv vancomycin 3. will follow up cultures Subjective Constitutional: Denies: fever, chills Respiratory: Denies: shortness of breath, dry cough Gastrointestinal/Abdominal: Denies: nausea, vomiting, diarrhea Musculoskeletal: Reports: other - itching; Denies: pain Allergies: Coded Allergies: No Known Allergies (Unverified , 01/11/19) Objective Vital Signs Last 24 Hour Vital Signs Date Time Temp Pulse Resp B/P (MAP) Pulse Ox O2 Delivery O2 Flow Rate FiO2 02/10/19 08:25 82 141/59 02/10/19 08:25 82 141/59 02/10/19 08:01 98.2 82 18 141/59 (86) 94 02/10/19 06:30 78 146/65 (92) 02/10/19 04:00 98.9 78 16 158/70 (99) 95 02/10/19 04:00 78 02/10/19 00:00 80 02/10/19 00:00 97.9 80 16 129/58 (81) 95 02/09/19 21:00 Nasal Cannula 2.0 02/09/19 20:00 83 02/09/19 20:00 98.7 83 20 134/56 (82) 94 02/09/19 16:00 74 02/09/19 16:00 97.8 76 20 129/61 (83) 94 02/09/19 12:00 98.0 77 21 128/61 (83) 93 02/09/19 12:00 73 Height (Feet): 5 Height (Inches): 2.00 Weight (Pounds): 140 Respiratory/Chest: lungs clear Cardiovascular: normal rate, no gallop/murmur Abdomen: soft, non tender Extremities: no edema, other - left arm erythema Microbiology Date/Time Source Procedure Growth Status 02/08/19 12:35 Blood Blood Culture - Preliminary NO GROWTH AFTER 24 HOURS Resulted 02/08/19 12:20 Blood Blood Culture - Preliminary NO GROWTH AFTER 24 HOURS Resulted 02/08/19 12:50 Nasal Nares Left MRSA Culture - Final NO METHICILLIN RESISTANT STAPH AUREUS... Complete 02/08/19 13:10 Urine,Clean Catch Urine Culture - Final Hafnia Alvei Complete 02/08/19 12:50 Rectum VRE Culture - Final Enterococcus Faecium - Vre Complete 02/08/19 12:50 Rectum - Final NO CARBAPENEM-RESISTANT ENTEROBACTERI... Complete Laboratory Tests Test 02/09/19 20:35 White Blood Count 13.5 K/UL (4.8-10.8) H Red Blood Count 2.33 M/UL (4.20-5.40) L Hemoglobin 6.7 G/DL (12.0-16.0) *L Hematocrit 20.9 % (37.0-47.0) L Mean Corpuscular Volume 90 FL (80-99) Mean Corpuscular Hemoglobin 28.9 PG (27.0-31.0) Mean Corpuscular Hemoglobin Concent 32.3 G/DL (32.0-36.0) Red Cell Distribution Width 16.0 % (11.6-14.8) H Platelet Count 178 K/UL (150-450) Mean Platelet Volume 6.4 FL (6.5-10.1) L Neutrophils (%) (Auto) % (45.0-75.0) Lymphocytes (%) (Auto) % (20.0-45.0) Monocytes (%) (Auto) % (1.0-10.0) Eosinophils (%) (Auto) % (0.0-3.0) Basophils (%) (Auto) % (0.0-2.0) Differential Total Cells Counted 100 Neutrophils % (Manual) 69 % (45-75) Lymphocytes % (Manual) 18 % (20-45) L Monocytes % (Manual) 8 % (1-10) Eosinophils % (Manual) 0 % (0-3) Basophils % (Manual) 1 % (0-2) Band Neutrophils 4 % (0-8) Platelet Estimate Adequate Platelet Morphology Normal Anisocytosis 1+ Sodium Level 139 MMOL/L (136-145) Potassium Level 4.3 MMOL/L (3.5-5.1) Chloride Level 103 MMOL/L (98-107) Carbon Dioxide Level 26 MMOL/L (21-32) Anion Gap 10 mmol/L (5-15) Blood Urea Nitrogen 71 mg/dL (7-18) H Creatinine 2.6 MG/DL (0.55-1.30) H Estimat Glomerular Filtration Rate mL/min (>60) Glucose Level 309 MG/DL (74-106) #H Calcium Level 8.1 MG/DL (8.5-10.1) L Current Medications Medications (Trade) Dose Ordered Sig/Eleanor Route PRN Reason Start Time Stop Time Status Last Admin Dose Admin Acetaminophen (Tylenol) 650 mg Q4H PRN ORAL Mild Pain (Pain Scale 1-3) 02/08/19 16:15 03/10/19 16:14 Amlodipine Besylate (Norvasc) 10 mg DAILY ORAL 02/09/19 09:00 03/11/19 08:59 02/10/19 08:25 Aspirin (ASA) 81 mg DAILY ORAL 02/09/19 09:00 03/11/19 08:59 02/10/19 08:25 Atorvastatin Calcium (Lipitor) 20 mg BEDTIME ORAL 02/08/19 21:00 03/10/19 20:59 02/08/19 23:04 Carvedilol (Coreg) 12.5 mg EVERY 12 HOURS ORAL 02/08/19 21:00 03/10/19 20:59 02/10/19 08:25 Ceftriaxone Sodium 1 gm/ Dextrose 55 ml @ 110 mls/hr Q24H IVPB 02/09/19 09:00 02/16/19 08:59 02/10/19 08:25 Dextrose (Dextrose 50%) 25 ml Q30M PRN IV Hypoglycemia 02/08/19 16:15 03/10/19 16:14 Dextrose (Dextrose 50%) 50 ml Q30M PRN IV Hypoglycemia 02/08/19 16:15 03/10/19 16:14 Docusate Sodium (Colace) 100 mg EVERY 12 HOURS ORAL 02/08/19 21:00 03/10/19 20:59 02/10/19 08:25 Epoetin Elijah (Epoetin Elijah(ESRD on dialysis)) 8,000 unit WED-WED-WED SUBQ 02/08/19 21:00 03/10/19 20:59 02/08/19 23:04 Heparin Sodium (Porcine) (Heparin 5000 units/ml) 5,000 units EVERY 12 HOURS SUBQ 02/08/19 21:00 03/10/19 20:59 02/10/19 08:27 Lorazepam (Ativan 2mg/ml 1ml) 1 mg Q6H PRN IV For Anxiety 02/08/19 16:00 02/15/19 15:59 Ondansetron HCl (Zofran) 4 mg Q6H PRN IVP Nausea & Vomiting 02/08/19 16:15 03/10/19 16:14 Vitamin D (Vitamin D) 400 intlu DAILY ORAL 02/09/19 09:00 03/11/19 08:59 02/10/19 08:25 Sabina Gamble MD Feb 10, 2019 10:51
[2019-02-10] MEDS ORDERED: VANCOMYCIN IVPB ONE (11:00)
[2019-02-10] MEDS ORDERED: D5W IVPB ONE (11:00)
[2019-02-10] MEDS ORDERED: Vancomycin 1gm/D5W 275ml IVPB SCH ×2 (12:00)
--- NOTE | 2019-02-10 13:57 | NUR ---
CASE MANAGEMENT: REVIEW 02/10/2019 SI:ENCEPHALOPATHY. UTI. T 97.9 HR 74 RR 18 B/P 142/62 SATS 95% ON 2L/NC NO LABS TODAY IS:COREG PO Q12H LIPITOR PO QHS NORVASC PO QD ASA PO QD CEFTRIAXONE IV Q24H TELE STATUS DCP: PATIENT TO BE DISCHARGED TO HOME ONCE MEDICALLY CLEARED. PLAN OF CARE: O2 THERAPY IV ANTIBX
--- NOTE | 2019-02-10 15:40 | NUR ---
NURSE NOTES: Patient is on 2 liter Nasal Cannula and her So2 is 94%. Take off the Nasal Cannula for 15 minutes and So2 dropped to 84%.
--- NOTE | 2019-02-10 15:43 | Nephrology Progress Note ---
Assessment/Plan Plan CHF -improved with sequential HD. ESRD Needs anxiolitics pre HD. HD TTS Hafnia UTI - Rx. Subjective Subjective No new c/o Objective Objective Last 24 Hour Vital Signs Date Time Temp Pulse Resp B/P (MAP) Pulse Ox O2 Delivery O2 Flow Rate FiO2 02/10/19 12:00 97.9 74 18 142/62 (88) 95 02/10/19 12:00 71 02/10/19 09:00 Nasal Cannula 2.0 02/10/19 08:25 82 141/59 02/10/19 08:25 82 141/59 02/10/19 08:01 98.2 82 18 141/59 (86) 94 02/10/19 08:00 81 02/10/19 06:30 78 146/65 (92) 02/10/19 04:00 98.9 78 16 158/70 (99) 95 02/10/19 04:00 78 02/10/19 00:00 80 02/10/19 00:00 97.9 80 16 129/58 (81) 95 02/09/19 21:00 Nasal Cannula 2.0 02/09/19 20:00 83 02/09/19 20:00 98.7 83 20 134/56 (82) 94 02/09/19 16:00 74 02/09/19 16:00 97.8 76 20 129/61 (83) 94 Intake and Output 02/09/19 02/10/19 18:59 06:59 # Voids 2 2 # Bowel Movements 1 2 Laboratory Tests 02/09/19 20:35: White Blood Count 13.5H, Red Blood Count 2.33L, Hemoglobin 6.7*L, Hematocrit 20.9L, Mean Corpuscular Volume 90, Mean Corpuscular Hemoglobin 28.9, Mean Corpuscular Hemoglobin Concent 32.3, Red Cell Distribution Width 16.0H, Platelet Count 178, Mean Platelet Volume 6.4L, Neutrophils (%) (Auto) , Lymphocytes (%) (Auto) , Monocytes (%) (Auto) , Eosinophils (%) (Auto) , Basophils (%) (Auto) , Differential Total Cells Counted 100, Neutrophils % ( Manual) 69, Lymphocytes % (Manual) 18L, Monocytes % (Manual) 8, Eosinophils % ( Manual) 0, Basophils % (Manual) 1, Band Neutrophils 4, Platelet Estimate Adequate, Platelet Morphology Normal, Anisocytosis 1+, Sodium Level 139, Potassium Level 4.3, Chloride Level 103, Carbon Dioxide Level 26, Anion Gap 10, Blood Urea Nitrogen 71H, Creatinine 2.6H, Estimat Glomerular Filtration Rate , Glucose Level 309#H, Calcium Level 8.1L Height (Feet): 5 Height (Inches): 2.00 Weight (Pounds): 140 Objective More alert. CV RR Lungs B crackles Abd SNT. BS + E No CCE Donis Escobar MD Feb 10, 2019 15:43
--- NOTE | 2019-02-10 16:06 | Cardiology Report ---
APPROVED REPORT EKG Measurement Heart [id number] Normal sinus rhythm Low voltage QRS Borderline ECG
--- NOTE | 2019-02-10 17:55 | NUR ---
NURSE NOTES: Spoke with Emanuel, from [facility] and confirmed the order.
--- NOTE | 2019-02-10 19:41 | NUR ---
HAND-OFF: Report given to EDMOND Newman.
--- NOTE | 2019-02-10 19:42 | NUR ---
NURSE NOTES: Received patient from Nori RN. Patient awake in bed, on 2L NC, no s/s of respiratory distress. Bed in low position, locked, bed alarm on, call light within reach.
[2019-02-10] MEDS: Atorvastatin 20mg tab ORAL SCH (20:32)
[2019-02-10] MEDS: Epoetin Alfa-EPBX(ESRD on dialysis)4000 units/ml vial SUBQ SCH (21:24)
[2019-02-11] VITALS: BP 146/67
[2019-02-11 04:00] VITALS: BP 126/62
--- NOTE | 2019-02-11 07:26 | NUR ---
HAND-OFF: Report given to Oren PRUITT. Plan of care endorsed.
[2019-02-11 08:00] VITALS: BP 145/61
--- NOTE | 2019-02-11 08:02 | NUR ---
NURSE NOTES: Pt in bed in low position, daughter at bedside, pt stated she wanted to eat breakfast, pt denies pain, Ox2 disoriented vs confusion, call light at bedside, denies pain, IV intact, bed alarm on, no s/s of distress or sob noted.
[2019-02-11] MEDS: Carvedilol 12.5mg tab ORAL SCH ×2 (09:42→20:18)
[2019-02-11] MEDS: Vitamin D 400 INTLU TAB ORAL SCH (09:42)
[2019-02-11] MEDS: Aspirin Baby 81mg ORAL SCH (09:42)
[2019-02-11] MEDS: cefTRIAXone 1gm/D5W 55ml IVPB SCH ×2 (09:43)
[2019-02-11] MEDS: Docusate 100mg cap ORAL SCH ×2 (09:45→20:18)
[2019-02-11] MEDS: Heparin 5000 units/ml inj SUBQ SCH ×2 (09:45→20:15)
--- NOTE | 2019-02-11 11:22 | Nephrology Progress Note ---
Assessment/Plan Plan CHF -improved with sequential HD. ESRD Needs anxiolytics pre HD. HD TTS Hafnia UTI - Rx. Subjective Subjective No new c/o Objective Objective Last 24 Hour Vital Signs Date Time Temp Pulse Resp B/P (MAP) Pulse Ox O2 Delivery O2 Flow Rate FiO2 02/11/19 09:42 73 145/61 02/11/19 09:42 73 145/61 02/11/19 08:45 Nasal Cannula 2.0 02/11/19 08:00 97.8 73 20 145/61 (89) 95 73 02/11/19 07:42 70 02/11/19 04:00 64 02/11/19 04:00 98.2 68 20 126/62 (83) 98 02/11/19 00:00 98.6 81 20 146/67 (93) 94 02/11/19 00:00 71 02/10/19 21:00 Nasal Cannula 2.0 02/10/19 20:32 73 162/62 02/10/19 20:16 97.7 73 20 162/62 (95) 96 02/10/19 20:00 71 02/10/19 16:00 98.0 75 18 144/60 (88) 95 02/10/19 16:00 76 02/10/19 12:00 97.9 74 18 142/62 (88) 95 02/10/19 12:00 71 Intake and Output 02/10/19 02/11/19 19:00 07:00 Intake Total 390 ml 360 ml Balance 390 ml 360 ml Intake Oral 390 ml 360 ml # Voids 2 # Bowel Movements 2 1 Laboratory Tests 02/10/19 17:08: Arterial Blood pH 7.474H, Arterial Blood Partial Pressure CO2 36.4, Arterial Blood Partial Pressure O2 58.0L, Arterial Blood HCO3 26.1H, Arterial Blood Oxygen Saturation 90.8L, Arterial Blood Base Excess 2.6H, Sonny Test Positive Height (Feet): 5 Height (Inches): 2.00 Weight (Pounds): 140 Objective More alert. CV RR Lungs B crackles Abd SNT. BS + E No CCE Donis Escobar MD Feb 11, 2019 11:22
[2019-02-11] MEDS: NovoLOG Insulin Flexpen SUBQ SCH ×3 (11:26→20:18)
[2019-02-11 12:00] VITALS: BP 138/50
--- NOTE | 2019-02-11 13:22 | NUR ---
CASE MANAGEMENT: REVIEW 02/11/2019 SI:ENCEPHALOPATHY. UTI. T 97.7 HR 70 RR 18 B/P 138/50 SATS 96% ON 2L/NC NO LABS TODAY IS:COREG PO Q12H LIPITOR PO QHS NORVASC PO QD ASA PO QD CEFTRIAXONE IV Q24H TELE STATUS DCP: PATIENT TO BE DISCHARGED TO HOME ONCE MEDICALLY CLEARED. PLAN OF CARE: O2 THERAPY IV ANTIBX HD TODAY
[2019-02-11 14:38] LABS: BASOPHILS % (AUTO) 0.8 % (0.0-2.0); HEMATOCRIT 29.2 % (37.0-47.0); HEMOGLOBIN 9.3 G/DL (12.0-16.0); LYMPHOCYTES % (AUTO) 16.6 % (20.0-45.0); MEAN CORPUSCULAR VOLUME 89 FL (80-99); NEUTROPHILS % (AUTO) 72.7 % (45.0-75.0); PLATELET COUNT 181 K/UL (150-450); RED BLOOD COUNT 3.28 M/UL (4.20-5.40); RED CELL DISTRIBUTION WIDTH 14.8 % (11.6-14.8); WHITE BLOOD COUNT 11.9 K/UL (4.8-10.8)
[2019-02-11] MEDS ORDERED: Heparin Sod 1000 units/ml 10ml IV PRN (15:45)
[2019-02-11] MEDS ORDERED: Heparin 1000 units/ml 1ml Vial INJ SCH (15:45)
[2019-02-11 16:00] VITALS: BP 146/55
[2019-02-11 16:14] LABS: ANION GAP 8 mmol/L (5-15); BLOOD UREA NITROGEN 66 mg/dL (7-18); CALCIUM 7.9 MG/DL (8.5-10.1); CARBON DIOXIDE 29 MMOL/L (21-32); CHLORIDE 99 MMOL/L (98-107); CREATININE 2.7 MG/DL (0.55-1.30); PHOSPHORUS 3.9 MG/DL (2.5-4.9); POTASSIUM 3.7 MMOL/L (3.5-5.1); SODIUM 136 MMOL/L (136-145)
--- NOTE | 2019-02-11 19:30 | NUR ---
HAND-OFF: Report given to EDMOND Garner. Plan of care endorsed
--- NOTE | 2019-02-11 19:30 | NUR ---
NURSE NOTES: received pt from Jennifer Neri. pt in bed. pt AOX2, family at bedside. no acute distress noted. bed locked and lowest position. bedside rail up x2.aspiration precaution in place. will continue to monitor pt for any change in condition.
[2019-02-11 20:00] VITALS: BP 152/58
[2019-02-11] MEDS: Atorvastatin 20mg tab ORAL SCH (20:14)
--- NOTE | 2019-02-11 23:50 | NUR ---
NURSE NOTES: HD finished at this time. 3 liters water out. BP 136/62, HR: 99.
[2019-02-12] VITALS: BP 126/59
--- NOTE | 2019-02-12 00:54 | NUR ---
NURSE NOTES: pt sleeping. no change in condition. will continue to monitor for any change in condition.
[2019-02-12 04:00] VITALS: BP 136/59
--- NOTE | 2019-02-12 04:00 | NUR ---
NURSE NOTES: pt in bed resting. no change in condition. will continue for change in condition.
[2019-02-12] MEDS: NovoLOG Insulin Flexpen SUBQ SCH ×4 (05:51→20:59)
--- NOTE | 2019-02-12 06:31 | NUR ---
NURSE NOTES: pt remains stable, no change in condition. pt asking for food since 05:30. call dietary left two voice messages no call back, all needs met during my shift. bed locked and lowest position. bed side rail up x2. will endorse plan of care to incoming nurse.
--- NOTE | 2019-02-12 07:30 | NUR ---
NURSE NOTES: Report received from EDMOND Garner. Patient awake and having breakfast. Family at bedside. Denies any pain or SOB. HD done last night. Site dry and intact. Bed on lowest position, side rails upx2, brakes engaged, alarm on. Call light within easy reach.
--- NOTE | 2019-02-12 07:43 | NUR ---
HAND-OFF: Report given to EDMOND Lema .
[2019-02-12 08:00] VITALS: BP 136/56
[2019-02-12] MEDS: Carvedilol 12.5mg tab ORAL SCH ×2 (08:46→20:55)
[2019-02-12] MEDS: Vitamin D 400 INTLU TAB ORAL SCH (08:46)
[2019-02-12] MEDS: Docusate 100mg cap ORAL SCH ×2 (08:46→20:55)
[2019-02-12] MEDS: Aspirin Baby 81mg ORAL SCH (08:46)
[2019-02-12] MEDS: Heparin 5000 units/ml inj SUBQ SCH ×3 (08:47→20:58)
[2019-02-12] MEDS: cefTRIAXone 1gm/D5W 55ml IVPB SCH ×2 (08:49)
--- NOTE | 2019-02-12 10:04 | Infectious Diseases Prog Note ---
Assessment/Plan Assessment/Plan A 1. Hafnia UTI 2. leucocytosis improving 3. left arm cellulitis 4. renal failure on dialysis 5. diabetes mellitus 6. hypertension 7. rectal VRE colonization P 1. continue ceftriaxone 2 more days Subjective ROS Limited/Unobtainable: Yes Cardiovascular: Reports: no symptoms Gastrointestinal/Abdominal: Reports: no symptoms Genitourinary: Reports: no symptoms Allergies: Coded Allergies: No Known Allergies (Unverified , 01/11/19) Objective Vital Signs Last 24 Hour Vital Signs Date Time Temp Pulse Resp B/P (MAP) Pulse Ox O2 Delivery O2 Flow Rate FiO2 02/12/19 08:46 64 136/56 02/12/19 08:46 64 136/56 02/12/19 08:00 97.7 64 20 136/56 (82) 97 02/12/19 04:00 98.2 70 20 136/59 (84) 96 70 02/12/19 04:00 68 02/12/19 00:00 69 02/12/19 00:00 98.6 86 19 126/59 (81) 98 86 02/11/19 21:00 Nasal Cannula 2.0 02/11/19 20:00 75 02/11/19 20:00 97.9 72 20 152/58 (89) 96 72 02/11/19 16:00 66 02/11/19 16:00 98.3 68 20 146/55 (85) 97 68 02/11/19 12:00 97.7 70 18 138/50 (79) 96 70 02/11/19 12:00 71 Height (Feet): 5 Height (Inches): 2.00 Weight (Pounds): 140 General Appearance: no acute distress HEENT: mucous membranes moist Respiratory/Chest: lungs clear Cardiovascular: normal rate Abdomen: soft, non tender Extremities: no edema Neurologic/Psychiatric: alert, responsive Laboratory Tests Test 02/11/19 14:15 02/11/19 15:40 White Blood Count 11.9 K/UL (4.8-10.8) H Red Blood Count 3.28 M/UL (4.20-5.40) L Hemoglobin 9.3 G/DL (12.0-16.0) L Hematocrit 29.2 % (37.0-47.0) L Mean Corpuscular Volume 89 FL (80-99) Mean Corpuscular Hemoglobin 28.4 PG (27.0-31.0) Mean Corpuscular Hemoglobin Concent 32.0 G/DL (32.0-36.0) Red Cell Distribution Width 14.8 % (11.6-14.8) Platelet Count 181 K/UL (150-450) Mean Platelet Volume 7.6 FL (6.5-10.1) Neutrophils (%) (Auto) 72.7 % (45.0-75.0) Lymphocytes (%) (Auto) 16.6 % (20.0-45.0) L Monocytes (%) (Auto) 7.0 % (1.0-10.0) Eosinophils (%) (Auto) 3.0 % (0.0-3.0) Basophils (%) (Auto) 0.8 % (0.0-2.0) Sodium Level 136 MMOL/L (136-145) Potassium Level 3.7 MMOL/L (3.5-5.1) Chloride Level 99 MMOL/L (98-107) Carbon Dioxide Level 29 MMOL/L (21-32) Anion Gap 8 mmol/L (5-15) Blood Urea Nitrogen 66 mg/dL (7-18) H Creatinine 2.7 MG/DL (0.55-1.30) H Estimat Glomerular Filtration Rate mL/min (>60) Glucose Level 233 MG/DL (74-106) H Calcium Level 7.9 MG/DL (8.5-10.1) L Phosphorus Level 3.9 MG/DL (2.5-4.9) Current Medications Medications (Trade) Dose Ordered Sig/Eleanor Route PRN Reason Start Time Stop Time Status Last Admin Dose Admin Acetaminophen (Tylenol) 650 mg Q4H PRN ORAL Mild Pain (Pain Scale 1-3) 02/08/19 16:15 03/10/19 16:14 02/11/19 01:25 Amlodipine Besylate (Norvasc) 10 mg DAILY ORAL 02/09/19 09:00 03/11/19 08:59 02/12/19 08:46 Aspirin (ASA) 81 mg DAILY ORAL 02/09/19 09:00 03/11/19 08:59 02/12/19 08:46 Atorvastatin Calcium (Lipitor) 20 mg BEDTIME ORAL 02/08/19 21:00 03/10/19 20:59 02/11/19 20:14 Carvedilol (Coreg) 12.5 mg EVERY 12 HOURS ORAL 02/08/19 21:00 03/10/19 20:59 02/12/19 08:46 Ceftriaxone Sodium 1 gm/ Dextrose 55 ml @ 110 mls/hr Q24H IVPB 02/09/19 09:00 02/16/19 08:59 02/12/19 08:49 Dextrose (Dextrose 50%) 25 ml Q30M PRN IV Hypoglycemia 02/08/19 16:15 03/10/19 16:14 Dextrose (Dextrose 50%) 50 ml Q30M PRN IV Hypoglycemia 02/08/19 16:15 03/10/19 16:14 Docusate Sodium (Colace) 100 mg EVERY 12 HOURS ORAL 02/08/19 21:00 03/10/19 20:59 02/12/19 08:46 Epoetin Elijah (Epoetin Elijah(ESRD on dialysis)) 8,000 unit WED-WED-WED SUBQ 02/08/19 21:00 03/10/19 20:59 02/10/19 21:24 Heparin Sodium (Porcine) (Heparin 5000 units/ml) 5,000 units EVERY 12 HOURS SUBQ 02/08/19 21:00 03/10/19 20:59 02/11/19 20:15 Insulin Aspart (NovoLOG) BEFORE MEALS AND HS SUBQ 02/11/19 11:30 03/13/19 11:29 02/12/19 05:51 Lorazepam (Ativan 2mg/ml 1ml) 1 mg Q6H PRN IV For Anxiety 02/08/19 16:00 02/15/19 15:59 Nateglinide (Starlix) 120 mg ACBREAKFAST ORAL 02/12/19 06:30 03/14/19 06:29 02/12/19 05:44 Ondansetron HCl (Zofran) 4 mg Q6H PRN IVP Nausea & Vomiting 02/08/19 16:15 03/10/19 16:14 Vitamin D (Vitamin D) 400 intlu DAILY ORAL 02/09/19 09:00 03/11/19 08:59 02/12/19 08:46 Sahil Flores MD Feb 12, 2019 10:03
--- NOTE | 2019-02-12 10:10 | NUR ---
NURSE NOTES: JERAMY edema noted. Raised by pillow. Pt. denies pain.
[2019-02-12 12:00] VITALS: BP 112/53
--- NOTE | 2019-02-12 13:02 | Nephrology Progress Note ---
Assessment/Plan Plan CHF -improved with sequential HD. ESRD Needs anxiolytics pre HD. HD TTS Hafnia UTI - Rx. Subjective Subjective No new c/o Objective Objective Last 24 Hour Vital Signs Date Time Temp Pulse Resp B/P (MAP) Pulse Ox O2 Delivery O2 Flow Rate FiO2 02/12/19 09:00 Nasal Cannula 2.0 02/12/19 08:46 64 136/56 02/12/19 08:46 64 136/56 02/12/19 08:25 66 20 96 Nasal Cannula 2.0 02/12/19 08:25 96 Nasal Cannula 2.0 28 02/12/19 08:00 66 02/12/19 08:00 97.7 64 20 136/56 (82) 97 02/12/19 04:00 98.2 70 20 136/59 (84) 96 70 02/12/19 04:00 68 02/12/19 00:00 69 02/12/19 00:00 98.6 86 19 126/59 (81) 98 86 02/11/19 21:00 Nasal Cannula 2.0 02/11/19 20:00 75 02/11/19 20:00 97.9 72 20 152/58 (89) 96 72 02/11/19 16:00 66 02/11/19 16:00 98.3 68 20 146/55 (85) 97 68 Intake and Output 02/11/19 02/12/19 19:00 07:00 Intake Total 360 ml 3000 ml Output Total 200 ml Balance 160 ml 3000 ml Intake Oral 360 ml Hemodialysis 3000 ml Output Urine Total 200 ml # Voids 3 # Bowel Movements 2 1 Laboratory Tests 02/11/19 14:15: White Blood Count 11.9H, Red Blood Count 3.28L, Hemoglobin 9.3L, Hematocrit 29.2L, Mean Corpuscular Volume 89, Mean Corpuscular Hemoglobin 28.4, Mean Corpuscular Hemoglobin Concent 32.0, Red Cell Distribution Width 14.8, Platelet Count 181, Mean Platelet Volume 7.6, Neutrophils (%) (Auto) 72.7, Lymphocytes (% ) (Auto) 16.6L, Monocytes (%) (Auto) 7.0, Eosinophils (%) (Auto) 3.0, Basophils (%) (Auto) 0.8 02/11/19 15:40: Sodium Level 136, Potassium Level 3.7, Chloride Level 99, Carbon Dioxide Level 29, Anion Gap 8, Blood Urea Nitrogen 66H, Creatinine 2.7H, Estimat Glomerular Filtration Rate , Glucose Level 233H, Calcium Level 7.9L, Phosphorus Level 3.9 Height (Feet): 5 Height (Inches): 2.00 Weight (Pounds): 140 Objective More alert. CV RR Lungs B crackles Abd SNT. BS + E No CCE Donis Escobar MD Feb 12, 2019 13:02
--- NOTE | 2019-02-12 13:09 | Nephrology Progress Note ---
Assessment/Plan Plan CHF -improved with sequential HD. ESRD Needs anxiolytics pre HD. HD TTS Hafnia UTI - Rx Lt. arm edema. R/O DVT---> Duplex.. Subjective Subjective Per daughter Lt. Arm edematous. Objective Objective Last 24 Hour Vital Signs Date Time Temp Pulse Resp B/P (MAP) Pulse Ox O2 Delivery O2 Flow Rate FiO2 02/12/19 09:00 Nasal Cannula 2.0 02/12/19 08:46 64 136/56 02/12/19 08:46 64 136/56 02/12/19 08:25 66 20 96 Nasal Cannula 2.0 02/12/19 08:25 96 Nasal Cannula 2.0 28 02/12/19 08:00 66 02/12/19 08:00 97.7 64 20 136/56 (82) 97 02/12/19 04:00 98.2 70 20 136/59 (84) 96 70 02/12/19 04:00 68 02/12/19 00:00 69 02/12/19 00:00 98.6 86 19 126/59 (81) 98 86 02/11/19 21:00 Nasal Cannula 2.0 02/11/19 20:00 75 02/11/19 20:00 97.9 72 20 152/58 (89) 96 72 02/11/19 16:00 66 02/11/19 16:00 98.3 68 20 146/55 (85) 97 68 Intake and Output 02/11/19 02/12/19 19:00 07:00 Intake Total 360 ml 3000 ml Output Total 200 ml Balance 160 ml 3000 ml Intake Oral 360 ml Hemodialysis 3000 ml Output Urine Total 200 ml # Voids 3 # Bowel Movements 2 1 Laboratory Tests 02/11/19 14:15: White Blood Count 11.9H, Red Blood Count 3.28L, Hemoglobin 9.3L, Hematocrit 29.2L, Mean Corpuscular Volume 89, Mean Corpuscular Hemoglobin 28.4, Mean Corpuscular Hemoglobin Concent 32.0, Red Cell Distribution Width 14.8, Platelet Count 181, Mean Platelet Volume 7.6, Neutrophils (%) (Auto) 72.7, Lymphocytes (% ) (Auto) 16.6L, Monocytes (%) (Auto) 7.0, Eosinophils (%) (Auto) 3.0, Basophils (%) (Auto) 0.8 02/11/19 15:40: Sodium Level 136, Potassium Level 3.7, Chloride Level 99, Carbon Dioxide Level 29, Anion Gap 8, Blood Urea Nitrogen 66H, Creatinine 2.7H, Estimat Glomerular Filtration Rate , Glucose Level 233H, Calcium Level 7.9L, Phosphorus Level 3.9 Height (Feet): 5 Height (Inches): 2.00 Weight (Pounds): 140 Objective More alert. CV RR Lungs B crackles Abd SNT. BS + Lt. arm exceptionally edematous! Donis Escobar MD Feb 12, 2019 13:09
[2019-02-12 16:00] VITALS: BP 118/51
--- NOTE | 2019-02-12 19:36 | NUR ---
HAND-OFF: Report given to EDMOND Garner. Patient in stable condition.
--- NOTE | 2019-02-12 19:45 | NUR ---
NURSE NOTES: received pt from Torey Rodriguez. pt AOx4. no acute distress. no change in condition during the day. bed locked and lowest position, bedside rail up x 2. call light and personal belongings within reach. will continue to monitor for any change in condition.
[2019-02-12 20:00] VITALS: BP 110/54
[2019-02-12] MEDS: Atorvastatin 20mg tab ORAL SCH (20:55)
[2019-02-13] VITALS: BP 135/50
--- NOTE | 2019-02-13 00:27 | NUR ---
NURSE NOTES: pt in the bed resting comfortable. no change in condition. will continue to monitor for any change in condition.
[2019-02-13 04:00] VITALS: BP_SYST 141; BP_SYST 143; BP_DIAS 55; BP_DIAS 85
[2019-02-13] MEDS: NovoLOG Insulin Flexpen SUBQ SCH ×4 (05:50→21:16)
--- NOTE | 2019-02-13 07:00 | NUR ---
NURSE NOTES: pt remains stable, no change in condition. daughter at bedside. all needs met during my shift. bed locked and lowest position, bedside rail up x2, call light within reach. will endorse plan of care to incoming nurse.
--- NOTE | 2019-02-13 07:34 | NUR ---
HAND-OFF: Report given to EDMOND Borrero.
--- NOTE | 2019-02-13 07:55 | NUR ---
NURSE NOTES: Received report from Patsy/RN, Patient is asleep, resting comfortably. No acute distress/SOB noted. Checked IV; patent, no bleeding or infiltration noted. Belonging in reach, Bed in lowest position and locked, Call light within reach. Will continue plan of care.
[2019-02-13 08:00] VITALS: BP 136/71
[2019-02-13] MEDS: Carvedilol 12.5mg tab ORAL SCH ×2 (09:48→21:14)
[2019-02-13] MEDS: Aspirin Baby 81mg ORAL SCH (09:48)
[2019-02-13] MEDS: cefTRIAXone 1gm/D5W 55ml IVPB SCH ×2 (09:48)
[2019-02-13] MEDS: Docusate 100mg cap ORAL SCH ×2 (09:48→21:14)
[2019-02-13] MEDS: Vitamin D 400 INTLU TAB ORAL SCH (09:48)
[2019-02-13] MEDS: Heparin 5000 units/ml inj SUBQ SCH (09:49)
--- NOTE | 2019-02-13 10:26 | General Progress Note ---
Assessment/Plan Assessment/Plan: IMPRESSION: 1. Chronic renal failure. 2. Toxic metabolic encephalopathy. 3. History of hypertension. 4. History of vitamin D deficiency. 5. Hypercholesterolemia. 6. Possible urinary tract infection. 7. Moderate protein-calorie malnutrition. PLAN HD antibiotics ID CXR- still with pulmonary edema; repeat supportive care dc once stable impression, plan, and exam edited and reviewed in detail care discussed with RN Subjective ROS Limited/Unobtainable: Yes Allergies: Coded Allergies: No Known Allergies (Unverified , 01/11/19) Subjective appears comfortable overall Objective Last 24 Hour Vital Signs Date Time Temp Pulse Resp B/P (MAP) Pulse Ox O2 Delivery O2 Flow Rate FiO2 02/13/19 09:48 79 136/71 02/13/19 09:48 79 136/71 02/13/19 08:00 98.7 79 20 136/71 (92) 97 02/13/19 04:00 98.0 75 18 141/55 (83) 98 02/13/19 04:00 74 02/13/19 00:00 98.0 74 20 135/50 (78) 96 02/13/19 00:00 73 02/12/19 21:00 Nasal Cannula 2.0 02/12/19 20:55 76 110/54 02/12/19 20:16 95 Nasal Cannula 2.0 28 02/12/19 20:00 98.2 76 20 110/54 (72) 96 02/12/19 20:00 69 02/12/19 16:00 98.2 70 18 118/51 (73) 97 02/12/19 16:00 75 02/12/19 12:00 98.3 66 20 112/53 (72) 98 02/12/19 12:00 66 Intake and Output 02/12/19 02/13/19 19:00 07:00 Intake Total 360 ml Balance 360 ml Intake Oral 360 ml # Voids 2 2 # Bowel Movements 4 2 Height (Feet): 5 Height (Inches): 2.00 Weight (Pounds): 140 Objective GENERAL: Chronic ill-appearing female, in no significant distress. HEENT: Negative. NECK: Supple. LUNGS: some rhonchi CARDIAC: S1, S2. Regular rate and rhythm. ABDOMEN: Soft and nontender. EXTREMITIES: Trace edema. NEUROLOGICAL: Confused. Joss Mixon MD Feb 13, 2019 10:26
--- NOTE | 2019-02-13 11:50 | Nephrology Progress Note ---
Assessment/Plan Plan CHF -improved with sequential HD. ESRD Needs anxiolytics pre HD. HD TTS Hafnia UTI - Rx Lt. arm edema. R/O DVT---> Duplex.. Subjective Subjective Per daughter Lt. Arm edematous. Objective Objective Last 24 Hour Vital Signs Date Time Temp Pulse Resp B/P (MAP) Pulse Ox O2 Delivery O2 Flow Rate FiO2 02/13/19 09:48 79 136/71 02/13/19 09:48 79 136/71 02/13/19 08:00 98.7 79 20 136/71 (92) 97 02/13/19 04:00 98.0 75 18 141/55 (83) 98 02/13/19 04:00 74 02/13/19 00:00 98.0 74 20 135/50 (78) 96 02/13/19 00:00 73 02/12/19 21:00 Nasal Cannula 2.0 02/12/19 20:55 76 110/54 02/12/19 20:16 95 Nasal Cannula 2.0 28 02/12/19 20:00 98.2 76 20 110/54 (72) 96 02/12/19 20:00 69 02/12/19 16:00 98.2 70 18 118/51 (73) 97 02/12/19 16:00 75 02/12/19 12:00 98.3 66 20 112/53 (72) 98 02/12/19 12:00 66 Intake and Output 02/12/19 02/13/19 19:00 07:00 Intake Total 360 ml Balance 360 ml Intake Oral 360 ml # Voids 2 2 # Bowel Movements 4 2 Height (Feet): 5 Height (Inches): 2.00 Weight (Pounds): 140 Objective More alert. CV RR Lungs B crackles Abd SNT. BS + Lt. arm exceptionally edematous! Donis Escobar MD Feb 13, 2019 11:50
--- NOTE | 2019-02-13 11:52 | Infectious Diseases Prog Note ---
Assessment/Plan Assessment/Plan A 1. Hafnia UTI 2. leucocytosis improving 3. left arm cellulitis 4. renal failure on dialysis 5. diabetes mellitus 6. hypertension 7. rectal VRE colonization P 1. continue ceftriaxone 1 more day Subjective ROS Limited/Unobtainable: Yes Constitutional: Reports: no symptoms Respiratory: Reports: no symptoms Gastrointestinal/Abdominal: Reports: no symptoms Genitourinary: Reports: no symptoms Allergies: Coded Allergies: No Known Allergies (Unverified , 01/11/19) Objective Vital Signs Last 24 Hour Vital Signs Date Time Temp Pulse Resp B/P (MAP) Pulse Ox O2 Delivery O2 Flow Rate FiO2 02/13/19 09:48 79 136/71 02/13/19 09:48 79 136/71 02/13/19 08:00 98.7 79 20 136/71 (92) 97 02/13/19 04:00 98.0 75 18 141/55 (83) 98 02/13/19 04:00 74 02/13/19 00:00 98.0 74 20 135/50 (78) 96 02/13/19 00:00 73 02/12/19 21:00 Nasal Cannula 2.0 02/12/19 20:55 76 110/54 02/12/19 20:16 95 Nasal Cannula 2.0 28 02/12/19 20:00 98.2 76 20 110/54 (72) 96 02/12/19 20:00 69 02/12/19 16:00 98.2 70 18 118/51 (73) 97 02/12/19 16:00 75 02/12/19 12:00 98.3 66 20 112/53 (72) 98 02/12/19 12:00 66 Height (Feet): 5 Height (Inches): 2.00 Weight (Pounds): 140 General Appearance: no acute distress HEENT: mucous membranes moist Respiratory/Chest: lungs clear Cardiovascular: normal rate, other - Permacath Abdomen: soft, non tender Extremities: no edema Neurologic/Psychiatric: alert, responsive Musculoskeletal: atrophy Current Medications Medications (Trade) Dose Ordered Sig/Eleanor Route PRN Reason Start Time Stop Time Status Last Admin Dose Admin Acetaminophen (Tylenol) 650 mg Q4H PRN ORAL Mild Pain (Pain Scale 1-3) 02/08/19 16:15 03/10/19 16:14 02/11/19 01:25 Amlodipine Besylate (Norvasc) 10 mg DAILY ORAL 02/09/19 09:00 03/11/19 08:59 02/13/19 09:48 Aspirin (ASA) 81 mg DAILY ORAL 02/09/19 09:00 03/11/19 08:59 02/13/19 09:48 Atorvastatin Calcium (Lipitor) 20 mg BEDTIME ORAL 02/08/19 21:00 03/10/19 20:59 02/12/19 20:55 Carvedilol (Coreg) 12.5 mg EVERY 12 HOURS ORAL 02/08/19 21:00 03/10/19 20:59 02/13/19 09:48 Ceftriaxone Sodium 1 gm/ Dextrose 55 ml @ 110 mls/hr Q24H IVPB 02/09/19 09:00 02/16/19 08:59 02/13/19 09:48 Dextrose (Dextrose 50%) 25 ml Q30M PRN IV Hypoglycemia 02/08/19 16:15 03/10/19 16:14 Dextrose (Dextrose 50%) 50 ml Q30M PRN IV Hypoglycemia 02/08/19 16:15 03/10/19 16:14 Docusate Sodium (Colace) 100 mg EVERY 12 HOURS ORAL 02/08/19 21:00 03/10/19 20:59 02/13/19 09:48 Epoetin Elijah (Epoetin Elijah(ESRD on dialysis)) 8,000 unit WED-WED-WED SUBQ 02/08/19 21:00 03/10/19 20:59 02/10/19 21:24 Heparin Sodium (Porcine) (Heparin 5000 units/ml) 5,000 units EVERY 12 HOURS SUBQ 02/08/19 21:00 03/10/19 20:59 02/13/19 09:49 Insulin Aspart (NovoLOG) BEFORE MEALS AND HS SUBQ 02/11/19 11:30 03/13/19 11:29 02/13/19 05:50 Lorazepam (Ativan 2mg/ml 1ml) 1 mg Q6H PRN IV For Anxiety 02/08/19 16:00 02/15/19 15:59 Nateglinide (Starlix) 120 mg ACBREAKFAST ORAL 02/12/19 06:30 03/14/19 06:29 02/13/19 05:48 Ondansetron HCl (Zofran) 4 mg Q6H PRN IVP Nausea & Vomiting 02/08/19 16:15 03/10/19 16:14 Vitamin D (Vitamin D) 400 intlu DAILY ORAL 02/09/19 09:00 03/11/19 08:59 02/13/19 09:48 Sahil Flores MD Feb 13, 2019 11:52
[2019-02-13 12:00] VITALS: BP 129/75
--- NOTE | 2019-02-13 12:45 | NUR ---
CASE MANAGEMENT: REVIEW 02/12/2019 SI:ENCEPHALOPATHY. UTI. T 98.2 HR 76 RR 20 B/P 110/54 SATS 96% ON 2L/NC NO LABS TODAY IS:COREG PO Q12H LIPITOR PO QHS NORVASC PO QD ASA PO QD CEFTRIAXONE IV Q24H TELE STATUS DCP: PATIENT TO BE DISCHARGED TO HOME ONCE MEDICALLY CLEARED. PLAN OF CARE: O2 THERAPY IV ANTIBX 02/13/2019 SI:ENCEPHALOPATHY. UTI. T 98.7 HR 79 RR 20 B/P 136/71 SATS 97% ON 2L/NC NO LABS TODAY IS:COREG PO Q12H LIPITOR PO QHS NORVASC PO QD ASA PO QD CEFTRIAXONE IV Q24H TELE STATUS DCP: PATIENT TO BE DISCHARGED TO HOME ONCE MEDICALLY CLEARED. PLAN OF CARE: O2 THERAPY IV ANTIBX
--- NOTE | 2019-02-13 12:48 | NUR ---
INSURANCE REVIEWS HAVE BEEN FAXED TO BOTH INS CO: [facility] PH[facility] NCM:BASSAM F:[phone] & [facility] NCM: NEEL RODRIGUEZ F:[phone]
[2019-02-13 16:00] VITALS: BP 133/57
[2019-02-13] MEDS: Eliquis 2.5mg tablet ORAL SCH (17:10)
--- NOTE | 2019-02-13 19:40 | NUR ---
NURSE NOTES: Received patient from EDMOND Morales. Will continue plan of care.
--- NOTE | 2019-02-13 19:54 | NUR ---
NURSE NOTES: Called [facility], made schedule for HD with [facility]
--- NOTE | 2019-02-13 19:56 | NUR ---
HAND-OFF: Report given to Opal/RN, Patient is in stable condition and Endorsed plan of care.
[2019-02-13 20:00] VITALS: BP 143/68
--- NOTE | 2019-02-13 20:47 | NUR ---
NURSE NOTES: Patient has a right upper chest permacath and right a/c 20g IV. Explained to Nissa (daughter) that it is not recommended to have an IV inserted on the same side as a dialysis port. Nissa states that her left arm can get "very swollen" and family prefers not to have IV placed in the right side but rather on the left side. Dr. Rosenbaum is aware of extreme left arm edema, which he had also discussed with daughter per his progress notes.
[2019-02-13] MEDS: Epoetin Alfa-EPBX(ESRD on dialysis)4000 units/ml vial SUBQ SCH (21:12)
[2019-02-13] MEDS: Atorvastatin 20mg tab ORAL SCH (21:14)
[2019-02-14] VITALS: BP 120/52
[2019-02-14 04:00] VITALS: BP 125/58
[2019-02-14] MEDS: NovoLOG Insulin Flexpen SUBQ SCH ×4 (05:50→21:34)
[2019-02-14 06:46] LABS: BASOPHILS % (AUTO) 1.1 % (0.0-2.0); EOSINOPHILS % (AUTO) 2.9 % (0.0-3.0); HEMATOCRIT 28.6 % (37.0-47.0); HEMOGLOBIN 9.4 G/DL (12.0-16.0); LYMPHOCYTES % (AUTO) 18.2 % (20.0-45.0); MEAN CORPUSCULAR VOLUME 90 FL (80-99); MONOCYTES % (AUTO) 6.6 % (1.0-10.0); NEUTROPHILS % (AUTO) 71.2 % (45.0-75.0); PLATELET COUNT 174 K/UL (150-450); RED BLOOD COUNT 3.16 M/UL (4.20-5.40); RED CELL DISTRIBUTION WIDTH 15.2 % (11.6-14.8); WHITE BLOOD COUNT 12.6 K/UL (4.8-10.8)
--- NOTE | 2019-02-14 07:20 | NUR ---
NURSE NOTES: Received report from Opal/RN, Patient is asleep, Lying semi-lopez, resting comfortably. No acute distress/SOB noted at this time. Granddaughter at bedside. Bed in lowest position and locked. Call light within reach. Will continue plan of care.
--- NOTE | 2019-02-14 07:22 | NUR ---
HAND-OFF: Report given to EDMOND Morales.
[2019-02-14 08:00] VITALS: BP 120/49
--- NOTE | 2019-02-14 08:41 | General Progress Note ---
Assessment/Plan Assessment/Plan: IMPRESSION: 1. Chronic renal failure. 2. Toxic metabolic encephalopathy. 3. History of hypertension. 4. History of vitamin D deficiency. 5. Hypercholesterolemia. 6. Possible urinary tract infection. 7. Moderate protein-calorie malnutrition. PLAN HD antibiotics dc today ID cleared CXR- still with pulmonary edema; keep negative supportive care dc today- appears improved impression, plan, and exam edited and reviewed in detail care discussed with RN Subjective Allergies: Coded Allergies: No Known Allergies (Unverified , 01/11/19) Subjective appears comfortable overall d/w family d/w ID plan to dc antibiotics today Objective Last 24 Hour Vital Signs Date Time Temp Pulse Resp B/P (MAP) Pulse Ox O2 Delivery O2 Flow Rate FiO2 02/14/19 08:00 97.2 8 18 120/49 (72) 98 02/14/19 04:00 98.2 70 16 125/58 (80) 94 02/14/19 03:24 70 02/14/19 00:00 98.4 74 16 120/52 (74) 97 02/13/19 23:29 69 02/13/19 21:14 76 143/68 02/13/19 21:00 Nasal Cannula 2.0 02/13/19 20:00 98.6 76 16 143/68 (93) 96 02/13/19 19:45 73 02/13/19 16:00 98.3 68 18 133/57 (82) 96 02/13/19 16:00 67 02/13/19 12:00 70 02/13/19 12:00 98.2 73 18 129/75 (93) 98 02/13/19 09:48 79 136/71 02/13/19 09:48 79 136/71 02/13/19 09:00 Nasal Cannula 2.0 Intake and Output 02/13/19 02/14/19 19:00 07:00 Intake Total 620 ml 100 ml Balance 620 ml 100 ml Intake Oral 620 ml 100 ml # Voids 1 2 # Bowel Movements 1 1 Laboratory Tests 02/14/19 05:40: White Blood Count 12.6H, Red Blood Count 3.16L, Hemoglobin 9.4L, Hematocrit 28.6L, Mean Corpuscular Volume 90, Mean Corpuscular Hemoglobin 29.7, Mean Corpuscular Hemoglobin Concent 32.8, Red Cell Distribution Width 15.2H, Platelet Count 174, Mean Platelet Volume 8.4, Neutrophils (%) (Auto) 71.2, Lymphocytes (%) (Auto) 18.2L, Monocytes (%) (Auto) 6.6, Eosinophils (%) (Auto) 2.9, Basophils (%) (Auto) 1.1 Height (Feet): 5 Height (Inches): 2.00 Weight (Pounds): 140 Objective GENERAL: Chronic ill-appearing female, in no significant distress. HEENT: Negative. NECK: Supple. LUNGS: some rhonchi CARDIAC: S1, S2. Regular rate and rhythm. ABDOMEN: Soft and nontender. EXTREMITIES: Trace edema. NEUROLOGICAL: Confused. Joss Mixon MD Feb 14, 2019 08:41
[2019-02-14] MEDS: Carvedilol 12.5mg tab ORAL SCH ×2 (09:08→21:30)
[2019-02-14] MEDS: Vitamin D 400 INTLU TAB ORAL SCH (09:08)
[2019-02-14] MEDS: Eliquis 2.5mg tablet ORAL SCH ×2 (09:08→16:49)
[2019-02-14] MEDS: Docusate 100mg cap ORAL SCH ×2 (09:09→21:31)
[2019-02-14] MEDS: cefTRIAXone 1gm/D5W 55ml IVPB SCH ×2 (09:09)
[2019-02-14] MEDS: Aspirin Baby 81mg ORAL SCH (09:09)
--- NOTE | 2019-02-14 09:14 | NUR ---
RADIOLOGY DEPARTMENT, CHEST X-RAY DONE.-P.DYE
--- NOTE | 2019-02-14 11:18 | Infectious Diseases Prog Note ---
Assessment/Plan Assessment/Plan antibiotics : ceftriaxone A 1. hafnia UTI s/p rx 2. leucocytosis 3. left arm cellulitis improving 4. renal failure on dialysis 5. diabetes mellitus 6. hypertension 7. rectal VRE colonization P 1. d/c ceftriaxone 2. observe off antibiotics Subjective Constitutional: Denies: fever, chills Respiratory: Denies: shortness of breath, dry cough Gastrointestinal/Abdominal: Denies: nausea, vomiting, diarrhea Musculoskeletal: Denies: pain Allergies: Coded Allergies: No Known Allergies (Unverified , 01/11/19) Objective Vital Signs Last 24 Hour Vital Signs Date Time Temp Pulse Resp B/P (MAP) Pulse Ox O2 Delivery O2 Flow Rate FiO2 02/14/19 10:05 96 Nasal Cannula 2.0 28 02/14/19 09:08 8 120/49 02/14/19 09:08 8 120/49 02/14/19 08:00 97.2 8 18 120/49 (72) 98 02/14/19 04:00 98.2 70 16 125/58 (80) 94 02/14/19 03:24 70 02/14/19 00:00 98.4 74 16 120/52 (74) 97 02/13/19 23:29 69 02/13/19 21:14 76 143/68 02/13/19 21:00 Nasal Cannula 2.0 02/13/19 20:00 98.6 76 16 143/68 (93) 96 02/13/19 19:45 73 02/13/19 16:00 98.3 68 18 133/57 (82) 96 02/13/19 16:00 67 02/13/19 12:00 70 02/13/19 12:00 98.2 73 18 129/75 (93) 98 Height (Feet): 5 Height (Inches): 2.00 Weight (Pounds): 140 Respiratory/Chest: lungs clear Cardiovascular: normal rate, regular rhythm, no gallop/murmur Abdomen: soft, non tender Extremities: no edema, other - right subclavian catheter Laboratory Tests Test 02/14/19 05:40 White Blood Count 12.6 K/UL (4.8-10.8) H Red Blood Count 3.16 M/UL (4.20-5.40) L Hemoglobin 9.4 G/DL (12.0-16.0) L Hematocrit 28.6 % (37.0-47.0) L Mean Corpuscular Volume 90 FL (80-99) Mean Corpuscular Hemoglobin 29.7 PG (27.0-31.0) Mean Corpuscular Hemoglobin Concent 32.8 G/DL (32.0-36.0) Red Cell Distribution Width 15.2 % (11.6-14.8) H Platelet Count 174 K/UL (150-450) Mean Platelet Volume 8.4 FL (6.5-10.1) Neutrophils (%) (Auto) 71.2 % (45.0-75.0) Lymphocytes (%) (Auto) 18.2 % (20.0-45.0) L Monocytes (%) (Auto) 6.6 % (1.0-10.0) Eosinophils (%) (Auto) 2.9 % (0.0-3.0) Basophils (%) (Auto) 1.1 % (0.0-2.0) Current Medications Medications (Trade) Dose Ordered Sig/Eleanor Route PRN Reason Start Time Stop Time Status Last Admin Dose Admin Acetaminophen (Tylenol) 650 mg Q4H PRN ORAL Mild Pain (Pain Scale 1-3) 02/08/19 16:15 03/10/19 16:14 02/11/19 01:25 Amlodipine Besylate (Norvasc) 10 mg DAILY ORAL 02/09/19 09:00 03/11/19 08:59 02/14/19 09:08 Apixaban (Eliquis) 2.5 mg BID ORAL 02/13/19 18:00 03/15/19 17:59 02/14/19 09:08 Aspirin (ASA) 81 mg DAILY ORAL 02/09/19 09:00 03/11/19 08:59 02/14/19 09:09 Atorvastatin Calcium (Lipitor) 20 mg BEDTIME ORAL 02/08/19 21:00 03/10/19 20:59 02/13/19 21:14 Carvedilol (Coreg) 12.5 mg EVERY 12 HOURS ORAL 02/08/19 21:00 03/10/19 20:59 02/14/19 09:08 Ceftriaxone Sodium 1 gm/ Dextrose 55 ml @ 110 mls/hr Q24H IVPB 02/09/19 09:00 02/16/19 08:59 02/14/19 09:09 Dextrose (Dextrose 50%) 25 ml Q30M PRN IV Hypoglycemia 02/08/19 16:15 03/10/19 16:14 Dextrose (Dextrose 50%) 50 ml Q30M PRN IV Hypoglycemia 02/08/19 16:15 03/10/19 16:14 Docusate Sodium (Colace) 100 mg EVERY 12 HOURS ORAL 02/08/19 21:00 03/10/19 20:59 02/14/19 09:09 Epoetin Elijah (Epoetin Elijah(ESRD on dialysis)) 8,000 unit WED-WED-WED SUBQ 02/08/19 21:00 03/10/19 20:59 02/13/19 21:12 Heparin Sodium (Porcine) (Heparin Sod 1000 units/ml 10ml) 2,000 unit ONCE PRN IV dialysis 02/14/19 12:00 02/14/19 23:59 Heparin Sodium (Porcine) (Heparin) 1,000 unit POSTHD INJ 02/14/19 12:00 02/14/19 23:59 Insulin Aspart (NovoLOG) BEFORE MEALS AND HS SUBQ 02/11/19 11:30 03/13/19 11:29 02/14/19 05:50 Lorazepam (Ativan 2mg/ml 1ml) 1 mg Q6H PRN IV For Anxiety 02/08/19 16:00 02/15/19 15:59 Nateglinide (Starlix) 120 mg ACBREAKFAST ORAL 02/12/19 06:30 03/14/19 06:29 02/14/19 05:51 Ondansetron HCl (Zofran) 4 mg Q6H PRN IVP Nausea & Vomiting 02/08/19 16:15 03/10/19 16:14 Sodium Chloride 1,000 ml @ 500 mls/hr Q2H PRN IVLG sbp<90 during hd 02/14/19 11:50 02/14/19 23:59 Vitamin D (Vitamin D) 400 intlu DAILY ORAL 02/09/19 09:00 03/11/19 08:59 02/14/19 09:08 Sabina Gamble MD Feb 14, 2019 11:18
[2019-02-14 12:00] VITALS: BP 120/56
[2019-02-14] MEDS ORDERED: Heparin 1000 units/ml 1ml Vial INJ SCH (12:00)
[2019-02-14] MEDS ORDERED: Heparin Sod 1000 units/ml 10ml IV PRN (12:00)
[2019-02-14 12:50] LABS: ANION GAP 8 mmol/L (5-15); BLOOD UREA NITROGEN 85 mg/dL (7-18); CALCIUM 8.4 MG/DL (8.5-10.1); CARBON DIOXIDE 30 MMOL/L (21-32); CHLORIDE 98 MMOL/L (98-107); CREATININE 3.3 MG/DL (0.55-1.30); POTASSIUM 3.9 MMOL/L (3.5-5.1); SODIUM 136 MMOL/L (136-145)
--- NOTE | 2019-02-14 13:20 | Diagnostic Imaging Report ---
Indication: Dyspnea Comparison: 02/09/2019 A single view chest radiograph was obtained. Findings: Patchy basilar parenchymal densities again demonstrated. Hazy prominence of both renee noted with cardiomegaly. There is a right permacath. Pulmonary vascular congestion appears improved. IMPRESSION: Basilar densities probably pleural effusions. Improved, mild vascular congestion.
--- NOTE | 2019-02-14 14:53 | NUR ---
SS note Chart reviewed; this SW spoke with granddaughter (and daughter Nuha) @ [phone] who anticipates patient to return home today with family to assist as needed. Patient had home care prior, but family was unable to recall which home care was following. No other SW needs or concerns present at this time.
[2019-02-14 16:00] VITALS: BP 123/50
--- NOTE | 2019-02-14 16:00 | Nephrology Progress Note ---
Assessment/Plan Plan CHF -improved with sequential HD. ESRD Needs anxiolytics pre HD. HD TTS Hafnia UTI - Rx Lt. arm edema. R/O DVT---> Duplex..Has Lt. IJ DVT!!! Subjective Subjective Per daughter Lt. Arm edematous. Objective Objective Last 24 Hour Vital Signs Date Time Temp Pulse Resp B/P (MAP) Pulse Ox O2 Delivery O2 Flow Rate FiO2 02/14/19 12:00 57 02/14/19 12:00 98.0 67 20 120/56 (77) 96 02/14/19 10:05 96 Nasal Cannula 2.0 28 02/14/19 09:08 8 120/49 02/14/19 09:08 8 120/49 02/14/19 09:00 Nasal Cannula 2.0 02/14/19 08:00 62 02/14/19 08:00 97.2 8 18 120/49 (72) 98 02/14/19 04:00 98.2 70 16 125/58 (80) 94 02/14/19 03:24 70 02/14/19 00:00 98.4 74 16 120/52 (74) 97 02/13/19 23:29 69 02/13/19 21:14 76 143/68 02/13/19 21:00 Nasal Cannula 2.0 02/13/19 20:00 98.6 76 16 143/68 (93) 96 02/13/19 19:45 73 Intake and Output 02/13/19 02/14/19 19:00 07:00 Intake Total 620 ml 100 ml Balance 620 ml 100 ml Intake Oral 620 ml 100 ml # Voids 1 2 # Bowel Movements 1 1 Laboratory Tests 02/14/19 05:40: White Blood Count 12.6H, Red Blood Count 3.16L, Hemoglobin 9.4L, Hematocrit 28.6L, Mean Corpuscular Volume 90, Mean Corpuscular Hemoglobin 29.7, Mean Corpuscular Hemoglobin Concent 32.8, Red Cell Distribution Width 15.2H, Platelet Count 174, Mean Platelet Volume 8.4, Neutrophils (%) (Auto) 71.2, Lymphocytes (%) (Auto) 18.2L, Monocytes (%) (Auto) 6.6, Eosinophils (%) (Auto) 2.9, Basophils (%) (Auto) 1.1, Sodium Level 136, Potassium Level 3.9, Chloride Level 98, Carbon Dioxide Level 30, Anion Gap 8, Blood Urea Nitrogen 85H, Creatinine 3.3H, Estimat Glomerular Filtration Rate , Glucose Level 110H, Calcium Level 8.4L Height (Feet): 5 Height (Inches): 2.00 Weight (Pounds): 140 Objective More alert. CV RR Lungs B crackles Abd SNT. BS + Lt. arm exceptionally edematous! Donis Escobar MD Feb 14, 2019 16:00
--- NOTE | 2019-02-14 19:50 | NUR ---
NURSE NOTES: Received patient from EDMOND Morales. patient is eating in bed, denies pain at this time. Family is at bedside. patient is on 2 L O2 via NC, tolerating well. no s/sx of respiratory distress noted at this time. IV site is patent and intact. Right upper chest permacath is patent, intact, and asymptomatic. bed in lowest position and locked, siderails up X2, call light within reach. will continue to monitor.
--- NOTE | 2019-02-14 19:54 | NUR ---
HAND-OFF: Report given to Maddy/RN, Patient is in stable condition, Endorsed plan of care.
[2019-02-14 20:00] VITALS: BP 123/48
[2019-02-14] MEDS: Atorvastatin 20mg tab ORAL SCH (21:24)
--- NOTE | 2019-02-14 23:10 | NUR ---
NURSE NOTES: Received pathology results faxed by . placed in patient's chart.
[2019-02-15] VITALS (7 sets, daily range): BP systolic 108–144; BP diastolic 43–59
--- NOTE | 2019-02-15 01:26 | NUR ---
NURSE NOTES: patient is sleeping in bed. no changes in condition. no s/sx of pain nor respiratory distress noted at this time. will continue to monitor.
[2019-02-15] MEDS: NovoLOG Insulin Flexpen SUBQ SCH ×4 (06:32→21:41)
--- NOTE | 2019-02-15 07:32 | NUR ---
HAND-OFF: Report given to EDMOND Goff. patient is in stable condition.
--- NOTE | 2019-02-15 07:33 | NUR ---
NURSE NOTES: Received report from EDMOND Castañeda. Patient is resting in bed in stable condition. Alert and Orientedx2, [place]i speaking. Breathing unlabored in 2 liter Nasal Cannula. Patient's daughter at bed side. Bed in lowest position with two side rails up, brakes on, call light and bed side table within reach. Bed alarm on. Will continue plan of care.
[2019-02-15] MEDS: Carvedilol 12.5mg tab ORAL SCH ×2 (09:06→21:10)
[2019-02-15] MEDS: Docusate 100mg cap ORAL SCH ×3 (09:06→21:11)
[2019-02-15] MEDS: Vitamin D 400 INTLU TAB ORAL SCH (09:06)
[2019-02-15] MEDS: Aspirin Baby 81mg ORAL SCH (09:06)
[2019-02-15] MEDS: Eliquis 2.5mg tablet ORAL SCH ×2 (09:07→17:13)
--- NOTE | 2019-02-15 10:07 | Pulmonology Progress Note ---
Assessment/Plan Assessment/Plan Pulmonary Progress Note Assessment/Plan: IMPRESSION: 1. Chronic renal failure. 2. Toxic metabolic encephalopathy. 3. History of hypertension. 4. History of vitamin D deficiency. 5. Hypercholesterolemia. 6. Possible urinary tract infection. 7. Moderate protein-calorie malnutrition. PLAN HD AB DC CXR- still with pulmonary edema; keep negative supportive care dc today- appears improved impression, plan, and exam edited and reviewed in detail care discussed with RN Subjective Allergies: Coded Allergies: No Known Allergies (Unverified , 01/11/19) Subjective appears comfortable overall ID following Objective Vital Signs Noted Laboratory Tests Noted 02/14/19 05:40: White Blood Count 12.6H, Red Blood Count 3.16L, Hemoglobin 9.4L, Hematocrit 28.6L, Mean Corpuscular Volume 90, Mean Corpuscular Hemoglobin 29.7, Mean Corpuscular Hemoglobin Concent 32.8, Red Cell Distribution Width 15.2H, Platelet Count 174, Mean Platelet Volume 8.4, Neutrophils (%) (Auto) 71.2, Lymphocytes (%) (Auto) 18.2L, Monocytes (%) (Auto) 6.6, Eosinophils (%) (Auto) 2.9, Basophils (%) (Auto) 1.1 Height (Feet): 5 Height (Inches): 2.00 Weight (Pounds): 140 Objective GENERAL: Chronic ill-appearing female, in no significant distress. HEENT: Negative. NECK: Supple. LUNGS: some rhonchi CARDIAC: S1, S2. Regular rate and rhythm. ABDOMEN: Soft and nontender. EXTREMITIES: Trace edema. NEUROLOGICAL: Confused. Subjective ROS Limited/Unobtainable: No Allergies: Coded Allergies: No Known Allergies (Unverified , 01/11/19) Objective Last 24 Hour Vital Signs Date Time Temp Pulse Resp B/P (MAP) Pulse Ox O2 Delivery O2 Flow Rate FiO2 02/15/19 09:06 64 122/53 02/15/19 09:06 64 122/53 02/15/19 08:00 98.0 64 20 122/53 (76) 95 02/15/19 04:00 97.9 64 18 144/59 (87) 96 02/15/19 04:00 64 02/15/19 00:00 97.8 69 18 123/52 (75) 97 02/15/19 00:00 68 02/14/19 21:30 70 125/55 02/14/19 21:00 Nasal Cannula 2.0 02/14/19 20:00 99.1 70 18 123/48 (73) 97 02/14/19 20:00 70 02/14/19 16:00 98.1 67 20 123/50 (74) 95 02/14/19 16:00 65 02/14/19 12:00 57 02/14/19 12:00 98.0 67 20 120/56 (77) 96 Intake and Output 02/14/19 02/15/19 19:00 07:00 Intake Total 420 ml 120 ml Balance 420 ml 120 ml Intake Oral 420 ml 120 ml # Voids 4 2 # Bowel Movements 3 1 Current Medications Medications (Trade) Dose Ordered Sig/Eleanor Route PRN Reason Start Time Stop Time Status Last Admin Dose Admin Acetaminophen (Tylenol) 650 mg Q4H PRN ORAL Mild Pain (Pain Scale 1-3) 02/08/19 16:15 03/10/19 16:14 02/11/19 01:25 Amlodipine Besylate (Norvasc) 10 mg DAILY ORAL 02/09/19 09:00 03/11/19 08:59 02/15/19 09:06 Apixaban (Eliquis) 2.5 mg BID ORAL 02/13/19 18:00 03/15/19 17:59 02/15/19 09:07 Aspirin (ASA) 81 mg DAILY ORAL 02/09/19 09:00 03/11/19 08:59 02/15/19 09:06 Atorvastatin Calcium (Lipitor) 20 mg BEDTIME ORAL 02/08/19 21:00 03/10/19 20:59 02/14/19 21:24 Carvedilol (Coreg) 12.5 mg EVERY 12 HOURS ORAL 02/08/19 21:00 03/10/19 20:59 02/15/19 09:06 Dextrose (Dextrose 50%) 25 ml Q30M PRN IV Hypoglycemia 02/08/19 16:15 03/10/19 16:14 Dextrose (Dextrose 50%) 50 ml Q30M PRN IV Hypoglycemia 02/08/19 16:15 03/10/19 16:14 Docusate Sodium (Colace) 100 mg EVERY 12 HOURS ORAL 02/08/19 21:00 03/10/19 20:59 02/15/19 09:06 Epoetin Elijah (Epoetin Elijah(ESRD on dialysis)) 8,000 unit WED-WED-WED SUBQ 02/08/19 21:00 03/10/19 20:59 02/13/19 21:12 Insulin Aspart (NovoLOG) BEFORE MEALS AND HS SUBQ 02/11/19 11:30 03/13/19 11:29 02/15/19 06:32 Lorazepam (Ativan 2mg/ml 1ml) 1 mg Q6H PRN IV For Anxiety 02/08/19 16:00 02/15/19 15:59 Nateglinide (Starlix) 120 mg ACBREAKFAST ORAL 02/12/19 06:30 03/14/19 06:29 02/15/19 06:30 Ondansetron HCl (Zofran) 4 mg Q6H PRN IVP Nausea & Vomiting 02/08/19 16:15 03/10/19 16:14 Vitamin D (Vitamin D) 400 intlu DAILY ORAL 02/09/19 09:00 03/11/19 08:59 02/15/19 09:06 Kevyn Zamora MD Feb 15, 2019 10:07
--- NOTE | 2019-02-15 10:59 | Infectious Diseases Prog Note ---
Assessment/Plan Assessment/Plan antibiotics : none A 1. hafnia UTI s/p rx 2. leucocytosis 3. left arm cellulitis improving 4. renal failure on dialysis 5. diabetes mellitus 6. hypertension 7. rectal VRE colonization 8. left arm DVT P 1. observe off antibiotics Subjective Constitutional: Denies: fever, chills Respiratory: Denies: shortness of breath, dry cough Gastrointestinal/Abdominal: Denies: nausea, vomiting, diarrhea Musculoskeletal: Denies: pain Allergies: Coded Allergies: No Known Allergies (Unverified , 01/11/19) Objective Vital Signs Last 24 Hour Vital Signs Date Time Temp Pulse Resp B/P (MAP) Pulse Ox O2 Delivery O2 Flow Rate FiO2 02/15/19 09:06 64 122/53 02/15/19 09:06 64 122/53 02/15/19 09:00 Nasal Cannula 2.0 02/15/19 08:00 98.0 64 20 122/53 (76) 95 02/15/19 08:00 65 02/15/19 04:00 97.9 64 18 144/59 (87) 96 02/15/19 04:00 64 02/15/19 00:00 97.8 69 18 123/52 (75) 97 02/15/19 00:00 68 02/14/19 21:30 70 125/55 02/14/19 21:00 Nasal Cannula 2.0 02/14/19 20:00 99.1 70 18 123/48 (73) 97 02/14/19 20:00 70 02/14/19 16:00 98.1 67 20 123/50 (74) 95 02/14/19 16:00 65 02/14/19 12:00 57 02/14/19 12:00 98.0 67 20 120/56 (77) 96 Height (Feet): 5 Height (Inches): 2.00 Weight (Pounds): 121 Respiratory/Chest: lungs clear Cardiovascular: normal rate, regular rhythm, no gallop/murmur Abdomen: soft, non tender Extremities: no edema Current Medications Medications (Trade) Dose Ordered Sig/Eleanor Route PRN Reason Start Time Stop Time Status Last Admin Dose Admin Acetaminophen (Tylenol) 650 mg Q4H PRN ORAL Mild Pain (Pain Scale 1-3) 02/08/19 16:15 03/10/19 16:14 02/11/19 01:25 Amlodipine Besylate (Norvasc) 10 mg DAILY ORAL 02/09/19 09:00 03/11/19 08:59 02/15/19 09:06 Apixaban (Eliquis) 2.5 mg BID ORAL 02/13/19 18:00 03/15/19 17:59 02/15/19 09:07 Aspirin (ASA) 81 mg DAILY ORAL 02/09/19 09:00 03/11/19 08:59 02/15/19 09:06 Atorvastatin Calcium (Lipitor) 20 mg BEDTIME ORAL 02/08/19 21:00 03/10/19 20:59 02/14/19 21:24 Carvedilol (Coreg) 12.5 mg EVERY 12 HOURS ORAL 02/08/19 21:00 03/10/19 20:59 02/15/19 09:06 Dextrose (Dextrose 50%) 25 ml Q30M PRN IV Hypoglycemia 02/08/19 16:15 03/10/19 16:14 Dextrose (Dextrose 50%) 50 ml Q30M PRN IV Hypoglycemia 02/08/19 16:15 03/10/19 16:14 Docusate Sodium (Colace) 100 mg EVERY 12 HOURS ORAL 02/08/19 21:00 03/10/19 20:59 02/15/19 09:06 Epoetin Elijah (Epoetin Elijah(ESRD on dialysis)) 8,000 unit WED-WED-WED SUBQ 02/08/19 21:00 03/10/19 20:59 02/13/19 21:12 Insulin Aspart (NovoLOG) BEFORE MEALS AND HS SUBQ 02/11/19 11:30 03/13/19 11:29 02/15/19 06:32 Lorazepam (Ativan 2mg/ml 1ml) 1 mg Q6H PRN IV For Anxiety 02/08/19 16:00 02/15/19 15:59 Nateglinide (Starlix) 120 mg ACBREAKFAST ORAL 02/12/19 06:30 03/14/19 06:29 02/15/19 06:30 Ondansetron HCl (Zofran) 4 mg Q6H PRN IVP Nausea & Vomiting 02/08/19 16:15 03/10/19 16:14 Vitamin D (Vitamin D) 400 intlu DAILY ORAL 02/09/19 09:00 03/11/19 08:59 02/15/19 09:06 Sabina Gamble MD Feb 15, 2019 10:59
--- NOTE | 2019-02-15 11:27 | Diagnostic Imaging Report ---
APPROVED REPORT CPT Code: 27969 Present Symptoms Comments: Hx o AVF LEFT ARM: Venous imaging reveals non-obstructive acute thrombus in the internal jugular vein. The remaining segments are within normal limits. There is no evidence of thrombus within the subclavian, axillary, and brachial veins. EDMOND Morales was notified of abnormal results at 1045 hours.
--- NOTE | 2019-02-15 11:47 | Diagnostic Imaging Report ---
Indication:Thyroid nodule. Palpable lump Technique: Grayscale and duplex Doppler imaging of the thyroid gland performed. Comparison: None Findings: Thyroid gland is normal in size but diffusely heterogeneous with areas of calcification and nodularity. Within the left lobe there is a densely calcified lesion measuring 1.6 x 1.2 x 1.5 cm. This may be the area of palpable concern. Please correlate clinically. There is also a well-circumscribed solid lesion partially calcified in the right lobe measuring 2 cm. Other smaller cystic lesions noted. The isthmus measures about 5 mm in anterior posterior dimension. The right lobe measures 4.4 x 2.4 x 2.5 cm. Left lobe 4.5 x 3.5 x 3.4 cm. IMPRESSION: Heterogeneous multinodular gland. Dominant nodules are discussed above.
--- NOTE | 2019-02-15 12:24 | NUR ---
CASE MANAGEMENT:REVIEW 02/14/19 SI: TOXIC METABOLIC ENCEPHALOPATHY POSSIBLE UTI. MALNUTRITION 97.2 62 18 120/49 98% ON 2L/NC WBC+12.6 H/H-9.4/28.6 BUN+85 CR+3.3 IS: ELIQUIS PO BID STARLIX PO QAM SS INSULIN AC+HS NORVASC PO QD ASA PO QD COREG PO Q12 EPOETIN SQ MWF : TELEMETRY STATUS PLAN: PATIENT HAD DC ORDER FOR TODAY BUT THEN IT WAS CANCELLED D/T VENOUS DUPLEX BEING POSITIVE FOR ACUTE THROMBUS IN INTERNAL JUGULAR VEIN 02/15/19 SI: TOXIC METABOLIC ENCEPHALOPATHY POSSIBLE UTI. MALNUTRITION 97.3 67 18 108/50 94% ON 2L/NC IS: ELIQUIS PO BID STARLIX PO QAM SS INSULIN AC+HS NORVASC PO QD ASA PO QD COREG PO Q12 EPOETIN SQ MWF : TELEMETRY STATUS DCP: HOME PLAN: DR ROSE COVERING FOR DR ROCA SPOKE WITH DR ROSE ABOUT PLAN OF CARE NOW THAT THROMBUS HAS BEEN DISCOVERED DR ROSE STATED HE WILL ASSESS PATIENT LATER TODAY FOR APPROPRIATENESS FOR DISCHARGE
--- NOTE | 2019-02-15 15:24 | Nephrology Progress Note ---
Assessment/Plan Plan CHF -improved with sequential HD. ESRD Needs anxiolytics pre HD. HD TTS Hafnia UTI - Rx Lt. arm edema. R/O DVT---> Duplex..Has Lt. IJ DVT!!! Spoke to [facility] pathologist . Had Thyroid FNA and also LN biopsy. Both show "atypia " no definitive CA. Spoke to Dr. Jimy Alfredo. Needs urgent ENT w/u. Subjective Subjective Per daughter Lt. Arm edematous. Objective Objective Last 24 Hour Vital Signs Date Time Temp Pulse Resp B/P (MAP) Pulse Ox O2 Delivery O2 Flow Rate FiO2 02/15/19 12:00 69 02/15/19 12:00 97.3 67 18 108/50 (69) 94 02/15/19 09:06 64 122/53 02/15/19 09:06 64 122/53 02/15/19 09:00 Nasal Cannula 2.0 02/15/19 08:00 98.0 64 20 122/53 (76) 95 02/15/19 08:00 65 02/15/19 04:00 97.9 64 18 144/59 (87) 96 02/15/19 04:00 64 02/15/19 00:00 97.8 69 18 123/52 (75) 97 02/15/19 00:00 68 02/14/19 21:30 70 125/55 02/14/19 21:00 Nasal Cannula 2.0 02/14/19 20:00 99.1 70 18 123/48 (73) 97 02/14/19 20:00 70 02/14/19 16:00 98.1 67 20 123/50 (74) 95 02/14/19 16:00 65 Intake and Output 02/14/19 02/15/19 19:00 07:00 Intake Total 420 ml 120 ml Balance 420 ml 120 ml Intake Oral 420 ml 120 ml # Voids 4 2 # Bowel Movements 3 1 Height (Feet): 5 Height (Inches): 2.00 Weight (Pounds): 121 Objective More alert. CV RR Lungs B crackles Abd SNT. BS + Lt. arm exceptionally edematous! Donis Escobar MD Feb 15, 2019 15:24
--- NOTE | 2019-02-15 15:41 | NUR ---
RD ASSESSMENT & RECOMMENDATIONS SEE CARE ACTIVITY FOR COMPLETE ASSESSMENT DAILY ESTIMATED NEEDS: Needs based on DM, CKD w/ HD 54. 7kg adj 25-35 kcals/kg 0519-1094 total kcals 1.2-1.8 g protein/kg 56-85 g total protein Fluid per MD NUTRITION DIAGNOSIS: * Increased kcal/prot intake needs R/T renal dysfunction as evidenced by ESRD on HD CURRENT DIET:Renal / ccho med finely chopped PO DIET RECOMMENDATIONS: RENAL DIET/ CCHO LOW (texture per AGRONOMY ADVISOR) ADDITIONAL RECOMMENDATIONS: 1) Nepro BID w/ continued variable PO intake 2) Long acting insulin for improved BG 3) Obtain an accurate calibrated bed scale Pt w/ possible 10-12 lbs discrepancy from recent adm (DC 01/25) 4) AGRONOMY ADVISOR eval for appropriate diet texture - -
--- NOTE | 2019-02-15 18:05 | NUR ---
TRANSFER TO FLOOR: Patient transferred to Med-Surg, per Dr. Mixon's order. Report given to Mike Castellanos RN. Belongings and medications given to Mike Castellanos RN. Family informed of transfer and they are at bed side. Patient transferred in stable condition.
--- NOTE | 2019-02-15 18:14 | NUR ---
NURSE NOTES: RECEIVED BEDSIDE REPORT FROM EDMOND BERNAL FROM TELE. PT IN NO APPARENT DISTRESS AT THIS TIME. PT'S ONLY BELONGINGS ARE SOCKS, WHICH FAMILY TOOK HOME. DTG AT BEDSIDE. PT DENIES PAIN. NO S/S RESPIRATORY DISTRESS. RESTING IN BED WITH BEDSIDE RAILS X3 RAISED, BED ALARM ON. BED IN LOWEST POSITION. CALL LIGHT WITHIN REACH. WILL CONTINUE TO MONITOR.
--- NOTE | 2019-02-15 18:15 | NUR ---
NURSE NOTES: PER DOLORES, SHE SPOKE WITH DR ROSE (COVERING FOR DR ROCA) REGARDING RADIOLOGY'S RECOMMENDATION FOR MRI NECK WITH CONTRAST. DR ROSE TO CONTINUE ORDER FOR MRI NECK WITHOUT CONTRAST DUE TO RENAL DISEASE.
--- NOTE | 2019-02-15 18:45 | NUR ---
NURSE NOTES: PT TAKEN DOWN TO MRI OF NECK WITH TECH.
--- NOTE | 2019-02-15 19:37 | NUR ---
HAND-OFF: Report given to Momo DOSS RN.
--- NOTE | 2019-02-15 20:00 | NUR ---
NURSE NOTES: PATIENT BACK FROM RADIOLOGY. PATIENT IN BED, AWAKE TO NAME AND PLACE. IV IN PLACE. NO S/S DISTRESS NOTED. NO COMPLAINTS OF PAIN AT THIS TIME. FAMILY AT BEDSIDE. BED WITH BEDSIDE RAILS X3 RAISED, LOW POSITION, BED ALARM ON. CALL LIGHT WITHIN REACH. WILL CONTINUE TO MONITOR.
--- NOTE | 2019-02-15 20:20 | Diagnostic Imaging Report ---
EXAM: MR Angiography Neck Without Intravenous Contrast CLINICAL HISTORY: ABN LABS TECHNIQUE: Magnetic resonance angiography images of the neck without intravenous contrast. COMPARISON: No relevant prior studies available. FINDINGS: Right common carotid artery: Unremarkable. No significant stenosis. No dissection or occlusion. Right internal carotid artery: Unremarkable. Extracranial segment is patent with no significant stenosis. No dissection or occlusion. Right external carotid artery: Unremarkable. No occlusion. Right vertebral artery: Unremarkable. No significant stenosis. No dissection or occlusion. Left common carotid artery: Unremarkable. No significant stenosis. No dissection or occlusion. Left internal carotid artery: Unremarkable. Extracranial segment is patent with no significant stenosis. No dissection or occlusion. Left external carotid artery: Unremarkable. No occlusion. Left vertebral artery: Unremarkable. No significant stenosis. No dissection or occlusion. Soft tissues: Unremarkable as visualized. Pleural space: Probable bilateral pleural effusions and passive atelectasis. Recommend unenhanced CT chest on a nonemergent basis to further characterize these findings. CAROTID STENOSIS REFERENCE USING NASCET CRITERIA: % ICA stenosis = (1 - narrowest ICA diameter/diameter of distal cervical ICA) x 100. Mild - <50% stenosis. Moderate - 50-69% stenosis. Severe - 70-94% stenosis. Near occlusion - 95-99% stenosis. Occluded - 100% stenosis. IMPRESSION: 1. Patent arterial structures of the neck. 2. Probable bilateral pleural effusions and passive atelectasis. Recommend unenhanced CT chest on a nonemergent basis to further characterize these findings.
[2019-02-15] MEDS: Atorvastatin 20mg tab ORAL SCH (21:10)
--- NOTE | 2019-02-15 21:10 | NUR ---
NURSE NOTES: Nurse gave patient Colace but then patient changed her mind and spit out the medication. Per daughter, patient is having bowel movement and there's no need for the medication.
[2019-02-15] MEDS: Epoetin Alfa-EPBX(ESRD on dialysis)4000 units/ml vial SUBQ SCH (21:11)
[2019-02-16 00:46] VITALS: BP 134/51
[2019-02-16 04:00] VITALS: BP 130/64
[2019-02-16] MEDS: NovoLOG Insulin Flexpen SUBQ SCH ×4 (06:02→20:41)
--- NOTE | 2019-02-16 07:16 | NUR ---
HAND-OFF: Report given to Nolan RAMIREZ RN.
--- NOTE | 2019-02-16 07:37 | NUR ---
NURSE NOTES: Pt awake, A/o x 2, calm. edema LUE, elevated on pillow. Perm cath in place, RU chest, dressing CDI. plan HD am. no SOB noted. denies pain. family at bedside. fall, asp and contact iso precautions maintained. will continue to monitor.
[2019-02-16 08:00] VITALS: BP 123/99
[2019-02-16 08:23] LABS: BASOPHILS % (AUTO) 0.9 % (0.0-2.0); EOSINOPHILS % (AUTO) 3.7 % (0.0-3.0); HEMATOCRIT 29.5 % (37.0-47.0); HEMOGLOBIN 9.5 G/DL (12.0-16.0); LYMPHOCYTES % (AUTO) 21.9 % (20.0-45.0); MEAN CORPUSCULAR VOLUME 90 FL (80-99); MONOCYTES % (AUTO) 6.9 % (1.0-10.0); NEUTROPHILS % (AUTO) 66.6 % (45.0-75.0); PLATELET COUNT 204 K/UL (150-450); RED BLOOD COUNT 3.28 M/UL (4.20-5.40); RED CELL DISTRIBUTION WIDTH 15.3 % (11.6-14.8); WHITE BLOOD COUNT 12.2 K/UL (4.8-10.8)
[2019-02-16 08:43] LABS: ANION GAP 8 mmol/L (5-15); BLOOD UREA NITROGEN 82 mg/dL (7-18); CALCIUM 8.5 MG/DL (8.5-10.1); CARBON DIOXIDE 30 MMOL/L (21-32); CHLORIDE 95 MMOL/L (98-107); CREATININE 3.5 MG/DL (0.55-1.30); POTASSIUM 4.3 MMOL/L (3.5-5.1); SODIUM 133 MMOL/L (136-145)
[2019-02-16] MEDS: Docusate 100mg cap ORAL SCH ×2 (09:00→20:37)
[2019-02-16] MEDS ORDERED: Aspirin Baby 81mg ORAL SCH (09:00)
[2019-02-16] MEDS: Carvedilol 12.5mg tab ORAL SCH ×2 (09:00→20:36)
[2019-02-16] MEDS: Eliquis 2.5mg tablet ORAL SCH ×2 (09:15→17:28)
[2019-02-16] MEDS: Vitamin D 400 INTLU TAB ORAL SCH (09:16)
--- NOTE | 2019-02-16 10:52 | Infectious Diseases Prog Note ---
Assessment/Plan Assessment/Plan antibiotics : none A 1. hafnia UTI s/p rx 2. leucocytosis 3. left arm cellulitis improving 4. renal failure on dialysis 5. diabetes mellitus 6. hypertension 7. rectal VRE colonization 8. left arm DVT P 1. observe off antibiotics Subjective Constitutional: Denies: fever, chills Respiratory: Denies: shortness of breath, dry cough Gastrointestinal/Abdominal: Denies: nausea, vomiting, diarrhea Musculoskeletal: Denies: pain Allergies: Coded Allergies: No Known Allergies (Unverified , 01/11/19) Objective Vital Signs Last 24 Hour Vital Signs Date Time Temp Pulse Resp B/P (MAP) Pulse Ox O2 Delivery O2 Flow Rate FiO2 02/16/19 09:06 95 Nasal Cannula 2.0 28 02/16/19 09:00 68 123/99 02/16/19 09:00 68 123/99 02/16/19 09:00 Room Air 02/16/19 08:00 97.9 68 18 123/99 (107) 96 02/16/19 04:00 97.6 70 18 130/64 (86) 99 02/16/19 00:46 97.8 71 18 134/51 (78) 96 02/15/19 22:08 Room Air 02/15/19 21:10 73 126/51 02/15/19 21:06 95 Nasal Cannula 2.0 28 02/15/19 20:21 97.9 73 19 126/51 (76) 95 02/15/19 18:15 98.4 67 130/58 (82) 02/15/19 16:00 98.0 62 20 119/43 (68) 97 02/15/19 12:00 69 02/15/19 12:00 97.3 67 18 108/50 (69) 94 Height (Feet): 5 Height (Inches): 2.00 Weight (Pounds): 121 Respiratory/Chest: lungs clear Cardiovascular: normal rate, regular rhythm, no gallop/murmur Abdomen: soft, non tender Extremities: no edema Laboratory Tests Test 02/16/19 06:15 White Blood Count 12.2 K/UL (4.8-10.8) H Red Blood Count 3.28 M/UL (4.20-5.40) L Hemoglobin 9.5 G/DL (12.0-16.0) L Hematocrit 29.5 % (37.0-47.0) L Mean Corpuscular Volume 90 FL (80-99) Mean Corpuscular Hemoglobin 29.0 PG (27.0-31.0) Mean Corpuscular Hemoglobin Concent 32.2 G/DL (32.0-36.0) Red Cell Distribution Width 15.3 % (11.6-14.8) H Platelet Count 204 K/UL (150-450) Mean Platelet Volume 7.7 FL (6.5-10.1) Neutrophils (%) (Auto) 66.6 % (45.0-75.0) Lymphocytes (%) (Auto) 21.9 % (20.0-45.0) Monocytes (%) (Auto) 6.9 % (1.0-10.0) Eosinophils (%) (Auto) 3.7 % (0.0-3.0) H Basophils (%) (Auto) 0.9 % (0.0-2.0) Sodium Level 133 MMOL/L (136-145) L Potassium Level 4.3 MMOL/L (3.5-5.1) Chloride Level 95 MMOL/L (98-107) L Carbon Dioxide Level 30 MMOL/L (21-32) Anion Gap 8 mmol/L (5-15) Blood Urea Nitrogen 82 mg/dL (7-18) H Creatinine 3.5 MG/DL (0.55-1.30) H Estimat Glomerular Filtration Rate mL/min (>60) Glucose Level 129 MG/DL (74-106) H Calcium Level 8.5 MG/DL (8.5-10.1) Current Medications Medications (Trade) Dose Ordered Sig/Eleanor Route PRN Reason Start Time Stop Time Status Last Admin Dose Admin Acetaminophen (Tylenol) 650 mg Q4H PRN ORAL Mild Pain (Pain Scale 1-3) 02/15/19 18:14 03/17/19 18:13 Amlodipine Besylate (Norvasc) 10 mg DAILY ORAL 02/16/19 09:00 03/11/19 08:59 Apixaban (Eliquis) 2.5 mg BID ORAL 02/16/19 09:00 03/15/19 17:59 02/16/19 09:15 Aspirin (ASA) 81 mg DAILY ORAL 02/16/19 09:00 03/11/19 08:59 02/16/19 09:16 Atorvastatin Calcium (Lipitor) 20 mg BEDTIME ORAL 02/15/19 21:00 03/10/19 20:59 02/15/19 21:10 Carvedilol (Coreg) 12.5 mg EVERY 12 HOURS ORAL 02/15/19 21:00 03/10/19 20:59 02/15/19 21:10 Dextrose (Dextrose 50%) 25 ml Q30M PRN IV Hypoglycemia 02/15/19 18:15 03/10/19 16:14 Dextrose (Dextrose 50%) 50 ml Q30M PRN IV Hypoglycemia 02/15/19 18:15 03/10/19 16:14 Docusate Sodium (Colace) 100 mg EVERY 12 HOURS ORAL 02/15/19 21:00 03/10/19 20:59 Epoetin Elijah (Epoetin Elijah(ESRD on dialysis)) 8,000 unit WED-WED-WED SUBQ 02/15/19 21:00 03/10/19 20:59 02/15/19 21:11 Insulin Aspart (NovoLOG) BEFORE MEALS AND HS SUBQ 02/15/19 21:00 03/13/19 11:29 02/16/19 06:02 Nateglinide (Starlix) 120 mg ACBREAKFAST ORAL 02/16/19 06:30 03/14/19 06:29 02/16/19 05:54 Ondansetron HCl (Zofran) 4 mg Q6H PRN IVP Nausea & Vomiting 02/15/19 18:15 03/17/19 18:14 Sodium Chloride 1,000 ml @ 500 mls/hr Q2H PRN IVLG sbp<90 during hd 02/16/19 06:00 02/16/19 23:59 Vitamin D (Vitamin D) 400 intlu DAILY ORAL 02/16/19 09:00 03/11/19 08:59 02/16/19 09:16 Sabina Gamble MD Feb 16, 2019 10:52
[2019-02-16 11:54] VITALS: BP 126/59
--- NOTE | 2019-02-16 12:27 | Nephrology Progress Note ---
Assessment/Plan Plan CHF -improved with sequential HD. ESRD Needs anxiolytics pre HD. HD TTS Spoke to [facility] pathologist . Had Thyroid FNA and also LN biopsy. Both show "atypia " no definitive CA. Spoke to Dr. Jimy Alfredo. Needs urgent ENT w/u. Has all the indications of Thyroid CA. Needs urgent W/U + Surgery Subjective Subjective No new c/o Objective Objective Last 24 Hour Vital Signs Date Time Temp Pulse Resp B/P (MAP) Pulse Ox O2 Delivery O2 Flow Rate FiO2 02/16/19 11:54 98.0 71 18 126/59 (81) 98 02/16/19 09:06 95 Nasal Cannula 2.0 28 02/16/19 09:00 68 123/99 02/16/19 09:00 68 123/99 02/16/19 09:00 Room Air 02/16/19 08:00 97.9 68 18 123/99 (107) 96 02/16/19 04:00 97.6 70 18 130/64 (86) 99 02/16/19 00:46 97.8 71 18 134/51 (78) 96 02/15/19 22:08 Room Air 02/15/19 21:10 73 126/51 02/15/19 21:06 95 Nasal Cannula 2.0 28 02/15/19 20:21 97.9 73 19 126/51 (76) 95 02/15/19 18:15 98.4 67 130/58 (82) 02/15/19 16:00 98.0 62 20 119/43 (68) 97 Intake and Output 02/15/19 02/16/19 19:00 07:00 Intake Total 360 ml Balance 360 ml Intake Oral 360 ml # Voids 2 4 # Bowel Movements 2 Laboratory Tests 02/16/19 06:15: White Blood Count 12.2H, Red Blood Count 3.28L, Hemoglobin 9.5L, Hematocrit 29.5L, Mean Corpuscular Volume 90, Mean Corpuscular Hemoglobin 29.0, Mean Corpuscular Hemoglobin Concent 32.2, Red Cell Distribution Width 15.3H, Platelet Count 204, Mean Platelet Volume 7.7, Neutrophils (%) (Auto) 66.6, Lymphocytes (%) (Auto) 21.9, Monocytes (%) (Auto) 6.9, Eosinophils (%) (Auto) 3.7H, Basophils (%) (Auto) 0.9, Sodium Level 133L, Potassium Level 4.3, Chloride Level 95L, Carbon Dioxide Level 30, Anion Gap 8, Blood Urea Nitrogen 82H, Creatinine 3.5H, Estimat Glomerular Filtration Rate , Glucose Level 129H, Calcium Level 8.5 Height (Feet): 5 Height (Inches): 2.00 Weight (Pounds): 121 Objective More alert. CV RR Lungs B crackles Abd SNT. BS + Lt. arm exceptionally edematous! Donis Escobar MD Feb 16, 2019 12:27
--- NOTE | 2019-02-16 15:10 | General Progress Note ---
Assessment/Plan Assessment/Plan: IMPRESSION: 1. Chronic renal failure. 2. Toxic metabolic encephalopathy. 3. History of hypertension. 4. History of vitamin D deficiency. 5. Hypercholesterolemia. 6. Possible urinary tract infection. 7. Moderate protein-calorie malnutrition. 8. DVT 9. multinodular goiter PLAN HD ID cleared MRA noted supportive care outpatient ENT or endocrine for biopsy eliquis on discharge impression, plan, and exam edited and reviewed in detail care discussed with RN Subjective Allergies: Coded Allergies: No Known Allergies (Unverified , 01/11/19) Subjective appears comfortable overall d/w family d/w ID off antibiotics today Objective Last 24 Hour Vital Signs Date Time Temp Pulse Resp B/P (MAP) Pulse Ox O2 Delivery O2 Flow Rate FiO2 02/16/19 11:54 98.0 71 18 126/59 (81) 98 02/16/19 09:06 95 Nasal Cannula 2.0 28 02/16/19 09:00 68 123/99 02/16/19 09:00 68 123/99 02/16/19 09:00 Room Air 02/16/19 08:00 97.9 68 18 123/99 (107) 96 02/16/19 04:00 97.6 70 18 130/64 (86) 99 02/16/19 00:46 97.8 71 18 134/51 (78) 96 02/15/19 22:08 Room Air 02/15/19 21:10 73 126/51 02/15/19 21:06 95 Nasal Cannula 2.0 28 02/15/19 20:21 97.9 73 19 126/51 (76) 95 02/15/19 18:15 98.4 67 130/58 (82) 02/15/19 16:00 98.0 62 20 119/43 (68) 97 Intake and Output 02/15/19 02/16/19 19:00 07:00 Intake Total 360 ml Balance 360 ml Intake Oral 360 ml # Voids 2 4 # Bowel Movements 2 Laboratory Tests 02/16/19 06:15: White Blood Count 12.2H, Red Blood Count 3.28L, Hemoglobin 9.5L, Hematocrit 29.5L, Mean Corpuscular Volume 90, Mean Corpuscular Hemoglobin 29.0, Mean Corpuscular Hemoglobin Concent 32.2, Red Cell Distribution Width 15.3H, Platelet Count 204, Mean Platelet Volume 7.7, Neutrophils (%) (Auto) 66.6, Lymphocytes (%) (Auto) 21.9, Monocytes (%) (Auto) 6.9, Eosinophils (%) (Auto) 3.7H, Basophils (%) (Auto) 0.9, Sodium Level 133L, Potassium Level 4.3, Chloride Level 95L, Carbon Dioxide Level 30, Anion Gap 8, Blood Urea Nitrogen 82H, Creatinine 3.5H, Estimat Glomerular Filtration Rate , Glucose Level 129H, Calcium Level 8.5 Height (Feet): 5 Height (Inches): 2.00 Weight (Pounds): 121 Objective GENERAL: Chronic ill-appearing female, in no significant distress. HEENT: Negative. NECK: Supple. LUNGS: some rhonchi CARDIAC: S1, S2. Regular rate and rhythm. ABDOMEN: Soft and nontender. EXTREMITIES: Trace edema. NEUROLOGICAL: Confused. Joss Mixon MD Feb 16, 2019 15:10
[2019-02-16 16:00] VITALS: BP 126/61
--- NOTE | 2019-02-16 16:58 | NUR ---
CASE MANAGEMENT: REVIEW 02/16/19 SI: TOXIC METABOLIC ENCEPHALOPATHY POSSIBLE UTI. MALNUTRITION T 98 HR 74 RR 18 B/P 126/61 SATS 98% ON 2L/NC WBC 12.2 NA 133 CL 95 BUN 82 CR 3.5 GLU 129 IS: ELIQUIS PO BID STARLIX PO QAM SS INSULIN AC+HS NORVASC PO QD ASA PO QD COREG PO Q12 EPOETIN SQ MWF : TELEMETRY STATUS DCP: HOME
--- NOTE | 2019-02-16 17:00 | NUR ---
INSURANCE REVIEWS HAVE BEEN FAXED TO BOTH [employer] CO: CLEMENT[facility] GANDHI PHY NCM:BASSAM F:[phone] & [facility] NCM: NEEL RODRIGUEZ F:[phone]
--- NOTE | 2019-02-16 19:30 | NUR ---
NURSE NOTES: RECEIVED PATIENT LYING IN BED, AWAKE, ALERT/ORIENTED X2 WITH PERIODS OF FORGETFULNESS, DENIES PAIN. NO SIGNS AND SYMPTOMS OF ACUTE CARDIO RESPIRATORY DISTRESS/SHORTNESS OF BREATH, NO PERIPHERAL EDEMA NOTED. ALBE TO MOVE UPPER AND LOWER EXTREMITIES AD JHONATAN. PERMACATH (HEMODIALYSIS) INTACT TO RIGHT UPPER CHEST WALL, DRESSING DRY AND INTACT. SIDE RAILS UP X3/BED IN LOWEST POSITION FOR SAFETY. CALL LIGHT WITHIN REACH. FREQUENT ROUNDING FOR SAFETY/NEEDS. FAMILY REMAIN AT BEDSIDE.
[2019-02-16 20:00] VITALS: BP 139/57
[2019-02-16] MEDS: Atorvastatin 20mg tab ORAL SCH (20:37)
[2019-02-17] VITALS: BP 138/58
[2019-02-17 04:00] VITALS: BP 137/57
[2019-02-17] MEDS: NovoLOG Insulin Flexpen SUBQ SCH ×4 (06:57→21:02)
--- NOTE | 2019-02-17 07:30 | NUR ---
HAND-OFF: Report given to KIM VALIENTE.
--- NOTE | 2019-02-17 07:45 | NUR ---
NURSE NOTES: RECEIVED PATIENT LYING IN BED, A/A/OX2 WITH PERIODS OF FORGETFULNESS, DENIES PAIN. NO SIGNS AND SYMPTOMS OF ACUTE CARDIO-RESPIRATORY DISTRESS/SHORTNESS OF BREATH, NO PERIPHERAL EDEMA NOTED. ABLE TO DO ACTIVE/PASSIVE ROM. PERMACATH (HEMODIALYSIS) INTACT TO RIGHT UPPER CHEST WALL, DRESSING DRY AND INTACT. DAUGHTER, STEFFANY @ BEDSIDE. SIDE RAILS UP X3/BED IN LOWEST POSITION FOR SAFETY. CALL LIGHT WITHIN REACH. WILL CONT TO MONITOR.
[2019-02-17 08:00] VITALS: BP 118/71
[2019-02-17] MEDS: Docusate 100mg cap ORAL SCH ×2 (09:00→20:50)
--- NOTE | 2019-02-17 10:14 | NUR ---
MRI S.T. NECK W/WO COMPLETED.
[2019-02-17] MEDS: Vitamin D 400 INTLU TAB ORAL SCH (10:23)
[2019-02-17] MEDS: Eliquis 2.5mg tablet ORAL SCH ×2 (10:23→17:06)
[2019-02-17] MEDS: Carvedilol 12.5mg tab ORAL SCH ×2 (10:23→20:55)
--- NOTE | 2019-02-17 10:30 | NUR ---
NURSE NOTES: PATIENT WAS BROUGHT DOWN FOR MRI THIS AM. CAME BACK FEW MINUTES AGO AND ABLE TO TAKE MEDS. DAUGHTER, STEFFANY @ BEDSIDE. NO ACUTE RESP DISTRESS/DISCOMFORT NOTED @ THIS TIME. SIDERAILS ARE UPX3. BED IS IN THE LOWEST POSITION FOR SAFETY. CALL LIGHT IS WITHIN REACH. WILL CONT TO MONITOR.
--- NOTE | 2019-02-17 10:53 | Nephrology Progress Note ---
Assessment/Plan Plan CHF -improved with sequential HD. ESRD Needs anxiolytics pre HD. HD TTS Spoke to [facility] pathologist . Had Thyroid FNA and also LN biopsy. Both show "atypia " no definitive CA. Spoke to Dr. Jimy Alfredo. Needs urgent ENT w/u. Has all the indications of Thyroid CA. Needs urgent W/U + Surgery MRI done. Results Pending! Subjective Subjective No new c/o Objective Objective Last 24 Hour Vital Signs Date Time Temp Pulse Resp B/P (MAP) Pulse Ox O2 Delivery O2 Flow Rate FiO2 02/17/19 10:23 90 118/71 02/17/19 10:23 90 118/71 02/17/19 09:00 Room Air 02/17/19 08:00 98.5 90 19 118/71 (87) 99 02/17/19 07:42 98 Nasal Cannula 2.0 28 02/17/19 04:00 98.6 76 19 137/57 (83) 96 02/17/19 00:00 98.8 71 19 138/58 (84) 96 02/16/19 20:36 73 132/53 02/16/19 20:28 Room Air 02/16/19 20:00 98.1 70 18 139/57 (84) 98 02/16/19 19:57 96 Nasal Cannula 2.0 28 02/16/19 16:00 98.0 74 18 126/61 (82) 98 02/16/19 11:54 98.0 71 18 126/59 (81) 98 Intake and Output 02/16/19 02/17/19 18:59 06:59 Intake Total 120 ml 180 ml Balance 120 ml 180 ml Intake Oral 120 ml 180 ml # Voids 2 # Bowel Movements 1 1 Height (Feet): 5 Height (Inches): 2.00 Weight (Pounds): 121 Objective More alert. CV RR Lungs B crackles Abd SNT. BS + Lt. arm exceptionally edematous! Donis Escobar MD Feb 17, 2019 10:53
--- NOTE | 2019-02-17 10:58 | Infectious Diseases Prog Note ---
Assessment/Plan Assessment/Plan antibiotics : none A 1. hafnia UTI s/p rx 2. leucocytosis 3. left arm cellulitis improving 4. renal failure on dialysis 5. diabetes mellitus 6. hypertension 7. rectal VRE colonization 8. left arm DVT P 1. observe off antibiotics Subjective Constitutional: Denies: fever, chills Respiratory: Denies: shortness of breath, dry cough Gastrointestinal/Abdominal: Denies: nausea, vomiting, diarrhea Musculoskeletal: Denies: pain Allergies: Coded Allergies: No Known Allergies (Unverified , 01/11/19) Objective Vital Signs Last 24 Hour Vital Signs Date Time Temp Pulse Resp B/P (MAP) Pulse Ox O2 Delivery O2 Flow Rate FiO2 02/17/19 10:23 90 118/71 02/17/19 10:23 90 118/71 02/17/19 09:00 Room Air 02/17/19 08:00 98.5 90 19 118/71 (87) 99 02/17/19 07:42 98 Nasal Cannula 2.0 28 02/17/19 04:00 98.6 76 19 137/57 (83) 96 02/17/19 00:00 98.8 71 19 138/58 (84) 96 02/16/19 20:36 73 132/53 02/16/19 20:28 Room Air 02/16/19 20:00 98.1 70 18 139/57 (84) 98 02/16/19 19:57 96 Nasal Cannula 2.0 28 02/16/19 16:00 98.0 74 18 126/61 (82) 98 02/16/19 11:54 98.0 71 18 126/59 (81) 98 Height (Feet): 5 Height (Inches): 2.00 Weight (Pounds): 121 Respiratory/Chest: lungs clear Cardiovascular: normal rate, regular rhythm, no gallop/murmur Abdomen: soft, non tender Extremities: no edema Current Medications Medications (Trade) Dose Ordered Sig/Eleanor Route PRN Reason Start Time Stop Time Status Last Admin Dose Admin Acetaminophen (Tylenol) 650 mg Q4H PRN ORAL Mild Pain (Pain Scale 1-3) 02/15/19 18:14 03/17/19 18:13 Amlodipine Besylate (Norvasc) 10 mg DAILY ORAL 02/16/19 09:00 03/11/19 08:59 02/17/19 10:23 Apixaban (Eliquis) 2.5 mg BID ORAL 02/16/19 09:00 03/15/19 17:59 02/17/19 10:23 Atorvastatin Calcium (Lipitor) 20 mg BEDTIME ORAL 02/15/19 21:00 03/10/19 20:59 02/16/19 20:37 Carvedilol (Coreg) 12.5 mg EVERY 12 HOURS ORAL 02/15/19 21:00 03/10/19 20:59 02/17/19 10:23 Dextrose (Dextrose 50%) 25 ml Q30M PRN IV Hypoglycemia 02/15/19 18:15 03/10/19 16:14 Dextrose (Dextrose 50%) 50 ml Q30M PRN IV Hypoglycemia 02/15/19 18:15 03/10/19 16:14 Docusate Sodium (Colace) 100 mg EVERY 12 HOURS ORAL 02/15/19 21:00 03/10/19 20:59 02/16/19 20:37 Epoetin Elijah (Epoetin Elijah(ESRD on dialysis)) 8,000 unit WED-WED-WED SUBQ 02/15/19 21:00 03/10/19 20:59 02/15/19 21:11 Insulin Aspart (NovoLOG) BEFORE MEALS AND HS SUBQ 02/15/19 21:00 03/13/19 11:29 02/17/19 06:57 Nateglinide (Starlix) 120 mg ACBREAKFAST ORAL 02/16/19 06:30 03/14/19 06:29 02/17/19 06:52 Ondansetron HCl (Zofran) 4 mg Q6H PRN IVP Nausea & Vomiting 02/15/19 18:15 03/17/19 18:14 Vitamin D (Vitamin D) 400 intlu DAILY ORAL 02/16/19 09:00 03/11/19 08:59 02/17/19 10:23 Sabina Gamble MD Feb 17, 2019 10:58
--- NOTE | 2019-02-17 11:14 | NUR ---
NURSE NOTES: called IRC and spoke with Nancy for tomorrow's HD. informed KADY, Isamar.
[2019-02-17 12:00] VITALS: BP 118/71
--- NOTE | 2019-02-17 12:45 | NUR ---
CASE MANAGEMENT: REVIEW 02/17/19 SI: TOXIC METABOLIC ENCEPHALOPATHY POSSIBLE UTI. MALNUTRITION T 98.6 hr 94 rr 20 b/p 118/71 SATS 98% ON RA NO LABS TODAY IS: ELIQUIS PO BID STARLIX PO QAM SS INSULIN AC+HS NORVASC PO QD ASA PO QD COREG PO Q12 EPOETIN SQ MWF : MED/SURG STATUS DCP: HOME
--- NOTE | 2019-02-17 12:53 | NUR ---
INSURANCE REVIEWS HAVE BEEN FAXED TO BOTH INS CO: CLEMENTINA GANDHI PHY NCM:BASSAM F:[phone] & [facility] NCM: NEEL RODRIGUEZ F:[phone]
--- NOTE | 2019-02-17 14:27 | Diagnostic Imaging Report ---
Indication: Neck pain Technique: MRI examination of the neck was performed in a 1.5 Shavonne magnet. Sequences obtained include multiplanar T1 and T2 fast spin echo, STIR. Pre/Post ax/sagittal gadolinium T1 fat sat. Comparison: none Findings: The study is limited due to motion and other artifacts. There is heterogeneity of the thyroid gland with complex and the cystic lesions throughout both lobes. This is far better assessed on the recent ultrasound. No obvious adenopathy identified. There is fluid T2 hyperintense signal within the mastoids bilaterally. There is mucosal thickening within ethmoid sinus. Bilateral pleural effusions are noted within the visualized part of the upper chest. There is narrowing of intervertebral discs and accompanying endplate osteophyte formation at multiple levels within the cervical spine. Hypertrophied facet joints also demonstrated. IMPRESSION: Heterogeneous appearance of the thyroid gland. Please refer to the ultrasound report. Cervical spondylosis Very limited exam due to artifacts and motion.
--- NOTE | 2019-02-17 15:02 | Pulmonology Progress Note ---
Assessment/Plan Assessment/Plan Pulmonary Progress Note Assessment/Plan: IMPRESSION: 1. Chronic renal failure. 2. Toxic metabolic encephalopathy. 3. History of hypertension. 4. History of vitamin D deficiency. 5. Hypercholesterolemia. 6. Possible urinary tract infection. 7. Moderate protein-calorie malnutrition. 8. Thyroid mass - atypia on cytology 9. UE DVT on Eliquis PLAN HD AB DC CXR- still with pulmonary edema; keep negative supportive care dc today- appears improved impression, plan, and exam edited and reviewed in detail care discussed with RN Subjective Allergies: Coded Allergies: No Known Allergies (Unverified , 01/11/19) Subjective appears comfortable overall ID following Objective Vital Signs Noted Laboratory Tests Noted 02/14/19 05:40: White Blood Count 12.6H, Red Blood Count 3.16L, Hemoglobin 9.4L, Hematocrit 28.6L, Mean Corpuscular Volume 90, Mean Corpuscular Hemoglobin 29.7, Mean Corpuscular Hemoglobin Concent 32.8, Red Cell Distribution Width 15.2H, Platelet Count 174, Mean Platelet Volume 8.4, Neutrophils (%) (Auto) 71.2, Lymphocytes (%) (Auto) 18.2L, Monocytes (%) (Auto) 6.6, Eosinophils (%) (Auto) 2.9, Basophils (%) (Auto) 1.1 Height (Feet): 5 Height (Inches): 2.00 Weight (Pounds): 140 Objective GENERAL: Chronic ill-appearing female, in no significant distress. HEENT: Negative. NECK: Supple. LUNGS: some rhonchi CARDIAC: S1, S2. Regular rate and rhythm. ABDOMEN: Soft and nontender. EXTREMITIES: Trace edema. NEUROLOGICAL: Confused. Subjective ROS Limited/Unobtainable: No Allergies: Coded Allergies: No Known Allergies (Unverified , 01/11/19) Objective Last 24 Hour Vital Signs Date Time Temp Pulse Resp B/P (MAP) Pulse Ox O2 Delivery O2 Flow Rate FiO2 02/17/19 12:00 98.6 94 20 118/71 (87) 98 02/17/19 10:23 90 118/71 02/17/19 10:23 90 118/71 02/17/19 09:00 Room Air 02/17/19 08:00 98.5 90 19 118/71 (87) 99 02/17/19 07:42 98 Nasal Cannula 2.0 28 7/5/19 04:00 98.6 76 19 137/57 (83) 96 02/17/19 00:00 98.8 71 19 138/58 (84) 96 02/16/19 20:36 73 132/53 02/16/19 20:28 Room Air 02/16/19 20:00 98.1 70 18 139/57 (84) 98 02/16/19 19:57 96 Nasal Cannula 2.0 28 02/16/19 16:00 98.0 74 18 126/61 (82) 98 Intake and Output 02/16/19 02/17/19 19:00 07:00 Intake Total 120 ml 180 ml Balance 120 ml 180 ml Intake Oral 120 ml 180 ml # Voids 4 # Bowel Movements 1 1 Current Medications Medications (Trade) Dose Ordered Sig/Eleanor Route PRN Reason Start Time Stop Time Status Last Admin Dose Admin Acetaminophen (Tylenol) 650 mg Q4H PRN ORAL Mild Pain (Pain Scale 1-3) 02/15/19 18:14 03/17/19 18:13 Amlodipine Besylate (Norvasc) 10 mg DAILY ORAL 02/16/19 09:00 03/11/19 08:59 02/17/19 10:23 Apixaban (Eliquis) 2.5 mg BID ORAL 02/16/19 09:00 03/15/19 17:59 02/17/19 10:23 Atorvastatin Calcium (Lipitor) 20 mg BEDTIME ORAL 02/15/19 21:00 03/10/19 20:59 02/16/19 20:37 Carvedilol (Coreg) 12.5 mg EVERY 12 HOURS ORAL 02/15/19 21:00 03/10/19 20:59 02/17/19 10:23 Dextrose (Dextrose 50%) 25 ml Q30M PRN IV Hypoglycemia 02/15/19 18:15 03/10/19 16:14 Dextrose (Dextrose 50%) 50 ml Q30M PRN IV Hypoglycemia 02/15/19 18:15 03/10/19 16:14 Docusate Sodium (Colace) 100 mg EVERY 12 HOURS ORAL 02/15/19 21:00 03/10/19 20:59 02/16/19 20:37 Epoetin Elijah (Epoetin Elijah(ESRD on dialysis)) 8,000 unit WED-WED-WED SUBQ 02/15/19 21:00 03/10/19 20:59 02/15/19 21:11 Insulin Aspart (NovoLOG) BEFORE MEALS AND HS SUBQ 02/15/19 21:00 03/13/19 11:29 02/17/19 06:57 Nateglinide (Starlix) 120 mg ACBREAKFAST ORAL 02/16/19 06:30 03/14/19 06:29 02/17/19 06:52 Ondansetron HCl (Zofran) 4 mg Q6H PRN IVP Nausea & Vomiting 02/15/19 18:15 03/17/19 18:14 Sodium Chloride 1,000 ml @ 500 mls/hr Q2H PRN IVLG sbp<90 during hd 02/18/19 10:53 02/18/19 23:59 Vitamin D (Vitamin D) 400 intlu DAILY ORAL 02/16/19 09:00 03/11/19 08:59 02/17/19 10:23 Kevyn Zamora MD Feb 17, 2019 15:02
[2019-02-17 16:00] VITALS: BP 115/52
--- NOTE | 2019-02-17 16:25 | NUR ---
NURSE NOTES: O2 SAT TAKEN VIA R/A - AND REPORTED TO DR ROSE. NEW ORDER OBTAINED. WILL CONT TO MONITOR.
--- NOTE | 2019-02-17 16:47 | Consultation ---
History of Present Illness General Date patient seen: Feb 17, 2019 Time patient seen: 16:00 Chief Complaint: Thyroid cancer by history form a MD, but not documentation. Referring physician: Layla Escobar Reason for Consultation: Thyroid tumor Present Illness Allergies: Coded Allergies: No Known Allergies (Unverified , 01/11/19) Medication History Scheduled Amlodipine Besylate (Norvasc), 10 MG ORAL DAILY, (Reported) Atorvastatin Calcium* (Atorvastatin Calcium*), 20 MG ORAL BEDTIME, (Reported) Carvedilol* (Carvedilol*), 12.5 MG ORAL EVERY 12 HOURS, (Reported) Isosorbide Mononitrate (Isosorbide Mononitrate Er), 60 MG PO DAILY, (Reported) Patient History Healthcare decision maker N Resuscitation status Full Code Advanced Directive on File No Physical Exam HEENT: other - enlarged thyroid and imaging indicating cystic nature. Last 24 Hour Vital Signs Date Time Temp Pulse Resp B/P (MAP) Pulse Ox O2 Delivery O2 Flow Rate FiO2 02/17/19 16:00 97.7 70 19 115/52 (73) 95 02/17/19 12:00 98.6 94 20 118/71 (87) 98 02/17/19 10:23 90 118/71 02/17/19 10:23 90 118/71 02/17/19 09:00 Room Air 02/17/19 08:00 98.5 90 19 118/71 (87) 99 02/17/19 07:42 98 Nasal Cannula 2.0 28 02/17/19 04:00 98.6 76 19 137/57 (83) 96 02/17/19 00:00 98.8 71 19 138/58 (84) 96 02/16/19 20:36 73 132/53 02/16/19 20:28 Room Air 02/16/19 20:00 98.1 70 18 139/57 (84) 98 02/16/19 19:57 96 Nasal Cannula 2.0 28 Intake and Output 02/16/19 02/17/19 19:00 07:00 Intake Total 120 ml 180 ml Balance 120 ml 180 ml Intake Oral 120 ml 180 ml # Voids 4 # Bowel Movements 1 1 Height (Feet): 5 Height (Inches): 2.00 Weight (Pounds): 121 Medications Current Medications Medications (Trade) Dose Ordered Sig/Eleanor Route PRN Reason Start Time Stop Time Status Last Admin Dose Admin Acetaminophen (Tylenol) 650 mg Q4H PRN ORAL Mild Pain (Pain Scale 1-3) 02/15/19 18:14 03/17/19 18:13 Amlodipine Besylate (Norvasc) 10 mg DAILY ORAL 02/16/19 09:00 03/11/19 08:59 02/17/19 10:23 Apixaban (Eliquis) 2.5 mg BID ORAL 02/16/19 09:00 03/15/19 17:59 02/17/19 10:23 Atorvastatin Calcium (Lipitor) 20 mg BEDTIME ORAL 02/15/19 21:00 03/10/19 20:59 02/16/19 20:37 Carvedilol (Coreg) 12.5 mg EVERY 12 HOURS ORAL 02/15/19 21:00 03/10/19 20:59 02/17/19 10:23 Dextrose (Dextrose 50%) 25 ml Q30M PRN IV Hypoglycemia 02/15/19 18:15 03/10/19 16:14 Dextrose (Dextrose 50%) 50 ml Q30M PRN IV Hypoglycemia 02/15/19 18:15 03/10/19 16:14 Docusate Sodium (Colace) 100 mg EVERY 12 HOURS ORAL 02/15/19 21:00 03/10/19 20:59 02/16/19 20:37 Epoetin Elijah (Epoetin Elijah(ESRD on dialysis)) 8,000 unit WED-WED-WED SUBQ 02/15/19 21:00 03/10/19 20:59 02/15/19 21:11 Insulin Aspart (NovoLOG) BEFORE MEALS AND HS SUBQ 02/15/19 21:00 03/13/19 11:29 02/17/19 06:57 Nateglinide (Starlix) 120 mg ACBREAKFAST ORAL 02/16/19 06:30 03/14/19 06:29 02/17/19 06:52 Ondansetron HCl (Zofran) 4 mg Q6H PRN IVP Nausea & Vomiting 02/15/19 18:15 03/17/19 18:14 Sodium Chloride 1,000 ml @ 500 mls/hr Q2H PRN IVLG sbp<90 during hd 02/18/19 10:53 02/18/19 23:59 Vitamin D (Vitamin D) 400 intlu DAILY ORAL 02/16/19 09:00 03/11/19 08:59 02/17/19 10:23 Assessment/Plan Problem List: (1) Tumor, thyroid ICD Codes: D49.7 - Neoplasm of unspecified behavior of endocrine glands and other parts of nervous system SNOMED: 205733853 Status: stable Assessment/Plan: Pt. has thyroid tumor-no documented pathology that it is cancer-only verbal to another MD. She is [employer] and should go to a [facility] facility for thyroid surgery if it is indeed a cancer. PMD now aware of this. Per ENT/Head and Neck Surgery she is stable to go home but should return to MD who made the diagnosis of thyroid cancer, with appropriate documentation. This had been discussed with Silver Wrapper and pt. family (in Kazakh) by nurse. MIPS Medication Reconciliation Is this a Psycho/Diag encounte: No Depression Does this Patient have Dementi: Yes Jimy Alfredo MD Feb 17, 2019 16:47
--- NOTE | 2019-02-17 16:48 | Consultation ---
History of Present Illness General Chief Complaint: Altered Mental Status Referring physician: Di Escobar Reason for Consultation: Thyroid tumor Present Illness Allergies: Coded Allergies: No Known Allergies (Unverified , 01/11/19) Medication History Scheduled Amlodipine Besylate (Norvasc), 10 MG ORAL DAILY, (Reported) Atorvastatin Calcium* (Atorvastatin Calcium*), 20 MG ORAL BEDTIME, (Reported) Carvedilol* (Carvedilol*), 12.5 MG ORAL EVERY 12 HOURS, (Reported) Isosorbide Mononitrate (Isosorbide Mononitrate Er), 60 MG PO DAILY, (Reported) Patient History Healthcare decision maker N Resuscitation status Full Code Advanced Directive on File No Physical Exam Last 24 Hour Vital Signs Date Time Temp Pulse Resp B/P (MAP) Pulse Ox O2 Delivery O2 Flow Rate FiO2 02/17/19 16:00 97.7 70 19 115/52 (73) 95 02/17/19 12:00 98.6 94 20 118/71 (87) 98 02/17/19 10:23 90 118/71 02/17/19 10:23 90 118/71 02/17/19 09:00 Room Air 02/17/19 08:00 98.5 90 19 118/71 (87) 99 02/17/19 07:42 98 Nasal Cannula 2.0 28 02/17/19 04:00 98.6 76 19 137/57 (83) 96 02/17/19 00:00 98.8 71 19 138/58 (84) 96 02/16/19 20:36 73 132/53 02/16/19 20:28 Room Air 02/16/19 20:00 98.1 70 18 139/57 (84) 98 02/16/19 19:57 96 Nasal Cannula 2.0 28 Intake and Output 02/16/19 02/17/19 19:00 07:00 Intake Total 120 ml 180 ml Balance 120 ml 180 ml Intake Oral 120 ml 180 ml # Voids 4 # Bowel Movements 1 1 Height (Feet): 5 Height (Inches): 2.00 Weight (Pounds): 121 Medications Current Medications Medications (Trade) Dose Ordered Sig/Eleanor Route PRN Reason Start Time Stop Time Status Last Admin Dose Admin Acetaminophen (Tylenol) 650 mg Q4H PRN ORAL Mild Pain (Pain Scale 1-3) 02/15/19 18:14 03/17/19 18:13 Amlodipine Besylate (Norvasc) 10 mg DAILY ORAL 02/16/19 09:00 03/11/19 08:59 02/17/19 10:23 Apixaban (Eliquis) 2.5 mg BID ORAL 02/16/19 09:00 03/15/19 17:59 02/17/19 10:23 Atorvastatin Calcium (Lipitor) 20 mg BEDTIME ORAL 02/15/19 21:00 03/10/19 20:59 02/16/19 20:37 Carvedilol (Coreg) 12.5 mg EVERY 12 HOURS ORAL 02/15/19 21:00 03/10/19 20:59 02/17/19 10:23 Dextrose (Dextrose 50%) 25 ml Q30M PRN IV Hypoglycemia 02/15/19 18:15 03/10/19 16:14 Dextrose (Dextrose 50%) 50 ml Q30M PRN IV Hypoglycemia 02/15/19 18:15 03/10/19 16:14 Docusate Sodium (Colace) 100 mg EVERY 12 HOURS ORAL 02/15/19 21:00 03/10/19 20:59 02/16/19 20:37 Epoetin Elijah (Epoetin Elijah(ESRD on dialysis)) 8,000 unit WED-WED-WED SUBQ 02/15/19 21:00 03/10/19 20:59 02/15/19 21:11 Insulin Aspart (NovoLOG) BEFORE MEALS AND HS SUBQ 02/15/19 21:00 03/13/19 11:29 02/17/19 06:57 Nateglinide (Starlix) 120 mg ACBREAKFAST ORAL 02/16/19 06:30 03/14/19 06:29 02/17/19 06:52 Ondansetron HCl (Zofran) 4 mg Q6H PRN IVP Nausea & Vomiting 02/15/19 18:15 03/17/19 18:14 Sodium Chloride 1,000 ml @ 500 mls/hr Q2H PRN IVLG sbp<90 during hd 02/18/19 10:53 02/18/19 23:59 Vitamin D (Vitamin D) 400 intlu DAILY ORAL 02/16/19 09:00 03/11/19 08:59 02/17/19 10:23 Assessment/Plan Problem List: (1) Tumor, thyroid ICD Codes: D49.7 - Neoplasm of unspecified behavior of endocrine glands and other parts of nervous system SNOMED: 715530045 Assessment/Plan: Pt. has thyroid tumor-no documented pathology that it is cancer-only verbal to another MD. She is [employer] and should go to a Medi[facility] facility for thyroid surgery if it is indeed a cancer. PMD now aware of this. Per ENT/Head and Neck Surgery she is stable to go home but should return to MD who made the diagnosis of thyroid cancer, with appropriate documentation. This had been discussed with Leather Cartridge Belt Maker and pt. family (in Sudanese) by nurse. Jimy Alfredo MD Feb 17, 2019 16:48
--- NOTE | 2019-02-17 19:18 | NUR ---
HAND-OFF: Report given to Lisa.
[2019-02-17 20:00] VITALS: BP 118/89
[2019-02-17] MEDS: Atorvastatin 20mg tab ORAL SCH (20:50)
[2019-02-17] MEDS: Epoetin Alfa-EPBX(ESRD on dialysis)4000 units/ml vial SUBQ SCH (21:15)
--- NOTE | 2019-02-17 23:20 | NUR ---
HAND-OFF: Report given to EDMOND TOUSSAINT.
--- NOTE | 2019-02-17 23:22 | NUR ---
NURSE NOTES: Pt received in bed, speaking polish only but family at bedside, no signs of pain or distress, head of bed elevated, call light within reach, hemodialysis 02/18/19, will continue to monitor.
[2019-02-18] VITALS: BP 120/88
[2019-02-18 04:00] VITALS: BP 140/56
[2019-02-18] MEDS: NovoLOG Insulin Flexpen SUBQ SCH ×3 (06:04→16:38)
--- NOTE | 2019-02-18 07:02 | NUR ---
HAND-OFF: Report given to KIM Euceda. Endorsed pt refused lab draw this morning
--- NOTE | 2019-02-18 07:46 | NUR ---
NURSE NOTES: RECEIVED PATIENT LYING IN BED, A/A/OX2 WITH PERIODS OF FORGETFULNESS, DENIES PAIN. NO SIGNS AND SYMPTOMS OF ACUTE CARDIO-RESPIRATORY DISTRESS/SHORTNESS OF BREATH, NO PERIPHERAL EDEMA NOTED. ABLE TO DO ACTIVE/PASSIVE ROM. PERMACATH (HD) INTACT TO RIGHT UPPER CHEST WALL, DRESSING DRY AND INTACT. DAUGHTERSTEFFANY @ BEDSIDE. PER DAUGHTERSTEFFANY PATIENT REFUSED TO DRAW LABS. EXPLAINED THE IMPORTANCE AND JUST NODDED. SIDE RAILS UP X3/BED IN LOWEST POSITION FOR SAFETY. CALL LIGHT WITHIN REACH. WILL CONT TO MONITOR.
[2019-02-18 08:00] VITALS: BP 115/44
[2019-02-18] MEDS: Eliquis 2.5mg tablet ORAL SCH ×2 (08:44→18:00)
[2019-02-18] MEDS: Docusate 100mg cap ORAL SCH (08:44)
[2019-02-18] MEDS: Carvedilol 12.5mg tab ORAL SCH (08:44)
[2019-02-18] MEDS: Vitamin D 400 INTLU TAB ORAL SCH (08:45)
[2019-02-18 09:02] LABS: BASOPHILS % (AUTO) 1.8 % (0.0-2.0); EOSINOPHILS % (AUTO) 4.4 % (0.0-3.0); HEMATOCRIT 28.7 % (37.0-47.0); HEMOGLOBIN 9.4 G/DL (12.0-16.0); LYMPHOCYTES % (AUTO) 19.7 % (20.0-45.0); MEAN CORPUSCULAR VOLUME 91 FL (80-99); MONOCYTES % (AUTO) 7.4 % (1.0-10.0); NEUTROPHILS % (AUTO) 66.7 % (45.0-75.0); PLATELET COUNT 193 K/UL (150-450); RED BLOOD COUNT 3.17 M/UL (4.20-5.40); RED CELL DISTRIBUTION WIDTH 15.3 % (11.6-14.8); WHITE BLOOD COUNT 11.2 K/UL (4.8-10.8)
[2019-02-18 09:17] LABS: ANION GAP 9 mmol/L (5-15); BLOOD UREA NITROGEN 97 mg/dL (7-18); CALCIUM 8.3 MG/DL (8.5-10.1); CARBON DIOXIDE 27 MMOL/L (21-32); CHLORIDE 98 MMOL/L (98-107); CREATININE 3.4 MG/DL (0.55-1.30); POTASSIUM 4.1 MMOL/L (3.5-5.1); SODIUM 134 MMOL/L (136-145)
--- NOTE | 2019-02-18 09:19 | General Progress Note ---
Assessment/Plan Status: stable Assessment/Plan: IMPRESSION: 1. Chronic renal failure. 2. Toxic metabolic encephalopathy. 3. History of hypertension. 4. History of vitamin D deficiency. 5. Hypercholesterolemia. 6. Possible urinary tract infection. 7. Moderate protein-calorie malnutrition. 8. DVT 9. multinodular goiter PLAN HD ID cleared MRA noted supportive care as is outpatient ENT or endocrine for biopsy eliquis on discharge for DVT all aware and agree with plan home health on discharge impression, plan, and exam edited and reviewed in detail care discussed with RN Subjective ROS Limited/Unobtainable: Yes Allergies: Coded Allergies: No Known Allergies (Unverified , 01/11/19) Subjective appears comfortable overall d/w family d/w ID oxygen levels adequate ENT cannot see patient presently Objective Last 24 Hour Vital Signs Date Time Temp Pulse Resp B/P (MAP) Pulse Ox O2 Delivery O2 Flow Rate FiO2 02/18/19 08:44 66 115/44 02/18/19 08:44 66 115/44 02/18/19 04:00 98.4 73 18 140/56 (84) 95 02/18/19 00:00 98.3 71 20 120/88 (99) 98 02/17/19 21:00 Room Air 02/17/19 20:55 68 117/63 02/17/19 20:00 98.6 69 18 118/89 (99) 99 02/17/19 16:00 97.7 70 19 115/52 (73) 95 02/17/19 12:00 98.6 94 20 118/71 (87) 98 02/17/19 10:23 90 118/71 02/17/19 10:23 90 118/71 Intake and Output 02/17/19 02/18/19 19:00 07:00 Intake Total 240 ml 120 ml Balance 240 ml 120 ml Intake Oral 240 ml 120 ml # Voids 2 2 # Bowel Movements 1 2 Laboratory Tests 02/17/19 16:25: Arterial Blood pH 7.464H, Arterial Blood Partial Pressure CO2 37.7, Arterial Blood Partial Pressure O2 71.2L, Arterial Blood HCO3 26.5H, Arterial Blood Oxygen Saturation 94.5L, Arterial Blood Base Excess 2.6H, Sonny Test Positive 02/18/19 08:21: White Blood Count 11.2H, Red Blood Count 3.17L, Hemoglobin 9.4L, Hematocrit 28.7L, Mean Corpuscular Volume 91, Mean Corpuscular Hemoglobin 29.7, Mean Corpuscular Hemoglobin Concent 32.7, Red Cell Distribution Width 15.3H, Platelet Count 193, Mean Platelet Volume 7.2, Neutrophils (%) (Auto) 66.7, Lymphocytes (%) (Auto) 19.7L, Monocytes (%) (Auto) 7.4, Eosinophils (%) (Auto) 4.4H, Basophils (%) (Auto) 1.8, Sodium Level [Pending], Potassium Level [Pending ], Chloride Level [Pending], Carbon Dioxide Level [Pending], Blood Urea Nitrogen [Pending], Creatinine [Pending], Estimat Glomerular Filtration Rate [ Pending], Glucose Level [Pending], Calcium Level [Pending] Height (Feet): 5 Height (Inches): 2.00 Weight (Pounds): 121 Objective GENERAL: Chronic ill-appearing female, in no significant distress. alert off oxygen HEENT: Negative. NECK: Supple. LUNGS: moderate breath sounds without rhonchi or wheeze CARDIAC: S1, S2. Regular rate and rhythm. without MRG ABDOMEN: Soft and nontender. no distention EXTREMITIES: no CCE NEUROLOGICAL: Confused. but nonfocal reviewed and edited Joss Mixon MD Feb 18, 2019 09:19
--- NOTE | 2019-02-18 09:47 | NUR ---
NURSE NOTES: called IRC and spoke with tejinder for reconfirmation. awaiting for a call back from HD nurse.
[2019-02-18 12:00] VITALS: BP 121/47
--- NOTE | 2019-02-18 12:23 | Nephrology Progress Note ---
Assessment/Plan Plan CHF -improved with sequential HD. ESRD Needs anxiolytics pre HD. HD TTS HD today then DC home. Thyroid CA. Due to pt's insurance limited options. DW Dr. Alfredo . Limited options. Best is @ where she had her original biopsy. Subjective Subjective No new c/o Objective Objective Last 24 Hour Vital Signs Date Time Temp Pulse Resp B/P (MAP) Pulse Ox O2 Delivery O2 Flow Rate FiO2 02/18/19 09:00 Room Air 02/18/19 08:44 66 115/44 02/18/19 08:44 66 115/44 02/18/19 08:00 97.9 66 18 115/44 (67) 97 02/18/19 04:00 98.4 73 18 140/56 (84) 95 02/18/19 00:00 98.3 71 20 120/88 (99) 98 02/17/19 21:00 Room Air 02/17/19 20:55 68 117/63 02/17/19 20:00 98.6 69 18 118/89 (99) 99 02/17/19 16:00 97.7 70 19 115/52 (73) 95 Intake and Output 02/17/19 02/18/19 18:59 06:59 Intake Total 240 ml 120 ml Balance 240 ml 120 ml Intake Oral 240 ml 120 ml # Voids 4 2 # Bowel Movements 1 2 Laboratory Tests 02/17/19 16:25: Arterial Blood pH 7.464H, Arterial Blood Partial Pressure CO2 37.7, Arterial Blood Partial Pressure O2 71.2L, Arterial Blood HCO3 26.5H, Arterial Blood Oxygen Saturation 94.5L, Arterial Blood Base Excess 2.6H, Sonny Test Positive 02/18/19 08:21: White Blood Count 11.2H, Red Blood Count 3.17L, Hemoglobin 9.4L, Hematocrit 28.7L, Mean Corpuscular Volume 91, Mean Corpuscular Hemoglobin 29.7, Mean Corpuscular Hemoglobin Concent 32.7, Red Cell Distribution Width 15.3H, Platelet Count 193, Mean Platelet Volume 7.2, Neutrophils (%) (Auto) 66.7, Lymphocytes (%) (Auto) 19.7L, Monocytes (%) (Auto) 7.4, Eosinophils (%) (Auto) 4.4H, Basophils (%) (Auto) 1.8, Sodium Level 134L, Potassium Level 4.1, Chloride Level 98, Carbon Dioxide Level 27, Anion Gap 9, Blood Urea Nitrogen 97H , Creatinine 3.4H, Estimat Glomerular Filtration Rate , Glucose Level 114H, Calcium Level 8.3L Height (Feet): 5 Height (Inches): 2.00 Weight (Pounds): 121 Objective More alert. CV RR Lungs B crackles Abd SNT. BS + Lt. arm exceptionally edematous! Donis Escobar MD Feb 18, 2019 12:23
[2019-02-18] MEDS ORDERED: LIPITOR20 MG ORAL (13:11)
[2019-02-18] MEDS ORDERED: ELIQUIS2.5 MG PO (13:11)
[2019-02-18] MEDS ORDERED: COLACE100 MG ORAL (13:12)
[2019-02-18] MEDS ORDERED: STARLIX60 MG ORAL (13:13)
--- NOTE | 2019-02-18 14:35 | Infectious Diseases Prog Note ---
Assessment/Plan Assessment/Plan A 1. Hafnia UTI treated 2. leucocytosis improving 3. left arm cellulitis 4. renal failure on dialysis 5. diabetes mellitus 6. hypertension 7. rectal VRE colonization P 1.Observe off antibiotic 2. Agree with discharge Subjective ROS Limited/Unobtainable: Yes Constitutional: Reports: no symptoms, other - doing better Allergies: Coded Allergies: No Known Allergies (Unverified , 01/11/19) Objective Vital Signs Last 24 Hour Vital Signs Date Time Temp Pulse Resp B/P (MAP) Pulse Ox O2 Delivery O2 Flow Rate FiO2 02/18/19 12:00 98.1 73 20 121/47 (71) 95 02/18/19 09:00 Room Air 02/18/19 08:44 66 115/44 02/18/19 08:44 66 115/44 02/18/19 08:00 97.9 66 18 115/44 (67) 97 02/18/19 04:00 98.4 73 18 140/56 (84) 95 02/18/19 00:00 98.3 71 20 120/88 (99) 98 02/17/19 21:00 Room Air 02/17/19 20:55 68 117/63 02/17/19 20:00 98.6 69 18 118/89 (99) 99 02/17/19 16:00 97.7 70 19 115/52 (73) 95 Height (Feet): 5 Height (Inches): 2.00 Weight (Pounds): 121 General Appearance: no acute distress HEENT: mucous membranes moist Respiratory/Chest: lungs clear Cardiovascular: normal rate, other - Permacath Abdomen: soft, non tender Neurologic/Psychiatric: alert, responsive Laboratory Tests Test 02/17/19 16:25 02/18/19 08:21 Arterial Blood pH 7.464 (7.350-7.450) Arterial Blood Partial Pressure CO2 37.7 mmHg (35.0-45.0) Arterial Blood Partial Pressure O2 71.2 mmHg (75.0-100.0) L Arterial Blood HCO3 26.5 mmol/L (22.0-26.0) H Arterial Blood Oxygen Saturation 94.5 % (95-100) L Arterial Blood Base Excess 2.6 (-2-2) H Sonny Test Positive White Blood Count 11.2 K/UL (4.8-10.8) H Red Blood Count 3.17 M/UL (4.20-5.40) L Hemoglobin 9.4 G/DL (12.0-16.0) L Hematocrit 28.7 % (37.0-47.0) L Mean Corpuscular Volume 91 FL (80-99) Mean Corpuscular Hemoglobin 29.7 PG (27.0-31.0) Mean Corpuscular Hemoglobin Concent 32.7 G/DL (32.0-36.0) Red Cell Distribution Width 15.3 % (11.6-14.8) H Platelet Count 193 K/UL (150-450) Mean Platelet Volume 7.2 FL (6.5-10.1) Neutrophils (%) (Auto) 66.7 % (45.0-75.0) Lymphocytes (%) (Auto) 19.7 % (20.0-45.0) L Monocytes (%) (Auto) 7.4 % (1.0-10.0) Eosinophils (%) (Auto) 4.4 % (0.0-3.0) H Basophils (%) (Auto) 1.8 % (0.0-2.0) Sodium Level 134 MMOL/L (136-145) L Potassium Level 4.1 MMOL/L (3.5-5.1) Chloride Level 98 MMOL/L (98-107) Carbon Dioxide Level 27 MMOL/L (21-32) Anion Gap 9 mmol/L (5-15) Blood Urea Nitrogen 97 mg/dL (7-18) H Creatinine 3.4 MG/DL (0.55-1.30) H Estimat Glomerular Filtration Rate mL/min (>60) Glucose Level 114 MG/DL (74-106) H Calcium Level 8.3 MG/DL (8.5-10.1) L Current Medications Medications (Trade) Dose Ordered Sig/Eleanor Route PRN Reason Start Time Stop Time Status Last Admin Dose Admin Acetaminophen (Tylenol) 650 mg Q4H PRN ORAL Mild Pain (Pain Scale 1-3) 02/15/19 18:14 03/17/19 18:13 Amlodipine Besylate (Norvasc) 10 mg DAILY ORAL 02/16/19 09:00 03/11/19 08:59 02/17/19 10:23 Apixaban (Eliquis) 2.5 mg BID ORAL 02/16/19 09:00 03/15/19 17:59 02/17/19 17:06 Atorvastatin Calcium (Lipitor) 20 mg BEDTIME ORAL 02/15/19 21:00 03/10/19 20:59 02/17/19 20:50 Carvedilol (Coreg) 12.5 mg EVERY 12 HOURS ORAL 02/15/19 21:00 03/10/19 20:59 02/17/19 20:55 Dextrose (Dextrose 50%) 25 ml Q30M PRN IV Hypoglycemia 02/15/19 18:15 03/10/19 16:14 Dextrose (Dextrose 50%) 50 ml Q30M PRN IV Hypoglycemia 02/15/19 18:15 03/10/19 16:14 Docusate Sodium (Colace) 100 mg EVERY 12 HOURS ORAL 02/15/19 21:00 03/10/19 20:59 02/17/19 20:50 Epoetin Elijah (Epoetin Elijah(ESRD on dialysis)) 8,000 unit WED-WED-WED SUBQ 02/15/19 21:00 03/10/19 20:59 02/17/19 21:15 Insulin Aspart (NovoLOG) BEFORE MEALS AND HS SUBQ 02/15/19 21:00 03/13/19 11:29 02/18/19 11:30 Nateglinide (Starlix) 120 mg ACBREAKFAST ORAL 02/16/19 06:30 03/14/19 06:29 02/18/19 06:04 Ondansetron HCl (Zofran) 4 mg Q6H PRN IVP Nausea & Vomiting 02/15/19 18:15 03/17/19 18:14 Sodium Chloride 1,000 ml @ 500 mls/hr Q2H PRN IVLG sbp<90 during hd 02/18/19 10:53 02/18/19 23:59 Vitamin D (Vitamin D) 400 intlu DAILY ORAL 02/16/19 09:00 03/11/19 08:59 02/17/19 10:23 Sahil Flores MD Feb 18, 2019 14:35
[2019-02-18 16:00] VITALS: BP 103/59
--- NOTE | 2019-02-18 16:10 | NUR ---
CASE MANAGEMENT: REVIEW SI: ENCEPHALOPATHY . UTI T 97.3 HR 69 RR 18 BP 103/59 SAT 95% ROOM AIR WBC 11.2 H/H 9.4/28.7 NA 134 IS: EPOETIN SUBQ MWF COREG PO Q12HR ELIQUIS PO BID MED/SURG STATUS DCP: PATIENT IS FROM HOME
--- NOTE | 2019-02-18 17:58 | NUR ---
CASE MANAGEMENT: DCPNOTE PER MD ORDER PATIENT REFERRED TO HOME HEALTH REFERRAL FAXED TO [facility] [address] / FAX [phone] PER NURSING PATIENT O2 SATURATION 92-93% ON ROOM AIR
--- NOTE | 2019-02-18 18:00 | NUR ---
NURSE NOTES: discharge patient via w/c to their vehicle. daughter and other family members @ bedside. NO acute resp distress noted. O2 sat via r/a was assessed, it was 92-94%. Home health will be arranged by [facility] and home oxygen as well. discharge instructions given. home address verified. VSS. in stable condition. HD completed and Rx given.
--- NOTE | 2019-02-19 10:52 | Discharge Summary ---
Discharge Summary Discharge Summary _ DATE OF ADMISSION: 02/08/2019 DATE OF DISCHARGE: 02/18/2019 DISCHARGED BY: Dr. Mixon REASON FOR ADMISSION: 83 years old female with past medical history of GI bleeding, renal failure, chronic encephalopathy, urinary tract infection, hypertension, vitamin D deficiency, presented with worsening confusion. Patient was unable to be dialyzed despite last two attempts due to worsening agitation. There was concern of bladder infection with discomfort on urination. Patient herself denied chest pain. She denied headache. However , she did not appear to be a reliable historian, being mildly confused. No reports of vomiting or diarrhea. Upon evaluation vital signs were stable. Laboratory work-up revealed leukocytosis WBC 12.1, hemoglobin 8.3, hematocrit 25.6. Sodium 121 9. BUN 100, creatinine 3.6, consistent with known history of end-stage renal disease. Glucose 282. Lactic acid 1.0. Stable LFT. Troponin 0.017, pro BNP >35,000 CK 3O. EKG showed normal sinus rhythm, no acute ischemic changes. Albumin 2.3. Urinalysis revealed evidence of probable UTI. Chest x-ray demonstrated pulmonary edema. Perma-cath in good position. Patient subsequently was admitted for further management. CONSULTANTS: ID specialist Dr. Gamble microfilm operator Dr. Sharif ENT specialist Dr. Alfredo [facility] COURSE: Patient admitted to medical surgical floor. Assistant Sales Manager consulted for hemodialysis. Hemodialysis provided as per microfilm operator recommendations with close monitoring of volumes, renal parameters and electrolytes. Patient started on empiric antibiotics. ID specialist closely followed. Noted edema left upper extremity. Venous duplex of left arm revealed nonobstructive acute thrombus in the internal jugular vein. Blood cultures were negative. Urine culture revealed Hafnia. Patient noted to have left arm cellulitis, which was improving. Patient completed treatment with antibiotic as per ID specialist recommendation. Leukocytosis trending down, no fevers. An infectious disease specialist recommended to observe patient off antibiotics. Thyroid ultrasound revealed heterogeneous multinodular gland. Dominant nodules noted. Densely calcified lesion measuring 1.6 x 1.2 x 1.5 cm noted within the left lobe. Per discussion with pathologist from another facility patient had thyroid fine- needle aspiration and lymph node biopsy. Both show atypical findings, but no definite cancer. ENT consult was requested. Per ENT specialist, patient had thyroid tumor, but no documented pathology that it was cancer. Per ENT specialist, patient was stable to go home and return to MD who diagnosed patient with thyroid tumor for further management. Patient will need further work-up and possible surgery. Patient subsequently also undergone neck MRA, which revealed patent arterial structures of the neck, probable bilateral pleural effusion and positive atelectasis. No significant stenosis was noted. MRI of the orbit , face, neck did reveal heterogeneous appearance of the thyroid gland. Cervical spondylosis. Blood pressure was managed with calcium channel farrukh and beta-farrukh. Hemoglobin and hematocrit were closely monitored with goal to keep hemoglobin above 7. Patient was on Epogen. Blood sugar was managed with Starlix and sliding scale of insulin. Patient continued with vitamin D. Statin continued along with anticoagulation/Eliquis. CHF improved with sequential hemodialysis , however patient needed anxiolytic pre-dialysis. Supportive care provided. Bowel regimen instituted. Pain management was addressed as needed. Patient clinically stabilized and was ready for discharge home with home health services. FINAL DIAGNOSES: Toxic metabolic encephalopathy Urinary tract infection with Hafnia Left arm cellulitis Left upper extremity acute DVT Multinodular goiter Moderate protein calorie malnutrition End-stage renal disease, on hemodialysis Hypertension Vitamin D deficiency Hypercholesterolemia DISCHARGE MEDICATIONS: See Medication Reconciliation list. DISCHARGE INSTRUCTIONS: Patient was discharged home with home health services. Follow up with primary care provider in one week. Follow-up with outpatient hemodialysis Follow-up with the doctor who initially diagnosed thyroid mass for further work- up and management. I have been assigned to dictate discharge summary for this account. I was not involved in the patient's management. Jennie Sears NP Feb 19, 2019 10:52
== END 2019-02-18 18:00 | disposition home health service (06) | DRG 689 ==
LOC: EMR 13:15 → 2E 14:14 → EDBEDREQ 14:26 → 4E 02-15 17:59
PROC: 30233N1 Transfusion of Nonautologous Red Blood Cells into Peripheral Vein, Percutaneous Approach (ICD-10-PCS; principal; 2019-02-10)
DX: N39.0 Urinary tract infection, site not specified (principal); N18.6 End stage renal disease; G92 Toxic encephalopathy; E44.0 Moderate protein-calorie malnutrition; L03.114 Cellulitis of left upper limb; I82.622 Acute embolism and thrombosis of deep veins of left upper extremity; I13.2 Hypertensive heart and chronic kidney disease with heart failure and with stage 5 chronic kidney disease, or end stage renal disease; Z99.2 Dependence on renal dialysis; E78.00 Pure hypercholesterolemia, unspecified; B96.89 Other specified bacterial agents as the cause of diseases classified elsewhere; E04.2 Nontoxic multinodular goiter; E55.9 Vitamin D deficiency, unspecified; E11.22 Type 2 diabetes mellitus with diabetic chronic kidney disease; D63.1 Anemia in chronic kidney disease; Z79.82 Long term (current) use of aspirin; Z85.89 Personal history of malignant neoplasm of other organs and systems; D44.0 Neoplasm of uncertain behavior of thyroid gland; I50.9 Heart failure, unspecified
CPT/HCPCS: 36415; 36600; 70543; 70547; 71045; 76536; 80048; 80053; 81003; 82550; 82553; 82803; 82962; 83605; 83690; 83880; 84100; 84484; 85007; 85025; 86850; 86900; 86901; 86920; 87040; 87081; 87086; 87181; 93005; 93971; 94664; 96365; 99285; A9585; J1815